=== PATIENT | male | born 1980 | race African-American/Black ===

== ENCOUNTER 2016-09-22 11:00 | Emergency (ER) | payer OTHER ==
[~2016-09-22] VITALS: Ht 188 cm; Wt 204.1 kg
[~2016-09-22 11:00] MED LIST: AMIT50TA PO; ASPI81TA2 PO; INSU100C4 SQ; INSU100I13 SQ; INSU100V13 SQ; LISI-334 PO
[2016-09-22 11:38] LABS: BASO # 0.1 x10^3/uL (0.0-0.2); BASO % 1 % (0-3); EOS % 3 % (0-3); HEMATOCRIT 41.1 % (39.0-53.0); HEMOGLOBIN 13.1 g/dL (13.0-17.5); LYMPH % 20 % (24-48); MEAN CORPUSCULAR HEMOGLOBIN 25 pg (25-35); MEAN CORPUSCULAR HGB CONC 32 g/dL (31-37); MEAN CORPUSCULAR VOLUME 77 fL (79-100); MONO % 8 % (0-9); NEUT % 68 % (31-73); PLATELET COUNT 295 x10^3/uL (140-400); RED BLOOD COUNT 5.31 x10^6/uL (4.30-5.70); RED CELL DISTRIBUTION WIDTH 14.2 % (11.5-14.5)
[2016-09-22 11:43] LABS: CALCIUM 8.8 mg/dL (8.5-10.1); CREATININE 1.1 mg/dL (0.7-1.3); GFR 90.6
[2016-09-22] MEDS ORDERED: IV NORMAL SALINE 1000ML BAG 1,000 ML IV SCH (11:46)
[2016-09-22 11:49] LABS: ALBUMIN 3.4 g/dL (3.4-5.0); ALBUMIN/GLOBULIN RATIO 0.8 (1.0-1.7); TOTAL BILIRUBIN 0.2 mg/dL (0.2-1.0); TOTAL PROTEIN 7.9 g/dL (6.4-8.2)
--- NOTE | 2016-09-22 11:49 | PHYS DOC ---
Past Medical History Past Medical History: Diabetes-Type II, Hypertension Additional Past Medical Histor: Morbid obesity, neuropathy Past Surgical History: No Surgical History Alcohol Use: Occasionally Drug Use: Marijuana Adult General Chief Complaint Chief Complaint: HYPERGLYCEMIA HPI HPI Patient is a 36 year old female who presents with hyperglycemia. He reports a past 3 days his blood sugars been reading high on his home glucometer. He also reports polyuria, polydipsia, increased fatigue. He says he feels dehydrated. He has been taking his insulin as prescribed; he says he takes 30 units novolog 3 times a day. Diet has been typical with no significant change. Only other acute complaint is runny nose. Review of Systems Review of Systems Constitutional: Fatigue. Denies fever or chills Eyes: Denies change in visual acuity or eye pain HENT: Rhinorrhea. Denies sore throat Respiratory: Denies cough or shortness of breath Cardiovascular: Denies chest pain GI: Denies abdominal pain, nausea, vomiting, bloody stools or diarrhea : Denies dysuria or hematuria Musculoskeletal: Denies back pain or joint pain Endocrine: Polyuria, polydipsia Neurologic: Denies headache, focal weakness or sensory changes Current Medications Current Medications Current Medications Medications (Trade) Dose Ordered Sig/Navi Start Time Stop Time Status Last Admin Dose Admin Lactated Ringer's (Iv Lactated Ringers) 1,000 ml @ 1,000 mls/hr 1X ONCE 09/22/16 13:45 09/22/16 14:44 DC 09/22/16 14:19 1,000 MLS/HR Sodium Chloride 1,000 ml @ 1,000 mls/hr Q1H 09/22/16 11:46 09/22/16 12:45 DC 09/22/16 12:39 1,000 MLS/HR Allergies Allergies Allergies Coded Allergies Type Severity Reaction Last Updated Verified Sulfa (Sulfonamide Antibiotics) Allergy Intermediate 12/20/15 Yes adhesive tape Allergy Intermediate skin sensitive to tape 12/20/15 Yes Physical Exam Physical Exam Constitutional: Well developed, well nourished, no acute distress, non-toxic appearance HENT: Normocephalic, atraumatic, bilateral external ears normal Eyes: PERRL, EOMI, conjunctiva normal, no discharge Neck: Normal range of motion, no stridor Cardiovascular: Heart rate normal, regular rhythm, no murmur Lungs & Thorax: Bilateral breath sounds clear to auscultation Abdomen: Obese, bowel sounds normal, soft, non-distended, no TTP Skin: Warm, dry, no erythema, no rash Extremities: No obvious deformity, no edema Neurologic: Somnolent but easily aroused, oriented X 3, no gross deficits noted Current Patient Data Vital Signs Vital Signs Date Time Temp Pulse Resp B/P Pulse Ox O2 Delivery O2 Flow Rate FiO2 09/22/16 15:53 89 28 142/85 98 Room Air 09/22/16 11:10 97.6 97.6 Lab Values Laboratory Tests Test 09/22/16 11:25 09/22/16 11:37 09/22/16 13:39 09/22/16 14:20 White Blood Count 10.0x10^3/uL (4.0-11.0) Red Blood Count 5.31x10^6/uL (4.30-5.70) Hemoglobin 13.1g/dL (13.0-17.5) Hematocrit 41.1% (39.0-53.0) Mean Corpuscular Volume 77fL (79-100) L Mean Corpuscular Hemoglobin 25pg (25-35) Mean Corpuscular Hemoglobin Concent 32g/dL (31-37) Red Cell Distribution Width 14.2% (11.5-14.5) Platelet Count 295x10^3/uL (140-400) Neutrophils (%) (Auto) 68% (31-73) Lymphocytes (%) (Auto) 20% (24-48) L Monocytes (%) (Auto) 8% (0-9) Eosinophils (%) (Auto) 3% (0-3) Basophils (%) (Auto) 1% (0-3) Neutrophils # (Auto) 6.8x10^3uL (1.8-7.7) Lymphocytes # (Auto) 2.0x10^3/uL (1.0-4.8) Monocytes # (Auto) 0.8x10^3/uL (0.0-1.1) Eosinophils # (Auto) 0.3x10^3/uL (0.0-0.7) Basophils # (Auto) 0.1x10^3/uL (0.0-0.2) Sodium Level 135mmol/L (136-145) L Potassium Level 4.0mmol/L (3.5-5.1) Chloride Level 99mmol/L (98-107) Carbon Dioxide Level 29mmol/L (21-32) Anion Gap 7 (6-14) Blood Urea Nitrogen 17mg/dL (8-26) Creatinine 1.1mg/dL (0.7-1.3) Estimated GFR (Cockcroft-Gault) 90.6 BUN/Creatinine Ratio 15 (6-20) Glucose Level 338mg/dL (70-99) H Calcium Level 8.8mg/dL (8.5-10.1) Total Bilirubin 0.2mg/dL (0.2-1.0) Aspartate Amino Transferase (AST) 8U/L (15-37) L Alanine Aminotransferase (ALT) 21U/L (16-63) Alkaline Phosphatase 87U/L (46-116) Total Protein 7.9g/dL (6.4-8.2) Albumin 3.4g/dL (3.4-5.0) Albumin/Globulin Ratio 0.8 (1.0-1.7) L Glucose (Fingerstick) 339mg/dL (70-99) H 154mg/dL (70-99) H Urine Collection Type Unknown Urine Color Yellow Urine Clarity Clear Urine pH 5.5 Urine Specific Springer 1.025 Urine Protein Negativemg/dL (NEG-TRACE) Urine Glucose (UA) >=1000mg/dL (NEG) Urine Ketones (Stick) Negativemg/dL (NEG) Urine Blood Negative (NEG) Urine Nitrite Negative (NEG) Urine Bilirubin Negative (NEG) Urine Urobilinogen Dipstick 0.2mg/dL (0.2 mg/dL) Urine Leukocyte Esterase Negative (NEG) Urine RBC 0/HPF (0-2) Urine WBC 1-4/HPF (0-4) Urine Squamous Epithelial Cells Few/LPF Urine Bacteria Few/HPF (0-FEW) Urine Mucus Slight/LPF Test 09/22/16 15:45 Glucose (Fingerstick) 112mg/dL (70-99) H Laboratory Tests 09/22/16 11:25 Laboratory Tests 09/22/16 11:25 EKG EKG [] Radiology/Procedures Radiology/Procedures CXR: Impression: No acute thoracic findings. Course & Med Decision Making Course & Med Decision Making Pertinent Labs and Imaging studies reviewed. (See chart for details) Patient is 36-year-old male who presents with hyperglycemia. Had been given 50 units of NovoLog better prior to coming in, blood glucose level down to 300s on arrival to the ED. Will check labs to rule out serious complication such as DKA. IV fluid bolus ordered. Labs notable for for blood glucose level greater than 300. After fluid bolus, this had gone down to 154. Additional fluids ordered. Patient in ED to monitor blood sugar make sure that it did not drop to dangerous levels. Repeat fingerstick after several hours in ED was 112. Discussed results with patient. Discussed importance of following up with PCP for possible adjustment of diabetes meds; also discussed return precautions. Patient discharged home. Dragon Disclaimer Dragon Disclaimer This electronic medical record was generated, in whole or in part, using a voice recognition dictation system. Departure Departure Impression: Primary Impression: Hyperglycemia Disposition: 01 HOME, SELF-CARE Condition: IMPROVED Referrals: BALA BYRNES MD (PCP) Patient Instructions: Hyperglycemia Additional Instructions: Thank you for allowing us to provide care today in the Emergency Department. Schedule a follow up appointment with your primary care doctor. You may need your diabetes medications adjusted. Return promptly to the Emergency Department if you develop any new or concerning symptoms. LIZZETTE GOODMAN MD Sep 22, 2016 11:49
--- NOTE | 2016-09-22 13:10 | RAD ---
Indication: Hyperglycemia and short of air today. Hypertension. Technique: Two-view chest radiograph was obtained. Comparison is from June 23, 2012. Findings: The lungs are clear. The cardiopulmonary silhouette is within normal limits. There is no pleural effusion. The bony structures are intact. Leads overlie the patient. Impression: No acute thoracic findings.
[2016-09-22] MEDS ORDERED: IV RINGERS,LACTATED 1000ML 1,000 ML IV ONE (13:45)
[2016-09-22 14:59] LABS: BILIRUBIN,URINE NEGATIVE (NEG); GLUCOSE,URINE >=1000 mg/dL (NEG); NITRITE,URINE NEGATIVE (NEG); PH,URINE 5.5; PROTEIN,URINE NEGATIVE (NEG-TRACE); UROBILINOGEN,URINE 0.2 mg/dL (0.2 mg/dL)
[2016-09-22 15:13] LABS: BACTERIA,URINE FEW /HPF (0-FEW); RBC,URINE 0 /HPF (0-2); SQUAMOUS EPITHELIAL CELL,UR FEW /LPF
[2016-09-22 15:53] VITALS: BP 142/85
== END 2016-09-22 15:54 | disposition home or self-care (01) ==
LOC: ER 11:00
DX: E11.65 Type 2 diabetes mellitus with hyperglycemia (principal); R09.89 Other specified symptoms and signs involving the circulatory and respiratory systems; I10 Essential (primary) hypertension; E66.01 Morbid (severe) obesity due to excess calories; E11.40 Type 2 diabetes mellitus with diabetic neuropathy, unspecified; F12.10 Cannabis abuse, uncomplicated; Z91.048 Other nonmedicinal substance allergy status; Z79.4 Long term (current) use of insulin; Z88.2 Allergy status to sulfonamides; Z68.43 Body mass index [BMI] 50.0-59.9, adult
CPT/HCPCS: 36415; 71020; 80053; 81001; 82947; 85027; 96360; 96361; 99285; J7030; J7120

== ENCOUNTER 2017-02-01 16:15 | Emergency (ER) | payer OTHER ==
[2017-02-01 16:27] VITALS: BP 166/87
--- NOTE | 2017-02-01 16:29 | PHYS DOC ---
Past Medical History Past Medical History: Diabetes-Type II, Hypertension Additional Past Medical Histor: Morbid obesity, neuropathy Past Surgical History: No Surgical History Alcohol Use: Occasionally Drug Use: Marijuana Adult General Chief Complaint Chief Complaint: ASTHMA HPI HPI Patient is a 36 year old gentleman who presents with a history of productive cough for the past 4-5 days with shortness of air. Patient has a history of asthma and has been doing breathing treatments at home. Patient denies smoking. Patient denies any fevers. Patient denies any chest pain. Patient is diabetic and severe obese. Patient has no other complaints. Patient denies any cardiac history or any history of PE. Pertinent exam findings: Tachycardia Lungs: CTAB ED course: 1627: CXR ordered 1800: Patient reevaluated who is feeling much better and is ready to go home. Explained chest x-ray results the patient may need placement on antibiotics and steroids. Patient states he'll follow up was recently in 1-2 days Pertinent findings: Two-view chest x-ray shows left lower lobe infiltrates ED decision-making: After reviewing the chart, CC/HPI/PMH, PE, chest x-ray results I do not believe the patient is having a severe respiratory infection warranting further workup and admission at this time. Low suspicion for an acute PE with the well's score of 1.5. On re-examination patient states he feels better and desired to go home. I believe the patient is stable for discharge with oral antibiotics. Additional verbal discharge instructions were provided to the patient and that if symptoms get worse or any new symptoms arise or worsen the patient is to returned emergency room immediately. Review of Systems Review of Systems Constitutional: Denies fever or chills [] Eyes: Denies change in visual acuity, redness, or eye pain [] HENT: Denies nasal congestion or sore throat [] Respiratory: SOA, cough Cardiovascular: No additional information not addressed in HPI [] GI: Denies abdominal pain, nausea, vomiting, bloody stools or diarrhea [] : Denies dysuria or hematuria [] Musculoskeletal: Denies back pain or joint pain [] Integument: Denies rash or skin lesions [] Neurologic: Denies headache, focal weakness or sensory changes [] Endocrine: Denies polyuria or polydipsia [] Current Medications Current Medications Current Medications Medications (Trade) Dose Ordered Sig/Navi Start Time Stop Time Status Last Admin Dose Admin Dexamethasone Sodium Phosphate (Decadron) 10 mg 1X ONCE 02/01/17 16:30 02/01/17 16:31 DC 02/01/17 16:30 10 MG Allergies Allergies Allergies Coded Allergies Type Severity Reaction Last Updated Verified Sulfa (Sulfonamide Antibiotics) Allergy Intermediate 12/20/15 Yes adhesive tape Allergy Intermediate skin sensitive to tape 12/20/15 Yes Physical Exam Physical Exam Constitutional: Well developed, well nourished, no acute distress, non-toxic appearance. [] HENT: Normocephalic, atraumatic, bilateral external ears normal, oropharynx moist, no oral exudates, nose normal. [] Eyes: PERRLA, EOMI, conjunctiva normal, no discharge. [] Neck: Normal range of motion, no tenderness, supple, no stridor. [] Cardiovascular:Tachy, regular rhythm, no murmur [] Lungs & Thorax: Bilateral breath sounds clear to auscultation [] Abdomen: Bowel sounds normal, soft, no tenderness, no masses, no pulsatile masses. [] Skin: Warm, dry, no erythema, no rash. [] Back: No tenderness, no CVA tenderness. [] Extremities: No tenderness, no cyanosis, no clubbing, ROM intact, no edema. [] Neurologic: Alert and oriented X 3, normal motor function, normal sensory function, no focal deficits noted. [] Psychologic: Affect normal, judgement normal, mood normal. [] Current Patient Data Vital Signs Vital Signs Date Time Temp Pulse Resp B/P (MAP) Pulse Ox O2 Delivery O2 Flow Rate FiO2 02/01/17 16:27 98.7 99 20 95 Room Air 98.7 EKG EKG [] Radiology/Procedures Radiology/Procedures Two-view chest x-ray Infiltrates left lower lobe [] Course & Med Decision Making Course & Med Decision Making Pertinent Labs and Imaging studies reviewed. (See chart for details) [] Dragon Disclaimer Dragon Disclaimer This electronic medical record was generated, in whole or in part, using a voice recognition dictation system. Departure Departure Impression: Primary Impression: Left lower lobe pneumonia Disposition: 01 HOME, SELF-CARE Condition: IMPROVED Referrals: UNKNOWN PCP NAME (PCP) Patient Instructions: Pneumonia, Adult Scripts Azithromycin (ZITHROMAX PACKET) 1 Gm Packet 1 PACKET PO ONCE, #1 PACKET Prov: MARY ANN AARON DO 02/01/17 Prednisone (PREDNISONE) 50 Mg Tablet 1 TAB PO DAILY, #5 TAB Prov: MARY ANN AARON DO 02/01/17 Problem Qualifiers Primary Impression: Left lower lobe pneumonia Pneumonia type: due to unspecified organism Qualified Codes: J18.1 - Lobar pneumonia, unspecified organism MARY ANN AARON DO February 01, 2017 16:29
[2017-02-01] MEDS ORDERED: DEXAMETHASONE SOD PHOS 4 MG/ML VIAL IM ONE (16:30)
[2017-02-01] MEDS ORDERED: PRED50TA PO (18:09)
[2017-02-01] MEDS ORDERED: AZIT1PAC PO (18:09)
--- NOTE | 2017-02-02 08:51 | RAD ---
EXAM: CHEST 2 VIEWS History: Shortness of breath COMPARISON: 09/22/2016 TECHNIQUE: PA and lateral chest radiographs FINDINGS: The cardiomediastinal silhouette is within normal limits. The lungs are clear bilaterally. The costophrenic sulci are clear and well demarcated bilaterally. IMPRESSION: No radiographic evidence of an acute cardiopulmonary abnormality.
== END 2017-02-01 18:37 | disposition home or self-care (01) ==
LOC: ER 17:27
DX: J18.9 Pneumonia, unspecified organism (principal); E11.40 Type 2 diabetes mellitus with diabetic neuropathy, unspecified; I10 Essential (primary) hypertension; J45.909 Unspecified asthma, uncomplicated; E66.9 Obesity, unspecified; Z68.45 Body mass index [BMI] 70 or greater, adult; F12.10 Cannabis abuse, uncomplicated; Z88.2 Allergy status to sulfonamides; Z88.8 Allergy status to other drugs, medicaments and biological substances
CPT/HCPCS: 71020; 96372; 99284; J1100

== ENCOUNTER 2018-02-24 21:27 | Emergency (ER) | payer OTHER ==
[2018-02-24 22:18] LABS: ADD MAN DIFF? NO
[2018-02-24 22:21] LABS: BASO # 0.1 x10^3/uL (0.0-0.2); BASO % 1 % (0-3); EOS # 0.4 x10^3/uL (0.0-0.7); EOS % 3 % (0-3); HEMATOCRIT 41.8 % (39.0-53.0); HEMOGLOBIN 13.8 g/dL (13.0-17.5); LYMPH # 2.1 x10^3/uL (1.0-4.8); LYMPH % 17 % (24-48); MEAN CORPUSCULAR HEMOGLOBIN 26 pg (25-35); MEAN CORPUSCULAR HGB CONC 33 g/dL (31-37); MEAN CORPUSCULAR VOLUME 78 fL (79-100); MONO % 8 % (0-9); NEUT # 8.6 x10^3uL (1.8-7.7); NEUT % 71 % (31-73); PLATELET COUNT 339 x10^3/uL (140-400); RED BLOOD COUNT 5.34 x10^6/uL (4.30-5.70); RED CELL DISTRIBUTION WIDTH 15.2 % (11.5-14.5); WHITE BLOOD COUNT 12.1 x10^3/uL (4.0-11.0)
[2018-02-24] MEDS: fentaNYL PF VIAL 100 MCG/2 ML VIAL IV (22:27)
[2018-02-24] MEDS: ONDANSETRON PF 4 MG/2 ML VIAL. IV (22:28)
[2018-02-24 22:29] LABS: PROTHROMBIN TIME PATIENT 12.3 SEC (11.7-14.0)
[2018-02-24] MEDS ORDERED: CONTRAST GIVEN. MC (22:30)
[2018-02-24] MEDS: IOHEXOL 300 MG/ML 100ML VIAL. IV (22:30)
[2018-02-24 22:36] LABS: ANION GAP 10 (6-14); BLOOD UREA NITROGEN 13 mg/dL (8-26); BUN/CREATININE RATIO 13 (6-20); CALCIUM 8.2 mg/dL (8.5-10.1); CARBON DIOXIDE 27 mmol/L (21-32); CHLORIDE 100 mmol/L (98-107); GFR 100.7; GLUCOSE 305 mg/dL (70-99); POTASSIUM 4.2 mmol/L (3.5-5.1); SODIUM 137 mmol/L (136-145)
[2018-02-24 22:42] LABS: ALBUMIN 3.3 g/dL (3.4-5.0); ALBUMIN/GLOBULIN RATIO 0.8 (1.0-1.7); ALK PHOS 97 U/L (46-116); ALT (SGPT) 24 U/L (16-63); AST (SGOT) 10 U/L (15-37); CREATINE KINASE 87 U/L (39-308); LIPASE 43 U/L (73-393); TOTAL BILIRUBIN 0.4 mg/dL (0.2-1.0); TOTAL PROTEIN 7.6 g/dL (6.4-8.2)
[2018-02-24 22:44] LABS: TROPONINI < 0.017 ng/mL (0.000-0.055)
[2018-02-24 22:49] LABS: CKMB MASS 0.9 ng/mL (0.0-3.6); CREATINE KINASE 92 U/L (39-308)
[2018-02-25] MEDS: MORPHINE SULFATE 4 MG/ML DISP.SYRIN. IV (00:51)
[2018-02-25] MEDS: IV NORMAL SALINE 1000ML BAG 1,000 ML IV (00:52)
== END 2018-02-25 04:25 | disposition short-term general hospital (02) ==
LOC: ER 02-25 04:25
DX: K80.20 Calculus of gallbladder without cholecystitis without obstruction (principal); R07.89 Other chest pain; M79.671 Pain in right foot; I10 Essential (primary) hypertension; E11.40 Type 2 diabetes mellitus with diabetic neuropathy, unspecified; E66.01 Morbid (severe) obesity due to excess calories; J45.909 Unspecified asthma, uncomplicated; Z88.2 Allergy status to sulfonamides; Z88.8 Allergy status to other drugs, medicaments and biological substances; Z68.44 Body mass index [BMI] 60.0-69.9, adult; W01.0XXA Fall on same level from slipping, tripping and stumbling without subsequent striking against object, initial encounter; Y93.01 Activity, walking, marching and hiking; Y99.8 Other external cause status; Y92.89 Other specified places as the place of occurrence of the external cause
CPT/HCPCS: 36415; 71045; 71260; 73630; 74177; 80053; 82550; 82553; 83690; 84484; 85025; 85610; 93005; 96365; 96368; 96375; 99285-25; J0690; J2270; J2405; J3010; J3490; J7030; Q9967

== ENCOUNTER → 2018-03-23 | Outpatient (CLI) | payer OTHER | END | disposition home or self-care (01) | LOC: SLPLAB 18:59 | DX: G47.33 Obstructive sleep apnea (adult) (pediatric) (principal); G47.61 Periodic limb movement disorder; I10 Essential (primary) hypertension; E11.65 Type 2 diabetes mellitus with hyperglycemia; E78.00 Pure hypercholesterolemia, unspecified | CPT/HCPCS: 95810 ==

== ENCOUNTER 2018-04-22 02:56 | Emergency (ER) | payer OTHER ==
[2018-04-22 03:36] LABS: BILIRUBIN,URINE NEGATIVE (NEG); CLARITY,URINE CLEAR; COLOR,URINE YELLOW; GLUCOSE,URINE 100 mg/dL (NEG); NITRITE,URINE NEGATIVE (NEG); PH,URINE 5.5; PROTEIN,URINE 30 mg/dL (NEG-TRACE)
[2018-04-22 03:43] LABS: AMORPHOUS SEDIMENT,UR PRESENT /HPF; BACTERIA,URINE MANY /HPF (0-FEW); RBC,URINE 0 /HPF (0-2); SQUAMOUS EPITHELIAL CELL,UR MOD /LPF
[2018-04-22] MEDS: HYDROcodone/APAP 5/325MG 1 TAB TABLET PO (03:53)
[2018-04-22] MEDS: ORPHENADRINE CITRATE 60 MG/2 ML VIAL. IM (03:53)
[2018-04-22] MEDS: LIDOCAINE (700MG/PATCH) PATCH. TD (03:53)
[2018-04-22] MEDS: CEPHALEXIN 250 MG CAPSULE. PO (03:54)
[2018-04-22] MEDS: KETOROLAC 60 MG/2 ML INJ. IM (03:54)
== END 2018-04-22 04:03 | disposition home or self-care (01) ==
LOC: ER 02:56
DX: M54.5 Low back pain (principal); M79.605 Pain in left leg; J45.909 Unspecified asthma, uncomplicated; E11.40 Type 2 diabetes mellitus with diabetic neuropathy, unspecified; E78.00 Pure hypercholesterolemia, unspecified
CPT/HCPCS: 81001; 87086; 96372; 99284-25; J1885; J2360

== ENCOUNTER 2018-12-09 00:18 | Inpatient (IN) | payer OTHER ==
[~2018-12-09] VITALS: Ht 188 cm; Wt 237.2 kg
[~2018-12-09 00:18] MED LIST changes: +ASPI-630 PO; -ASPI81TA2 PO; +AZIT1PAC PO; +CEPH-264 PO; +HYDR-3164 PO; +LIDO700A39 TP; +NAPR-514 PO; +ORPH100T PO; +PRED50TA PO
[2018-12-09] MEDS ORDERED: ALBUTEROL SULFATE 2.5 MG/3 ML NEBU. CONT NEB ONE (01:00)
[2018-12-09] MEDS ORDERED: methylPREDNISolone SOD SUCC PF 125 MG/2 ML VIAL. IV ONE (01:00)
[2018-12-09 01:04] LABS: BASO # 0.1 x10^3/uL (0.0-0.2); BASO % 1 % (0-3); EOS % 0 % (0-3); HEMATOCRIT 37.9 % (39.0-53.0); HEMOGLOBIN 12.1 g/dL (13.0-17.5); LYMPH % 8 % (24-48); MEAN CORPUSCULAR HEMOGLOBIN 25 pg (25-35); MEAN CORPUSCULAR HGB CONC 32 g/dL (31-37); MEAN CORPUSCULAR VOLUME 78 fL (79-100); MONO # 1.2 x10^3/uL (0.0-1.1); MONO % 10 % (0-9); NEUT # 10.3 x10^3uL (1.8-7.7); NEUT % 82 % (31-73); PLATELET COUNT 391 x10^3/uL (140-400); RED BLOOD COUNT 4.88 x10^6/uL (4.30-5.70); RED CELL DISTRIBUTION WIDTH 15.6 % (11.5-14.5); WHITE BLOOD COUNT 12.6 x10^3/uL (4.0-11.0)
[2018-12-09 01:16] LABS: CALCIUM 8.6 mg/dL (8.5-10.1); CREATININE 0.9 mg/dL (0.7-1.3); GFR 113.1; POTASSIUM 4.5 mmol/L (3.5-5.1)
[2018-12-09 01:22] LABS: ALBUMIN 3.2 g/dL (3.4-5.0); ALBUMIN/GLOBULIN RATIO 0.7 (1.0-1.7); TOTAL BILIRUBIN 0.2 mg/dL (0.2-1.0); TOTAL PROTEIN 7.7 g/dL (6.4-8.2)
[2018-12-09 02:11] LABS: INFLUENZA A PATIENT NEGATIVE (NEGATIVE); INFLUENZA B PATIENT NEGATIVE (NEGATIVE)
[2018-12-09] MEDS ORDERED: DOXYCYCLINE HYCLATE 100 MG TABLET PO ONE (02:30)
[2018-12-09] MEDS ORDERED: cefTRIAXone IV Push 1 GM VIAL. IVP ONE (02:30)
--- NOTE | 2018-12-09 04:02 | NUR ---
The patient, GIO CORRALES, 38 y/o, M admitted by DAVID MARTÍNEZ MD, was given written information regarding hospital policies, unit procedures and contact persons. Patient arrived to room via wheelchair assisted by ED staff member. Valuables were checked and noted. Patient is currently laying in bed at this time. Patient was provided with a hospital gown and ice water upon patient request. Patient states that he is not experiencing any pain or shortness of breath at this time. This RN will continue to monitor the patient.
[2018-12-09 04:15] VITALS: BP 106/58
--- NOTE | 2018-12-09 05:08 | PHYS DOC ---
Past Medical History Past Medical History: Asthma, Diabetes-Type II, High Cholesterol, Hypertension Additional Past Medical Histor: Morbid obesity, neuropathy Past Surgical History: No Surgical History Alcohol Use: Occasionally Drug Use: Marijuana Adult General Chief Complaint Chief Complaint: SHORTNESS OF BREATH HPI HPI Patient is a 38 year old patient has a history of asthma coughing up yellow sputum having fevers having chest pain with coughing and quite short of breath overall. The chest pain is center of the chest feeling like pressure but also worse with coughing. Review of Systems Review of Systems Constitutional: Eyes: Denies change in visual acuity, redness, or eye pain [] HENT: D GI: Denies abdominal pain, nausea, vomiting, bloody stools or diarrhea [] : Denies dysuria or hematuria [] Musculoskeletal: Denies back pain or joint pain [] Neurologic: Denies headache, focal weakness or sensory changes [] All other systems were reviewed and found to be within normal limits, except as documented in this note. Current Medications Current Medications Current Medications Medications (Trade) Dose Ordered Sig/Navi Start Time Stop Time Status Last Admin Dose Admin Albuterol Sulfate (Ventolin Neb Soln) 10 mg 1X ONCE 12/09/18 01:00 12/09/18 01:01 DC 12/09/18 00:47 10 MG Methylprednisolone Sodium Succinate (SOLU-Medrol 125MG VIAL) 125 mg 1X ONCE 12/09/18 01:00 12/09/18 01:01 DC 12/09/18 01:13 125 MG Allergies Allergies Allergies Coded Allergies Type Severity Reaction Last Updated Verified Sulfa (Sulfonamide Antibiotics) Allergy Intermediate 12/20/15 Yes adhesive tape Allergy Intermediate skin sensitive to tape 12/20/15 Yes Physical Exam Physical Exam Constitutional: Well developed, well nourished, no acute distress, non-toxic appearance. [] HENT: Normocephalic, atraumatic, bilateral external ears normal, oropharynx moist, no oral exudates, nose normal. [] Eyes: PERRLA, conjunctiva normal, no discharge. [] Neck: Normal range of motion, no tenderness, supple, no stridor. [] Cardiovascular: mild tachy no definite murmurs. Lungs & Thorax: wheezing noted b/l. pt has frequent reactive cough. Abdomen: Bowel sounds normal, soft, no tenderness, no masses, no pulsatile masses. [] Skin: Warm, dry, no erythema, no rash. [] Back: No tenderness, no CVA tenderness. [] Extremities: No tenderness, no cyanosis, no clubbing, ROM intact, no edema. [] Neurologic: Alert and oriented X 3, normal motor function, normal sensory function, no focal deficits noted. [] Current Patient Data Vital Signs Vital Signs Date Time Temp Pulse Resp B/P (MAP) Pulse Ox O2 Delivery O2 Flow Rate FiO2 12/09/18 00:46 96 Room Air 12/09/18 00:28 116 143/65 (91) 12/09/18 00:25 99.5 30 99.5 Lab Values Laboratory Tests Test 12/09/18 00:56 White Blood Count 12.6 x10^3/uL (4.0-11.0) H Red Blood Count 4.88 x10^6/uL (4.30-5.70) Hemoglobin 12.1 g/dL (13.0-17.5) L Hematocrit 37.9 % (39.0-53.0) L Mean Corpuscular Volume 78 fL (79-100) L Mean Corpuscular Hemoglobin 25 pg (25-35) Mean Corpuscular Hemoglobin Concent 32 g/dL (31-37) Red Cell Distribution Width 15.6 % (11.5-14.5) H Platelet Count 391 x10^3/uL (140-400) Neutrophils (%) (Auto) 82 % (31-73) H Lymphocytes (%) (Auto) 8 % (24-48) L Monocytes (%) (Auto) 10 % (0-9) H Eosinophils (%) (Auto) 0 % (0-3) Basophils (%) (Auto) 1 % (0-3) Neutrophils # (Auto) 10.3 x10^3uL (1.8-7.7) H Lymphocytes # (Auto) 1.0 x10^3/uL (1.0-4.8) Monocytes # (Auto) 1.2 x10^3/uL (0.0-1.1) H Eosinophils # (Auto) 0.0 x10^3/uL (0.0-0.7) Basophils # (Auto) 0.1 x10^3/uL (0.0-0.2) Sodium Level 140 mmol/L (136-145) Potassium Level 4.5 mmol/L (3.5-5.1) Chloride Level 102 mmol/L (98-107) Carbon Dioxide Level 28 mmol/L (21-32) Anion Gap 10 (6-14) Blood Urea Nitrogen 20 mg/dL (8-26) Creatinine 0.9 mg/dL (0.7-1.3) Estimated GFR (Cockcroft-Gault) 113.1 BUN/Creatinine Ratio 22 (6-20) H Glucose Level 114 mg/dL (70-99) H Lactic Acid Level 1.7 mmol/L (0.4-2.0) Calcium Level 8.6 mg/dL (8.5-10.1) Total Bilirubin 0.2 mg/dL (0.2-1.0) Aspartate Amino Transferase (AST) 23 U/L (15-37) Alanine Aminotransferase (ALT) 34 U/L (16-63) Alkaline Phosphatase 103 U/L (46-116) Troponin I Quantitative < 0.017 ng/mL (0.000-0.055) JZ-Hap-F-Type Natriuretic Peptide 62 pg/mL (0-124) Total Protein 7.7 g/dL (6.4-8.2) Albumin 3.2 g/dL (3.4-5.0) L Albumin/Globulin Ratio 0.7 (1.0-1.7) L Influenza Type A Antigen Negative (NEGATIVE) Influenza Type B Antigen Negative (NEGATIVE) Laboratory Tests 12/09/18 00:56 Laboratory Tests 12/09/18 00:56 EKG EKG Sinus tach rate 113 no obvious acute ischemic changes noted interpreted by me time of encounter[] Radiology/Procedures Radiology/Procedures [] Impressions: Chest x-ray very poor quality film due to body habitus I thought I might suspect a small left basilar pneumonia however this is a questionable read awaiting final read Course & Med Decision Making Course & Med Decision Making Pertinent Labs and Imaging studies reviewed. (See chart for details) []38-year-old male with known asthma presenting with coughing having fevers at home short of breath wheezing on examination oxygen saturation is okay however patient appears moderately short of breath given his body habitus and his underlying asthma he had continued wheezing despite beta agonist therapy in the emergency room possible pneumonia on my read of chest x-ray final read is pending. Given his continued bronchospasm he will be admitted to the service of Dr. Ulloa for further evaluation and management. I did give some antibiotics while we are waiting for final read of x-ray. Cardiac workup in the emergency room was negative Elie Disclaimer Elie Disclaimer This electronic medical record was generated, in whole or in part, using a voice recognition dictation system. Departure Departure Impression: Primary Impression: Asthma exacerbation Disposition: ADMITTED INPATIENT Admitting Physician: Other Condition: STABLE Referrals: NO PCP (PCP) PIPER SALEEM MD Dec 09, 2018 05:08
--- NOTE | 2018-12-09 06:01 | EKG ---
[facility] [address] [place] [address] Test Date: 2018-12-09 Test Time: 00:30:27 Pat Name: GIO CORRALES Department: Room: 569 1 Gender: M [employer]: : 1980 Requested By: PIPER SALEEM Order Number: [id number] Reading MD: Kurt Vela MD Measurements Intervals [place] Rate: 113 P: 54 PA: 140 QRS: 17 QRSD: 90 T: 40 QT: 306 QTc: 419 Interpretive Statements SINUS TACHYCARDIA VENTRICULAR PREMATURE COMPLEX(ES) Electronically Signed On 12-11-2018 16:15:37 CDT by Kurt Vela MD
[2018-12-09 07:00] VITALS: BP 132/78
--- NOTE | 2018-12-09 07:35 | RAD ---
Indication:fever TECHNIQUE:Portable AP chest X-ray COMPARISON:03/03/2018 FINDINGS: Heart is normal in size. Bilateral prominent bronchial markings are seen with interstitial opacities. No focal consolidation. No pneumothorax or pleural effusion. Visualized bony thorax is within normal limits. IMPRESSION: Findings of bronchitis/atypical/viral infection. Electronically signed by: Yosi Shin DO (12/09/2018 7:32 AM) [facility]
[2018-12-09] MEDS: IPRATRPIUM/ALBUTEROL 0.5/2.5MG 3 ML NEBU. NEB SCH ×4 (07:53→19:39)
--- NOTE | 2018-12-09 08:07 | PDOC1 ---
History and Physical Date of Admission Date of Admission DATE: 12/09/18 TIME: 08:05 Identification/Chief Complaint Chief Complaint Shortness of breath Source Source: Chart review, Patient History of Present Illness History of Present Illness Mr Guillen is a 38 year old Male patient w/ PMHx asthma, HTN, DM2, morbid obesity, and newly diagnosed sleep apnea recently who presented to ED coughing up yellow sputum having fevers having chest pain with wheezing and quite short of breath overall. He has associated chest pain in center of the chest feeling like pressure but also worse with coughing and with palpation. He denies any GI or symptoms Past Medical History Cardiovascular: HTN Pulmonary: Asthma, Bronchitis GI: No pertinent hx Heme/Onc: No pertinent hx Hepatobiliary: No pertinent hx Psych: No pertinent hx Rheumatologic: No pertinent hx Infectious disease: No pertinent hx ENT: No pertinent hx Renal/: No pertinent hx Endocrine: Diabetes Dermatology: No pertinent hx Past Surgical History Past Surgical History: No pertinent history Family History Family History: Diabetes, High Cholestrol, Hypertension Social History Smoke: No ALCOHOL: none Drugs: None Current Medications Current Medications Current Medications Albuterol Sulfate (Ventolin Neb Soln) 10 mg 1X ONCE CONT NEB Last administered on 12/09/18at 00:47; Start 12/09/18 at 01:00; Stop 12/09/18 at 01:01 ; Status DC Methylprednisolone Sodium Succinate (SOLU-Medrol 125MG VIAL) 125 mg 1X ONCE IV Last administered on 12/09/18at 01:13; Start 12/09/18 at 01:00; Stop 12/09/18 at 01:01; Status DC Albuterol/ Ipratropium (Duoneb) 3 ml RTQID NEB Last administered on 12/09/18at 07:53; Start 12/09/18 at 08:00; Stop 12/10/18 at 07:59 Ceftriaxone Sodium (Rocephin) 1 gm 1X ONCE IVP Last administered on 12/09/18at 02:33; Start 12/09/18 at 02:30; Stop 12/09/18 at 02:31; Status DC Doxycycline Hyclate (Vibra-Tab) 100 mg 1X ONCE PO Last administered on at 02:33; Start 12/09/18 at 02:30; Stop 12/09/18 at 02:31; Status DC Active Scripts Active Keflex (Cephalexin) 500 Mg Capsule 1 Cap PO TID [place] 5-325 Tablet (Acetaminophen/Hydrocodone Bitart) 1 Each Tablet 1 Tab PO PRN Q6HRS PRN 5 Days Orphenadrine Citrate 100 Mg Tablet.er 1 Tab PO BID PRN Naproxen 500 Mg Tablet 1 Tab PO BID PRN Lidocaine 1 Each Adh..patch 1 Each TP DAILY PRN 5 Days Apply to affected area for 12 hours then remove and keep off for 12 hours. May repeat. Zithromax Packet (Azithromycin) 1 Gm Packet 1 Packet PO ONCE Prednisone 50 Mg Tablet 1 Tab PO DAILY Reported Lantus Solostar (Insulin Glargine,Hum.rec.anlog) 100 Unit/1 Ml Insuln.pen 30 Unit SQ BID Amitriptyline Hcl 50 Mg Tablet 1 Tab PO QHS Novolog (Insulin Aspart) 100 Unit/1 Ml Cartridge 30 Unit SQ TIDAC Aspirin 81 Mg Tab.chew 1 Tab PO DAILY Lisinopril 20 Mg Tablet 1 Tab PO DAILY Allergies Allergies: Coded Allergies: Sulfa (Sulfonamide Antibiotics) (Verified Allergy, Intermediate, 12/20/15) adhesive tape (Verified Allergy, Intermediate, skin sensitive to tape, ) ROS General: YES: Fatigue, Malaise; No: Chills, Night Sweats, Appetite, Other PSYCHOLOGICAL ROS: No: Anxiety, Behavioral Disorder, Concentration difficultie , Decreased libido, Depression, Disorientation, Hallucinations, Hostility, Irritablity, Memory difficulties, Mood Swings, Obsessive thoughts, Physical abuse, Sexual abuse, Sleep disturbances, Suicidal ideation, Other Eyes: No Blurry vision, No Decreased vision, No Double vision, No Dry eyes, No Excessive tearing, No Eye Pain, No Itchy Eyes, No Loss of vision, No Photophobia , No Scotomata, No Uses contacts, No Uses glasses, No Other HEENT: No: Heacaches, Visual Changes, Hearing change, Nasal congestion, Nasal discharge, Oral lesions, Sinus pain, Sore Throat, Epistaxis, Sneezing, Snoring, Tinnitus, Vertigo, Vocal changes, Other ALLERGY AND IMMUNOLOGY: No: Hives, Insect Bite Sensitivity, Itchy/Watery Eyes, Nasal Congestion, Post Nasal Drip, Seasonal Allergies, Other Hematological and Lymphatic: No: Bleeding Problems, Blood Clots, Blood Transfusions, Brusing, Night Sweats, Pallor, Swollen Lymph Nodes, Other ENDOCRINE: No: Breast Changes, Galactorrhea, Hair Pattern Changes, Hot Flashes , Malaise/lethargy, Mood Swings, Palpitations, Polydipsia/polyuria, Skin Changes , Temperature Intolerance, Unexpected Weight Changes, Other Breast: No New/Changing Breast Lumps, No Nipple changes, No Nipple discharge, No Other Respiratory: YES: Cough, Pleuritic Pain, Shortness of breath, SOB with excertion, Sputum Changes, Tachypnea, Wheezing; No: Hemoptysis, Orthopnea, Stridor, Other Cardiovascular: yes Chest Pain; No Palpitations, No Orthopnea, No Paroxysmal Noc. Dyspnea, No Edema, No Lt Headedness, No Other Gastrointestinal: Yes Nausea; No Vomiting, No Abdominal Pain, No Diarrhea, No Constipation, No Melena, No Hematochezia, No Other Genitourinary: No Dysuria, No Frequency, No Incontinence, No Hematuria, No Retention, No Discharge, No Urgency, No Pain, No Flank Pain, No Other, No , No , No , No , No , No , No Musculoskeletal: No Gait Disturbance, No Joint Pain, No Joint Stiffness, No Joint Swelling, No Muscle Pain, No Muscular Weakness, No Pain In:, No Swelling In:, No Other Neurological: No Behavorial Changes, No Bowel/Bladder ControlChng, No Confusion , No Dizziness, No Gait Disturbance, No Headaches, No Impaired Coord/balance, No Memory Loss, No Numbness/Tingling, No Seizures, No Speech Problems, No Tremors, No Visual Changes, No Weakness, No Other Skin: No Dry Skin, No Eczema, No Hair Changes, No Lumps, No Mole Changes, No Mottling, No Nail Changes, No Pruritus, No Rash, No Skin Lesion Changes, No Other, No Acne Vitals Vitals Vital Signs Date Time Temp Pulse Resp B/P (MAP) Pulse Ox O2 Delivery O2 Flow Rate FiO2 12/09/18 07:53 98 Room Air 12/09/18 04:15 98.8 106 22 106/58 (74) 98.8 Labs Labs Laboratory Tests Test 12/09/18 00:56 12/09/18 07:52 White Blood Count 12.6 x10^3/uL (4.0-11.0) Red Blood Count 4.88 x10^6/uL (4.30-5.70) Hemoglobin 12.1 g/dL (13.0-17.5) Hematocrit 37.9 % (39.0-53.0) Mean Corpuscular Volume 78 fL (79-100) Mean Corpuscular Hemoglobin 25 pg (25-35) Mean Corpuscular Hemoglobin Concent 32 g/dL (31-37) Red Cell Distribution Width 15.6 % (11.5-14.5) Platelet Count 391 x10^3/uL (140-400) Neutrophils (%) (Auto) 82 % (31-73) Lymphocytes (%) (Auto) 8 % (24-48) Monocytes (%) (Auto) 10 % (0-9) Eosinophils (%) (Auto) 0 % (0-3) Basophils (%) (Auto) 1 % (0-3) Neutrophils # (Auto) 10.3 x10^3uL (1.8-7.7) Lymphocytes # (Auto) 1.0 x10^3/uL (1.0-4.8) Monocytes # (Auto) 1.2 x10^3/uL (0.0-1.1) Eosinophils # (Auto) 0.0 x10^3/uL (0.0-0.7) Basophils # (Auto) 0.1 x10^3/uL (0.0-0.2) Sodium Level 140 mmol/L (136-145) Potassium Level 4.5 mmol/L (3.5-5.1) Chloride Level 102 mmol/L (98-107) Carbon Dioxide Level 28 mmol/L (21-32) Anion Gap 10 (6-14) Blood Urea Nitrogen 20 mg/dL (8-26) Creatinine 0.9 mg/dL (0.7-1.3) Estimated GFR (Cockcroft-Gault) 113.1 BUN/Creatinine Ratio 22 (6-20) Glucose Level 114 mg/dL (70-99) Lactic Acid Level 1.7 mmol/L (0.4-2.0) Calcium Level 8.6 mg/dL (8.5-10.1) Total Bilirubin 0.2 mg/dL (0.2-1.0) Aspartate Amino Transf (AST/SGOT) 23 U/L (15-37) Alanine Aminotransferase (ALT/SGPT) 34 U/L (16-63) Alkaline Phosphatase 103 U/L (46-116) Troponin I Quantitative < 0.017 ng/mL (0.000-0.055) QW-Yag-T-Type Natriuretic Peptide 62 pg/mL (0-124) Total Protein 7.7 g/dL (6.4-8.2) Albumin 3.2 g/dL (3.4-5.0) Albumin/Globulin Ratio 0.7 (1.0-1.7) Influenza Type A Antigen Negative (NEGATIVE) Influenza Type B Antigen Negative (NEGATIVE) Glucose (Fingerstick) 398 mg/dL (70-99) Laboratory Tests Test 12/09/18 00:56 12/09/18 07:52 White Blood Count 12.6 x10^3/uL (4.0-11.0) Red Blood Count 4.88 x10^6/uL (4.30-5.70) Hemoglobin 12.1 g/dL (13.0-17.5) Hematocrit 37.9 % (39.0-53.0) Mean Corpuscular Volume 78 fL (79-100) Mean Corpuscular Hemoglobin 25 pg (25-35) Mean Corpuscular Hemoglobin Concent 32 g/dL (31-37) Red Cell Distribution Width 15.6 % (11.5-14.5) Platelet Count 391 x10^3/uL (140-400) Neutrophils (%) (Auto) 82 % (31-73) Lymphocytes (%) (Auto) 8 % (24-48) Monocytes (%) (Auto) 10 % (0-9) Eosinophils (%) (Auto) 0 % (0-3) Basophils (%) (Auto) 1 % (0-3) Neutrophils # (Auto) 10.3 x10^3uL (1.8-7.7) Lymphocytes # (Auto) 1.0 x10^3/uL (1.0-4.8) Monocytes # (Auto) 1.2 x10^3/uL (0.0-1.1) Eosinophils # (Auto) 0.0 x10^3/uL (0.0-0.7) Basophils # (Auto) 0.1 x10^3/uL (0.0-0.2) Sodium Level 140 mmol/L (136-145) Potassium Level 4.5 mmol/L (3.5-5.1) Chloride Level 102 mmol/L (98-107) Carbon Dioxide Level 28 mmol/L (21-32) Anion Gap 10 (6-14) Blood Urea Nitrogen 20 mg/dL (8-26) Creatinine 0.9 mg/dL (0.7-1.3) Estimated GFR (Cockcroft-Gault) 113.1 BUN/Creatinine Ratio 22 (6-20) Glucose Level 114 mg/dL (70-99) Lactic Acid Level 1.7 mmol/L (0.4-2.0) Calcium Level 8.6 mg/dL (8.5-10.1) Total Bilirubin 0.2 mg/dL (0.2-1.0) Aspartate Amino Transf (AST/SGOT) 23 U/L (15-37) Alanine Aminotransferase (ALT/SGPT) 34 U/L (16-63) Alkaline Phosphatase 103 U/L (46-116) Troponin I Quantitative < 0.017 ng/mL (0.000-0.055) RL-Jcv-V-Type Natriuretic Peptide 62 pg/mL (0-124) Total Protein 7.7 g/dL (6.4-8.2) Albumin 3.2 g/dL (3.4-5.0) Albumin/Globulin Ratio 0.7 (1.0-1.7) Influenza Type A Antigen Negative (NEGATIVE) Influenza Type B Antigen Negative (NEGATIVE) Glucose (Fingerstick) 398 mg/dL (70-99) VTE Prophylaxis Ordered VTE Prophylaxis Devices: Yes VTE Pharmacological Prophylaxi: No Assessment/Plan Assessment/Plan A/P: Acute asthma exacerbation - will cont steroids, nebs, add pulmicort. 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 Given IVF Chest pain - EKG and trop negative, seems pleuritic HTN - will continue home meds DM2 - on 30u BID lantus and 35u TID novolog with frequent hypoglycemia, I will reduce his novolog dosing and add bolus plus sliding scale to 25U TID and high sliding Morbid obesity - counseled on weight loss Newly diagnosed sleep apnea - he would like a repeat CPAP titration tonight FEN - ADA diet PPX - SCDs FULL CODE Inpatient for acute asthma exacerbation DAVID MARTÍNEZ MD Dec 09, 2018 08:07
--- NOTE | 2018-12-09 09:52 | NUR ---
SW following for discharge planning. Discussed with RN, pt is from home with girlfriend. RN advised no SW needs at this time. SW will continue to follow.
[2018-12-09 11:00] VITALS: BP 140/78
[2018-12-09] MEDS ORDERED: HYDROcodone/APAP 5/325MG 1 TAB TABLET PO PRN (11:00)
[2018-12-09] MEDS ORDERED: DEXTROSE 50% 25 GM / 50ML DISP.SYRIN. IV PRN (11:00)
--- NOTE | 2018-12-09 11:00 | NUR ---
Patient was placed on a bariatric bed at 1030. His blood glucose at 0700 was 398 then at 1100 it went up to 459. MD informed and ordered were received. Patient remains asymptomatic at this time.
[2018-12-09] MEDS ORDERED: NON FORMULARY ITEM (Insulin Aspart (Novolog) 10 UNIT) SQ SCH (11:30)
[2018-12-09] MEDS ORDERED: INSULIN LISPRO 300 UNITS/3 ML INSULN.PEN. SQ SCH (12:00)
[2018-12-09] MEDS: LISINOPRIL 20 MG TABLET PO SCH (12:34)
[2018-12-09] MEDS: INSULIN LISPRO 300 UNITS/3 ML INSULN.PEN. SQ SCH ×4 (12:38→18:59)
[2018-12-09] MEDS: INSULIN GLARGINE 300 UNITS/3 ML INSULN.PEN. SQ SCH ×2 (14:15→21:30)
[2018-12-09 15:00] VITALS: BP 103/64
[2018-12-09] MEDS: DOXYCYCLINE HYCLATE 100 MG TABLET PO SCH (18:55)
[2018-12-09 19:00] VITALS: BP 128/83
[2018-12-09] MEDS: BUDESONIDE 0.5 MG/2 ML NEBU. NEB SCH (19:39)
[2018-12-09] MEDS ORDERED: FAMO40TA4 PO (21:25)
[2018-12-09] MEDS ORDERED: TRAZ-86 PO (21:25)
[2018-12-09] MEDS ORDERED: IBUP800T19 PO (21:25)
[2018-12-09] MEDS ORDERED: FLUT16SP NAS (21:25)
[2018-12-09] MEDS ORDERED: SERT100T8 PO (21:25)
[2018-12-09] MEDS ORDERED: ATOR40TA59 PO (21:25)
[2018-12-09] MEDS: AMITRIPTYLINE HCL 50 MG TABLET PO SCH (21:27)
[2018-12-09 23:00] VITALS: BP_SYST 128; BP_SYST 144; BP_DIAS 70; BP_DIAS 90
[2018-12-10] VITALS (9 sets, daily range): BP systolic 110–173; BP diastolic 65–98
--- NOTE | 2018-12-10 08:01 | PDOC ---
PROGRESS NOTES Chief Complaint Chief Complaint A/P: Acute asthma exacerbation - will cont steroids, nebs, add pulmicort. 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 Given IVF Chest pain - EKG and trop negative, seems pleuritic. He states he has been gaining weight, Echo shows normal cardiac function HTN - will continue home meds DM2 - on 30u BID lantus and 35u TID novolog with frequent hypoglycemia, I will reduce his novolog dosing and add bolus plus sliding scale to 25U TID and high sliding Morbid obesity - counseled on weight loss Newly diagnosed sleep apnea - BIPAP overnight. Unfortunately, apparently his insurance has not approved this FEN - ADA diet PPX - SCDs FULL CODE Inpatient for acute asthma exacerbation, may have element of cor pulmonale, will consult pulm on his case. May need CT chest History of Present Illness History of Present Illness Mr Guillen is a 38 year old Male patient w/ PMHx asthma, HTN, DM2, morbid obesity, and newly diagnosed sleep apnea recently who presented to ED coughing up yellow sputum having fevers having chest pain with wheezing and quite short of breath overall. He has associated chest pain in center of the chest feeling like pressure but also worse with coughing and with palpation. He denies any GI or symptoms Feeling a bit better today. Going for CTPA per pulmonology. ECHO: The left ventricular systolic function is normal and the ejection fraction is within normal range. The Ejection Fraction is 60-65%. There is normal LV segmental wall motion. Technically very difficult study despite contrast use. Unable to visualize majority of the RV and valves. Vitals Vitals Vital Signs Date Time Temp Pulse Resp B/P (MAP) Pulse Ox O2 Delivery O2 Flow Rate FiO2 12/10/18 05:51 BiPAP/CPAP 12/10/18 03:00 98.0 94 20 113/73 (86) 98 98.0 Physical Exam General: Alert, Oriented X3, Cooperative, mild distress Heart: Regular rate, Normal S1, Normal S2 Lungs: Other (Scattered bilateral wheezing) Abdomen: Normal bowel sounds, Soft Extremities: No clubbing, No cyanosis Skin: No rashes, No breakdown Labs LABS Laboratory Tests Test 3/20/19 11:28 12/09/18 16:57 12/09/18 20:48 Glucose (Fingerstick) 459 mg/dL (70-99) 322 mg/dL (70-99) 397 mg/dL (70-99) Comment Review of Relevant I have reviewed the following items lacho (where applicable) has been applied. Labs Laboratory Tests Test 12/09/18 00:56 12/09/18 07:52 12/09/18 11:28 12/09/18 16:57 White Blood Count 12.6 x10^3/uL (4.0-11.0) Red Blood Count 4.88 x10^6/uL (4.30-5.70) Hemoglobin 12.1 g/dL (13.0-17.5) Hematocrit 37.9 % (39.0-53.0) Mean Corpuscular Volume 78 fL (79-100) Mean Corpuscular Hemoglobin 25 pg (25-35) Mean Corpuscular Hemoglobin Concent 32 g/dL (31-37) Red Cell Distribution Width 15.6 % (11.5-14.5) Platelet Count 391 x10^3/uL (140-400) Neutrophils (%) (Auto) 82 % (31-73) Lymphocytes (%) (Auto) 8 % (24-48) Monocytes (%) (Auto) 10 % (0-9) Eosinophils (%) (Auto) 0 % (0-3) Basophils (%) (Auto) 1 % (0-3) Neutrophils # (Auto) 10.3 x10^3uL (1.8-7.7) Lymphocytes # (Auto) 1.0 x10^3/uL (1.0-4.8) Monocytes # (Auto) 1.2 x10^3/uL (0.0-1.1) Eosinophils # (Auto) 0.0 x10^3/uL (0.0-0.7) Basophils # (Auto) 0.1 x10^3/uL (0.0-0.2) Sodium Level 140 mmol/L (136-145) Potassium Level 4.5 mmol/L (3.5-5.1) Chloride Level 102 mmol/L (98-107) Carbon Dioxide Level 28 mmol/L (21-32) Anion Gap 10 (6-14) Blood Urea Nitrogen 20 mg/dL (8-26) Creatinine 0.9 mg/dL (0.7-1.3) Estimated GFR (Cockcroft-Gault) 113.1 BUN/Creatinine Ratio 22 (6-20) Glucose Level 114 mg/dL (70-99) Lactic Acid Level 1.7 mmol/L (0.4-2.0) Calcium Level 8.6 mg/dL (8.5-10.1) Total Bilirubin 0.2 mg/dL (0.2-1.0) Aspartate Amino Transf (AST/SGOT) 23 U/L (15-37) Alanine Aminotransferase (ALT/SGPT) 34 U/L (16-63) Alkaline Phosphatase 103 U/L (46-116) Troponin I Quantitative < 0.017 ng/mL (0.000-0.055) AY-Vup-S-Type Natriuretic Peptide 62 pg/mL (0-124) Total Protein 7.7 g/dL (6.4-8.2) Albumin 3.2 g/dL (3.4-5.0) Albumin/Globulin Ratio 0.7 (1.0-1.7) Influenza Type A Antigen Negative (NEGATIVE) Influenza Type B Antigen Negative (NEGATIVE) Glucose (Fingerstick) 398 mg/dL (70-99) 459 mg/dL (70-99) 322 mg/dL (70-99) Test 12/09/18 20:48 Glucose (Fingerstick) 397 mg/dL (70-99) Laboratory Tests Test 12/09/18 11:28 12/09/18 16:57 12/09/18 20:48 Glucose (Fingerstick) 459 mg/dL (70-99) 322 mg/dL (70-99) 397 mg/dL (70-99) Microbiology 12/09/18 Blood Culture - Preliminary, Resulted NO GROWTH AFTER 1 DAY Medications Current Medications Albuterol Sulfate (Ventolin Neb Soln) 10 mg 1X ONCE CONT NEB Last administered on 12/09/18at 00:47; Start 12/09/18 at 01:00; Stop 12/09/18 at 01:01 ; Status DC Methylprednisolone Sodium Succinate (SOLU-Medrol 125MG VIAL) 125 mg 1X ONCE IV Last administered on 12/09/18at 01:13; Start 12/09/18 at 01:00; Stop 12/09/18 at 01:01; Status DC Albuterol/ Ipratropium (Duoneb) 3 ml RTQID NEB Last administered on 12/09/18at 11:11; Start 12/09/18 at 08:00; Stop 12/09/18 at 15:10; Status DC Ceftriaxone Sodium (Rocephin) 1 gm 1X ONCE IVP Last administered on 12/09/18at 02:33; Start 12/09/18 at 02:30; Stop 12/09/18 at 02:31; Status DC Doxycycline Hyclate (Vibra-Tab) 100 mg 1X ONCE PO Last administered on at 02:33; Start 12/09/18 at 02:30; Stop 12/09/18 at 02:31; Status DC Amitriptyline HCl (Elavil) 50 mg QHS PO Last administered on 12/09/18at 21:27; Start 12/09/18 at 21:00 Aspirin (Children'S Aspirin) 81 mg DAILY PO ; Start 12/10/18 at 09:00 Acetaminophen/ Hydrocodone Bitart (Lortab 5/325) 1 tab PRN Q6HRS PRN PO PAIN; Start 12/09/18 at 11:00 Insulin Glargine (Lantus) 30 units BID SQ Last administered on 12/09/18at 21:30 ; Start 12/09/18 at 11:30; Stop 12/10/18 at 07:59; Status DC Lisinopril (Prinivil) 20 mg DAILY PO Last administered on 12/09/18at 12:34; Start 12/09/18 at 11:30 Non-Formulary Medication (Insulin Aspart (Novolog)) 10 unit TIDAC SQ ; Start at 11:30; Stop 12/09/18 at 11:30; Status DC Insulin Human Lispro (HumaLOG) 0-7 UNITS TIDWMEALS SQ Last administered on 12/09at 18:59; Start 12/09/18 at 12:00 Dextrose (Dextrose 50%-Water Syringe) 12.5 gm PRN Q15MIN PRN IV SEE COMMENTS; Start 12/09/18 at 11:00 Insulin Human Lispro (HumaLOG) 10 units TIDWMEALS SQ ; Start 12/09/18 at 12:00; Stop 12/09/18 at 12:00; Status DC Insulin Human Lispro (HumaLOG) 25 units TIDWMEALS SQ Last administered on at 18:59; Start 12/09/18 at 12:00; Stop 12/10/18 at 08:00; Status DC Budesonide (Pulmicort) 0.5 mg RTBID NEB Last administered on 12/09/18at 19:39; Start 12/09/18 at 20:00 Albuterol/ Ipratropium (Duoneb) 3 ml RTQID NEB Last administered on 12/09/18at 19:39; Start 12/09/18 at 16:00 Doxycycline Hyclate (Vibra-Tab) 100 mg BID PO Last administered on 12/09/18at 18 :55; Start 12/09/18 at 15:30 Prednisone (Prednisone) 20 mg DAILY PO ; Start 12/10/18 at 09:00 Insulin Glargine (Lantus) 35 units BID SQ ; Start 12/10/18 at 09:00; Status UNV Insulin Human Lispro (HumaLOG) 30 units TIDWMEALS SQ ; Start 12/10/18 at 08:00; Status UNV Active Scripts Active [place] 5-325 Tablet (Acetaminophen/Hydrocodone Bitart) 1 Each Tablet 1 Tab PO PRN Q6HRS PRN 5 Days Orphenadrine Citrate 100 Mg Tablet.er 1 Tab PO BID PRN Naproxen 500 Mg Tablet 1 Tab PO BID PRN Reported Atorvastatin Calcium 40 Mg Tablet 40 Mg PO QHS Sertraline Hcl 100 Mg Tablet 100 Mg PO DAILY Fluticasone Propionate Nasal [place] (Fluticasone Propionate) 16 Gm [place].susp 2 Spr NIRMAL DAILY Famotidine 40 Mg Tablet 40 Mg PO DAILY Ibuprofen 800 Mg Tablet 1 Tab PO PRN Q6-8HRS PRN Trazodone Hcl 100 Mg Tablet 100 Mg PO PRN QHS PRN Lantus Solostar (Insulin Glargine,Hum.rec.anlog) 100 Unit/1 Ml Insuln.pen 30 Unit SQ BID Amitriptyline Hcl 50 Mg Tablet 2 Tab PO QHS Novolog (Insulin Aspart) 100 Unit/1 Ml Cartridge 50 Unit SQ TIDAC Aspirin 81 Mg Tab.chew 1 Tab PO DAILY Lisinopril 20 Mg Tablet 2 Tab PO DAILY Vitals/I & O Vital Sign - Last 24 Hours 3/20/19 3/20/19 3/20/19 3/20/19 11:00 11:11 12:34 15:00 Temp 98.2 97.4 98.2 97.4 Pulse 106 106 101 Resp 24 20 B/P (MAP) 140/78 (98) 140/78 103/64 (77) Pulse Ox 92 97 O2 Delivery Room Air Room Air Room Air 12/09/18 12/09/18 12/09/18 12/09/18 15:21 19:00 19:40 19:40 Temp 98.0 98.0 Pulse 100 Resp 20 B/P (MAP) 128/83 (98) Pulse Ox 99 O2 Delivery Room Air Room Air Room Air Room Air 12/09/18 12/09/18 12/10/18 12/10/18 20:00 23:00 01:23 03:00 Temp 98.0 98.0 98.0 98.0 Pulse 98 94 Resp 20 20 B/P (MAP) 144/90 (108) 113/73 (86) Pulse Ox 100 98 O2 Delivery Room Air Room Air BiPAP/CPAP Room Air 12/10/18 12/10/18 03:09 05:51 O2 Delivery BiPAP/CPAP BiPAP/CPAP Intake and Output 12/09/18 12/09/18 12/10/18 14:59 22:59 06:59 Intake Total 200 ml 300 ml Balance 200 ml 300 ml DAVID MARTÍNEZ MD Dec 10, 2018 08:01
[2018-12-10] MEDS: INSULIN LISPRO 300 UNITS/3 ML INSULN.PEN. SQ SCH ×6 (08:18→17:06)
[2018-12-10] MEDS: IPRATRPIUM/ALBUTEROL 0.5/2.5MG 3 ML NEBU. NEB SCH ×4 (08:32→20:12)
[2018-12-10] MEDS: BUDESONIDE 0.5 MG/2 ML NEBU. NEB SCH ×2 (08:32→20:12)
[2018-12-10] MEDS: LISINOPRIL 20 MG TABLET PO SCH (08:41)
[2018-12-10] MEDS: DOXYCYCLINE HYCLATE 100 MG TABLET PO SCH ×2 (08:42→20:57)
[2018-12-10] MEDS: predniSONE 20 MG TABLET PO SCH (08:42)
[2018-12-10] MEDS: ASPIRIN CHEWABLE 81 MG TABLET. PO SCH (08:42)
[2018-12-10] MEDS: INSULIN GLARGINE 300 UNITS/3 ML INSULN.PEN. SQ SCH ×2 (08:45→21:08)
[2018-12-10 08:47] LABS: CALCIUM 8.2 mg/dL (8.5-10.1); CREATININE 1.1 mg/dL (0.7-1.3); GFR 89.7; POTASSIUM 3.9 mmol/L (3.5-5.1)
[2018-12-10] MEDS ORDERED: CONTRAST GIVEN. MC PRN (10:30)
[2018-12-10] MEDS ORDERED: IOHEXOL 350 MG/ML 100 ML VIAL. IV ONE (10:30)
[2018-12-10] MEDS ORDERED: PERFLUTREN PROTEIN-A MICROSPHR 0.22 MG/ML 3 ML VIAL. IV ONE (10:52)
--- NOTE | 2018-12-10 10:52 | CONS ---
DATE OF CONSULTATION: ATTENDING PHYSICIAN: Dr. Mohamud. REASON FOR CONSULTATION: Dyspnea. HISTORY OF PRESENT ILLNESS: The patient is a 38-year-old male who weighs 533 pounds with a BMI of 67. He is morbidly obese. He presented to the hospital with complaint of shortness of breath for over a week. He had a cough with green sputum production. He had some subjective fever. He has also chest pain along with wheezing. The patient has no significant history of tobacco use. He had no headaches, no nausea, vomiting, no diarrhea. He said he has been diagnosed with sleep apnea; however, he has not been approved for CPAP because of his insurance. The patient has gained about 20 pounds in the last one month. He quit tobacco in 2003, smoked probably for less than 10 years. No history of deep vein thrombosis or pulmonary embolism. He has some lower extremity edema as well. His chest x-ray showed prominent interstitial markings. I have been asked to see him for further evaluation. PAST MEDICAL HISTORY: History of asthmatic bronchitis, hypertension, morbid obesity, obstructive sleep apnea, diabetes. PAST SURGICAL HISTORY: No recent surgeries. FAMILY HISTORY: Diabetes, dyslipidemia and hypertension. SOCIAL HISTORY: Nonsmoker. He quit in 2003. Smoked less than 10 years. ALLERGIES: SULFA. CURRENT MEDICATIONS: Reviewed as listed in the MRAD including oral prednisone, nebulizers and oral doxycycline. REVIEW OF SYSTEMS: Twelve-point system obtained. Pertinent positives discussed in my history of present illness, otherwise noncontributory. All systems that were negative were reviewed as well. PHYSICAL EXAMINATION: VITAL SIGNS: Reviewed. Pulse ox 96% room air, blood pressure on the high side. Afebrile. HEENT: Sclerae nonicteric. NECK: Supple. LUNGS: No wheezing. CARDIOVASCULAR: Regular rate and rhythm. ABDOMEN: Markedly obese. EXTREMITIES: With 1+ pitting edema. LABORATORY DATA: Reviewed. Influenza screen is negative. BUN 15, creatinine 1.1. White cell count 12.6, hemoglobin 12.1 and platelets are 391. IMPRESSION: 1. Dyspnea with acute hypoxic respiratory failure requiring BiPAP initially and now on room air. He has mildly prominent interstitial markings. He has cough with green sputum production and subjective fever at home and has chest pain. The differential diagnosis would include the following. A. Acute viral pneumonitis. Influenza screen, however, was negative. B. A 20-pound weight gain in last one month contributing to the patient's symptoms. Possible acute cor pulmonale. C. Chest pain, could be atypical, but needs to rule out thromboembolic disease. With this size, we will see if we can get a CT angiogram. 2. Morbid obesity with suspected obstructive sleep apnea. He says he was diagnosed with sleep apnea, but his insurance has not approved CPAP. 3. Underlying obesity hypoventilation syndrome. 4. No significant history of tobacco use. 5. Abnormal chest x-ray with prominent interstitial markings, likely viral pneumonitis. Needs to do an echo to rule out any LV dysfunction and congestive heart failure. RECOMMENDATIONS: 1. Continue with present bronchodilators. 2. Oral prednisone. 3. Continue oral antibiotics. 4. We will obtain venous Dopplers of lower extremities and will also obtain a CTA chest. 5. Weight loss is strongly emphasized to the patient. 6. P.r.n. BiPAP. 7. Further recommendations to follow. SUN REYNOLDS MD DR: IRIS/bishop JOB#: [id number] / [id number]
[2018-12-10] MEDS ORDERED: PERFLUTREN PROTEIN-A MICROSPHR 0.22 MG/ML 3 ML VIAL. IV PRN (11:00)
--- NOTE | 2018-12-10 12:05 | CARD ---
MR#: [id number] Date of Study: 12/10/2018 Ordering Physician: SUN REYNOLDS, Referring Physician: DAVID MARTÍNEZ, Tech: Elsa Valadez BONITA APPROVED REPORT EXAM: Two-dimensional and M-mode echocardiogram with Doppler, color Doppler with contrast. Other Information Quality : Technically LimitedHR: 97bpm Rhythm : NSRTechnically limited study due to body habitus. INDICATION Congestive Heart Failure Echo Enhancing Agent Indication: Endocardial border delineation Agent/Amount Used: Optison 1mL 2D DIMENSIONS RVDd2.9 (2.9-3.5cm)Left Atrium(2D)3.6 (1.6-4.0cm) IVSd1.4 (0.7-1.1cm)Aortic Root(2D)3.5 (2.0-3.7cm) LVDd5.4 (3.9-5.9cm)LVOT Diameter2.5 (1.8-2.4cm) PWd1.5 (0.7-1.1cm)LVDs3.6 (2.5-4.0cm) FS (%) 33.4 %SV86.9 ml LVEF(%)61.5 (>50%) M-Mode DIMENSIONS Left Atrium(MM)3.48 (2.5-4.0cm)Aortic Root4.01 (2.2-3.7cm) Aortic Valve AoV Peak Guerrero.119.8cm/sAoV VTI18.1cm AO Peak GR.5.7mmHgLVOT Peak Guerrero.107.9cm/s AO Mean GR.3mmHgAVA (VMAX)4.28cm2 MICHAEL (VTI)3.90cm2 Mitral Valve MV E Ltfcyojk23.2cm/sMV E Peak Gr.4mmHg MV DECEL [id number] A Nogsgrsf46.9cm/s MV E Mean Gr.2mmHgE/A Ratio1.2 MV A [id number] Pulmonary Valve PV Peak Ttygofob18.9cm/s LEFT VENTRICLE The left ventricle is normal size. There is moderate concentric left ventricular hypertrophy. The lef t ventricular systolic function is normal and the ejection fraction is within normal range. The Eject ion Fraction is 60-65%. There is normal LV segmental wall motion. Tissue Doppler imaging reveals mode rate left ventricular diastolic dysfunction. RIGHT VENTRICLE The right ventricle is not well visualized. ATRIA Not well visualized. AORTIC VALVE The aortic valve is not well visualized. MITRAL VALVE The mitral valve is not well visualized. TRICUSPID VALVE The tricuspid valve is not well visualized. PULMONIC VALVE The pulmonic valve is not well visualized. GREAT VESSELS Not well visualized. PERICARDIAL EFFUSION There is no evidence of significant pericardial effusion. Critical Notification Critical Value: No <Conclusion> The left ventricular systolic function is normal and the ejection fraction is within normal range. Th e Ejection Fraction is 60-65%. There is normal LV segmental wall motion. Technically very difficult study despite contrast use. Unable to visualize majority of the RV and seun ves. Signed by : Kurt Vela, Electronically Approved : 12/10/2018 12:05:24
--- NOTE | 2018-12-10 12:17 | NUR ---
SW following. Discussed with RN, RN advised no SW needs at this time. SW will continue to follow.
--- NOTE | 2018-12-10 14:19 | RAD ---
Bilateral lower extremity venous duplex study 12/10/2018 10:19 AM Clinical History: Shortness of breath, EDEMA Comparison: None Technique: Using a combination of real time ultrasound imaging and color-flow and pulse Doppler imaging techniques along with graded compression and augmentation, duplex evaluation of the deep venous system of the both lower extremities was performed. Multiple images were obtained. Findings: Exam somewhat limited by body habitus. There is no sonographic evidence of deep venous thrombosis involving the visualized deep venous structures of either lower extremity. Impression: No evidence of deep venous thrombosis involving either lower extremity. Electronically signed by: Rufino Khan MD (12/10/2018 2:16 PM) [id number]
--- NOTE | 2018-12-10 15:05 | EKG ---
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
--- NOTE | 2018-12-10 15:12 | NUR ---
Dr. Carlton notified Rapid Response called at 1440 with patient complaint of chest pressure and pain rating at 9-10/10 and chest tightness. Ranjana PLASTIC SHEETS FINISHING SUPERVISOR and Lilian RN nursing supervisor curing room responded, [address], patient had breathing treatment and pain medication and pain now 5-6/10. Patient verb. feeling better and breathing easier. See frequent VS record and orders.
--- NOTE | 2018-12-10 15:22 | RAD ---
Examination: CT angiography chest HISTORY: History of chest pain, shortness of breath COMPARISON: None available TECHNIQUE: Axial CT and radiographic images of chest were performed with IV contrast. Coronal and sagittal 3-D MIP reformats are performed Exposure: One or more of the following individualized dose reduction techniques were utilized for this examination: 1. Automated exposure control 2. Adjustment of the mA and/or kV according to patient size 3. Use of iterative reconstruction technique FINDINGS: The central airways are patent. Mild cardiomegaly. There is not enough contrast within the pulmonary arteries and its branches. Examination is nondiagnostic for pulmonary embolism. The caliber of the aorta grossly appears unremarkable. Few prominent mediastinal lymph nodes identified with the largest measuring 1.2 cm in the pretracheal region. Minimal bibasilar lung atelectasis. The visualized liver, spleen, adrenals grossly appears unremarkable. Multiple large gallstones identified in the gallbladder. Mild degenerative changes thoracic spine. Examination limited due to patient body habitus. IMPRESSION: 1. Examination is nondiagnostic as there is not enough contrast within the pulmonary artery and its branches for evaluation of pulmonary embolism. 2. Minimal bibasilar lung atelectasis. 3. Cholelithiasis. 4. Minimal prominent mediastinal lymph nodes, nonspecific. Electronically signed by: Alvin Banks MD (12/10/2018 3:19 PM) [id number]
[2018-12-10] MEDS ORDERED: traZODone 100 MG TABLET. PO PRN (15:30)
[2018-12-10] MEDS: SERTRALINE 50 MG TABLET. PO SCH (16:28)
[2018-12-10] MEDS: FAMOTIDINE 20 MG TABLET. PO SCH (20:57)
[2018-12-10] MEDS: AMITRIPTYLINE HCL 50 MG TABLET PO SCH (20:57)
[2018-12-10] MEDS ORDERED: ATORVASTATIN CALCIUM 40 MG TABLET. PO SCH (21:00)
[2018-12-11 03:00] VITALS: BP 161/102
[2018-12-11 07:00] VITALS: BP 153/74
[2018-12-11] MEDS: IPRATRPIUM/ALBUTEROL 0.5/2.5MG 3 ML NEBU. NEB SCH ×2 (07:37→11:10)
[2018-12-11] MEDS: BUDESONIDE 0.5 MG/2 ML NEBU. NEB SCH (07:37)
--- NOTE | 2018-12-11 07:58 | PDOC ---
PROGRESS NOTES Chief Complaint Chief Complaint A/P: Acute asthma exacerbation - will cont steroids, nebs, add pulmicort. 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 Given IVF Chest pain - EKG and trop negative, seems pleuritic. He states he has been gaining weight, Echo shows normal cardiac function HTN - will continue home meds DM2 - on 30u BID lantus and 35u TID novolog with frequent hypoglycemia, I will reduce his novolog dosing and add bolus plus sliding scale to 25U TID and high sliding Morbid obesity - counseled on weight loss Newly diagnosed sleep apnea - BIPAP overnight. Unfortunately, apparently his insurance has not approved this FEN - ADA diet PPX - SCDs FULL CODE Inpatient for acute asthma exacerbation, may have element of cor pulmonale, will consult pulm on his case. May need CT chest History of Present Illness History of Present Illness Mr Guillen is a 38 year old Male patient w/ PMHx asthma, HTN, DM2, morbid obesity, and newly diagnosed sleep apnea recently who presented to ED coughing up yellow sputum having fevers having chest pain with wheezing and quite short of breath overall. He has associated chest pain in center of the chest feeling like pressure but also worse with coughing and with palpation. He denies any GI or symptoms 12/10: CTPA negative for PE, not enough contrast, though. LE dopplers negative for DVT. Echo WNL (unable to visualize RV and valves, however) Feeling a bit better today. Breathing improved. Unfortunately he cannot get BIPAP as he is on medicaid, apparently. ECHO: The left ventricular systolic function is normal and the ejection fraction is within normal range. The Ejection Fraction is 60-65%. There is normal LV segmental wall motion. Technically very difficult study despite contrast use. Unable to visualize majority of the RV and valves. Vitals Vitals Vital Signs Date Time Temp Pulse Resp B/P (MAP) Pulse Ox O2 Delivery O2 Flow Rate FiO2 12/11/18 07:41 100 Room Air 12/11/18 03:00 98.3 98 20 161/102 (121) 98.3 Physical Exam General: Alert, Oriented X3, Cooperative, mild distress Heart: Regular rate, Normal S1, Normal S2 Lungs: Other (Scattered bilateral wheezing) Abdomen: Normal bowel sounds, Soft Extremities: No clubbing, No cyanosis Skin: No rashes, No breakdown Labs LABS Laboratory Tests Test 12/10/18 08:24 12/10/18 11:37 12/10/18 16:52 12/10/18 21:00 Sodium Level 136 mmol/L (136-145) Potassium Level 3.9 mmol/L (3.5-5.1) Chloride Level 97 mmol/L (98-107) Carbon Dioxide Level 31 mmol/L (21-32) Anion Gap 8 (6-14) Blood Urea Nitrogen 15 mg/dL (8-26) Creatinine 1.1 mg/dL (0.7-1.3) Estimated GFR (Cockcroft-Gault) 89.7 Glucose Level 293 mg/dL (70-99) Calcium Level 8.2 mg/dL (8.5-10.1) Troponin I Quantitative < 0.017 ng/mL (0.000-0.055) Glucose (Fingerstick) 197 mg/dL (70-99) 340 mg/dL (70-99) 258 mg/dL (70-99) Comment Review of Relevant I have reviewed the following items lacho (where applicable) has been applied. Labs Laboratory Tests Test 12/09/18 11:28 12/09/18 16:57 12/09/18 20:48 12/10/18 07:41 Glucose (Fingerstick) 459 mg/dL (70-99) 322 mg/dL (70-99) 397 mg/dL (70-99) 274 mg/dL (70-99) Test 12/10/18 08:24 12/10/18 11:37 12/10/18 16:52 12/10/18 21:00 Sodium Level 136 mmol/L (136-145) Potassium Level 3.9 mmol/L (3.5-5.1) Chloride Level 97 mmol/L (98-107) Carbon Dioxide Level 31 mmol/L (21-32) Anion Gap 8 (6-14) Blood Urea Nitrogen 15 mg/dL (8-26) Creatinine 1.1 mg/dL (0.7-1.3) Estimated GFR (Cockcroft-Gault) 89.7 Glucose Level 293 mg/dL (70-99) Calcium Level 8.2 mg/dL (8.5-10.1) Troponin I Quantitative < 0.017 ng/mL (0.000-0.055) Glucose (Fingerstick) 197 mg/dL (70-99) 340 mg/dL (70-99) 258 mg/dL (70-99) Laboratory Tests Test 12/10/18 08:24 12/10/18 11:37 12/10/18 16:52 12/10/18 21:00 Sodium Level 136 mmol/L (136-145) Potassium Level 3.9 mmol/L (3.5-5.1) Chloride Level 97 mmol/L (98-107) Carbon Dioxide Level 31 mmol/L (21-32) Anion Gap 8 (6-14) Blood Urea Nitrogen 15 mg/dL (8-26) Creatinine 1.1 mg/dL (0.7-1.3) Estimated GFR (Cockcroft-Gault) 89.7 Glucose Level 293 mg/dL (70-99) Calcium Level 8.2 mg/dL (8.5-10.1) Troponin I Quantitative < 0.017 ng/mL (0.000-0.055) Glucose (Fingerstick) 197 mg/dL (70-99) 340 mg/dL (70-99) 258 mg/dL (70-99) Microbiology 12/09/18 Blood Culture - Preliminary, Resulted NO GROWTH AFTER 2 DAYS Medications Current Medications Albuterol Sulfate (Ventolin Neb Soln) 10 mg 1X ONCE CONT NEB Last administered on 12/09/18at 00:47; Start 12/09/18 at 01:00; Stop 12/09/18 at 01:01 ; Status DC Methylprednisolone Sodium Succinate (SOLU-Medrol 125MG VIAL) 125 mg 1X ONCE IV Last administered on 12/09/18at 01:13; Start 12/09/18 at 01:00; Stop 12/09/18 at 01:01; Status DC Albuterol/ Ipratropium (Duoneb) 3 ml RTQID NEB Last administered on 12/09/18at 11:11; Start 12/09/18 at 08:00; Stop 12/09/18 at 15:10; Status DC Ceftriaxone Sodium (Rocephin) 1 gm 1X ONCE IVP Last administered on 12/09/18at 02:33; Start 12/09/18 at 02:30; Stop 12/09/18 at 02:31; Status DC Doxycycline Hyclate (Vibra-Tab) 100 mg 1X ONCE PO Last administered on at 02:33; Start 12/09/18 at 02:30; Stop 12/09/18 at 02:31; Status DC Amitriptyline HCl (Elavil) 50 mg QHS PO Last administered on 12/10/18at 20:57; Start 12/09/18 at 21:00 Aspirin (Children'S Aspirin) 81 mg DAILY PO Last administered on 12/10/18at 08: 42; Start 12/10/18 at 09:00 Acetaminophen/ Hydrocodone Bitart (Lortab 5/325) 1 tab PRN Q6HRS PRN PO PAIN Last administered on 12/10/18at 14:44; Start 12/09/18 at 11:00 Insulin Glargine (Lantus) 30 units BID SQ Last administered on 12/09/18at 21:30 ; Start 12/09/18 at 11:30; Stop 12/10/18 at 07:59; Status DC Lisinopril (Prinivil) 20 mg DAILY PO Last administered on 12/10/18at 08:41; Start 12/09/18 at 11:30 Non-Formulary Medication (Insulin Aspart (Novolog)) 10 unit TIDAC SQ ; Start at 11:30; Stop 12/09/18 at 11:30; Status DC Insulin Human Lispro (HumaLOG) 0-7 UNITS TIDWMEALS SQ Last administered on 12/10at 17:06; Start 12/09/18 at 12:00 Dextrose (Dextrose 50%-Water Syringe) 12.5 gm PRN Q15MIN PRN IV SEE COMMENTS; Start 12/09/18 at 11:00 Insulin Human Lispro (HumaLOG) 10 units TIDWMEALS SQ ; Start 12/09/18 at 12:00; Stop 12/09/18 at 12:00; Status DC Insulin Human Lispro (HumaLOG) 25 units TIDWMEALS SQ Last administered on at 18:59; Start 12/09/18 at 12:00; Stop 12/10/18 at 08:00; Status DC Budesonide (Pulmicort) 0.5 mg RTBID NEB Last administered on 12/11/18at 07:37; Start 12/09/18 at 20:00 Albuterol/ Ipratropium (Duoneb) 3 ml RTQID NEB Last administered on 12/11/18at 07:37; Start 12/09/18 at 16:00 Doxycycline Hyclate (Vibra-Tab) 100 mg BID PO Last administered on 12/10/18at 20 :57; Start 12/09/18 at 15:30 Prednisone (Prednisone) 20 mg DAILY PO Last administered on 12/10/18at 08:42; Start 12/10/18 at 09:00 Insulin Glargine (Lantus) 35 units BID SQ Last administered on 12/10/18at 21:08 ; Start 12/10/18 at 09:00 Insulin Human Lispro (HumaLOG) 30 units TIDWMEALS SQ Last administered on at 17:06; Start 12/10/18 at 08:00 Iohexol (Omnipaque 350 Mg/ml) 100 ml 1X ONCE IV ; Start 12/10/18 at 10:30; Stop 12/10/18 at 10:31; Status DC Info (CONTRAST GIVEN -- Rx MONITORING) 1 each PRN DAILY PRN MC SEE COMMENTS; Start 12/10/18 at 10:30; Stop 12/12/18 at 10:29 Perflutren Protein Type A Microsphe (Optison) 0.66 mg PRN 1X PRN IV SEE COMMENTS Last administered on 12/10/18at 11:06; Start 12/10/18 at 11:00; Stop at 10:59 Perflutren Protein Type A Microsphe (Optison) 0.66 mg STK-MED ONCE IV ; Start at 10:52; Stop 12/10/18 at 10:53; Status DC Atorvastatin Calcium (Lipitor) 40 mg QHS PO Last administered on 12/10/18at 20: 57; Start 12/10/18 at 21:00 Fluticasone Propionate (Flonase) 2 spray DAILY NS ; Start 12/11/18 at 09:00 Trazodone HCl (Desyrel) 100 mg PRN QHS PRN PO INSOMNIA; Start 12/10/18 at 15:30 Famotidine (Pepcid) 20 mg BID PO Last administered on 12/10/18at 20:57; Start at 21:00 Sertraline HCl (Zoloft) 100 mg DAILY PO Last administered on 12/10/18at 16:28; Start 12/10/18 at 16:00 Active Scripts Active [place] 5-325 Tablet (Acetaminophen/Hydrocodone Bitart) 1 Each Tablet 1 Tab PO PRN Q6HRS PRN 5 Days Orphenadrine Citrate 100 Mg Tablet.er 1 Tab PO BID PRN Naproxen 500 Mg Tablet 1 Tab PO BID PRN Reported Atorvastatin Calcium 40 Mg Tablet 40 Mg PO QHS Sertraline Hcl 100 Mg Tablet 100 Mg PO DAILY Fluticasone Propionate Nasal [place] (Fluticasone Propionate) 16 Gm [place].susp 2 Spr NIRMAL DAILY Famotidine 40 Mg Tablet 40 Mg PO DAILY Ibuprofen 800 Mg Tablet 1 Tab PO PRN Q6-8HRS PRN Trazodone Hcl 100 Mg Tablet 100 Mg PO PRN QHS PRN Lantus Solostar (Insulin Glargine,Hum.rec.anlog) 100 Unit/1 Ml Insuln.pen 30 Unit SQ BID Amitriptyline Hcl 50 Mg Tablet 2 Tab PO QHS Novolog (Insulin Aspart) 100 Unit/1 Ml Cartridge 50 Unit SQ TIDAC Aspirin 81 Mg Tab.chew 1 Tab PO DAILY Lisinopril 20 Mg Tablet 2 Tab PO DAILY Vitals/I & O Vital Sign - Last 24 Hours 12/10/18 12/10/18 12/10/18 12/10/18 08:00 08:33 08:41 11:00 Temp 98.0 98.0 Pulse 95 78 Resp 26 B/P (MAP) 173/98 118/77 (91) Pulse Ox 96 95 O2 Delivery Room Air Room Air Room Air 12/10/18 12/10/18 12/10/18 12/10/18 12:34 14:40 14:44 14:45 Pulse 124 108 Resp 20 20 24 B/P (MAP) 120/74 (89) 132/79 (96) Pulse Ox 94 100 O2 Delivery Room Air Room Air RT treatment 12/10/18 12/10/18 12/10/18 12/10/18 14:47 14:50 14:55 15:44 Pulse 109 108 Resp 20 20 18 B/P (MAP) 144/86 (105) 126/65 (85) Pulse Ox 98 96 95 O2 Delivery Room Air Room Air Room Air Room Air 12/10/18 12/10/18 12/10/18 12/10/18 19:00 20:07 20:10 23:00 Temp 97.6 98.4 97.6 98.4 Pulse 103 101 Resp 20 20 B/P (MAP) 110/67 (81) 123/74 (90) Pulse Ox 99 98 96 O2 Delivery Room Air Room Air Room Air Room Air 12/11/18 12/11/18 12/11/18 12/11/18 01:28 03:00 03:51 05:08 Temp 98.3 98.3 Pulse 98 Resp 20 B/P (MAP) 161/102 (121) Pulse Ox 96 O2 Delivery BiPAP/CPAP BiPAP/CPAP BiPAP/CPAP BiPAP/CPAP 12/11/18 07:41 Pulse Ox 100 O2 Delivery Room Air Intake and Output 12/10/18 12/10/18 12/11/18 15:00 23:00 07:00 Intake Total 240 ml 320 ml 500 ml Balance 240 ml 320 ml 500 ml DAVID MARTÍNEZ MD Dec 11, 2018 07:58
[2018-12-11] MEDS: INSULIN LISPRO 300 UNITS/3 ML INSULN.PEN. SQ SCH ×4 (08:00→12:31)
[2018-12-11] MEDS: DOXYCYCLINE HYCLATE 100 MG TABLET PO SCH (08:41)
[2018-12-11] MEDS: LISINOPRIL 20 MG TABLET PO SCH (08:41)
[2018-12-11] MEDS: predniSONE 20 MG TABLET PO SCH (08:41)
[2018-12-11] MEDS: ASPIRIN CHEWABLE 81 MG TABLET. PO SCH (08:41)
[2018-12-11] MEDS: FAMOTIDINE 20 MG TABLET. PO SCH (08:42)
[2018-12-11] MEDS: SERTRALINE 50 MG TABLET. PO SCH (08:42)
[2018-12-11] MEDS: INSULIN GLARGINE 300 UNITS/3 ML INSULN.PEN. SQ SCH (08:49)
[2018-12-11] MEDS ORDERED: FLUTICASONE 50MCG/NASAL SPRAY 16GM BOTTLE. NS SCH (09:00)
[2018-12-11 11:00] VITALS: BP 116/81
--- NOTE | 2018-12-11 11:14 | NUR ---
SW following. Discussed with RN, pt is from home with . RN advised no SW needs and anticipates pt will discharge home today with self care.
--- NOTE | 2018-12-11 11:40 | PDOC ---
PULMONARY PROGRESS NOTES Subjective no soa/ mild cough Vitals Vital Signs Date Time Temp Pulse Resp B/P (MAP) Pulse Ox O2 Delivery O2 Flow Rate FiO2 12/11/18 11:12 100 Room Air 12/11/18 08:41 98 161/102 12/11/18 07:00 98.1 17 98.1 General: Alert, No acute distress Lungs: Other (decrease bs) Cardiovascular: S1 Abdomen: Soft Neuro Exam: Alert Extremities: Other (1+edema) Labs Laboratory Tests Test 12/09/18 16:57 12/09/18 20:48 12/10/18 07:41 12/10/18 08:24 Glucose (Fingerstick) 322 mg/dL (70-99) 397 mg/dL (70-99) 274 mg/dL (70-99) Sodium Level 136 mmol/L (136-145) Potassium Level 3.9 mmol/L (3.5-5.1) Chloride Level 97 mmol/L (98-107) Carbon Dioxide Level 31 mmol/L (21-32) Anion Gap 8 (6-14) Blood Urea Nitrogen 15 mg/dL (8-26) Creatinine 1.1 mg/dL (0.7-1.3) Estimated GFR (Cockcroft-Gault) 89.7 Glucose Level 293 mg/dL (70-99) Calcium Level 8.2 mg/dL (8.5-10.1) Troponin I Quantitative < 0.017 ng/mL (0.000-0.055) Test 12/10/18 11:37 12/10/18 16:52 12/10/18 21:00 Glucose (Fingerstick) 197 mg/dL (70-99) 340 mg/dL (70-99) 258 mg/dL (70-99) Laboratory Tests Test 12/10/18 16:52 12/10/18 21:00 Glucose (Fingerstick) 340 mg/dL (70-99) 258 mg/dL (70-99) Medications Active Scripts Medications Dose Route/Sig Max Daily Dose Days Date Category Atorvastatin Calcium 40 Mg Tablet 40 Mg PO QHS 12/09/18 Reported Sertraline Hcl 100 Mg Tablet 100 Mg PO DAILY 12/09/18 Reported Fluticasone Propionate Nasal [place] (Fluticasone Propionate) 16 Gm [place].susp 2 Spr NIRMAL DAILY 12/09/18 Reported Famotidine 40 Mg Tablet 40 Mg PO DAILY 12/09/18 Reported Ibuprofen 800 Mg Tablet 1 Tab PO PRN Q6-8HRS PRN 12/09/18 Reported Trazodone Hcl 100 Mg Tablet 100 Mg PO PRN QHS PRN 12/09/18 Reported [place] 5-325 Tablet (Acetaminophen/Hydrocodone Bitart) 1 Each Tablet 1 Tab PO PRN Q6HRS PRN 5 04/22/18 Rx Orphenadrine Citrate 100 Mg Tablet.er 1 Tab PO BID PRN 04/22/18 Rx Naproxen 500 Mg Tablet 1 Tab PO BID PRN 04/22/18 Rx Lantus Solostar (Insulin Glargine,Hum.rec.anlog) 100 Unit/1 Ml Insuln.pen 30 Unit SQ BID 12/18/15 Reported Amitriptyline Hcl 50 Mg Tablet 2 Tab PO QHS 10/16/15 Reported Novolog (Insulin Aspart) 100 Unit/1 Ml Cartridge 50 Unit SQ TIDAC 10/16/15 Reported Aspirin 81 Mg Tab.chew 1 Tab PO DAILY 10/16/15 Reported Lisinopril 20 Mg Tablet 2 Tab PO DAILY 10/16/15 Reported Impression . 1. Dyspnea with acute hypoxic respiratory failure requiring BiPAP initially . He has mildly prominent interstitial markings. He has cough with green sputum production and subjective fever at home and has chest pain. The differential diagnosis would include the following. A. Acute viral pneumonitis. Influenza screen, however, was negative. B. A 20-pound weight gain in last one month contributing to the patient's symptoms. Possible acute cor pulmonale. C. Chest pain, likely atypical, 2. Morbid obesity with suspected obstructive sleep apnea. He says he was diagnosed with sleep apnea, but his insurance has not approved CPAP. 3. Underlying obesity hypoventilation syndrome. 4. No significant history of tobacco use. 5. Abnormal chest x-ray with prominent interstitial markings, likely viral pneumonitis. Plan . 1. Continue with present bronchodilators. 2. Oral prednisone. 3. Continue oral antibiotics. 4. Neg venous Dopplers of lower extremities /CTA chest done . No contrast seen in [place]. Not a PE study. do not think clinically he has PE. no need for further testing. 5. Weight loss is strongly emphasized to the patient. 6. P.r.n. BiPAP. 7. Pt has gallstones. not symptomatic. Leave up to PCP SUN REYNOLDS MD Dec 11, 2018 11:40
[2018-12-11] MEDS ORDERED: DOXY100T PO (14:41)
[2018-12-11] MEDS ORDERED: IPRA4AER IH (14:41)
[2018-12-11] MEDS ORDERED: PRED20TA PO (14:41)
--- NOTE | 2018-12-11 14:52 | PDOC3 ---
Discharge Summary Visit Information Date of Admission: Dec 09, 2018 Date of Discharge: Dec 11, 2018 Admitting Diagnosis: Asthma exacerbation Final Diagnosis Asthma exacerbation Brief Hospital Course Allergies Allergies Coded Allergies Type Severity Reaction Last Updated Verified Sulfa (Sulfonamide Antibiotics) Allergy Intermediate 12/20/15 Yes adhesive tape Allergy Intermediate skin sensitive to tape 12/20/15 Yes Vital Signs Vital Signs Date Time Temp Pulse Resp B/P (MAP) Pulse Ox O2 Delivery O2 Flow Rate FiO2 12/11/18 11:12 100 Room Air 12/11/18 11:00 98.0 101 16 116/81 (93) 98.0 Lab Results Laboratory Tests Test 12/09/18 16:57 12/09/18 20:48 12/10/18 07:41 12/10/18 08:24 Glucose (Fingerstick) 322 mg/dL (70-99) 397 mg/dL (70-99) 274 mg/dL (70-99) Sodium Level 136 mmol/L (136-145) Potassium Level 3.9 mmol/L (3.5-5.1) Chloride Level 97 mmol/L (98-107) Carbon Dioxide Level 31 mmol/L (21-32) Anion Gap 8 (6-14) Blood Urea Nitrogen 15 mg/dL (8-26) Creatinine 1.1 mg/dL (0.7-1.3) Estimated GFR (Cockcroft-Gault) 89.7 Glucose Level 293 mg/dL (70-99) Calcium Level 8.2 mg/dL (8.5-10.1) Troponin I Quantitative < 0.017 ng/mL (0.000-0.055) Test 12/10/18 11:37 12/10/18 16:52 12/10/18 21:00 12/11/18 08:02 Glucose (Fingerstick) 197 mg/dL (70-99) 340 mg/dL (70-99) 258 mg/dL (70-99) 143 mg/dL (70-99) Test 12/11/18 10:52 Glucose (Fingerstick) 258 mg/dL (70-99) Laboratory Tests Test 12/10/18 16:52 12/10/18 21:00 12/11/18 08:02 12/11/18 10:52 Glucose (Fingerstick) 340 mg/dL (70-99) 258 mg/dL (70-99) 143 mg/dL (70-99) 258 mg/dL (70-99) Brief Hospital Course Mr Guillen is a 38 year old Male patient w/ PMHx asthma, HTN, DM2, morbid obesity, and newly diagnosed sleep apnea recently who presented to ED coughing up yellow sputum having fevers having chest pain with wheezing and quite short of breath overall. He has associated chest pain in center of the chest feeling like pressure but also worse with coughing and with palpation. He denies any GI or symptoms 12/10: CTPA negative for PE, not enough contrast, though. LE dopplers negative for DVT. Echo WNL (unable to visualize RV and valves, however) Feeling a bit better today. Breathing improved. Unfortunately he cannot get BIPAP as he is on medicaid, apparently. ECHO: The left ventricular systolic function is normal and the ejection fraction is within normal range. The Ejection Fraction is 60-65%. There is normal LV segmental wall motion. Technically very difficult study despite contrast use. Unable to visualize majority of the RV and valves. Greater than 30 minutes spent on discharge including prescriptions A/P: Acute asthma exacerbation - will cont steroids, nebs, add pulmicort. He does not have a primary sports psychologist, would like to see one while in house Acute bronchitis - meets sepsis criteria with his RR and leukocytosis, covered with rocephin and doxy. Given IVF Chest pain - EKG and trop negative, seems pleuritic. He states he has been gaining weight, Echo shows normal cardiac function HTN - will continue home meds DM2 - on 30u BID lantus and 35u TID novolog with frequent hypoglycemia, I will reduce his novolog dosing and add bolus plus sliding scale to 25U TID and high sliding Morbid obesity - counseled on weight loss Newly diagnosed sleep apnea - BIPAP overnight. Unfortunately, apparently his insurance has not approved this Discharge Information Condition at Discharge: Improved Follow Up: Weeks (2) Disposition/Orders: D/C to Home Scheduled Amitriptyline Hcl (Amitriptyline Hcl) 50 Mg Tablet, 2 TAB PO QHS for sleep, #30 Ref 1 (Reported) Entered as Reported by: BRIT CORDERO on 10/16/15 1612 Last Action: Reviewed on 12/09/182125 by NOBLE FAUSTIN Aspirin (Aspirin) 81 Mg Tab.chew, 1 TAB PO DAILY, #30 Ref 3 (Reported) Entered as Reported by: BRIT CORDERO on 10/16/15 1611 Last Action: Reviewed on 12/09/182125 by NOBLE FAUSTIN Atorvastatin Calcium (Atorvastatin Calcium) 40 Mg Tablet, 40 MG PO QHS for cholesterol, (Reported) Entered as Reported by: NOBLE FAUSTIN on 12/09/182124 Last Action: Continued on 12/10/18 1520 by DAVID MARTÍNEZ MD Doxycycline Hyclate (Doxycycline Hyclate) 100 Mg Tablet, 100 MG PO BID for Pneumonia for 7 Days, #14 Prescribed by: DAVID MARTÍNEZ MD on 12/11/18 1441 Famotidine (Famotidine) 40 Mg Tablet, 40 MG PO DAILY for indigestion, (Reported) Entered as Reported by: NOBLE FAUSTIN on 12/09/182124 Last Action: Converted on 12/10/181519 by DAVID MARTÍNEZ MD Fluticasone Propionate (Fluticasone Propionate Nasal [place]) 16 Gm [place].susp, 2 SPR NIRMAL DAILY for sinuses, (Reported) Entered as Reported by: NOBLE FAUSTIN on 12/09/182124 Last Action: Continued on 12/10/181519 by DAVID MARTÍNEZ MD Insulin Aspart (Novolog) 100 Unit/1 Ml Cartridge, 50 UNIT SQ TIDAC for blood sugar, (Reported) Entered as Reported by: BRIT CORDERO on 10/16/15 1612 Last Action: Reviewed on 12/09/182125 by NOBLE FAUSTIN Insulin Glargine,Hum.rec.anlog (Lantus Solostar) 100 Unit/1 Ml Insuln.pen, 30 UNIT SQ BID, #15 Ref 3 (Reported) Entered as Reported by: RAINA MELENDEZ on 12/18/15 1834 Last Action: Reviewed on 12/09/182125 by NOBLE FAUSTIN Ipratropium/Albuterol Sulfate (Combivent Respimat Inhal) 4 Gm Aer.w.adap, 2 INH IH QID for Bronchitis for 30 Days, #1 Ref 2 Prescribed by: DAVID MARTÍNEZ MD on 12/11/18 1441 Lisinopril (Lisinopril) 20 Mg Tablet, 2 TAB PO DAILY for blood pressure, #30 Ref 5 (Reported) Entered as Reported by: BRIT CORDERO on 10/16/15 1610 Last Action: Reviewed on 12/09/182125 by NOBLE FAUSTIN Prednisone (Prednisone) 20 Mg Tablet, 1 TAB PO DAILY for COPD, #5 Prescribed by: DAVID MARTÍNEZ MD on 12/11/18 1441 Sertraline Hcl (Sertraline Hcl) 100 Mg Tablet, 100 MG PO DAILY for bipolar, ( Reported) Entered as Reported by: NOBLE FAUSTIN on 12/09/182124 Last Action: Converted on 12/10/181519 by DAVID MARTÍNEZ MD Scheduled PRN Hydrocodone/Apap 5-325 ([place] 5-325 Tablet) 1 Each Tablet, 1 TAB PO PRN Q6HRS PRN for PAIN for 5 Days, #10 Ref 0 Prescribed by: YASMANI GONZALEZ D.O. on 04/22/18353 Last Action: Reviewed on 12/09/182125 by NOBLE FAUSTIN Orphenadrine Citrate (Orphenadrine Citrate) 100 Mg Tablet.er, 1 TAB PO BID PRN for MUSCLE PAIN, #14 Ref 0 Prescribed by: YASMANI GONZALEZ D.O. on 04/22/18353 Last Action: HELD on 12/10/181518 by DAVID MARTÍNEZ MD Trazodone Hcl (Trazodone Hcl) 100 Mg Tablet, 100 MG PO PRN QHS PRN for INSOMNIA, (Reported) Entered as Reported by: NOBLE FAUSTIN on 12/09/182124 Last Action: Continued on 12/10/181519 by DAVID MARTÍNEZ MD Discontinued Medications Ibuprofen (Ibuprofen) 800 Mg Tablet, 1 TAB PO PRN Q6-8HRS PRN for PAIN, ( Reported) Entered as Reported by: NOBLE FAUSTIN on 12/09/182124 Last Action: HELD on 12/10/181518 by DAVID MARTÍNEZ MD Naproxen (Naproxen) 500 Mg Tablet, 1 TAB PO BID PRN for PAIN, #20 Ref 0 Prescribed by: YASMANI GONZALEZ D.O. on 04/22/18353 Last Action: HELD on 12/10/181518 by MD MAURICIO GONZALES CHRISTOPHER S MD Dec 11, 2018 14:52
--- NOTE | 2018-12-11 15:21 | NUR ---
pt discharged home with family. meds and follow up reviewed. pt given script for bipap and instructed to obtain compassionate care services through [facility] for assistance in obtaining device. pt v/u. pt stable upon dc.
== END 2018-12-11 15:22 | disposition home or self-care (01) | DRG 871 ==
LOC: ER 00:18 → 5 SOUTH 01:48
PROVIDERS: ADMIT Internal Medicine; ATTEND Internal Medicine
PROC: 5A09357 Assistance with Respiratory Ventilation, Less than 24 Consecutive Hours, Continuous Positive Airway Pressure (ICD-10-PCS; principal; 2018-12-09)
PROC: 5A09357 Assistance with Respiratory Ventilation, Less than 24 Consecutive Hours, Continuous Positive Airway Pressure (ICD-10-PCS; 2018-12-10)
DX: A41.9 Sepsis, unspecified organism (principal); J96.01 Acute respiratory failure with hypoxia; J45.901 Unspecified asthma with (acute) exacerbation; E66.2 Morbid (severe) obesity with alveolar hypoventilation; Z68.44 Body mass index [BMI] 60.0-69.9, adult; E11.649 Type 2 diabetes mellitus with hypoglycemia without coma; J20.9 Acute bronchitis, unspecified; E78.00 Pure hypercholesterolemia, unspecified; I10 Essential (primary) hypertension; E11.40 Type 2 diabetes mellitus with diabetic neuropathy, unspecified; Z91.048 Other nonmedicinal substance allergy status; Z88.2 Allergy status to sulfonamides; Z83.3 Family history of diabetes mellitus; Z82.49 Family history of ischemic heart disease and other diseases of the circulatory system; Z87.891 Personal history of nicotine dependence
CPT/HCPCS: 36415; 71045; 71275; 80048; 80053; 82962; 83605; 83880; 84484; 85025; 87040; 87804; 93005; 93970; 94640; 94644; 94660; 94760; 96374; 96375; C8929; J0696; J1815; J2930; J7512; J7613; J7620; J7626; Q9956; 99285-25

== ENCOUNTER 2019-08-26 09:55 | Emergency (ER) | payer MEDICAID ==
[~2019-08-26] VITALS: Ht 188 cm; Wt 235.9 kg
[~2019-08-26 09:55] MED LIST changes: +ATOR40TA59 PO; +DOXY100T PO; +FAMO40TA4 PO; +FLUT16SP NAS; +IBUP800T19 PO; +IPRA4AER IH; +LIDO700A21 TP; -LIDO700A39 TP; +PRED20TA PO; +SERT100T8 PO; +TRAZ-86 PO
[2019-08-26] MEDS ORDERED: ASPIRIN 325 MG TABLET PO ONE (10:30)
[2019-08-26] MEDS ORDERED: MORPHINE SULFATE 4 MG/ML VIAL. IV ONE (10:30)
[2019-08-26 10:40] LABS: BASO # 0.1 x10^3/uL (0.0-0.2); BASO % 1 % (0-3); EOS # 0.4 x10^3/uL (0.0-0.7); EOS % 4 % (0-3); HEMOGLOBIN 11.9 g/dL (13.0-17.5); LYMPH # 1.6 x10^3/uL (1.0-4.8); LYMPH % 16 % (24-48); MEAN CORPUSCULAR HEMOGLOBIN 25 pg (25-35); MEAN CORPUSCULAR HGB CONC 32 g/dL (31-37); MEAN CORPUSCULAR VOLUME 78 fL (79-100); MONO # 0.9 x10^3/uL (0.0-1.1); MONO % 9 % (0-9); NEUT % 70 % (31-73); PLATELET COUNT 370 x10^3/uL (140-400); RED BLOOD COUNT 4.72 x10^6/uL (4.30-5.70); RED CELL DISTRIBUTION WIDTH 16.3 % (11.5-14.5)
[2019-08-26 10:50] LABS: CALCIUM 8.3 mg/dL (8.5-10.1); CREATININE 1.1 mg/dL (0.7-1.3); GFR 89.3; POTASSIUM 4.2 mmol/L (3.5-5.1)
[2019-08-26 10:52] LABS: PROTHROMBIN TIME PATIENT 12.6 SEC (11.7-14.0)
[2019-08-26 10:56] LABS: ALBUMIN/GLOBULIN RATIO 0.7 (1.0-1.7); TOTAL BILIRUBIN 0.1 mg/dL (0.2-1.0); TOTAL PROTEIN 7.4 g/dL (6.4-8.2)
[2019-08-26 10:57] LABS: D-DIMER 0.55 ug/mlFEU (0.00-0.50)
--- NOTE | 2019-08-26 11:44 | RAD ---
EXAM: Right lower extremity venous Doppler sonogram; right lower extremity arterial Doppler sonogram. HISTORY: Pain and swelling. TECHNIQUE: Mcfarlane scale and color Doppler sonographic evaluation of the right lower extremity veins and arteries with spectral waveform analysis was performed. FINDINGS: There are triphasic and biphasic waveforms there are normal peak systolic velocities throughout the right lower extremity arteries, with exception of the right peroneal artery which is not seen. There is normal color flow, normal compressibility and there are normal spectral waveforms in the common femoral, superficial femoral, popliteal, and posterior tibial veins. The peroneal veins are not seen. There is soft tissue edema. IMPRESSION: 1. Limited exam due to patient body habitus and soft tissue edema. The right peroneal artery and veins are not seen. 2. No Doppler evidence of lower extremity deep venous thrombosis or significant stenosis involving the visualized veins and arteries. Electronically signed by: Raven Gordon MD (08/26/2019 11:41 AM) [id number]
--- NOTE | 2019-08-26 12:00 | EKG ---
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
--- NOTE | 2019-08-26 12:02 | PHYS DOC ---
Past Medical History Past Medical History: Asthma, Diabetes-Type II, High Cholesterol, Hypertension, Other Additional Past Medical Histor: Morbid obesity, neuropathy Past Surgical History: Other Additional Past Surgical Histo: L SHOULDER ORIF Alcohol Use: Occasionally Drug Use: Marijuana Adult General Chief Complaint Chief Complaint: LOWER EXTREMITY SWELLING HPI HPI Patient is a 39 year old AA male who presents to the emergency Department today with complaints of right lower leg swelling and pain for the last 2 days. Patient states that his leg feels cool to touch this morning he denies any drainage or known injury. He also complains of chest pain and shortness of br eath for the last 2 days. Patient states that he has been diaphoretic and nauseated with the chest pain. He denies any recent cough, vomiting, diarrhea, abdominal pain, back pain,recent decrease in mobility, recent travel, or recent air flights. Patient states that his pain as a 10 out of 10 on the pain scale, he denies any alleviating or exacerbating factors. He reports that he quit smoking cigarettes 3 years ago, he denies alcohol use, and states that he does not routinely use illicit drugs he only smokes marijuana on occasion. He denies any family cardiac history. Review of Systems Review of Systems Constitutional: Denies fever or chills [] Eyes: Denies change in visual acuity, redness, or eye pain [] HENT: Denies nasal congestion or sore throat [] Respiratory: Denies cough, see history of present illness Cardiovascular: Denies palpitations, No additional information not addressed in HPI [] GI: Denies abdominal pain, vomiting, bloody stools or diarrhea; see history of present illness[] : Denies dysuria or hematuria [] Musculoskeletal: Denies back pain or joint pain [] Integument: Reports bruise to left hand and discoloration of right lower extremity with swelling of right lower extremity Neurologic: Denies headache, focal weakness or sensory changes [] Endocrine: Denies polyuria or polydipsia [] Complete systems were reviewed and found to be within normal limits, except as documented in this note. Current Medications Current Medications Current Medications Medications (Trade) Dose Ordered Sig/Navi Start Time Stop Time Status Last Admin Dose Admin Aspirin (Hemal Aspirin) 325 mg 1X ONCE 08/26/19 10:30 08/26/19 10:31 DC 08/26/19 10:37 325 MG Info (CONTRAST GIVEN -- Rx MONITORING) 1 each PRN DAILY PRN 08/26/19 12:15 08/26/19 13:50 DC Iohexol (Omnipaque 350 Mg/ml) 100 ml 1X ONCE 08/26/19 12:15 08/26/19 12:16 DC 08/26/19 12:32 100 ML Morphine Sulfate (Morphine Sulfate) 4 mg 1X ONCE 08/26/19 10:30 08/26/19 10:31 DC 08/26/19 10:38 4 MG Allergies Allergies Allergies Coded Allergies Type Severity Reaction Last Updated Verified Sulfa (Sulfonamide Antibiotics) Allergy Intermediate 12/20/15 Yes adhesive tape Allergy Intermediate skin sensitive to tape 12/20/15 Yes Physical Exam Physical Exam Constitutional: Well developed, well nourished, no acute distress, non-toxic appearance, obese [] HENT: Normocephalic, atraumatic, bilateral external ears normal, oropharynx moist, no oral exudates, nose normal. [] Eyes: PERRLA, EOMI, conjunctiva normal, no discharge. [] Neck: Normal range of motion, no stridor. [] Cardiovascular:Heart rate regular rhythm, no murmur [] Lungs & Thorax: Bilateral breath sounds clear to auscultation, retractions, regular rate [] Abdomen: Bowel sounds normal, soft, no tenderness, no masses, no pulsatile masses. [] Skin: Warm, dry, no erythema, no rash; darkening of RLE, RLE 2+ edema and coolness to the touch; 1 cm bruise noted to L palm. [] Back: No tenderness Extremities: RLE: TTP, 2+ edema, no deformity, weak pedal pulse; LLE: nontender, no cyanosis, no clubbing, ROM intact, 1+ edema. [] Neurologic: Alert and oriented X 3, no focal deficits noted. [] Psychologic: Affect normal, judgement normal, mood normal. [] Current Patient Data Vital Signs Vital Signs Date Time Temp Pulse Resp B/P (MAP) Pulse Ox O2 Delivery O2 Flow Rate FiO2 08/26/19 13:28 86 21 164/86 (112) 96 Room Air 08/26/19 10:04 98.4 98.4 Lab Values Laboratory Tests Test 08/26/19 10:31 08/26/19 13:11 White Blood Count 10.0 x10^3/uL (4.0-11.0) Red Blood Count 4.72 x10^6/uL (4.30-5.70) Hemoglobin 11.9 g/dL (13.0-17.5) L Hematocrit 37.0 % (39.0-53.0) L Mean Corpuscular Volume 78 fL (79-100) L Mean Corpuscular Hemoglobin 25 pg (25-35) Mean Corpuscular Hemoglobin Concent 32 g/dL (31-37) Red Cell Distribution Width 16.3 % (11.5-14.5) H Platelet Count 370 x10^3/uL (140-400) Neutrophils (%) (Auto) 70 % (31-73) Lymphocytes (%) (Auto) 16 % (24-48) L Monocytes (%) (Auto) 9 % (0-9) Eosinophils (%) (Auto) 4 % (0-3) H Basophils (%) (Auto) 1 % (0-3) Neutrophils # (Auto) 7.0 x10^3/uL (1.8-7.7) Lymphocytes # (Auto) 1.6 x10^3/uL (1.0-4.8) Monocytes # (Auto) 0.9 x10^3/uL (0.0-1.1) Eosinophils # (Auto) 0.4 x10^3/uL (0.0-0.7) Basophils # (Auto) 0.1 x10^3/uL (0.0-0.2) Prothrombin Time 12.6 SEC (11.7-14.0) Prothrombin Time INR 1.0 (0.8-1.1) Activated Partial Thromboplast Time 29 SEC (24-38) D-Dimer (Whit) 0.55 ug/mlFEU (0.00-0.50) H Sodium Level 138 mmol/L (136-145) Potassium Level 4.2 mmol/L (3.5-5.1) Chloride Level 103 mmol/L (98-107) Carbon Dioxide Level 28 mmol/L (21-32) Anion Gap 7 (6-14) Blood Urea Nitrogen 13 mg/dL (8-26) Creatinine 1.1 mg/dL (0.7-1.3) Estimated GFR (Cockcroft-Gault) 89.3 BUN/Creatinine Ratio 12 (6-20) Glucose Level 113 mg/dL (70-99) H Calcium Level 8.3 mg/dL (8.5-10.1) L Magnesium Level 2.0 mg/dL (1.8-2.4) Total Bilirubin 0.1 mg/dL (0.2-1.0) L Aspartate Amino Transferase (AST) 16 U/L (15-37) Alanine Aminotransferase (ALT) 17 U/L (16-63) Alkaline Phosphatase 97 U/L (46-116) Creatine Kinase 188 U/L (39-308) Creatine Kinase MB (Mass) 3.2 ng/mL (0.0-3.6) Creatine Kinase MB Relative Index 1.7 % (0-4) Troponin I Quantitative < 0.017 ng/mL (0.000-0.055) VR-Wpg-[id number]-Type Natriuretic Peptide 269 pg/mL (0-124) H Total Protein 7.4 g/dL (6.4-8.2) Albumin 3.0 g/dL (3.4-5.0) L Albumin/Globulin Ratio 0.7 (1.0-1.7) L Urine Collection Type Void Urine Color Yellow Urine Clarity Clear Urine pH 5.5 Urine Specific [place] 1.020 Urine Protein Negative mg/dL (NEG-TRACE) Urine Glucose (UA) Negative mg/dL (NEG) Urine Ketones (Stick) Negative mg/dL (NEG) Urine Blood Negative (NEG) Urine Nitrite Negative (NEG) Urine Bilirubin Negative (NEG) Urine Urobilinogen Dipstick 0.2 mg/dL (0.2 mg/dL) Urine Leukocyte Esterase Negative (NEG) Urine RBC 0 /HPF (0-2) Urine WBC 1-4 /HPF (0-4) Urine Squamous Epithelial Cells Occ /LPF Urine Bacteria 0 /HPF (0-FEW) Urine Mucus Slight /LPF Laboratory Tests 08/26/19 10:31 Laboratory Tests 08/26/19 10:31 EKG EKG 1014- NSR rate 90, no STEMI read by Dr. Roa[] Radiology/Procedures Radiology/Procedures PROCEDURE: DUPLEX LOWER EX ARTERIAL RIGHT EXAM: Right lower extremity venous Doppler sonogram; right lower extremity arterial Doppler sonogram. HISTORY: Pain and swelling. TECHNIQUE: Mcfarlane scale and color Doppler sonographic evaluation of the right lower extremity veins and arteries with spectral waveform analysis was performed. FINDINGS: There are triphasic and biphasic waveforms there are normal peak systolic velocities throughout the right lower extremity arteries, with exception of the right peroneal artery which is not seen. There is normal color flow, normal compressibility and there are normal spectral waveforms in the common femoral, superficial femoral, popliteal, and posterior tibial veins. The peroneal veins are not seen. There is soft tissue edema. IMPRESSION: 1. Limited exam due to patient body habitus and soft tissue edema. The right peroneal artery and veins are not seen. 2. No Doppler evidence of lower extremity deep venous thrombosis or significant stenosis involving the visualized veins and arteries.[] PROCEDURE: CT ANGIOGRAPHY CHEST CT chest with contrast dated 08/26/2019. No comparison available. Clinical data indication: Elevated d-dimer. Shortness of breath and chest pain. TECHNIQUE: Contiguous axial imaging the chest performed following the intravenous demonstration of 100 cc Omnipaque 350. Study was performed as dedicated PE protocol with thin cut coronal MIPS 3-D reconstruction. One or more of the following individualized dose reduction techniques were utilized for this examination: 1. Automated exposure control 2. Adjustment of the mA and/or kV according to patient size 3. Use of iterative reconstruction technique FINDINGS: Study is limited due to missed timing of contrast bolus. There is no evidence of central, main lobar or proximal segmental pulmonary embolus. The distal segmental and subsegmental branches are not well evaluated. Heart size upper limits of normal. No pericardial effusion. No mediastinal, hilar or axillary lymphadenopathy. Central airways are patent. Lungs are clear. No consolidation or pleural effusion. No pneumothorax. Images of the upper abdomen show calcified stones in the gallbladder lumen. No acute bony abnormality. Multilevel spondylosis. IMPRESSION: 1. Limited exam. No evidence of central, main lobar or proximal segmental pulmonary embolus. The distal segmental and subsegmental branches are not well evaluated due to missed timing of contrast bolus. 2. Clear lungs. 3. Cholelithiasis. Course & Med Decision Making Course & Med Decision Making Pertinent Labs and Imaging studies reviewed. (See chart for details) Patient is a 39-year-old -[place] male who presented to the emergency department with complaints of right lower leg swelling, coolness, and pain for the last 2 days in addition to chest pain and shortness of breath for the last 2 days. His heart score was a 3, low suspicion for acute coronary syndrome. C revealed a hemoglobin of 11.9, hematocrit of 37, patient reported history of anemia, he denied any blood in his stools or urine. PT and INR were within normal limits, d-dimer was 0.55, CMP: [place] 113, calcium 8.3, BNP 269, CK-MB negative, CK MB index also negative, troponin less than 0.017; UA revealed white blood cell count of 1-4, patient was asymptomatic. Patient's vital signs were stable throughout his stay, patient was noted to be hypertensive his highest blood pressure was 170/96, the lowest blood pressure was 163/77. Patient reported a history of hypertension. The ultrasound of his right lower extremity was negative for stenosis or a DVT, CT chest revealed no pulmonary embolism The patient was given 325 mg of aspirin, and 4 mg of morphine in the emergency department. Patient was encouraged to follow up with his primary care doctor for further evaluation of his extremity swelling, recommended elevation of legs when resting. Return to the ER if symptoms worsen. The patient verbalized an understanding of home care, medications, follow-up, and return to ED instructions and was in agreement with the plan of care. [] Dragon Disclaimer Dragon Disclaimer This electronic medical record was generated, in whole or in part, using a voice recognition dictation system. Departure Departure Impression: Primary Impression: Pain and swelling of right lower extremity Additional Impressions: Chest pain of uncertain etiology Shortness of breath Disposition: 01 HOME, SELF-CARE Condition: STABLE Referrals: NO PCP (PCP) Patient Instructions: Chest Pain (Nonspecific), [id number], Peripheral Edema, Shortness of Breath, [id number] Additional Instructions: Your arterial and venous ultrasounds are negative today. EKG revealed no acute findings. Follow-up with your primary care doctor for further evaluation and treatment of the swelling in your lower extremities. Return to the ER if your symptoms worsen. The HEART Score for CP Pts HEART Score for Chest Pain: HEART Score for Chest Pain Response (Comments) Value History Slighlty/Non-Suspicious 0 ECG Normal 0 Age >45 - < 65 1 Risk Factors >3 Risk Factors or Hx CAD 2 Troponin < Normal Limit 0 Total 3 Risk Factors: Risk Factors: DM, Current or recent (<one month) smoker, HTN, HLP, family history of CAD, obesity. Risk Scores: Score 0 - 3: 2.5% MACE over next 6 weeks - Discharge Home Score 4 - 6: 20.3% MACE over next 6 weeks - Admit for Clinical Observation Score 7 - 10: 72.7% MACE over next 6 weeks - Early Invasive Strategies Problem Qualifiers JAMILA JAMISON APRN Aug 26, 2019 12:02
[2019-08-26] MEDS ORDERED: IOHEXOL 350 MG/ML 100 ML VIAL. IV ONE (12:15)
[2019-08-26] MEDS ORDERED: CONTRAST GIVEN. MC PRN (12:15)
--- NOTE | 2019-08-26 12:41 | RAD ---
CT chest with contrast dated 08/26/2019. No comparison available. Clinical data indication: Elevated d-dimer. Shortness of breath and chest pain. TECHNIQUE: Contiguous axial imaging the chest performed following the intravenous demonstration of 100 cc Omnipaque 350. Study was performed as dedicated PE protocol with thin cut coronal MIPS 3-D reconstruction. One or more of the following individualized dose reduction techniques were utilized for this examination: 1. Automated exposure control 2. Adjustment of the mA and/or kV according to patient size 3. Use of iterative reconstruction technique FINDINGS: Study is limited due to missed timing of contrast bolus. There is no evidence of central, main lobar or proximal segmental pulmonary embolus. The distal segmental and subsegmental branches are not well evaluated. Heart size upper limits of normal. No pericardial effusion. No mediastinal, hilar or axillary lymphadenopathy. Central airways are patent. Lungs are clear. No consolidation or pleural effusion. No pneumothorax. Images of the upper abdomen show calcified stones in the gallbladder lumen. No acute bony abnormality. Multilevel spondylosis. IMPRESSION: 1. Limited exam. No evidence of central, main lobar or proximal segmental pulmonary embolus. The distal segmental and subsegmental branches are not well evaluated due to missed timing of contrast bolus. 2. Clear lungs. 3. Cholelithiasis. Electronically signed by: Janak Grimm MD (08/26/2019 12:38 PM) [id number]
[2019-08-26 13:17] LABS: BILIRUBIN,URINE NEGATIVE (NEG); CLARITY,URINE CLEAR; COLOR,URINE YELLOW; NITRITE,URINE NEGATIVE (NEG); PH,URINE 5.5; PROTEIN,URINE NEGATIVE (NEG-TRACE); UROBILINOGEN,URINE 0.2 mg/dL (0.2 mg/dL)
[2019-08-26 13:23] LABS: SQUAMOUS EPITHELIAL CELL,UR OCC /LPF
[2019-08-26 13:24] LABS: BACTERIA,URINE 0 /HPF (0-FEW); RBC,URINE 0 /HPF (0-2)
[2019-08-26 13:28] VITALS: BP 164/86
== END 2019-08-26 13:47 | disposition home or self-care (01) ==
LOC: ER 09:55
DX: M79.661 Pain in right lower leg (principal); R22.41 Localized swelling, mass and lump, right lower limb; R07.89 Other chest pain; R06.02 Shortness of breath; J45.909 Unspecified asthma, uncomplicated; E78.00 Pure hypercholesterolemia, unspecified; E11.40 Type 2 diabetes mellitus with diabetic neuropathy, unspecified; I10 Essential (primary) hypertension; E66.01 Morbid (severe) obesity due to excess calories; Z68.44 Body mass index [BMI] 60.0-69.9, adult; Z87.891 Personal history of nicotine dependence; Z88.2 Allergy status to sulfonamides; Z88.8 Allergy status to other drugs, medicaments and biological substances
CPT/HCPCS: 36415; 71275; 80053; 81001; 82553; 83735; 83880; 84484; 85025; 85379; 85610; 85730; 93005; 93926; 93971; 96374; 99285; J2270; Q9967

== ENCOUNTER 2020-09-25 04:27 | Inpatient (IN) | payer MEDICAID ==
[~2020-09-25] VITALS: Ht 188 cm; Wt 238.1 kg
[~2020-09-25 04:27] MED LIST changes: -LISI-334 PO; +LISI20TA18 PO; +SERT-268 PO; -SERT100T8 PO; +TRAZ-123 PO; -TRAZ-86 PO
[2020-09-25] MEDS ORDERED: MORPHINE SULFATE 2 MG/ML VIAL. IV PRN (05:00)
[2020-09-25] MEDS ORDERED: fentaNYL PF VIAL 100 MCG/2 ML VIAL IV PRN ×2 (05:00)
[2020-09-25] MEDS ORDERED: MORPHINE SULFATE 4 MG/ML VIAL. IV PRN (05:00)
[2020-09-25 05:17] LABS: BASO # 0.1 x10^3/uL (0.0-0.2); BASO % 1 % (0-3); EOS # 0.3 x10^3/uL (0.0-0.7); EOS % 2 % (0-3); HEMATOCRIT 39.9 % (39.0-53.0); HEMOGLOBIN 12.8 g/dL (13.0-17.5); LYMPH # 1.9 x10^3/uL (1.0-4.8); LYMPH % 13 % (24-48); MEAN CORPUSCULAR HEMOGLOBIN 25 pg (25-35); MEAN CORPUSCULAR HGB CONC 32 g/dL (31-37); MEAN CORPUSCULAR VOLUME 77 fL (79-100); MONO # 1.2 x10^3/uL (0.0-1.1); MONO % 8 % (0-9); NEUT # 11.3 x10^3/uL (1.8-7.7); NEUT % 77 % (31-73); PLATELET COUNT 389 x10^3/uL (140-400); RED BLOOD COUNT 5.18 x10^6/uL (4.30-5.70); RED CELL DISTRIBUTION WIDTH 14.9 % (11.5-14.5); WHITE BLOOD COUNT 14.8 x10^3/uL (4.0-11.0)
--- NOTE | 2020-09-25 05:20 | PHYS DOC ---
Past Medical History Past Medical History: Asthma, Diabetes-Type II, High Cholesterol, Hypertension, Other Additional Past Medical Histor: Morbid obesity, neuropathy Past Surgical History: Other Additional Past Surgical Histo: L SHOULDER ORIF Smoking Status: Former Smoker Alcohol Use: Occasionally Drug Use: Marijuana General Adult EDM: Chief Complaint: SHORTNESS OF BREATH HPI: HPI: Patient is a 40 year old male past medical history hypertension hyperlipidemia diabetes asthma presents with a chief complaint of shortness of breath. Patient states she has had shortness of breath x3 days progressively coming worse. Patient states he has associated cough with some sputum production. Patient states he has had a fever. Patient also has had some nausea with vomiting. Review of Systems: Review of Systems: Constitutional: positivef fever Eyes: Denies change in visual acuity. [] HENT: Denies nasal congestion or sore throat. [] Respiratory: Positive cough or shortness of breath. [] Cardiovascular: Denies chest pain or edema. [] GI: Denies abdominal pain, , bloody stools or diarrhea. [Positive nausea, vomiting] : Denies dysuria. [] Musculoskeletal: Denies back pain or joint pain. [] Integument: Denies rash. [] Neurologic: Denies headache, focal weakness or sensory changes. [] Endocrine: Denies polyuria or polydipsia. [] Lymphatic: Denies swollen glands. [] Psychiatric: Denies depression or anxiety. [] Heart Score: Risk Factors: Risk Factors: DM, Current or recent (<one month) smoker, HTN, HLP, family history of CAD, obesity. Risk Scores: Score 0 - 3: 2.5% MACE over next 6 weeks - Discharge Home Score 4 - 6: 20.3% MACE over next 6 weeks - Admit for Clinical Observation Score 7 - 10: 72.7% MACE over next 6 weeks - Early Invasive Strategies Current Medications: Current Medications Medications (Trade) Dose Ordered Sig/Navi Start Time Stop Time Status Last Admin Dose Admin Ceftriaxone Sodium (Rocephin) 1 gm 1X ONCE 09/25/20 05:30 09/25/20 05:31 Chlorhexidine Gluconate (Peridex) 15 ml BID 09/25/20 09:00 09/25/20 04:53 DC Dexamethasone Sodium Phosphate (Decadron) 10 mg 1X ONCE 09/25/20 05:30 09/25/20 05:31 Etomidate (Amidate) 20 mg 1X ONCE 09/25/20 05:30 09/25/20 04:53 DC Fentanyl Citrate (Fentanyl 2ml Vial) 50 mcg PRN Q1HR PRN 09/25/20 05:00 09/25/20 04:53 DC Morphine Sulfate (Morphine Sulfate) 4 mg PRN Q1HR PRN 09/25/20 05:00 09/25/20 04:53 DC Succinylcholine Chloride (Anectine) 100 mg 1X ONCE 09/25/20 05:30 09/25/20 04:53 DC Allergies: Allergies: Allergies Coded Allergies Type Severity Reaction Last Updated Verified Sulfa (Sulfonamide Antibiotics) Allergy Intermediate 12/20/15 Yes adhesive tape Allergy Intermediate skin sensitive to tape 12/20/15 Yes Physical Exam: PE: Constitutional: Well developed, well nourished, no acute distress, non-toxic appearance. [] HENT: Normocephalic, atraumatic, bilateral external ears normal, oropharynx moist, no oral exudates, nose normal. [] Eyes: PERRLA, EOMI, conjunctiva normal, no discharge. [] Neck: Normal range of motion, no tenderness, supple, no stridor. [] Cardiovascular:Heart rate regular rhythm, no murmur [] Lungs & Thorax: Bilateral breath sounds clear to auscultation [] Abdomen: Bowel sounds normal, soft, no tenderness, no masses, no pulsatile masses. [] Skin: Warm, dry, no erythema, no rash. [] Back: No tenderness, no CVA tenderness. [] Extremities: No tenderness, no cyanosis, no clubbing, ROM intact, no edema. [] Neurologic: Alert and oriented X 3, normal motor function, normal sensory function, no focal deficits noted. [] Psychologic: Affect normal, judgement normal, mood normal. [] EKG: EKhrs Sinus rhythm no ST elevation no ST depression no acute MS [] Radiology/Procedures: Radiology/Procedures: [] Impression: Single view of chest obtained. Enlarged cardiomediastinal silhouette. Haziness at the bilateral lower lungs. No gross osseous destructive lesion. IMPRESSION: * Haziness the bilateral lower lungs. A portion of this is likely secondary to overlap of soft tissue structures but a region of atelectasis or infiltrate is not excluded given this finding. * Enlarged cardiomediastinal silhouette again seen. Electronically signed by: Felipe Ley MD (09/25/2020 5:46 AM) [id number] Course & Med Decision Making: Course & Med Decision Making Pertinent Labs and Imaging studies reviewed. (See chart for details) [] Patient was evaluated for chief complaint. Work-up consisted of laboratory analysis and radiologic imaging and EKG. Results reviewed and discussed with patient. Patient suspected to be PUI. Treatment included Decadron 10 mg IV push, Rocephin and Zithromax. Patient admitted to the hospitalist for further evaluation and treatment. Dragon Disclaimer: Dragon Disclaimer: This electronic medical record was generated, in whole or in part, using a voice recognition dictation system. Departure Departure Impression: Primary Impression: Person under investigation for COVID-19 Additional Impression: Pneumonia Disposition: 09 ADMITTED INPT THIS HOSP Admitting Physician: ALY Condition: STABLE Referrals: NO PCP (PCP) MIKIE CUELLAR DO Sep 25, 2020 05:20
[2020-09-25 05:28] LABS: CALCIUM 8.8 mg/dL (8.5-10.1); CREATININE 1.1 mg/dL (0.7-1.3); GFR 88.8
[2020-09-25] MEDS ORDERED: ONDANSETRON PF 4 MG/2 ML VIAL. IV PRN ×2 (05:30→07:30)
[2020-09-25] MEDS ORDERED: DEXAMETHASONE SOD PHOS 4 MG/ML VIAL IVP ONE (05:30)
[2020-09-25] MEDS ORDERED: cefTRIAXone IV Push 1 GM VIAL. IVP ONE (05:30)
[2020-09-25] MEDS ORDERED: SUCCINYLCHOLINE 200 MG/10 ML VIAL. IV ONE (05:30)
[2020-09-25] MEDS ORDERED: ETOMIDATE 20 MG/10 ML VIAL. IV ONE (05:30)
[2020-09-25 05:34] LABS: ALBUMIN 3.2 g/dL (3.4-5.0); ALBUMIN/GLOBULIN RATIO 0.8 (1.0-1.7); TOTAL BILIRUBIN 0.3 mg/dL (0.2-1.0); TOTAL PROTEIN 7.1 g/dL (6.4-8.2)
--- NOTE | 2020-09-25 05:48 | RAD ---
INDICATION: Reason: respiratory distress ER#21 / Spl. Instructions: / History: COMPARISON: August 26, 2019 FINDINGS: Single view of chest obtained. Enlarged cardiomediastinal silhouette. Haziness at the bilateral lower lungs. No gross osseous destru ctive lesion. IMPRESSION: * Haziness the bilateral lower lungs. A portion of this is likely secondary to overlap of soft tissu e structures but a region of atelectasis or infiltrate is not excluded given this finding. * Enlarged cardiomediastinal silhouette again seen. Electronically signed by: Felipe Ley MD (09/25/2020 5:46 AM) [id number]
[2020-09-25 06:21] LABS: INFLUENZA A PATIENT NEGATIVE (NEGATIVE); INFLUENZA B PATIENT NEGATIVE (NEGATIVE)
--- NOTE | 2020-09-25 07:30 | PDOC1 ---
History and Physical Date of Admission Date of Admission DATE: 09/25/20 TIME: 07:25 Identification/Chief Complaint Chief Complaint Cough Source Source: Patient History of Present Illness History of Present Illness Mr Guillen is a 38 year old Male patient w/ PMHx asthma, HTN, DM2, morbid obesity, and newly diagnosed sleep apnea recently who presented to ED coughing up yellow sputum having fevers with wheezing and quite short of breath which has been progressive for the past 3 days prior to presentation. He has associated chest pain in center of the chest feeling like pressure but also worse with coughing and with palpation. Also c/o hot and cold flashes, and N/V x1 day. Pt unaware of any recent covid exposure. He denies any symptoms EKG Sinus rhythm no ST elevation no ST depression no acute OH. Chest radiograph with bilateral lower lobe haziness. Labs with WBC 14.8, Hb 12.8, platelets 389, Na 143, K 4, BUN 19, Cr 1.1, glucose 130. Rapid influenza negative. Troponin negative Admitted for further care. Past Medical History Cardiovascular: HTN Pulmonary: Asthma, Bronchitis GI: No pertinent hx Heme/Onc: No pertinent hx Hepatobiliary: No pertinent hx Psych: No pertinent hx Rheumatologic: No pertinent hx Infectious disease: No pertinent hx Renal/: No pertinent hx Endocrine: Diabetes Past Surgical History Past Surgical History: No pertinent history Family History Family History: Diabetes, High Cholestrol, Hypertension Social History Smoke: No ALCOHOL: none Drugs: None Current Problem List Problem List Problems Medical Problems: (1) Person under investigation for COVID-19 Status: Acute (2) Pneumonia Status: Acute Current Medications Current Medications Current Medications Succinylcholine Chloride (Anectine) 100 mg 1X ONCE IV ; Start 09/25/20 at 05:30; Stop 09/25/20 at 04:53; Status DC Etomidate (Amidate) 20 mg 1X ONCE IV ; Start 09/25/20 at 05:30; Stop 09/25/20 at 04:53; Status DC Fentanyl Citrate (Fentanyl 2ml Vial) 25 mcg PRN Q1HR PRN IV COMM; Start 09/25/20 at 05:00; Stop 09/25/20 at 04:53; Status DC Fentanyl Citrate (Fentanyl 2ml Vial) 50 mcg PRN Q1HR PRN IV SEE COMMENTS; Start 09/25/20 at 05:00; Stop 09/25/20 at 04:53; Status DC Chlorhexidine Gluconate (Peridex) 15 ml BID MM ; Start 09/25/20 at 09:00; Stop 09/25/20 at 04:53; Status DC Morphine Sulfate (Morphine Sulfate) 2 mg PRN Q1HR PRN IV SEE COMMENTS.; Start 09/25/20 at 05:00; Stop 09/25/20 at 04:53; Status DC Morphine Sulfate (Morphine Sulfate) 4 mg PRN Q1HR PRN IV SEE COMMENTS.; Start 09/25/20 at 05:00; Stop 09/25/20 at 04:53; Status DC Ceftriaxone Sodium (Rocephin) 1 gm 1X ONCE IVP Last administered on 09/25/20at 05:17; Start 09/25/20 at 05:30; Stop 09/25/20 at 05:31; Status DC Dexamethasone Sodium Phosphate (Decadron) 10 mg 1X ONCE IVP Last administered on 09/25/20at 05:16; Start 09/25/20 at 05:30; Stop 09/25/20 at 05:31; Status DC Ondansetron HCl (Zofran) 4 mg PRN Q8HRS PRN IV NAUSEA/VOMITING 1st choice; Start 09/25/20 at 05:30; Stop 09/26/20 at 05:29 Active Scripts Active Combivent Respimat Inhal (Ipratropium/Albuterol Sulfate) 4 Gm Aer.w.adap 2 Inh IH QID 30 Days Prednisone 20 Mg Tablet 1 Tab PO DAILY Doxycycline Hyclate 100 Mg Tablet 100 Mg PO BID 7 Days [place] 5-325 Tablet (Acetaminophen/Hydrocodone Bitart) 1 Each Tablet 1 Tab PO PRN Q6HRS PRN 5 Days Orphenadrine Citrate 100 Mg Tablet.er 1 Tab PO BID PRN Reported Atorvastatin Calcium 40 Mg Tablet 40 Mg PO QHS Sertraline Hcl 100 Mg Tablet 100 Mg PO DAILY Fluticasone Propionate Nasal [place] (Fluticasone Propionate) 16 Gm [place].susp 2 Spr NIRMAL DAILY Famotidine 40 Mg Tablet 40 Mg PO DAILY Trazodone Hcl 100 Mg Tablet 100 Mg PO PRN QHS PRN Lantus Solostar (Insulin Glargine,Hum.rec.anlog) 100 Unit/1 Ml Insuln.pen 30 Unit SQ BID Amitriptyline Hcl 50 Mg Tablet 2 Tab PO QHS Novolog (Insulin Aspart) 100 Unit/1 Ml Cartridge 50 Unit SQ TIDAC Aspirin 81 Mg Tab.chew 1 Tab PO DAILY Lisinopril 20 Mg Tablet 2 Tab PO DAILY Allergies Allergies: Coded Allergies: Sulfa (Sulfonamide Antibiotics) (Verified Allergy, Intermediate, 12/20/15) adhesive tape (Verified Allergy, Intermediate, skin sensitive to tape, 12/20/15) ROS General: YES: Chills, Fatigue, Malaise; No: Night Sweats, Appetite, Other PSYCHOLOGICAL ROS: No: Anxiety, Behavioral Disorder, Concentration difficultie, Decreased libido, Depression, Disorientation, Hallucinations, Hostility, Irritablity, Memory difficulties, Mood Swings, Obsessive thoughts, Physical abuse, Sexual abuse, Sleep disturbances, Suicidal ideation, Other Eyes: No Blurry vision, No Decreased vision, No Double vision, No Dry eyes, No Excessive tearing, No Eye Pain, No Itchy Eyes, No Loss of vision, No Photophobia, No Scotomata, No Uses contacts, No Uses glasses, No Other HEENT: No: Heacaches, Visual Changes, Hearing change, Nasal congestion, Nasal discharge, Oral lesions, Sinus pain, Sore Throat, Epistaxis, Sneezing, Snoring, Tinnitus, Vertigo, Vocal changes, Other ALLERGY AND IMMUNOLOGY: No: Hives, Insect Bite Sensitivity, Itchy/Watery Eyes, Nasal Congestion, Post Nasal Drip, Seasonal Allergies, Other Hematological and Lymphatic: No: Bleeding Problems, Blood Clots, Blood Transfusions, Brusing, Night Sweats, Pallor, Swollen Lymph Nodes, Other ENDOCRINE: No: Breast Changes, Galactorrhea, Hair Pattern Changes, Hot Flashes, Malaise/lethargy, Mood Swings, Palpitations, Polydipsia/polyuria, Skin Changes, Temperature Intolerance, Unexpected Weight Changes, Other Breast: No New/Changing Breast Lumps, No Nipple changes, No Nipple discharge, N o Other Respiratory: YES: Cough, Pleuritic Pain, Shortness of breath, SOB with excertion, Tachypnea, Wheezing; No: Hemoptysis, Orthopnea, Sputum Changes, Stridor, Other Cardiovascular: yes Chest Pain; No Palpitations, No Orthopnea, No Paroxysmal Noc. Dyspnea, No Edema, No Lt Headedness, No Other Gastrointestinal: Yes Nausea, Yes Vomiting; No Abdominal Pain, No Diarrhea, No Constipation, No Melena, No Hematochezia, No Other Genitourinary: No Dysuria, No Frequency, No Incontinence, No Hematuria, No Retention, No Discharge, No Urgency, No Pain, No Flank Pain, No Other, No , No , No , No , No , No , No Musculoskeletal: No Gait Disturbance, No Joint Pain, No Joint Stiffness, No Joint Swelling, No Muscle Pain, No Muscular Weakness, No Pain In:, No Swelling In:, No Other Neurological: No Behavorial Changes, No Bowel/Bladder ControlChng, No Confusion, No Dizziness, No Gait Disturbance, No Headaches, No Impaired Coord/balance, No Memory Loss, No Numbness/Tingling, No Seizures, No Speech Problems, No Tremors, No Visual Changes, No Weakness, No Other Skin: No Dry Skin, No Eczema, No Hair Changes, No Lumps, No Mole Changes, No Mottling, No Nail Changes, No Pruritus, No Rash, No Skin Lesion Changes, No Other, No Acne Physical Exam General: Alert, Oriented X3, Cooperative, moderate distress HEENT: Atraumatic, PERRLA, EOMI, Mucous membr. moist/pink Lungs: Other (Diffuse scattered wheezing, prolonged expiratory phase) Heart: S1S2, RRR, no thrills, no rubs, no gallops, no murmurs Abdomen: Normal bowel sounds, Soft, No tenderness, No hepatosplenomegaly, No masses Rectal Exam: not examined Extremities: No clubbing, No cyanosis, No edema, Normal pulses, No tenderness/swelling Skin: No rashes, No breakdown, No significant lesion Neuro: Normal gait, Normal speech, Strength at 5/5 X4 ext, Normal tone, Sensation intact, Cranial nerves 3-12 NL, Reflexes 2+ Psych/Mental Status: Mental status NL, Mood NL Vitals Vitals Vital Signs Date Time Temp Pulse Resp B/P (MAP) Pulse Ox O2 Delivery O2 Flow Rate FiO2 09/25/20 07:21 97.8 87 22 194/104 (134) 98 Room Air 97.8 Labs Labs Laboratory Tests Test 09/25/20 05:00 09/25/20 05:25 White Blood Count 14.8 x10^3/uL (4.0-11.0) Red Blood Count 5.18 x10^6/uL (4.30-5.70) Hemoglobin 12.8 g/dL (13.0-17.5) Hematocrit 39.9 % (39.0-53.0) Mean Corpuscular Volume 77 fL (79-100) Mean Corpuscular Hemoglobin 25 pg (25-35) Mean Corpuscular Hemoglobin Concent 32 g/dL (31-37) Red Cell Distribution Width 14.9 % (11.5-14.5) Platelet Count 389 x10^3/uL (140-400) Neutrophils (%) (Auto) 77 % (31-73) Lymphocytes (%) (Auto) 13 % (24-48) Monocytes (%) (Auto) 8 % (0-9) Eosinophils (%) (Auto) 2 % (0-3) Basophils (%) (Auto) 1 % (0-3) Neutrophils # (Auto) 11.3 x10^3/uL (1.8-7.7) Lymphocytes # (Auto) 1.9 x10^3/uL (1.0-4.8) Monocytes # (Auto) 1.2 x10^3/uL (0.0-1.1) Eosinophils # (Auto) 0.3 x10^3/uL (0.0-0.7) Basophils # (Auto) 0.1 x10^3/uL (0.0-0.2) Sodium Level 143 mmol/L (136-145) Potassium Level 4.0 mmol/L (3.5-5.1) Chloride Level 103 mmol/L (98-107) Carbon Dioxide Level 25 mmol/L (21-32) Anion Gap 15 (6-14) Blood Urea Nitrogen 19 mg/dL (8-26) Creatinine 1.1 mg/dL (0.7-1.3) Estimated GFR (Cockcroft-Gault) 88.8 BUN/Creatinine Ratio 17 (6-20) Glucose Level 130 mg/dL (70-99) Lactic Acid Level 1.2 mmol/L (0.4-2.0) Calcium Level 8.8 mg/dL (8.5-10.1) Total Bilirubin 0.3 mg/dL (0.2-1.0) Aspartate Amino Transf (AST/SGOT) 19 U/L (15-37) Alanine Aminotransferase (ALT/SGPT) 30 U/L (16-63) Alkaline Phosphatase 99 U/L (46-116) Troponin I Quantitative < 0.017 ng/mL (0.000-0.055) CT-Gmw-I-Type Natriuretic Peptide 43 pg/mL (0-124) Total Protein 7.1 g/dL (6.4-8.2) Albumin 3.2 g/dL (3.4-5.0) Albumin/Globulin Ratio 0.8 (1.0-1.7) Influenza Type A Antigen Negative (NEGATIVE) Influenza Type B Antigen Negative (NEGATIVE) Laboratory Tests Test 09/25/20 05:00 09/25/20 05:25 White Blood Count 14.8 x10^3/uL (4.0-11.0) Red Blood Count 5.18 x10^6/uL (4.30-5.70) Hemoglobin 12.8 g/dL (13.0-17.5) Hematocrit 39.9 % (39.0-53.0) Mean Corpuscular Volume 77 fL (79-100) Mean Corpuscular Hemoglobin 25 pg (25-35) Mean Corpuscular Hemoglobin Concent 32 g/dL (31-37) Red Cell Distribution Width 14.9 % (11.5-14.5) Platelet Count 389 x10^3/uL (140-400) Neutrophils (%) (Auto) 77 % (31-73) Lymphocytes (%) (Auto) 13 % (24-48) Monocytes (%) (Auto) 8 % (0-9) Eosinophils (%) (Auto) 2 % (0-3) Basophils (%) (Auto) 1 % (0-3) Neutrophils # (Auto) 11.3 x10^3/uL (1.8-7.7) Lymphocytes # (Auto) 1.9 x10^3/uL (1.0-4.8) Monocytes # (Auto) 1.2 x10^3/uL (0.0-1.1) Eosinophils # (Auto) 0.3 x10^3/uL (0.0-0.7) Basophils # (Auto) 0.1 x10^3/uL (0.0-0.2) Sodium Level 143 mmol/L (136-145) Potassium Level 4.0 mmol/L (3.5-5.1) Chloride Level 103 mmol/L (98-107) Carbon Dioxide Level 25 mmol/L (21-32) Anion Gap 15 (6-14) Blood Urea Nitrogen 19 mg/dL (8-26) Creatinine 1.1 mg/dL (0.7-1.3) Estimated GFR (Cockcroft-Gault) 88.8 BUN/Creatinine Ratio 17 (6-20) Glucose Level 130 mg/dL (70-99) Lactic Acid Level 1.2 mmol/L (0.4-2.0) Calcium Level 8.8 mg/dL (8.5-10.1) Total Bilirubin 0.3 mg/dL (0.2-1.0) Aspartate Amino Transf (AST/SGOT) 19 U/L (15-37) Alanine Aminotransferase (ALT/SGPT) 30 U/L (16-63) Alkaline Phosphatase 99 U/L (46-116) Troponin I Quantitative < 0.017 ng/mL (0.000-0.055) IT-Xrl-R-Type Natriuretic Peptide 43 pg/mL (0-124) Total Protein 7.1 g/dL (6.4-8.2) Albumin 3.2 g/dL (3.4-5.0) Albumin/Globulin Ratio 0.8 (1.0-1.7) Influenza Type A Antigen Negative (NEGATIVE) Influenza Type B Antigen Negative (NEGATIVE) Images Images Chest radiograph: Enlarged cardiomediastinal silhouette. Haziness at the bilateral lower lungs. No gross osseous destructive lesion. IMPRESSION: * Haziness the bilateral lower lungs. A portion of this is likely secondary to overlap of soft tissue structures but a region of atelectasis or infiltrate is not excluded given this finding. * Enlarged cardiomediastinal silhouette again seen. VTE Prophylaxis Ordered VTE Prophylaxis Devices: Yes VTE Pharmacological Prophylaxi: Yes Assessment/Plan Assessment/Plan A/P: Acute asthma exacerbation - will cont steroids, inhalers Acute bronchitis with pneumonia - meets sepsis criteria with his RR and leukocytosis, covered with rocephin and doxy. Given IVF Chest pain - EKG and trop negative, seems pleuritic. He states he has been gaining weight, Echo shows normal cardiac function previously HTN - will continue home meds DM2 - on 30u BID lantus and 35u TID novolog with frequent hypoglycemia, I will reduce his novolog dosing and add bolus plus sliding scale to 25U TID and high sliding Morbid obesity - counseled on weight loss Obstructive sleep apnea - BIPAP 16/09 overnight previously. Unfortunately, apparently his insurance has not approved this Diabetic neuropathy - gabapentin Nausea and vomiting - likely related to paroxysmal coughing FEN - ADA diet PPX - lovenox FULL CODE Dispo - inpatient for above COVID-19 CRITERIA: The patient was evaluated during the global COVID-19 pandemic, and that diagnosis was suspected/considered upon their initial presentation. Their evaluation, treatment and testing was consistent with current guidelines for patients who present with complaints or symptoms that may be related to COVID-19. Justifications for Admission Other Justification DAVID MARTÍNEZ MD Sep 25, 2020 07:30
[2020-09-25] MEDS ORDERED: NITROGLYCERIN SUBLINGUAL 0.4 MG BOTTLE OF 25. SL PRN (09:00)
[2020-09-25] MEDS ORDERED: ALBUTEROL SULFATE 8GM INHALER. INH PRN (09:00)
[2020-09-25] MEDS ORDERED: CHLORHEXIDINE 0.12% 15 ML MOUTHWASH. MM SCH (09:00)
--- NOTE | 2020-09-25 10:09 | EKG ---
[facility] [address] [place] [address] Test Date: 2020-09-25 Test Time: 04:44:01 Pat Name: GIO CORRALES Department: Room: ED HOLD 1 Gender: M [employer]: : 1980 Requested By: MIKIE CUELLAR Order Number: [id number] Reading MD: Bobby Hess Measurements Intervals [place] Rate: 93 P: 37 HI: 130 QRS: 29 QRSD: 88 T: 13 QT: 358 QTc: 448 Interpretive Statements SINUS RHYTHM NORMAL ECG Electronically Signed On 09-26-2020 13:33:56 PITCH FILLER by Bobby Hess
[2020-09-25] MEDS: FLUTICASONE/VILANTEROL 200/25 INHALER. INH SCH (10:35)
[2020-09-25] MEDS ORDERED: DEXTROSE 50% 25 GM / 50ML DISP.SYRIN. IV PRN (13:15)
[2020-09-25] MEDS ORDERED: fentaNYL PF VIAL 100 MCG/2 ML VIAL IVP PRN (13:15)
[2020-09-25] MEDS ORDERED: MORPHINE SULFATE 2 MG/ML VIAL. IVP PRN (13:15)
[2020-09-25] MEDS ORDERED: traZODone 100 MG TABLET. PO PRN (13:15)
[2020-09-25] MEDS ORDERED: INSULIN LISPRO 300 UNITS/3 ML VIAL. SQ ONE (14:00)
[2020-09-25 15:00] VITALS: BP 203/92
[2020-09-25 15:41] VITALS: BP 187/101
--- NOTE | 2020-09-25 17:03 | NUR ---
Admit order placed for med surg, however, pt has orders for PRN labetolol. This RN called Dr. Mohamud to clarify if pt needs tele monitoring. Dr. Mohamud gave orders to make pt med monitored. Will place tele on pt when upon arrival to unit. Addendum: 09/25/20 at 1729 by ACOSTA NORTH RN Adjustment to previous: Will place tele on pt upon arrival to unit.
[2020-09-25] MEDS: LABETALOL 20 MG/4 ML DISP.SYRIN. IVP PRN (17:19)
[2020-09-25] MEDS: INSULIN LISPRO 300 UNITS/3 ML VIAL. SQ SCH ×2 (17:28→17:29)
[2020-09-25 18:18] VITALS: BP 116/92
--- NOTE | 2020-09-25 18:18 | NUR ---
Pt arrived on unit by bed at approx 1805 from ER. Orders reviewed/acknowledged. Pt transferred to bed with SB assist, call light placed within reach. Tele monitor applied, pt SR on the monitor. Fresh water given, tray ordered. Will assume care.
[2020-09-25 20:15] VITALS: BP 161/89
[2020-09-25] MEDS ORDERED: ATORVASTATIN CALCIUM 40 MG TABLET. PO SCH (21:00)
[2020-09-25] MEDS ORDERED: INSULIN GLARGINE SYRINGE. SQ SCH (21:00)
[2020-09-25] MEDS ORDERED: MONTELUKAST SODIUM 10 MG TABLET. PO SCH (21:00)
[2020-09-25] MEDS ORDERED: ENOXAPARIN 40 MG/0.4 ML SYRINGE. SQ SCH (22:00)
[2020-09-25] MEDS: DOXYCYCLINE HYCLATE 100 MG TABLET PO SCH (22:08)
[2020-09-25] MEDS: HYDROcodone/APAP 5/325MG 1 TAB TABLET PO PRN (22:19)
[2020-09-25 23:54] VITALS: BP 168/93
[2020-09-26 03:30] VITALS: BP 179/93
[2020-09-26] MEDS: LABETALOL 20 MG/4 ML DISP.SYRIN. IVP PRN (03:30)
[2020-09-26 03:50] VITALS: BP 161/80
[2020-09-26] MEDS: HYDROcodone/APAP 5/325MG 1 TAB TABLET PO PRN ×2 (04:57→11:34)
[2020-09-26 07:00] VITALS: BP 150/80
[2020-09-26] MEDS ORDERED: PANTOPRAZOLE 40 MG TABLET.DR. PO SCH (07:30)
[2020-09-26] MEDS: INSULIN LISPRO 300 UNITS/3 ML VIAL. SQ SCH ×6 (08:14→17:54)
[2020-09-26] MEDS: DOXYCYCLINE HYCLATE 100 MG TABLET PO SCH (08:49)
[2020-09-26] MEDS: FLUTICASONE/VILANTEROL 200/25 INHALER. INH SCH (08:51)
[2020-09-26] MEDS ORDERED: ASPIRIN CHEWABLE 81 MG TABLET. PO SCH (09:00)
[2020-09-26] MEDS ORDERED: SERTRALINE 50 MG TABLET. PO SCH (09:00)
[2020-09-26] MEDS ORDERED: LISINOPRIL 20 MG TABLET PO SCH (09:00)
[2020-09-26] MEDS ORDERED: LOSARTAN POTASSIUM 50 MG TABLET. PO SCH (09:00)
[2020-09-26] MEDS ORDERED: FLUTICASONE 50MCG/NASAL SPRAY 16GM BOTTLE. NS SCH (09:00)
[2020-09-26] MEDS ORDERED: predniSONE 20 MG TABLET PO SCH (09:00)
[2020-09-26 11:00] VITALS: BP 128/69
--- NOTE | 2020-09-26 12:00 | PDOC ---
[employer] PROGRESS NOTE Date of Service DOS: DATE: 09/26/20 TIME: 12:00 Chief Complaint Chief Complaint A/P: Acute asthma exacerbation - will cont steroids, inhalers Acute bronchitis with pneumonia - meets sepsis criteria with his RR and leukocytosis, covered with rocephin and doxy. Given IVF Chest pain - EKG and trop negative, seems pleuritic. He states he has been gaining weight, Echo shows normal cardiac function previously HTN - will continue home meds DM2 - on 30u BID lantus and 35u TID novolog with frequent hypoglycemia, I will reduce his novolog dosing and add bolus plus sliding scale to 25U TID and high sliding Morbid obesity - counseled on weight loss Obstructive sleep apnea - BIPAP 16/09 overnight previously. Unfortunately, apparently his insurance has not approved this Diabetic neuropathy - gabapentin Nausea and vomiting - likely related to paroxysmal coughing FEN - ADA diet PPX - lovenox FULL CODE Dispo - inpatient for above History of Present Illness History of Present Illness Mr Guillen is a 38 year old Male patient w/ PMHx asthma, HTN, DM2, morbid obesity, and newly diagnosed sleep apnea recently who presented to ED coughing up yellow sputum having fevers with wheezing and quite short of breath which has been progressive for the past 3 days prior to presentation. He has associated chest pain in center of the chest feeling like pressure but also worse with coughing and with palpation. Also c/o hot and cold flashes, and N/V x1 day. Pt unaware of any recent covid exposure. He denies any symptoms EKG Sinus rhythm no ST elevation no ST depression no acute IL. Chest radiograph with bilateral lower lobe haziness. Labs with WBC 14.8, Hb 12.8, platelets 389, Na 143, K 4, BUN 19, Cr 1.1, glucose 130. Rapid influenza negative. Troponin negative Admitted for further care. Feeling less short of breath. Afebrile. Still c/o pain on deep inspiration and coughing. Plan: F/u trop, BMP, CBC GI cocktail, can likely d/c if repeat labs WNL. Vitals/I&O Vitals/I&O: Vital Signs Date Time Temp Pulse Resp B/P (MAP) Pulse Ox O2 Delivery O2 Flow Rate FiO2 09/26/20 08:51 83 150/80 09/26/20 08:08 Room Air 09/26/20 07:00 97.6 39 97 97.6 I & O 09/25/20 09/25/20 09/26/20 15:00 23:00 07:00 Intake Total 120 ml 850 ml Output Total 400 ml Balance -400 ml 120 ml 850 ml Physical Exam General: Alert, Oriented X3, Cooperative, moderate distress Lungs: Other Abdomen: Normal bowel sounds, Soft, No tenderness, No hepatosplenomegaly, No masses Extremities: No clubbing, No cyanosis, No edema, Normal pulses, No tenderness/swelling Skin: No rashes, No breakdown, No significant lesion Labs Labs: Laboratory Tests Test 09/25/20 12:36 09/25/20 17:15 09/25/20 21:24 09/26/20 08:13 Glucose (Fingerstick) 228 mg/dL (70-99) 253 mg/dL (70-99) 286 mg/dL (70-99) 246 mg/dL (70-99) Assessment and Plan Assessmemt and Plan Problems Medical Problems: (1) Person under investigation for COVID-19 Status: Acute (2) Pneumonia Status: Acute Comment Review of Relevant I have reviewed the following items lacho (where applicable) has been applied. Medications: Current Medications Medications (Trade) Dose Ordered Sig/Navi Route PRN Reason Start Time Stop Time Status Last Admin Dose Admin Montelukast Sodium (Singulair) 10 mg QHS PO 09/25/20 21:00 09/25/20 22:08 Insulin Human Lispro (HumaLOG) 0-9 UNITS TIDWMEALS SQ 09/25/20 17:00 09/26/20 08:15 Aspirin (Aspirin Chewable) 81 mg DAILY PO 09/26/20 09:00 09/26/20 08:49 Atorvastatin Calcium (Lipitor) 40 mg QHS PO 09/25/20 21:00 09/25/20 22:08 Doxycycline Hyclate (Vibra-Tab) 100 mg BID PO 09/25/20 21:00 09/26/20 08:49 Fluticasone Propionate (Flonase) 2 spray DAILY NS 09/26/20 09:00 09/26/20 08:52 Acetaminophen/ Hydrocodone Bitart (Lortab 5/325) 1 tab PRN Q6HRS PRN PO MODERATE PAIN 09/25/20 13:15 09/26/20 11:34 Trazodone HCl (Desyrel) 100 mg PRN QHS PRN PO INSOMNIA 09/25/20 13:15 09/25/20 22:18 Insulin Human Lispro (HumaLOG) 8 units TIDWMEALS SQ 09/25/20 17:00 09/26/20 08:14 Insulin Glargine (Lantus Syringe) 30 unit QHS SQ 09/25/20 21:00 09/25/20 22:10 Sertraline HCl (Zoloft) 100 mg DAILY PO 09/26/20 09:00 09/26/20 08:49 Morphine Sulfate (Morphine Sulfate) 2 mg PRN Q4HRS PRN IVP UNRESOLVED PAIN, 1st CHOICE 09/25/20 13:15 09/25/20 14:07 Insulin Human Lispro (HumaLOG) 5 units 1X ONCE SQ 09/25/20 14:00 09/25/20 14:01 DC 09/25/20 15:10 Labetalol HCl (Normodyne Iv Push) 10 mg PRN Q2HR PRN IVP HYPERTENSION 09/25/20 16:30 09/26/20 03:30 Losartan Potassium (Cozaar) 50 mg DAILY PO 09/26/20 09:00 09/26/20 08:51 Pantoprazole Sodium (Protonix) 40 mg DAILYAC PO 09/26/20 07:30 09/26/20 07:55 Prednisone (Prednisone) 20 mg DAILY PO 09/26/20 09:00 09/26/20 08:49 Enoxaparin Sodium (Lovenox 60mg Syringe) 60 mg Q12HR SQ 09/25/20 22:00 09/26/20 08:50 Justifications for Admission Other Justification DAVID MARTÍNEZ MD Sep 26, 2020 12:00
[2020-09-26] MEDS ORDERED: cefTRIAXone IV Push 1 GM VIAL. IVP SCH (13:00)
[2020-09-26] MEDS ORDERED: LIDO:MAALOX 1:1 20 ML SINGLE DOSE. SWSW ONE (13:15)
[2020-09-26 14:13] LABS: BASO # 0.1 x10^3/uL (0.0-0.2); BASO % 0 % (0-3); EOS # 0.1 x10^3/uL (0.0-0.7); EOS % 1 % (0-3); HEMATOCRIT 38.2 % (39.0-53.0); HEMOGLOBIN 12.1 g/dL (13.0-17.5); LYMPH # 1.1 x10^3/uL (1.0-4.8); LYMPH % 9 % (24-48); MEAN CORPUSCULAR HEMOGLOBIN 25 pg (25-35); MEAN CORPUSCULAR HGB CONC 32 g/dL (31-37); MEAN CORPUSCULAR VOLUME 78 fL (79-100); MONO # 1.1 x10^3/uL (0.0-1.1); MONO % 8 % (0-9); NEUT # 10.7 x10^3/uL (1.8-7.7); NEUT % 82 % (31-73); PLATELET COUNT 355 x10^3/uL (140-400); RED BLOOD COUNT 4.89 x10^6/uL (4.30-5.70); RED CELL DISTRIBUTION WIDTH 14.9 % (11.5-14.5); WHITE BLOOD COUNT 13.1 x10^3/uL (4.0-11.0)
[2020-09-26 14:23] LABS: CALCIUM 8.6 mg/dL (8.5-10.1); GFR 99.2; POTASSIUM 4.1 mmol/L (3.5-5.1)
[2020-09-26 15:00] VITALS: BP 155/81
[2020-09-26] MEDS ORDERED: DOXY100T PO (16:32)
[2020-09-26] MEDS ORDERED: MONT10TA49 PO (16:32)
[2020-09-26] MEDS ORDERED: INSU100I13 SQ (16:32)
[2020-09-26] MEDS ORDERED: PRED20TA PO (16:32)
[2020-09-26] MEDS ORDERED: TRAZ-123 PO (16:32)
[2020-09-26] MEDS ORDERED: PANT40TA77 PO (16:32)
[2020-09-26] MEDS ORDERED: SERT-268 PO (16:32)
[2020-09-26] MEDS ORDERED: IPRA4AER IH (16:32)
[2020-09-26] MEDS ORDERED: LOSA-73 PO (16:32)
[2020-09-26] MEDS ORDERED: HYDR-3164 PO (16:36)
--- NOTE | 2020-09-26 16:41 | PDOC3 ---
Discharge Summary Visit Information Date of Admission: Sep 25, 2020 Date of Discharge: Sep 26, 2020 Admitting Diagnosis: Chest pain Final Diagnosis Problems Medical Problems: (1) Person under investigation for COVID-19 Status: Acute (2) Pneumonia Status: Acute Brief Hospital Course Allergies Allergies Coded Allergies Type Severity Reaction Last Updated Verified Sulfa (Sulfonamide Antibiotics) Allergy Intermediate 12/20/15 Yes adhesive tape Allergy Intermediate skin sensitive to tape 12/20/15 Yes Vital Signs Vital Signs Date Time Temp Pulse Resp B/P (MAP) Pulse Ox O2 Delivery O2 Flow Rate FiO2 09/26/20 11:00 95.8 75 13 128/69 (88) 99 Room Air 95.8 Lab Results Laboratory Tests Test 09/25/20 05:00 09/25/20 05:25 09/25/20 07:21 09/25/20 12:36 White Blood Count 14.8 x10^3/uL (4.0-11.0) Red Blood Count 5.18 x10^6/uL (4.30-5.70) Hemoglobin 12.8 g/dL (13.0-17.5) Hematocrit 39.9 % (39.0-53.0) Mean Corpuscular Volume 77 fL (79-100) Mean Corpuscular Hemoglobin 25 pg (25-35) Mean Corpuscular Hemoglobin Concent 32 g/dL (31-37) Red Cell Distribution Width 14.9 % (11.5-14.5) Platelet Count 389 x10^3/uL (140-400) Neutrophils (%) (Auto) 77 % (31-73) Lymphocytes (%) (Auto) 13 % (24-48) Monocytes (%) (Auto) 8 % (0-9) Eosinophils (%) (Auto) 2 % (0-3) Basophils (%) (Auto) 1 % (0-3) Neutrophils # (Auto) 11.3 x10^3/uL (1.8-7.7) Lymphocytes # (Auto) 1.9 x10^3/uL (1.0-4.8) Monocytes # (Auto) 1.2 x10^3/uL (0.0-1.1) Eosinophils # (Auto) 0.3 x10^3/uL (0.0-0.7) Basophils # (Auto) 0.1 x10^3/uL (0.0-0.2) Sodium Level 143 mmol/L (136-145) Potassium Level 4.0 mmol/L (3.5-5.1) Chloride Level 103 mmol/L (98-107) Carbon Dioxide Level 25 mmol/L (21-32) Anion Gap 15 (6-14) Blood Urea Nitrogen 19 mg/dL (8-26) Creatinine 1.1 mg/dL (0.7-1.3) Estimated GFR (Cockcroft-Gault) 88.8 BUN/Creatinine Ratio 17 (6-20) Glucose Level 130 mg/dL (70-99) Lactic Acid Level 1.2 mmol/L (0.4-2.0) Calcium Level 8.8 mg/dL (8.5-10.1) Total Bilirubin 0.3 mg/dL (0.2-1.0) Aspartate Amino Transf (AST/SGOT) 19 U/L (15-37) Alanine Aminotransferase (ALT/SGPT) 30 U/L (16-63) Alkaline Phosphatase 99 U/L (46-116) Troponin I Quantitative < 0.017 ng/mL (0.000-0.055) HT-Mqv-Q-Type Natriuretic Peptide 43 pg/mL (0-124) Total Protein 7.1 g/dL (6.4-8.2) Albumin 3.2 g/dL (3.4-5.0) Albumin/Globulin Ratio 0.8 (1.0-1.7) Influenza Type A Antigen Negative (NEGATIVE) Influenza Type B Antigen Negative (NEGATIVE) Glucose (Fingerstick) 143 mg/dL (70-99) 228 mg/dL (70-99) Test 09/25/20 17:15 09/25/20 21:24 09/26/20 08:13 09/26/20 12:10 Glucose (Fingerstick) 253 mg/dL (70-99) 286 mg/dL (70-99) 246 mg/dL (70-99) 215 mg/dL (70-99) Test 09/26/20 13:44 White Blood Count 13.1 x10^3/uL (4.0-11.0) Red Blood Count 4.89 x10^6/uL (4.30-5.70) Hemoglobin 12.1 g/dL (13.0-17.5) Hematocrit 38.2 % (39.0-53.0) Mean Corpuscular Volume 78 fL (79-100) Mean Corpuscular Hemoglobin 25 pg (25-35) Mean Corpuscular Hemoglobin Concent 32 g/dL (31-37) Red Cell Distribution Width 14.9 % (11.5-14.5) Platelet Count 355 x10^3/uL (140-400) Neutrophils (%) (Auto) 82 % (31-73) Lymphocytes (%) (Auto) 9 % (24-48) Monocytes (%) (Auto) 8 % (0-9) Eosinophils (%) (Auto) 1 % (0-3) Basophils (%) (Auto) 0 % (0-3) Neutrophils # (Auto) 10.7 x10^3/uL (1.8-7.7) Lymphocytes # (Auto) 1.1 x10^3/uL (1.0-4.8) Monocytes # (Auto) 1.1 x10^3/uL (0.0-1.1) Eosinophils # (Auto) 0.1 x10^3/uL (0.0-0.7) Basophils # (Auto) 0.1 x10^3/uL (0.0-0.2) Sodium Level 135 mmol/L (136-145) Potassium Level 4.1 mmol/L (3.5-5.1) Chloride Level 100 mmol/L (98-107) Carbon Dioxide Level 27 mmol/L (21-32) Anion Gap 8 (6-14) Blood Urea Nitrogen 15 mg/dL (8-26) Creatinine 1.0 mg/dL (0.7-1.3) Estimated GFR (Cockcroft-Gault) 99.2 Glucose Level 246 mg/dL (70-99) Calcium Level 8.6 mg/dL (8.5-10.1) Troponin I Quantitative < 0.017 ng/mL (0.000-0.055) Laboratory Tests Test 09/25/20 17:15 09/25/20 21:24 09/26/20 08:13 09/26/20 12:10 Glucose (Fingerstick) 253 mg/dL (70-99) 286 mg/dL (70-99) 246 mg/dL (70-99) 215 mg/dL (70-99) Test 09/26/20 13:44 White Blood Count 13.1 x10^3/uL (4.0-11.0) Red Blood Count 4.89 x10^6/uL (4.30-5.70) Hemoglobin 12.1 g/dL (13.0-17.5) Hematocrit 38.2 % (39.0-53.0) Mean Corpuscular Volume 78 fL (79-100) Mean Corpuscular Hemoglobin 25 pg (25-35) Mean Corpuscular Hemoglobin Concent 32 g/dL (31-37) Red Cell Distribution Width 14.9 % (11.5-14.5) Platelet Count 355 x10^3/uL (140-400) Neutrophils (%) (Auto) 82 % (31-73) Lymphocytes (%) (Auto) 9 % (24-48) Monocytes (%) (Auto) 8 % (0-9) Eosinophils (%) (Auto) 1 % (0-3) Basophils (%) (Auto) 0 % (0-3) Neutrophils # (Auto) 10.7 x10^3/uL (1.8-7.7) Lymphocytes # (Auto) 1.1 x10^3/uL (1.0-4.8) Monocytes # (Auto) 1.1 x10^3/uL (0.0-1.1) Eosinophils # (Auto) 0.1 x10^3/uL (0.0-0.7) Basophils # (Auto) 0.1 x10^3/uL (0.0-0.2) Sodium Level 135 mmol/L (136-145) Potassium Level 4.1 mmol/L (3.5-5.1) Chloride Level 100 mmol/L (98-107) Carbon Dioxide Level 27 mmol/L (21-32) Anion Gap 8 (6-14) Blood Urea Nitrogen 15 mg/dL (8-26) Creatinine 1.0 mg/dL (0.7-1.3) Estimated GFR (Cockcroft-Gault) 99.2 Glucose Level 246 mg/dL (70-99) Calcium Level 8.6 mg/dL (8.5-10.1) Troponin I Quantitative < 0.017 ng/mL (0.000-0.055) Brief Hospital Course Mr Guillen is a 38 year old Male patient w/ PMHx asthma, HTN, DM2, morbid obesity, and newly diagnosed sleep apnea recently who presented to ED coughing up yellow sputum having fevers with wheezing and quite short of breath which has been progressive for the past 3 days prior to presentation. He has associated chest pain in center of the chest feeling like pressure but also worse with coughing and with palpation. Also c/o hot and cold flashes, and N/V x1 day. Pt unaware of any recent covid exposure. He denies any symptoms EKG Sinus rhythm no ST elevation no ST depression no acute ND. Chest radiograph with bilateral lower lobe haziness. Labs with WBC 14.8, Hb 12.8, platelets 389, Na 143, K 4, BUN 19, Cr 1.1, glucose 130. Rapid influenza negative. Troponin negative Admitted for further care. Feeling less short of breath. Afebrile. Still c/o pain on deep inspiration and coughing. GI cocktail and nebs, prednisone helping. He discloses that he has not seen his PCP in a year since he moved out of his office. Needs refills for everything. Problem list: Acute asthma exacerbation - will cont steroids, inhalers, doxycycline at home Acute bronchitis with pneumonia - meets sepsis criteria with his RR and leukocytosis, covered with rocephin and doxy. Given IVF, d/c on doxy, prednisone Chest pain - EKG and trop negative, seems pleuritic. He states he has been gaining weight, Echo shows normal cardiac function previously HTN - will continue home meds DM2 - on 30u BID lantus and 35u TID novolog with frequent hypoglycemia, I will reduce his novolog dosing and add bolus plus sliding scale to 25U TID and high sliding Morbid obesity - counseled on weight loss Obstructive sleep apnea - BIPAP 16/09 overnight previously. Unfortunately, apparently his insurance has not approved this Diabetic neuropathy - gabapentin Nausea and vomiting - likely related to paroxysmal coughing Plan: Home meds restarted GI cocktail, can d/c repeat labs WNL. Greater than 30 minutes spent on d/c Discharge Information Condition at Discharge: Improved Follow Up: Weeks (1) Disposition/Orders: D/C to Home Scheduled Aspirin (Aspirin) 81 Mg Tab.chew, 1 TAB PO DAILY, #30 Ref 3 (Reported) Entered as Reported by: BRIT CORDERO on 10/16/15 1611 Last Action: Continued on 09/25/20 1308 by DAVID MARTÍNEZ MD Atorvastatin Calcium (Atorvastatin Calcium) 40 Mg Tablet, 40 MG PO QHS for cholesterol, (Reported) Entered as Reported by: NOBLE FAUSTIN on 12/09/182124 Last Action: Continued on 09/25/20 1308 by DAVID MARTÍNEZ MD Doxycycline Hyclate (Doxycycline Hyclate) 100 Mg Tablet, 100 MG PO BID for Pneumonia for 7 Days, #14 Prescribed by: DAVID MARTÍNEZ MD on 09/26/20 1632 Fluticasone Propionate (Fluticasone Propionate Nasal [place]) 16 Gm [place].susp, 2 SPR NIRMAL DAILY for sinuses, (Reported) Entered as Reported by: NOBLE FAUSTIN on 12/09/182124 Last Action: Continued on 09/25/201307 by DAVID MARTÍNEZ MD Insulin Glargine,Hum.rec.anlog (Lantus Solostar) 100 Unit/1 Ml Insuln.pen, 30 UNIT SQ BID for DM2 for 30 Days, #15 Ref 3 Prescribed by: DAVID MARTÍNEZ MD on 09/26/20 1632 Ipratropium/Albuterol Sulfate (Combivent Respimat Inhal) 4 Gm Aer.w.adap, 2 INH IH QID for Bronchitis for 30 Days, #1 Ref 2 Prescribed by: DAVID MARTÍNEZ MD on 09/26/20 1632 Losartan Potassium (Cozaar ) 50 Mg Tablet, 50 MG PO DAILY for HTN for 30 Days, #30 Ref 2 Prescribed by: DAVID MARTÍNEZ MD on 09/26/20 1632 Montelukast Sodium (Montelukast Sodium Tablet ) 10 Mg Tablet, 10 MG PO QHS for COPD for 30 Days, #30 Ref 2 Prescribed by: DAVID MARTÍNEZ MD on 09/26/20 1632 Pantoprazole Sodium (Pantoprazole Sodium ) 40 Mg Tablet.dr, 40 MG PO DAILYAC for GERD for 30 Days, #30 Ref 2 Prescribed by: DAVID MARTÍNEZ MD on 09/26/20 1632 Prednisone (Prednisone) 20 Mg Tablet, 1 TAB PO DAILY for COPD for 5 Days, #5 Prescribed by: DAVID MARTÍNEZ MD on 09/26/20 1632 Sertraline Hcl (Sertraline Hcl) 100 Mg Tablet, 100 MG PO DAILY for bipolar for 30 Days, #30 Ref 2 Prescribed by: DAVID MARTÍNEZ MD on 09/26/20 1632 Scheduled PRN Hydrocodone/Apap 5-325 ([place] 5-325 Tablet) 1 Each Tablet, 1 TAB PO PRN Q6HRS PRN for PAIN for 5 Days, #10 Ref 0 Prescribed by: DAVID MARTÍNEZ MD on 09/26/20 1637 Trazodone Hcl (Trazodone Hcl) 100 Mg Tablet, 100 MG PO PRN QHS PRN for INSOMNIA for 30 Days, #30 Ref 2 Prescribed by: DAVID MARTÍNEZ MD on 09/26/20 1632 Discontinued Medications Amitriptyline Hcl (Amitriptyline Hcl) 50 Mg Tablet, 2 TAB PO QHS for sleep, #30 Ref 1 (Reported) Entered as Reported by: BRIT CORDERO on 10/16/15 161 Famotidine (Famotidine) 40 Mg Tablet, 40 MG PO DAILY for indigestion, (Reported) Entered as Reported by: NOBLE FAUSTIN on 12/09/182124 Insulin Aspart (Novolog) 100 Unit/1 Ml Cartridge, 50 UNIT SQ TIDAC for blood sugar, (Reported) Entered as Reported by: BRIT CORDERO on 10/16/15 161 Last Action: Converted on 09/25/20 1308 by DAVID MARTÍNEZ MD Lisinopril (Lisinopril) 20 Mg Tablet, 2 TAB PO DAILY for blood pressure, #30 Ref 5 (Reported) Entered as Reported by: BRIT CORDERO on 10/16/15 161 Last Action: Continued on 09/25/20 1308 by DAVID MARTÍNEZ MD Orphenadrine Citrate (Orphenadrine Citrate) 100 Mg Tablet.er, 1 TAB PO BID PRN for MUSCLE PAIN, #14 Ref 0 Prescribed by: YASMANI GONZALEZ D.O. on 04/22/18 0354 Justicifation of Admission Dx: Justifications for Admission: Justification of Admission Dx: Yes DAVID MARTÍNEZ MD Sep 26, 2020 16:41
--- NOTE | 2020-09-26 17:21 | NUR ---
SW following for discharge planning. Spoke with RN and reviewed chart. Pt to discharge home today, 1/5 self-care. Pt on room air and oral medications. No further SW needs.
--- NOTE | 2020-09-26 18:05 | NUR ---
Pt left unit at approx 1802 by wheelchair via private vehicle. Pt's IV removed without complication, VSS. Discharge paperwork and follow-up discussed with pt, additional questions addressed. COVID information provided to pt.
--- NOTE | 2020-09-26 18:16 | NUR ---
This RN notified pt of negative COVID result at [phone].
[2020-09-26] MEDS ORDERED: LACTOBACILLUS RHAMNOSUS GG 1 CAPSULE. PO SCH (21:00)
== END 2020-09-26 18:07 | disposition home or self-care (01) | DRG 871 ==
LOC: ER 04:27 → ED HOLD 05:30 → 6 SOUTH 16:27
PROVIDERS: ADMIT Internal Medicine; ATTEND Internal Medicine
DX: A41.9 Sepsis, unspecified organism (principal); J18.9 Pneumonia, unspecified organism; J45.901 Unspecified asthma with (acute) exacerbation; Z68.44 Body mass index [BMI] 60.0-69.9, adult; J44.0 Chronic obstructive pulmonary disease with (acute) lower respiratory infection; E78.00 Pure hypercholesterolemia, unspecified; I10 Essential (primary) hypertension; E11.40 Type 2 diabetes mellitus with diabetic neuropathy, unspecified; E78.5 Hyperlipidemia, unspecified; J20.9 Acute bronchitis, unspecified; E11.649 Type 2 diabetes mellitus with hypoglycemia without coma; E66.01 Morbid (severe) obesity due to excess calories; G47.33 Obstructive sleep apnea (adult) (pediatric); G47.00 Insomnia, unspecified; F31.9 Bipolar disorder, unspecified; Z87.891 Personal history of nicotine dependence; Z88.2 Allergy status to sulfonamides; Z91.048 Other nonmedicinal substance allergy status; Z83.3 Family history of diabetes mellitus; Z82.49 Family history of ischemic heart disease and other diseases of the circulatory system; Z20.822 Contact with and (suspected) exposure to COVID-19
CPT/HCPCS: 36415; 71045; 80048; 80053; 82962; 83605; 83880; 84484; 85025; 87040; 87077; 87186; 87205; 87804; 93005; 96374; 96375; 99285; J0696; J1100; J1650; J1815; J2270; J3490; J7512; U0003; G0378

== ENCOUNTER 2021-01-01 20:54 | Inpatient (IN) | payer MEDICAID ==
[~2021-01-01] VITALS: Ht 188 cm; Wt 233.6 kg
[~2021-01-01 20:54] MED LIST changes: +LOSA-73 PO; +MONT10TA49 PO; +PANT40TA77 PO
[2021-01-01 21:34] LABS: BASO # 0.1 x10^3/uL (0.0-0.2); BASO % 1 % (0-3); EOS # 0.1 x10^3/uL (0.0-0.7); EOS % 0 % (0-3); HEMATOCRIT 39.4 % (39.0-53.0); HEMOGLOBIN 12.7 g/dL (13.0-17.5); LYMPH # 1.1 x10^3/uL (1.0-4.8); LYMPH % 6 % (24-48); MEAN CORPUSCULAR HEMOGLOBIN 25 pg (25-35); MEAN CORPUSCULAR HGB CONC 32 g/dL (31-37); MEAN CORPUSCULAR VOLUME 77 fL (79-100); MONO # 1.6 x10^3/uL (0.0-1.1); MONO % 8 % (0-9); NEUT # 17.4 x10^3/uL (1.8-7.7); NEUT % 86 % (31-73); PLATELET COUNT 334 x10^3/uL (140-400); RED BLOOD COUNT 5.14 x10^6/uL (4.30-5.70); RED CELL DISTRIBUTION WIDTH 15.3 % (11.5-14.5); WHITE BLOOD COUNT 20.2 x10^3/uL (4.0-11.0)
[2021-01-01 21:45] LABS: PROTHROMBIN TIME PATIENT 13.1 SEC (11.7-14.0)
[2021-01-01 21:46] LABS: BILIRUBIN,URINE NEGATIVE (NEG); CLARITY,URINE CLOUDY; COLOR,URINE YELLOW; NITRITE,URINE NEGATIVE (NEG); PROTEIN,URINE 100 mg/dL (NEG-TRACE)
[2021-01-01 21:54] LABS: BACTERIA,URINE MANY /HPF (0-FEW); RBC,URINE OCC /HPF (0-2); WBC,URINE TNTC /HPF (0-4)
[2021-01-01] MEDS ORDERED: ONDANSETRON PF 4 MG/2 ML VIAL. IVP ONE (22:00)
[2021-01-01] MEDS ORDERED: DEXAMETHASONE SOD PHOS 4 MG/ML VIAL IVP ONE (22:00)
[2021-01-01] MEDS ORDERED: fentaNYL PF VIAL 100 MCG/2 ML VIAL IVP ONE (22:00)
[2021-01-01] MEDS ORDERED: IV NORMAL SALINE 1000ML BAG 1,000 ML IV SCH (22:00)
[2021-01-01] MEDS ORDERED: ACETAMINOPHEN 500 MG TABLET PO ONE (22:00)
--- NOTE | 2021-01-01 22:06 | EKG ---
[facility] [address] [place] [address] Test Date: 2021-01-01 Test Time: 21:00:08 Pat Name: GOI CORRALES Department: Room: Gender: M [employer]: : 1980 Requested By: YASMANI GONZALEZ Order Number: [id number] Reading MD: Measurements Intervals [place] Rate: 122 P: 38 MA: 154 QRS: 4 QRSD: 82 T: 25 QT: 292 QTc: 417 Interpretive Statements SINUS TACHYCARDIA OTHERWISE NORMAL ECG RI6.02 No previous ECG available for comparison
[2021-01-01 22:15] LABS: CALCIUM 7.9 mg/dL (8.5-10.1); CREATININE 1.3 mg/dL (0.7-1.3); GFR 73.3; POTASSIUM 4.7 mmol/L (3.5-5.1)
[2021-01-01 22:21] LABS: ALBUMIN 2.9 g/dL (3.4-5.0); ALBUMIN/GLOBULIN RATIO 0.7 (1.0-1.7); MAGNESIUM 1.6 mg/dL (1.8-2.4); TOTAL BILIRUBIN 0.8 mg/dL (0.2-1.0); TOTAL PROTEIN 6.8 g/dL (6.4-8.2)
[2021-01-01] MEDS ORDERED: cefTRIAXone IV Push 1 GM VIAL. IVP ONE (22:30)
[2021-01-01] MEDS ORDERED: PIPERACILLIN/TAZOBACTAM 4.5 GM in IV NORMAL SALINE 100ML 100 ML IV ONE (23:00)
[2021-01-01] MEDS ORDERED: CONTRAST GIVEN. MC PRN (23:15)
[2021-01-01 23:21] LABS: % BANDS 6 % (0-9); % LYMPHS 13 % (24-48); % MONOS 6 % (0-10); % SEGS 75 % (35-66); PLT ESTIMATE ADEQUATE (ADEQUATE)
[2021-01-01 23:22] LABS: HYPOCHROMIA SLIGHT; POLYCHROMASIA SLIGHT
[2021-01-01] MEDS ORDERED: IOHEXOL 350 MG/ML 100 ML VIAL. IV ONE (23:30)
--- NOTE | 2021-01-01 23:31 | RAD ---
Exam: CT of chest, abdomen and pelvis with contrast INDICATION: Flank pain, shortness of breath TECHNIQUE: Sequential axial images through the chest, abdomen and pelvis obtained following the admin istration of 100 mL of Omni 350 IV contrast. Sagittal and coronal reformatted images were reconstruct ed from the axial data and reviewed. Comparisons: None FINDINGS: Visualized portions of the thyroid are unremarkable. No enlarged mediastinal lymph nodes. Heart size is normal. No pericardial effusion. Thoracic aorta has a normal course and caliber. Pulmon bruno artery is not enlarged. Airways are patent. No consolidation or pneumothorax. No suspicious lung nodules are identified. No pleural effusion or thickening Liver, spleen, pancreas, and adrenals are unremarkable. Gallstones are noted within the gallbladder. Subtle right perinephric stranding. No hydronephrosis. No renal or ureteral calculi are identified. Bladder is decompressed not well evaluated. Prostate is not enlarged. Large and small bowel are unremarkable. Appendix is normal. No free intra-abdominal air or fluid. No obstruction. Abdominal aorta has a normal course and caliber. Abdominal vasculature is patent. No enlarged intra-abdominal lymph nodes are identified. No suspicious osseous lesions or acute fractures. IMPRESSION: 1. Markedly Limited evaluation secondary to body habitus and movement at time of contrast bolus toby ng. Examination is nondiagnostic for pulmonary embolus. 2. Essentially a noncontrast CT of the chest was performed. No abnormalities are identified in the c hest. 3. Gallstones and within the gallbladder. Correlate with symptomatology. 4. Subtle right perinephric stranding. Correlate with urinalysis for infection. Exposure: One or more of the following in the visualized dose reduction techniques were utilized for this examination: 1. Automated exposure control 2. Adjustment of the MA and/or KV according to patient size 3. Use of iterative of reconstructive technique Electronically signed by: Manuel Cordova MD (01/01/2021 11:29 PM) [facility]
[2021-01-02] MEDS ORDERED: MORPHINE SULFATE 4 MG/ML VIAL. IV ONE (00:30)
[2021-01-02] MEDS ORDERED: IV NORMAL SALINE 1000ML BAG 1,000 ML IV ONE (00:30)
[2021-01-02] MEDS ORDERED: IV NORMAL SALINE 500ML BAG 500 ML IV ONE (00:30)
--- NOTE | 2021-01-02 02:19 | PHYS DOC ---
Past Medical History Past Medical History: Asthma, Diabetes-Type II, High Cholesterol, Hypertension Additional Past Medical Histor: neuropathy, DENNIS Past Surgical History: Other Additional Past Surgical Histo: L SHOULDER ORIF Smoking Status: Former Smoker Alcohol Use: None Drug Use: Marijuana General Adult EDM: Chief Complaint: DYSPNEA/RESPIRATORY DISTRESS HPI: HPI: Patient is a 40 year old [f__sex] who presents with [] Review of Systems: Review of Systems: Constitutional: Denies fever or chills. [] Eyes: Denies change in visual acuity. [] HENT: Denies nasal congestion or sore throat. [] Respiratory: Denies cough or shortness of breath. [] Cardiovascular: Denies chest pain or edema. [] GI: Denies abdominal pain, nausea, vomiting, bloody stools or diarrhea. [] : Denies dysuria. [] Musculoskeletal: Denies back pain or joint pain. [] Integument: Denies rash. [] Neurologic: Denies headache, focal weakness or sensory changes. [] Endocrine: Denies polyuria or polydipsia. [] Lymphatic: Denies swollen glands. [] Psychiatric: Denies depression or anxiety. [] Heart Score: Risk Factors: Risk Factors: DM, Current or recent (<one month) smoker, HTN, HLP, family history of CAD, obesity. Risk Scores: Score 0 - 3: 2.5% MACE over next 6 weeks - Discharge Home Score 4 - 6: 20.3% MACE over next 6 weeks - Admit for Clinical Observation Score 7 - 10: 72.7% MACE over next 6 weeks - Early Invasive Strategies Current Medications: Current Medications Medications (Trade) Dose Ordered Sig/Navi Start Time Stop Time Status Last Admin Dose Admin Acetaminophen (Tylenol) 500 mg 1X ONCE 01/01/21 22:00 01/01/21 22:01 DC 01/01/21 21:54 500 MG Ceftriaxone Sodium (Rocephin) 1 gm 1X ONCE 01/01/21 22:30 01/01/21 22:20 DC Dexamethasone Sodium Phosphate (Decadron) 10 mg 1X ONCE 01/01/21 22:00 01/01/21 22:01 DC 01/01/21 21:55 10 MG Fentanyl Citrate (Fentanyl 2ml Vial) 50 mcg 1X ONCE 01/01/21 22:00 01/01/21 22:01 DC 01/01/21 21:54 50 MCG Info (CONTRAST GIVEN -- Rx MONITORING) 1 each PRN DAILY PRN 01/01/21 23:15 01/03/21 23:14 Iohexol (Omnipaque 350 Mg/ml) 100 ml 1X ONCE 01/01/21 23:30 01/01/21 23:31 DC Levofloxacin/ Dextrose 150 ml @ 100 mls/hr 1X ONCE 01/01/21 23:00 01/02/21 00:29 DC 01/02/21 00:22 100 MLS/HR Morphine Sulfate (Morphine Sulfate) 4 mg 1X ONCE 01/02/21 00:30 01/02/21 00:31 DC 01/02/21 00:21 4 MG Ondansetron HCl (Zofran) 4 mg 1X ONCE 01/01/21 22:00 01/01/21 22:01 DC 01/01/21 21:54 4 MG Piperacillin Sod/ Tazobactam Sod 4.5 gm/Sodium Chloride 100 ml @ 200 mls/hr 1X ONCE 01/01/21 23:00 01/01/21 23:29 DC 01/02/21 00:15 200 MLS/HR Sodium Chloride 500 ml @ 500 mls/hr 1X ONCE 01/02/21 00:30 01/02/21 01:29 DC Allergies: Allergies: Allergies Coded Allergies Type Severity Reaction Last Updated Verified Sulfa (Sulfonamide Antibiotics) Allergy Intermediate 12/20/15 Yes adhesive tape Allergy Intermediate skin sensitive to tape 12/20/15 Yes Physical Exam: PE: Constitutional: Well developed, well nourished, no acute distress, non-toxic appearance. [] HENT: Normocephalic, atraumatic, bilateral external ears normal, oropharynx moist, no oral exudates, nose normal. [] Eyes: PERRLA, EOMI, conjunctiva normal, no discharge. [] Neck: Normal range of motion, no tenderness, supple, no stridor. [] Cardiovascular:Heart rate regular rhythm, no murmur [] Lungs & Thorax: Bilateral breath sounds clear to auscultation [] Abdomen: Bowel sounds normal, soft, no tenderness, no masses, no pulsatile masses. [] Skin: Warm, dry, no erythema, no rash. [] Back: No tenderness, no CVA tenderness. [] Extremities: No tenderness, no cyanosis, no clubbing, ROM intact, no edema. [] Neurologic: Alert and oriented X 3, normal motor function, normal sensory function, no focal deficits noted. [] Psychologic: Affect normal, judgement normal, mood normal. [] Current Patient Data: Labs: Laboratory Tests Test 01/01/21 21:10 01/01/21 21:25 01/01/21 21:35 01/02/21 00:40 White Blood Count 20.2 x10^3/uL (4.0-11.0) H Red Blood Count 5.14 x10^6/uL (4.30-5.70) Hemoglobin 12.7 g/dL (13.0-17.5) L Hematocrit 39.4 % (39.0-53.0) Mean Corpuscular Volume 77 fL (79-100) L Mean Corpuscular Hemoglobin 25 pg (25-35) Mean Corpuscular Hemoglobin Concent 32 g/dL (31-37) Red Cell Distribution Width 15.3 % (11.5-14.5) H Platelet Count 334 x10^3/uL (140-400) Neutrophils (%) (Auto) 86 % (31-73) H Lymphocytes (%) (Auto) 6 % (24-48) L Monocytes (%) (Auto) 8 % (0-9) Eosinophils (%) (Auto) 0 % (0-3) Basophils (%) (Auto) 1 % (0-3) Neutrophils # (Auto) 17.4 x10^3/uL (1.8-7.7) H Lymphocytes # (Auto) 1.1 x10^3/uL (1.0-4.8) Monocytes # (Auto) 1.6 x10^3/uL (0.0-1.1) H Eosinophils # (Auto) 0.1 x10^3/uL (0.0-0.7) Basophils # (Auto) 0.1 x10^3/uL (0.0-0.2) Segmented Neutrophils % 75 % (35-66) H Band Neutrophils % 6 % (0-9) Lymphocytes % 13 % (24-48) L Monocytes % 6 % (0-10) Platelet Estimate Adequate (ADEQUATE) Polychromasia Slight Hypochromasia Slight Prothrombin Time 13.1 SEC (11.7-14.0) Prothrombin Time INR 1.0 (0.8-1.1) Activated Partial Thromboplast Time 34 SEC (24-38) Lactic Acid Level 4.1 mmol/L (0.4-2.0) *H 1.0 mmol/L (0.4-2.0) Sodium Level 135 mmol/L (136-145) L Potassium Level 4.7 mmol/L (3.5-5.1) Chloride Level 99 mmol/L (98-107) Carbon Dioxide Level 27 mmol/L (21-32) Anion Gap 9 (6-14) Blood Urea Nitrogen 11 mg/dL (8-26) Creatinine 1.3 mg/dL (0.7-1.3) Estimated GFR (Cockcroft-Gault) 73.3 BUN/Creatinine Ratio 8 (6-20) Glucose Level 342 mg/dL (70-99) H Calcium Level 7.9 mg/dL (8.5-10.1) L Magnesium Level 1.6 mg/dL (1.8-2.4) L Total Bilirubin 0.8 mg/dL (0.2-1.0) Aspartate Amino Transferase (AST) 25 U/L (15-37) Alanine Aminotransferase (ALT) 66 U/L (16-63) H Alkaline Phosphatase 137 U/L (46-116) H Creatine Kinase 80 U/L (39-308) Creatine Kinase MB (Mass) 1.2 ng/mL (0.0-3.6) Creatine Kinase MB Relative Index 1.5 % (0-4) Troponin I Quantitative < 0.017 ng/mL (0.000-0.055) Total Protein 6.8 g/dL (6.4-8.2) Albumin 2.9 g/dL (3.4-5.0) L Albumin/Globulin Ratio 0.7 (1.0-1.7) L Lipase 34 U/L (73-393) L Urine Collection Type Void Urine Color Yellow Urine Clarity Cloudy Urine pH 7.0 (<5.0-8.0) Urine Specific [place] 1.020 (1.000-1.030) Urine Protein 100 mg/dL (NEG-TRACE) Urine Glucose (UA) >=1000 mg/dL (NEG) Urine Ketones (Stick) 15 mg/dL (NEG) Urine Blood Moderate (NEG) Urine Nitrite Negative (NEG) Urine Bilirubin Negative (NEG) Urine Urobilinogen Dipstick 1.0 mg/dL (0.2 mg/dL) Urine Leukocyte Esterase Large (NEG) Urine RBC Occ /HPF (0-2) Urine WBC Tntc /HPF (0-4) Urine Squamous Epithelial Cells Few /LPF Urine Bacteria Many /HPF (0-FEW) Urine Mucus Mod /LPF Laboratory Tests 01/01/21 21:10 Laboratory Tests 01/01/21 21:25 Vital Signs: Vital Signs Date Time Temp Pulse Resp B/P (MAP) Pulse Ox O2 Delivery O2 Flow Rate FiO2 01/02/21 00:21 22 97 Nasal Cannula 3.0 01/02/21 00:02 100.0 107 162/83 (109) 100.0 EKG: EKG: @2100 Sinus tachycardia at 122bpm, NO ST elevation, QRS 82ms, QT/QTc 292/417ms Radiology/Procedures: Radiology/Procedures: [] Course & Med Decision Making: Course & Med Decision Making Pertinent Labs and Imaging studies reviewed. (See chart for details) [] Dragon Disclaimer: Dragon Disclaimer: This electronic medical record was generated, in whole or in part, using a voice recognition dictation system. Departure Departure Impression: Primary Impression: Septic shock Additional Impressions: Suspected 2019 novel coronavirus infection Pyelonephritis Hypomagnesemia Disposition: ADMITTED INPATIENT Admitting Physician: ALY Sebastian) Condition: GUARDED Referrals: NO PCP (PCP) Vital Signs Vital Signs: Vital Signs Date Time Temp Pulse Resp B/P (MAP) Pulse Ox O2 Delivery O2 Flow Rate FiO2 01/02/21 00:21 22 97 Nasal Cannula 3.0 01/02/21 00:02 100.0 107 162/83 (109) 100.0 Temperature Source: Oral Peripheral Pulse Pulse Assessment Method: Monitor Critical Care Time Critical care time was 30 minutes which includes time at bedside, spent in discussion of patient's care with specialists and/or family members, with interpretation of laboratory and/or radiological studies and is exclusive of procedures. YASMANI GONZALEZ DO Jan 02, 2021 02:19
[2021-01-02] MEDS ORDERED: fentaNYL PF VIAL 100 MCG/2 ML VIAL IV PRN (02:45)
[2021-01-02] MEDS ORDERED: DEXTROSE 50% 25 GM / 50ML DISP.SYRIN. IV PRN ×2 (02:45→07:15)
[2021-01-02] MEDS ORDERED: ACETAMINOPHEN 325 MG TABLET. PO PRN ×2 (02:45→07:15)
[2021-01-02] MEDS ORDERED: ONDANSETRON PF 4 MG/2 ML VIAL. IV PRN (02:45)
[2021-01-02 03:56] VITALS: BP 126/75
[2021-01-02] MEDS: IV NORMAL SALINE 1000ML BAG 1,000 ML IV SCH ×3 (03:59→17:38)
[2021-01-02] MEDS ORDERED: INSU100C4 SQ (05:10)
[2021-01-02 07:00] VITALS: BP 139/86
[2021-01-02] MEDS ORDERED: ONDANSETRON PF 4 MG/2 ML VIAL. IVP PRN (07:15)
[2021-01-02] MEDS ORDERED: MORPHINE SULFATE 2 MG/ML VIAL. IV PRN (07:15)
[2021-01-02] MEDS ORDERED: CALCIUM CARBONATE 500 MG TAB.CHEW PO PRN (07:15)
[2021-01-02] MEDS ORDERED: MAGNESIUM HYDROXIDE 2,400 MG/30 ML ORAL.SUSP. PO PRN (07:15)
[2021-01-02] MEDS ORDERED: ENOXAPARIN 40 MG/0.4 ML SYRINGE. SQ SCH (07:15)
[2021-01-02] MEDS ORDERED: BISACODYL 10 MG SUPP.RECT. PR PRN (07:15)
[2021-01-02] MEDS ORDERED: MAG HYDROX/ALUMINUM HYD/SIMETH 30 ML ORAL.SUSP PO PRN (07:15)
[2021-01-02] MEDS ORDERED: IV DEXTROSE 5% 250 ML BAG. IV PRN (07:15)
[2021-01-02] MEDS ORDERED: HYDROcodone/APAP 5/325MG 1 TAB TABLET PO PRN (07:15)
--- NOTE | 2021-01-02 07:42 | PDOC1 ---
History and Physical Date of Admission Date of Admission DATE: 01/02/21 TIME: 07:18 Identification/Chief Complaint Chief Complaint Shortness of breath Source Source: Chart review, Patient History of Present Illness History of Present Illness Patient is a 40 old male with past medical history asthma, hypertension, DM2, presents to the ER with complaints of worsening shortness of breath over the past 2 days. Reports associated nausea, vomiting, diarrhea, body aches, fever, chills, and polyuria. He has been taking his home albuterol inhaler, symptoms acutely worsened when he ran out with this medication. Upon arrival to the ED he was tachypnea, febrile, saturating 99% on [address] chest/abdomen/pelvis obtained on admission showed subtle right perinephric stranding; gallstones, no PE or chest abnormality. Will admit patient for further medical management. WBC 20.2, lactic acid 4.1, CBG 342 Past Medical History Cardiovascular: HTN Pulmonary: Asthma, Bronchitis GI: No pertinent hx Heme/Onc: No pertinent hx Hepatobiliary: No pertinent hx Psych: No pertinent hx Rheumatologic: No pertinent hx Infectious disease: No pertinent hx Renal/: No pertinent hx Endocrine: Diabetes Past Surgical History Past Surgical History Left shoulder surgery Past Surgical History: Other Family History Family History: Diabetes, High Cholestrol, Hypertension Social History Smoke: Quit ALCOHOL: none Drugs: None Current Problem List Problem List Problems Medical Problems: (1) Hypomagnesemia Status: Acute (2) Pyelonephritis Status: Acute (3) Septic shock Status: Acute (4) Suspected 2019 novel coronavirus infection Status: Acute Current Medications Current Medications Current Medications Sodium Chloride 1,000 ml @ 1,000 mls/hr Q1H IV Last administered on 01/01/21at 21:52; Start 01/01/21 at 22:00; Stop 01/01/21 at 22:59; Status DC Fentanyl Citrate (Fentanyl 2ml Vial) 50 mcg 1X ONCE IVP Last administered on 01/01/21at 21:54; Start 01/01/21 at 22:00; Stop 01/01/21 at 22:01; Status DC Ondansetron HCl (Zofran) 4 mg 1X ONCE IVP Last administered on 01/01/21at 21:54; Start 01/01/21 at 22:00; Stop 01/01/21 at 22:01; Status DC Acetaminophen (Tylenol) 500 mg 1X ONCE PO Last administered on 01/01/21at 21:54; Start 01/01/21 at 22:00; Stop 01/01/21 at 22:01; Status DC Dexamethasone Sodium Phosphate (Decadron) 10 mg 1X ONCE IVP Last administered on 01/01/21at 21:55; Start 01/01/21 at 22:00; Stop 01/01/21 at 22:01; Status DC Ceftriaxone Sodium (Rocephin) 1 gm 1X ONCE IVP ; Start 01/01/21 at 22:30; Stop 01/01/21 at 22:20; Status DC Levofloxacin/ Dextrose 150 ml @ 100 mls/hr 1X ONCE IV Last administered on 01/02/21at 00:22; Start 01/01/21 at 23:00; Stop 01/02/21 at 00:29; Status DC Piperacillin Sod/ Tazobactam Sod 4.5 gm/Sodium Chloride 100 ml @ 200 mls/hr 1X ONCE IV Last administered on 01/02/21at 00:15; Start 01/01/21 at 23:00; Stop 01/01/21 at 23:29; Status DC Iohexol (Omnipaque 350 Mg/ml) 100 ml 1X ONCE IV ; Start 01/01/21 at 23:30; Stop 01/01/21 at 23:31; Status DC Info (CONTRAST GIVEN -- Rx MONITORING) 1 each PRN DAILY PRN MC SEE COMMENTS; Start 01/01/21 at 23:15; Stop 01/03/21 at 23:14 Morphine Sulfate (Morphine Sulfate) 4 mg 1X ONCE IV Last administered on 01/02/21at 00:21; Start 01/02/21 at 00:30; Stop 01/02/21 at 00:31; Status DC Sodium Chloride 1,000 ml @ 1,000 mls/hr 1X ONCE IV Last administered on 01/02/21at 02:18; Start 01/02/21 at 00:30; Stop 01/02/21 at 01:29; Status DC Sodium Chloride 500 ml @ 500 mls/hr 1X ONCE IV Last administered on 01/02/21at 03:20; Start 01/02/21 at 00:30; Stop 01/02/21 at 01:29; Status DC Ondansetron HCl (Zofran) 4 mg PRN Q8HRS PRN IV NAUSEA/VOMITING 1ST CHOICE; Start 01/02/21 at 02:45; Stop 01/03/21 at 02:44 Fentanyl Citrate (Fentanyl 2ml Vial) 50 mcg PRN Q2HRS PRN IV SEVERE PAIN 7-10 Last administered on 01/02/21at 03:21; Start 01/02/21 at 02:45 Sodium Chloride 1,000 ml @ 125 mls/hr Q8H IV Last administered on 01/02/21at 03:59; Start 01/02/21 at 03:00; Stop 01/03/21 at 02:59 Acetaminophen (Tylenol) 650 mg PRN Q4HRS PRN PO FEVER > 100.3'F; Start 01/02/21 at 02:45; Stop 01/03/21 at 02:44 Insulin Human Lispro (HumaLOG) 0-5 UNITS TIDWMEALS SQ ; Start 01/02/21 at 08:00 Dextrose (Dextrose 50%-Water Syringe) 12.5 gm PRN Q15MIN PRN IV SEE COMMENTS; Start 01/02/21 at 02:45 Fluticasone/ Vilanterol (Breo Ellipta 100-25 Mcg) 1 puff DAILY INH ; Start 01/02/21 at 09:00 Aspirin (Aspirin Chewable) 81 mg DAILY PO ; Start 01/02/21 at 09:00 Atorvastatin Calcium (Lipitor) 40 mg QHS PO ; Start 01/02/21 at 21:00 Fluticasone Propionate (Flonase) 2 spray DAILY NS ; Start 01/02/21 at 09:00 Losartan Potassium (Cozaar) 50 mg DAILY PO ; Start 01/02/21 at 09:00 Montelukast Sodium (Singulair) 10 mg QHS PO ; Start 01/02/21 at 21:00 Trazodone HCl (Desyrel) 100 mg PRN QHS PRN PO INSOMNIA; Start 01/02/21 at 07:15 Insulin Glargine (Lantus Syringe) 30 unit BID SQ ; Start 01/02/21 at 09:00 Insulin Human Lispro (HumaLOG) 30 units TIDWMEALS SQ ; Start 01/02/21 at 08:00 Dextrose (Dextrose 50%-Water Syringe) 12.5 gm PRN Q15MIN PRN IV SEE COMMENTS; Start 01/02/21 at 07:15 Dextrose (Iv Dextrose 5%) 250 ml PRN Q15MIN PRN IV SEE COMMENTS; Start 01/02/21 at 07:15 Active Scripts Active [place] 5-325 Tablet (Acetaminophen/Hydrocodone Bitart) 1 Each Tablet 1 Tab PO PRN Q6HRS PRN 5 Days Pantoprazole Sodium (Pantoprazole Sodium) 40 Mg Tablet.dr 40 Mg PO DAILYAC 30 Days Montelukast Sodium Tablet (Montelukast Sodium) 10 Mg Tablet 10 Mg PO QHS 30 Days Cozaar (Losartan Potassium) 50 Mg Tablet 50 Mg PO DAILY 30 Days Combivent Respimat Inhal (Ipratropium/Albuterol Sulfate) 4 Gm Aer.w.adap 2 Inh IH QID 30 Days Prednisone 20 Mg Tablet 1 Tab PO DAILY 5 Days Doxycycline Hyclate 100 Mg Tablet 100 Mg PO BID 7 Days Sertraline Hcl 100 Mg Tablet 100 Mg PO DAILY 30 Days Trazodone Hcl 100 Mg Tablet 100 Mg PO PRN QHS PRN 30 Days Lantus Solostar (Insulin Glargine,Hum.rec.anlog) 100 Unit/1 Ml Insuln.pen 30 Unit SQ BID 30 Days Reported Novolog (Insulin Aspart) 100 Unit/1 Ml Cartridge 30 Unit SQ TIDWMEALS Atorvastatin Calcium 40 Mg Tablet 40 Mg PO QHS Fluticasone Propionate Nasal [place] (Fluticasone Propionate) 16 Gm [place].susp 2 Spr NIRMAL DAILY Aspirin 81 Mg Tab.chew 1 Tab PO DAILY Allergies Allergies: Coded Allergies: Sulfa (Sulfonamide Antibiotics) (Verified Allergy, Intermediate, 12/20/15) adhesive tape (Verified Allergy, Intermediate, skin sensitive to tape, 12/20/15) ROS Review of System GENERAL: Body aches, fevers, chills. No history of weight change. SKIN: No bruising, hair changes or rashes. EYES: No blurred, double or loss of vision. NOSE AND THROAT: No history of nosebleeds, hoarseness or sore throat. HEART: Denies chest pain, denies palpitations. LUNGS: Shortness of breath. Denies hemoptysis. GASTROINTESTINAL: Denies nausea, vomiting, abdominal pain. GENITOURINARY: Polyuria. Denies dysuria or hematuria. NEUROLOGIC: Denies history of numbness, tingling, tremor or weakness. PSYCHIATRIC: Denies anxiety, denies depression. ENDOCRINE: No history of heat or cold intolerance, or polydipsia. EXTREMITIES: Denies muscle weakness, joint pain, pain on walking or stiffness. Physical Exam Physical Exam General: Morbidly obese. Alert, Oriented X3, Cooperative, mild distress HEENT: PERRLA, EOMI Lungs: Decreased breath sounds bilaterally, Normal air movement Heart: RRR, no murmurs Cardiovascular: S1, S2 Abdomen: Normal bowel sounds, Soft, bilateral flank tenderness, left greater than right. Extremities: No clubbing, No cyanosis Skin: No rashes, No significant lesion Neuro: Normal speech, Normal tone, Sensation intact Psych/Mental Status: Mental status NL, Mood NL Vitals Vitals Vital Signs Date Time Temp Pulse Resp B/P (MAP) Pulse Ox O2 Delivery O2 Flow Rate FiO2 01/02/21 04:48 3.0 01/02/21 03:56 98.5 95 22 126/75 (92) 98 Room Air 98.5 Labs Labs Laboratory Tests Test 01/01/21 21:10 01/01/21 21:25 01/01/21 21:35 01/02/21 00:40 White Blood Count 20.2 x10^3/uL (4.0-11.0) Red Blood Count 5.14 x10^6/uL (4.30-5.70) Hemoglobin 12.7 g/dL (13.0-17.5) Hematocrit 39.4 % (39.0-53.0) Mean Corpuscular Volume 77 fL (79-100) Mean Corpuscular Hemoglobin 25 pg (25-35) Mean Corpuscular Hemoglobin Concent 32 g/dL (31-37) Red Cell Distribution Width 15.3 % (11.5-14.5) Platelet Count 334 x10^3/uL (140-400) Neutrophils (%) (Auto) 86 % (31-73) Lymphocytes (%) (Auto) 6 % (24-48) Monocytes (%) (Auto) 8 % (0-9) Eosinophils (%) (Auto) 0 % (0-3) Basophils (%) (Auto) 1 % (0-3) Neutrophils # (Auto) 17.4 x10^3/uL (1.8-7.7) Lymphocytes # (Auto) 1.1 x10^3/uL (1.0-4.8) Monocytes # (Auto) 1.6 x10^3/uL (0.0-1.1) Eosinophils # (Auto) 0.1 x10^3/uL (0.0-0.7) Basophils # (Auto) 0.1 x10^3/uL (0.0-0.2) Segmented Neutrophils % 75 % (35-66) Band Neutrophils % 6 % (0-9) Lymphocytes % 13 % (24-48) Monocytes % 6 % (0-10) Platelet Estimate Adequate (ADEQUATE) Polychromasia Slight Hypochromasia Slight Prothrombin Time 13.1 SEC (11.7-14.0) Prothromb Time International Ratio 1.0 (0.8-1.1) Activated Partial Thromboplast Time 34 SEC (24-38) Lactic Acid Level 4.1 mmol/L (0.4-2.0) 1.0 mmol/L (0.4-2.0) Sodium Level 135 mmol/L (136-145) Potassium Level 4.7 mmol/L (3.5-5.1) Chloride Level 99 mmol/L (98-107) Carbon Dioxide Level 27 mmol/L (21-32) Anion Gap 9 (6-14) Blood Urea Nitrogen 11 mg/dL (8-26) Creatinine 1.3 mg/dL (0.7-1.3) Estimated GFR (Cockcroft-Gault) 73.3 BUN/Creatinine Ratio 8 (6-20) Glucose Level 342 mg/dL (70-99) Calcium Level 7.9 mg/dL (8.5-10.1) Magnesium Level 1.6 mg/dL (1.8-2.4) Total Bilirubin 0.8 mg/dL (0.2-1.0) Aspartate Amino Transf (AST/SGOT) 25 U/L (15-37) Alanine Aminotransferase (ALT/SGPT) 66 U/L (16-63) Alkaline Phosphatase 137 U/L (46-116) Creatine Kinase 80 U/L (39-308) Creatine Kinase MB (Mass) 1.2 ng/mL (0.0-3.6) Creatine Kinase MB Relative Index 1.5 % (0-4) Troponin I Quantitative < 0.017 ng/mL (0.000-0.055) Total Protein 6.8 g/dL (6.4-8.2) Albumin 2.9 g/dL (3.4-5.0) Albumin/Globulin Ratio 0.7 (1.0-1.7) Lipase 34 U/L (73-393) Urine Collection Type Void Urine Color Yellow Urine Clarity Cloudy Urine pH 7.0 (<5.0-8.0) Urine Specific [place] 1.020 (1.000-1.030) Urine Protein 100 mg/dL (NEG-TRACE) Urine Glucose (UA) >=1000 mg/dL (NEG) Urine Ketones (Stick) 15 mg/dL (NEG) Urine Blood Moderate (NEG) Urine Nitrite Negative (NEG) Urine Bilirubin Negative (NEG) Urine Urobilinogen Dipstick 1.0 mg/dL (0.2 mg/dL) Urine Leukocyte Esterase Large (NEG) Urine RBC Occ /HPF (0-2) Urine WBC Tntc /HPF (0-4) Urine Squamous Epithelial Cells Few /LPF Urine Bacteria Many /HPF (0-FEW) Urine Mucus Mod /LPF Test 01/02/21 07:12 Glucose (Fingerstick) 346 mg/dL (70-99) Laboratory Tests Test 01/01/21 21:10 01/01/21 21:25 01/01/21 21:35 01/02/21 00:40 White Blood Count 20.2 x10^3/uL (4.0-11.0) Red Blood Count 5.14 x10^6/uL (4.30-5.70) Hemoglobin 12.7 g/dL (13.0-17.5) Hematocrit 39.4 % (39.0-53.0) Mean Corpuscular Volume 77 fL (79-100) Mean Corpuscular Hemoglobin 25 pg (25-35) Mean Corpuscular Hemoglobin Concent 32 g/dL (31-37) Red Cell Distribution Width 15.3 % (11.5-14.5) Platelet Count 334 x10^3/uL (140-400) Neutrophils (%) (Auto) 86 % (31-73) Lymphocytes (%) (Auto) 6 % (24-48) Monocytes (%) (Auto) 8 % (0-9) Eosinophils (%) (Auto) 0 % (0-3) Basophils (%) (Auto) 1 % (0-3) Neutrophils # (Auto) 17.4 x10^3/uL (1.8-7.7) Lymphocytes # (Auto) 1.1 x10^3/uL (1.0-4.8) Monocytes # (Auto) 1.6 x10^3/uL (0.0-1.1) Eosinophils # (Auto) 0.1 x10^3/uL (0.0-0.7) Basophils # (Auto) 0.1 x10^3/uL (0.0-0.2) Segmented Neutrophils % 75 % (35-66) Band Neutrophils % 6 % (0-9) Lymphocytes % 13 % (24-48) Monocytes % 6 % (0-10) Platelet Estimate Adequate (ADEQUATE) Polychromasia Slight Hypochromasia Slight Prothrombin Time 13.1 SEC (11.7-14.0) Prothromb Time International Ratio 1.0 (0.8-1.1) Activated Partial Thromboplast Time 34 SEC (24-38) Lactic Acid Level 4.1 mmol/L (0.4-2.0) 1.0 mmol/L (0.4-2.0) Sodium Level 135 mmol/L (136-145) Potassium Level 4.7 mmol/L (3.5-5.1) Chloride Level 99 mmol/L (98-107) Carbon Dioxide Level 27 mmol/L (21-32) Anion Gap 9 (6-14) Blood Urea Nitrogen 11 mg/dL (8-26) Creatinine 1.3 mg/dL (0.7-1.3) Estimated GFR (Cockcroft-Gault) 73.3 BUN/Creatinine Ratio 8 (6-20) Glucose Level 342 mg/dL (70-99) Calcium Level 7.9 mg/dL (8.5-10.1) Magnesium Level 1.6 mg/dL (1.8-2.4) Total Bilirubin 0.8 mg/dL (0.2-1.0) Aspartate Amino Transf (AST/SGOT) 25 U/L (15-37) Alanine Aminotransferase (ALT/SGPT) 66 U/L (16-63) Alkaline Phosphatase 137 U/L (46-116) Creatine Kinase 80 U/L (39-308) Creatine Kinase MB (Mass) 1.2 ng/mL (0.0-3.6) Creatine Kinase MB Relative Index 1.5 % (0-4) Troponin I Quantitative < 0.017 ng/mL (0.000-0.055) Total Protein 6.8 g/dL (6.4-8.2) Albumin 2.9 g/dL (3.4-5.0) Albumin/Globulin Ratio 0.7 (1.0-1.7) Lipase 34 U/L (73-393) Urine Collection Type Void Urine Color Yellow Urine Clarity Cloudy Urine pH 7.0 (<5.0-8.0) Urine Specific [place] 1.020 (1.000-1.030) Urine Protein 100 mg/dL (NEG-TRACE) Urine Glucose (UA) >=1000 mg/dL (NEG) Urine Ketones (Stick) 15 mg/dL (NEG) Urine Blood Moderate (NEG) Urine Nitrite Negative (NEG) Urine Bilirubin Negative (NEG) Urine Urobilinogen Dipstick 1.0 mg/dL (0.2 mg/dL) Urine Leukocyte Esterase Large (NEG) Urine RBC Occ /HPF (0-2) Urine WBC Tntc /HPF (0-4) Urine Squamous Epithelial Cells Few /LPF Urine Bacteria Many /HPF (0-FEW) Urine Mucus Mod /LPF Test 01/02/21 07:12 Glucose (Fingerstick) 346 mg/dL (70-99) Images Images Exam: CT of chest, abdomen and pelvis with contrast INDICATION: Flank pain, shortness of breath TECHNIQUE: Sequential axial images through the chest, abdomen and pelvis obta ined following the administration of 100 mL of Omni 350 IV contrast. Sagittal and coronal reformatted images were reconstructed from the axial data and reviewed. Comparisons: None FINDINGS: Visualized portions of the thyroid are unremarkable. No enlarged mediastinal lymph nodes. Heart size is normal. No pericardial effusion. Thoracic aorta has a normal course and caliber. Pulmonary artery is not enlarged. Airways are patent. No consolidation or pneumothorax. No suspicious lung nodules are identified. No pleural effusion or thickening Liver, spleen, pancreas, and adrenals are unremarkable. Gallstones are noted within the gallbladder. Subtle right perinephric stranding. No hydronephrosis. No renal or ureteral calculi are identified. Bladder is decompressed not well evaluated. Prostate is not enlarged. Large and small bowel are unremarkable. Appendix is normal. No free intra-abd ominal air or fluid. No obstruction. Abdominal aorta has a normal course and caliber. Abdominal vasculature is patent. No enlarged intra-abdominal lymph nodes are identified. No suspicious osseous lesions or acute fractures. IMPRESSION: 1. Markedly Limited evaluation secondary to body habitus and movement at time of contrast bolus timing. Examination is nondiagnostic for pulmonary embolus. 2. Essentially a noncontrast CT of the chest was performed. No abnormalities are identified in the chest. 3. Gallstones and within the gallbladder. Correlate with symptomatology. 4. Subtle right perinephric stranding. Correlate with urinalysis for infection. VTE Prophylaxis Ordered VTE Prophylaxis Devices: No VTE Pharmacological Prophylaxi: Yes Assessment/Plan Assessment/Plan Sepsis Acute respiratory failure with hypoxia Right pyelonephritis DM2 with hyperglycemia Moderate malnutrition COVID-19 PUI Plan: Patient received fluids and broad-spectrum antibiotics and the ED. Will continue treatment of asthma exacerbation and pyelonephritis with Rocephin daily and doxycycline IV twice daily. Consultation to pulmonology acute hypoxia COVID-19 PUI Treat empirically with Decadron 6 mg daily COVID-19 and influenza pending Basal/prandial insulin; A1c pending. Resume home medications FEN - Cardiac diet PPX - Lovenox FULL CODE Dispo - inpatient for above; patient names his girlfriend as his surrogate decision-maker. Justifications for Admission Other Justification DELILAH SQUIRES MD Jan 02, 2021 07:42
[2021-01-02] MEDS ORDERED: INSULIN LISPRO 300 UNITS/3 ML VIAL. SQ SCH (08:00)
[2021-01-02] MEDS: INSULIN LISPRO 300 UNITS/3 ML VIAL. SQ SCH ×6 (08:26→17:45)
[2021-01-02] MEDS: ASPIRIN CHEWABLE 81 MG TABLET. PO SCH (08:30)
[2021-01-02] MEDS: LOSARTAN POTASSIUM 50 MG TABLET. PO SCH (08:31)
[2021-01-02] MEDS: DEXAMETHASONE SOD PHOS 4 MG/ML VIAL IVP SCH (08:32)
[2021-01-02] MEDS: FLUTICASONE/VILANTEROL 100/25 INHALER. INH SCH (08:32)
[2021-01-02] MEDS: INSULIN GLARGINE SYRINGE. SQ SCH ×2 (08:40→21:19)
[2021-01-02] MEDS: FLUTICASONE 50MCG/NASAL SPRAY 16GM BOTTLE. NS SCH (09:00)
[2021-01-02] MEDS: HYDROcodone/APAP 5/325MG 1 TAB TABLET PO PRN ×3 (09:08→23:34)
[2021-01-02] MEDS ORDERED: ALBUTEROL SULFATE 8GM INHALER. INH PRN (09:30)
[2021-01-02 10:34] LABS: INFLUENZA A PATIENT NEGATIVE (NEGATIVE); INFLUENZA B PATIENT NEGATIVE (NEGATIVE)
[2021-01-02 11:00] VITALS: BP 171/100
[2021-01-02] MEDS ORDERED: DOXYCYCLINE HYCLATE 100 MG in IV DEXTROSE 5% 100ML 100 ML IV SCH (11:00)
[2021-01-02] MEDS ORDERED: cefTRIAXone IV Push 2 GM VIAL. IVP SCH (11:00)
[2021-01-02] MEDS ORDERED: PIP/TAZO PER PHARMACY MC PRN (12:15)
[2021-01-02] MEDS: PIPERACILLIN/TAZOBACTAM 3.375 GM in IV NORMAL SALINE 50ML 50 ML IV SCH ×3 (12:34→23:34)
--- NOTE | 2021-01-02 13:28 | CONS ---
DATE OF CONSULTATION: 01/02/2021 PULMONARY CONSULTATION ATTENDING PHYSICIAN: Dr. Alphonse Ko. REASON FOR CONSULTATION: Respiratory failure. HISTORY OF PRESENT ILLNESS: The patient is a 40-year-old morbidly obese male with a BMI of 66. He has history of asthma. He denies any tobacco use. He is not on home oxygen. He has type 2 diabetes. He was also diagnosed with DENNIS and has been waiting on a CPAP. He was brought into the hospital with nausea, some vomiting and diarrhea and body aches. He said he has some stomach pain as well. He had fever and chills. The patient had a fever of 103 on admission. The patient underwent CT chest with contrast. It was a ____ study to rule out pulmonary embolism. No definite infiltrates were seen. The patient did have right perinephric stranding and there was a suspicion for gallstone. I have been asked to see him for further evaluation. He is currently being under investigation for COVID-19. PAST MEDICAL HISTORY: Significant for hypertension, asthma, morbid obesity with a BMI of 66, history of diabetes, history of obstructive sleep apnea, awaiting CPAP. PAST SURGICAL HISTORY: Left shoulder surgery. FAMILY HISTORY: Diabetes, dyslipidemia and hypertension. SOCIAL HISTORY: Denies significant tobacco history. ALLERGIES: SULFA AND ADHESIVE TAPE. REVIEW OF SYSTEMS: Twelve-point system obtained. Pertinent positives discussed in my history of present illness, otherwise noncontributory. All systems that were negative were reviewed as well. FAMILY HISTORY: Noncontributory to lungs. MEDICATIONS: All reviewed as listed in [facility] PHYSICAL EXAMINATION: VITAL SIGNS: Shows a T-max of 103, pulse ox is 98% on 3 liters. NECK: Supple. LUNGS: With diminished breath sounds. CARDIOVASCULAR: With a regular rate. ABDOMEN: Soft, obese. EXTREMITIES: With trace pitting edema. LABORATORY DATA: Reviewed. White cell count 20.2, hemoglobin 12.7 and platelets are 334. BUN 11 and creatinine of 1.3. Lactic acid is 4.1. IMPRESSION: 1. Acute hypoxic respiratory failure with high-grade fever. No definite infiltrates seen on the CT chest. The possibility of acute cholecystitis would be a consideration. 2. No significant tobacco history. 3. Morbid obesity with underlying sleep apnea. He is awaiting CPAP, details of his sleep study not available. 4. Influenza screen negative. COVID-19 pending. 5. Leukocytosis. RECOMMENDATIONS: 1. Continue present oxygen to keep saturation 92 and above. 2. Consider GI consult. 3. Rule out COVID-19. 4. Continue broad-spectrum antibiotics. 5. Lovenox for DVT prophylaxis. 6. The patient was initiated on dexamethasone. If COVID tests come back negative, then we will discontinue steroids. Discussed with RN. SUN REYNOLDS MD DR: IRIS/bishop JOB#: [id number] / [id number] JANICE
[2021-01-02 15:00] VITALS: BP 143/79
--- NOTE | 2021-01-02 15:11 | NUR ---
JESUS following for discharge planning today. JESUS spoke with RN and reviewed chart. Pt from home. Pt on room air and IV Zosyn. Consult to pulmonary. SW following.
[2021-01-02 19:00] VITALS: BP 140/77
[2021-01-02] MEDS: MONTELUKAST SODIUM 10 MG TABLET. PO SCH (21:16)
[2021-01-02] MEDS: ATORVASTATIN CALCIUM 40 MG TABLET. PO SCH (21:17)
[2021-01-02 23:00] VITALS: BP 146/79
[2021-01-03 03:00] VITALS: BP 140/71
[2021-01-03 04:20] LABS: BASO % 0 % (0-3); EOS % 0 % (0-3); HEMOGLOBIN 11.6 g/dL (13.0-17.5); LYMPH # 1.1 x10^3/uL (1.0-4.8); LYMPH % 6 % (24-48); MEAN CORPUSCULAR HEMOGLOBIN 25 pg (25-35); MEAN CORPUSCULAR HGB CONC 32 g/dL (31-37); MEAN CORPUSCULAR VOLUME 76 fL (79-100); MONO % 11 % (0-9); NEUT # 14.5 x10^3/uL (1.8-7.7); NEUT % 82 % (31-73); PLATELET COUNT 317 x10^3/uL (140-400); RED BLOOD COUNT 4.72 x10^6/uL (4.30-5.70); WHITE BLOOD COUNT 17.7 x10^3/uL (4.0-11.0)
[2021-01-03 04:33] LABS: CALCIUM 7.4 mg/dL (8.5-10.1); GFR 99.2; POTASSIUM 3.9 mmol/L (3.5-5.1)
[2021-01-03] MEDS: HYDROcodone/APAP 5/325MG 1 TAB TABLET PO PRN ×2 (05:59→20:44)
[2021-01-03] MEDS: PIPERACILLIN/TAZOBACTAM 3.375 GM in IV NORMAL SALINE 50ML 50 ML IV SCH ×4 (05:59→23:37)
[2021-01-03 07:00] VITALS: BP 138/79
[2021-01-03] MEDS: INSULIN GLARGINE SYRINGE. SQ SCH ×2 (08:48→21:36)
[2021-01-03] MEDS: INSULIN LISPRO 300 UNITS/3 ML VIAL. SQ SCH ×6 (08:49→17:18)
[2021-01-03] MEDS: LOSARTAN POTASSIUM 50 MG TABLET. PO SCH (08:50)
[2021-01-03] MEDS: DEXAMETHASONE SOD PHOS 4 MG/ML VIAL IVP SCH (08:50)
[2021-01-03] MEDS: FLUTICASONE/VILANTEROL 100/25 INHALER. INH SCH (08:51)
[2021-01-03] MEDS: ASPIRIN CHEWABLE 81 MG TABLET. PO SCH (08:51)
[2021-01-03] MEDS: FLUTICASONE 50MCG/NASAL SPRAY 16GM BOTTLE. NS SCH (08:52)
--- NOTE | 2021-01-03 10:59 | CONS ---
DATE OF CONSULTATION: 01/03/2021 REFERRING PHYSICIAN: Dr. Ko. REASON FOR CONSULTATION: Gram-negative bacteremia. HISTORY OF PRESENT ILLNESS: A 40-year-old male presented to the ER on 01/02/2021 with complaints of fever, chills, nausea, right flank pain and dysuria. He was febrile at 103, white count of 20.2, lactate of 4.1 and creatinine of 1.3. Troponin was normal. Blood cultures were done on the , which showed 1/4 bottles positive for Gram-negative beto. UA showed large leukocyte esterase and wbc's too numerous to count. CT chest, abdomen and pelvis showed limited evaluation due to body habitus. No ____ gallstone within the gallbladder. Subtle right perinephric stranding. Urine culture is pending. The patient is currently on Zosyn, also received ceftriaxone, doxycycline and Levaquin. ID consultation has been requested for antibiotic management. Today, the patient still continues to have some nausea and right flank pain. Fever has improved. Still feels has generalized weakness and continues to have right flank pain. Continues to have dysuria. PAST MEDICAL HISTORY: Hypertension, asthma, bronchitis and diabetes. PAST SURGICAL HISTORY: Left shoulder surgery. FAMILY HISTORY: As per HPI. SOCIAL HISTORY: No alcohol. No drugs. Quit smoking. Family members still smoke. On disability. CURRENT MEDICATIONS: Zosyn. Had been on dexamethasone, ceftriaxone, doxycycline and Levaquin. Other medications reviewed in medication list. ALLERGIES: SULFA WITH RASH AND ADHESIVE TAPE. REVIEW OF SYSTEMS: Negative except for above in HPI. PHYSICAL EXAMINATION: VITAL SIGNS: Temperature 97.5, pulse 94, respiratory rate 19, blood pressure 138/79, oxygen saturation 100% on 3 liters by nasal cannula and T-max 103. GENERAL: Alert, oriented x 3, morbidly obese male, nontoxic appearing, lying in bed comfortably, appears tired. HEENT: Normocephalic, atraumatic. Anicteric. No thrush. NECK: Fullness present. LUNGS: Clear bilaterally. HEART: S1, S2. ABDOMEN: Morbidly obese. Right flank pain present. No CVA tenderness, no rebound, no guarding. Bowel sounds present. EXTREMITIES: No edema, no cyanosis. DERMATOLOGIC: Warm and dry. No generalized rash. NEUROLOGIC: Alert, oriented x 3, grossly nonfocal. PSYCHIATRIC: Cooperative, appropriate mood and affect. LABORATORY DATA: WBC 17.7 and was 20.2, hemoglobin 11.6, hematocrit 36 and platelets 317. COVID-19 pending. UA, pyuria. Sodium 138, potassium 3.9, chloride 101, bicarbonate 25, BUN 16, creatinine 1.0 and glucose 173. Lactate was 4.1, repeat is 1.0. Albumin 2.9 and lipase 34. Troponin normal. CK normal. MICROBIOLOGY: 1. Blood culture 01/01/2021, 09/25 bottles gram-negative rods. 2. Urine culture pending. IMAGING: CT chest, abdomen and pelvis as above. IMPRESSION: 1. Sepsis from gram-negative bacteremia. 2. Gram-negative bacteremia. Source is 3. UTI 4. Fever. 5. Lactic acidosis. Leukocytosis. 6. Nausea. 7.. Morbid obesity. 8. Diabetes mellitus type 2. 9. Generalized weakness 10. COVID PUI RECOMMENDATIONS: 1. Continue Zosyn. 2. Follow up urine and blood culture. 3. Continue supportive care. 4. Maintain aspiration precaution. 5. Follow-up Covid PCR Thank you for allowing me to participate in this patient's care. If you have any questions, do not hesitate to contact me. ZIGGY ROBERTSON MD DR: SJ/bishop JOB#: [id number] / [id number] JANICE
[2021-01-03 11:00] VITALS: BP 181/66
--- NOTE | 2021-01-03 12:23 | PDOC ---
PULMONARY PROGRESS NOTES DATE: 01/03/21 TIME: 12:20 Subjective c/o abdominal pain no soa Vitals Vital Signs Date Time Temp Pulse Resp B/P (MAP) Pulse Ox O2 Delivery O2 Flow Rate FiO2 01/03/21 11:00 97.6 95 20 181/66 (104) 97 Nasal Cannula 3.0 97.6 General: Alert, No acute distress Lungs: Other Cardiovascular: S1 Abdomen: Soft, Other (obese) Extremities: No Edema Labs Laboratory Tests Test 01/01/21 21:10 01/01/21 21:25 01/01/21 21:35 01/02/21 00:40 White Blood Count 20.2 x10^3/uL (4.0-11.0) Red Blood Count 5.14 x10^6/uL (4.30-5.70) Hemoglobin 12.7 g/dL (13.0-17.5) Hematocrit 39.4 % (39.0-53.0) Mean Corpuscular Volume 77 fL (79-100) Mean Corpuscular Hemoglobin 25 pg (25-35) Mean Corpuscular Hemoglobin Concent 32 g/dL (31-37) Red Cell Distribution Width 15.3 % (11.5-14.5) Platelet Count 334 x10^3/uL (140-400) Neutrophils (%) (Auto) 86 % (31-73) Lymphocytes (%) (Auto) 6 % (24-48) Monocytes (%) (Auto) 8 % (0-9) Eosinophils (%) (Auto) 0 % (0-3) Basophils (%) (Auto) 1 % (0-3) Neutrophils # (Auto) 17.4 x10^3/uL (1.8-7.7) Lymphocytes # (Auto) 1.1 x10^3/uL (1.0-4.8) Monocytes # (Auto) 1.6 x10^3/uL (0.0-1.1) Eosinophils # (Auto) 0.1 x10^3/uL (0.0-0.7) Basophils # (Auto) 0.1 x10^3/uL (0.0-0.2) Segmented Neutrophils % 75 % (35-66) Band Neutrophils % 6 % (0-9) Lymphocytes % 13 % (24-48) Monocytes % 6 % (0-10) Platelet Estimate Adequate (ADEQUATE) Polychromasia Slight Hypochromasia Slight Prothrombin Time 13.1 SEC (11.7-14.0) Prothromb Time International Ratio 1.0 (0.8-1.1) Activated Partial Thromboplast Time 34 SEC (24-38) Lactic Acid Level 4.1 mmol/L (0.4-2.0) 1.0 mmol/L (0.4-2.0) Sodium Level 135 mmol/L (136-145) Potassium Level 4.7 mmol/L (3.5-5.1) Chloride Level 99 mmol/L (98-107) Carbon Dioxide Level 27 mmol/L (21-32) Anion Gap 9 (6-14) Blood Urea Nitrogen 11 mg/dL (8-26) Creatinine 1.3 mg/dL (0.7-1.3) Estimated GFR (Cockcroft-Gault) 73.3 BUN/Creatinine Ratio 8 (6-20) Glucose Level 342 mg/dL (70-99) Calcium Level 7.9 mg/dL (8.5-10.1) Magnesium Level 1.6 mg/dL (1.8-2.4) Total Bilirubin 0.8 mg/dL (0.2-1.0) Aspartate Amino Transf (AST/SGOT) 25 U/L (15-37) Alanine Aminotransferase (ALT/SGPT) 66 U/L (16-63) Alkaline Phosphatase 137 U/L (46-116) Creatine Kinase 80 U/L (39-308) Creatine Kinase MB (Mass) 1.2 ng/mL (0.0-3.6) Creatine Kinase MB Relative Index 1.5 % (0-4) Troponin I Quantitative < 0.017 ng/mL (0.000-0.055) Total Protein 6.8 g/dL (6.4-8.2) Albumin 2.9 g/dL (3.4-5.0) Albumin/Globulin Ratio 0.7 (1.0-1.7) Lipase 34 U/L (73-393) Urine Collection Type Void Urine Color Yellow Urine Clarity Cloudy Urine pH 7.0 (<5.0-8.0) Urine Specific [place] 1.020 (1.000-1.030) Urine Protein 100 mg/dL (NEG-TRACE) Urine Glucose (UA) >=1000 mg/dL (NEG) Urine Ketones (Stick) 15 mg/dL (NEG) Urine Blood Moderate (NEG) Urine Nitrite Negative (NEG) Urine Bilirubin Negative (NEG) Urine Urobilinogen Dipstick 1.0 mg/dL (0.2 mg/dL) Urine Leukocyte Esterase Large (NEG) Urine RBC Occ /HPF (0-2) Urine WBC Tntc /HPF (0-4) Urine Squamous Epithelial Cells Few /LPF Urine Bacteria Many /HPF (0-FEW) Urine Mucus Mod /LPF Test 01/02/21 07:12 01/02/21 08:55 01/02/21 11:57 01/02/21 16:52 Glucose (Fingerstick) 346 mg/dL (70-99) 331 mg/dL (70-99) 225 mg/dL (70-99) Influenza Type A Antigen Negative (NEGATIVE) Influenza Type B Antigen Negative (NEGATIVE) Test 01/02/21 21:21 01/03/21 03:38 01/03/21 11:30 Glucose (Fingerstick) 204 mg/dL (70-99) 194 mg/dL (70-99) White Blood Count 17.7 x10^3/uL (4.0-11.0) Red Blood Count 4.72 x10^6/uL (4.30-5.70) Hemoglobin 11.6 g/dL (13.0-17.5) Hematocrit 36.0 % (39.0-53.0) Mean Corpuscular Volume 76 fL (79-100) Mean Corpuscular Hemoglobin 25 pg (25-35) Mean Corpuscular Hemoglobin Concent 32 g/dL (31-37) Red Cell Distribution Width 15.0 % (11.5-14.5) Platelet Count 317 x10^3/uL (140-400) Neutrophils (%) (Auto) 82 % (31-73) Lymphocytes (%) (Auto) 6 % (24-48) Monocytes (%) (Auto) 11 % (0-9) Eosinophils (%) (Auto) 0 % (0-3) Basophils (%) (Auto) 0 % (0-3) Neutrophils # (Auto) 14.5 x10^3/uL (1.8-7.7) Lymphocytes # (Auto) 1.1 x10^3/uL (1.0-4.8) Monocytes # (Auto) 2.0 x10^3/uL (0.0-1.1) Eosinophils # (Auto) 0.0 x10^3/uL (0.0-0.7) Basophils # (Auto) 0.0 x10^3/uL (0.0-0.2) Sodium Level 138 mmol/L (136-145) Potassium Level 3.9 mmol/L (3.5-5.1) Chloride Level 101 mmol/L (98-107) Carbon Dioxide Level 25 mmol/L (21-32) Anion Gap 12 (6-14) Blood Urea Nitrogen 16 mg/dL (8-26) Creatinine 1.0 mg/dL (0.7-1.3) Estimated GFR (Cockcroft-Gault) 99.2 Glucose Level 173 mg/dL (70-99) Calcium Level 7.4 mg/dL (8.5-10.1) Laboratory Tests Test 01/02/21 16:52 01/02/21 21:21 01/03/21 03:38 01/03/21 11:30 Glucose (Fingerstick) 225 mg/dL (70-99) 204 mg/dL (70-99) 194 mg/dL (70-99) White Blood Count 17.7 x10^3/uL (4.0-11.0) Red Blood Count 4.72 x10^6/uL (4.30-5.70) Hemoglobin 11.6 g/dL (13.0-17.5) Hematocrit 36.0 % (39.0-53.0) Mean Corpuscular Volume 76 fL (79-100) Mean Corpuscular Hemoglobin 25 pg (25-35) Mean Corpuscular Hemoglobin Concent 32 g/dL (31-37) Red Cell Distribution Width 15.0 % (11.5-14.5) Platelet Count 317 x10^3/uL (140-400) Neutrophils (%) (Auto) 82 % (31-73) Lymphocytes (%) (Auto) 6 % (24-48) Monocytes (%) (Auto) 11 % (0-9) Eosinophils (%) (Auto) 0 % (0-3) Basophils (%) (Auto) 0 % (0-3) Neutrophils # (Auto) 14.5 x10^3/uL (1.8-7.7) Lymphocytes # (Auto) 1.1 x10^3/uL (1.0-4.8) Monocytes # (Auto) 2.0 x10^3/uL (0.0-1.1) Eosinophils # (Auto) 0.0 x10^3/uL (0.0-0.7) Basophils # (Auto) 0.0 x10^3/uL (0.0-0.2) Sodium Level 138 mmol/L (136-145) Potassium Level 3.9 mmol/L (3.5-5.1) Chloride Level 101 mmol/L (98-107) Carbon Dioxide Level 25 mmol/L (21-32) Anion Gap 12 (6-14) Blood Urea Nitrogen 16 mg/dL (8-26) Creatinine 1.0 mg/dL (0.7-1.3) Estimated GFR (Cockcroft-Gault) 99.2 Glucose Level 173 mg/dL (70-99) Calcium Level 7.4 mg/dL (8.5-10.1) Medications Active Scripts Medications Dose Route/Sig Max Daily Dose Days Date Category Novolog (Insulin Aspart) 100 Unit/1 Ml Cartridge 30 Unit SQ TIDWMEALS 01/02/21 Reported [place] 5-325 Tablet (Acetaminophen/Hydrocodone Bitart) 1 Each Tablet 1 Tab PO PRN Q6HRS PRN 5 09/26/20 Rx Pantoprazole Sodium (Pantoprazole Sodium) 40 Mg Tablet.dr 40 Mg PO DAILYAC 30 09/26/20 Rx Montelukast Sodium Tablet (Montelukast Sodium) 10 Mg Tablet 10 Mg PO QHS 30 09/26/20 Rx Cozaar (Losartan Potassium) 50 Mg Tablet 50 Mg PO DAILY 30 09/26/20 Rx Combivent Respimat Inhal (Ipratropium/Albuterol Sulfate) 4 Gm Aer.w.adap 2 Inh IH QID 30 09/26/20 Rx Prednisone 20 Mg Tablet 1 Tab PO DAILY 5 09/26/20 Rx Doxycycline Hyclate 100 Mg Tablet 100 Mg PO BID 7 09/26/20 Rx Sertraline Hcl 100 Mg Tablet 100 Mg PO DAILY 30 09/26/20 Rx Trazodone Hcl 100 Mg Tablet 100 Mg PO PRN QHS PRN 30 09/26/20 Rx Lantus Solostar (Insulin Glargine,Hum.rec.anlog) 100 Unit/1 Ml Insuln.pen 30 Unit SQ BID 30 09/26/20 Rx Atorvastatin Calcium 40 Mg Tablet 40 Mg PO QHS 12/09/18 Reported Fluticasone Propionate Nasal [place] (Fluticasone Propionate) 16 Gm [place].susp 2 Spr NIRMAL DAILY 12/09/18 Reported Aspirin 81 Mg Tab.chew 1 Tab PO DAILY 10/16/15 Reported Impression . IMPRESSION: 1. Acute hypoxic respiratory failure with high-grade fever. No definite infiltrates seen on the CT chest. The possibility of acute pyelonephritis vs cholecystitis would be a consideration. 2. No significant tobacco history. 3. Morbid obesity with underlying sleep apnea. He is awaiting CPAP, details of his sleep study not available. 4. Influenza screen negative. COVID-19 pending. 5. Leukocytosis. Plan . 1. Continue present oxygen to keep saturation 92 and above. 2. Follow final BC/ Urine has Proteus 3. Rule out COVID-19. 4. Continue broad-spectrum antibiotics. 5. Lovenox for DVT prophylaxis. 6. The patient was initiated on dexamethasone. If COVID tests come back negative, then we will discontinue steroids. Discussed with PCP SUN REYNOLDS MD Jan 03, 2021 12:23
--- NOTE | 2021-01-03 12:55 | NUR ---
JESUS following for discharge planning today. JESUS spoke with RN and reviewed chart. Pt from home. Pt now requiring 3l 02. Consult to pulmonary. Pt COVID pending. Pt remains on IV Zosyn, positive blood cultures. Consult to ID. SW following.
--- NOTE | 2021-01-03 14:26 | PDOC ---
[facility] PROGRESS NOTE Date of Service DOS: DATE: 01/03/21 TIME: 14:22 Chief Complaint Chief Complaint Sepsis Acute respiratory failure with hypoxia Right pyelonephritis DM2 with hyperglycemia Moderate malnutrition COVID-19 PUI Plan: Patient received fluids and broad-spectrum antibiotics and the ED. Will continue treatment of asthma exacerbation and pyelonephritis with Rocephin daily and doxycycline IV twice daily. Consultation to pulmonology acute hypoxia COVID-19 PUI Treat empirically with Decadron 6 mg daily COVID-19 and influenza pending Basal/prandial insulin; A1c pending. Resume home medications FEN - Cardiac diet PPX - Lovenox FULL CODE Dispo - inpatient for above; patient names his girlfriend as his surrogate decision-maker. History of Present Illness History of Present Illness Patient is a 40 old male with past medical history asthma, hypertension, DM2, presents to the ER with complaints of worsening shortness of breath over the past 2 days. Reports associated nausea, vomiting, diarrhea, body aches, fever, chills, and polyuria. He has been taking his home albuterol inhaler, symptoms acutely worsened when he ran out with this medication. Upon arrival to the ED he was tachypnea, febrile, saturating 99% on [address] chest/abdomen/pelvis obtained on admission showed subtle right perinephric stranding; gallstones, no PE or chest abnormality. Will admit patient for further medical management. 01/03/2021 Afebrile, currently breathing on 2 L nasal cannula. He denies any sensation of shortness of breath. Discussed with Dr. Luo, will concern for COVID-[address] results. COVID-19 test still pending at this time. Urine cultures positive for Proteus mirabilis; blood cultures positive for Proteus mirabilis as well. Continue treatment for pyelonephritis with Zosyn, per ID. Will follow sensitivities. If COVID-19 positive, will initiate remdesivir. Vitals/I&O Vitals/I&O: Vital Signs Date Time Temp Pulse Resp B/P (MAP) Pulse Ox O2 Delivery O2 Flow Rate FiO2 01/03/21 11:00 97.6 95 20 181/66 (104) 97 Nasal Cannula 3.0 97.6 I & O 01/02/21 01/02/21 01/03/21 15:00 23:00 07:00 Intake Total 240 ml 300 ml 540 ml Output Total 1500 ml 1200 ml 400 ml Balance -1260 ml -900 ml 140 ml Physical Exam Physical Exam: General: Morbidly obese. Alert, Oriented X3, Cooperative, mild distress HEENT: PERRLA, EOMI Lungs: Decreased breath sounds bilaterally, Normal air movement Heart: RRR, no murmurs Cardiovascular: S1, S2 Abdomen: Normal bowel sounds, Soft, bilateral flank tenderness, left greater than right. Extremities: No clubbing, No cyanosis Skin: No rashes, No significant lesion Neuro: Normal speech, Normal tone, Sensation intact Psych/Mental Status: Mental status NL, Mood N General: Alert Heart: Regular rate Lungs: Other Labs Labs: Laboratory Tests Test 01/02/21 16:52 01/02/21 21:21 01/03/21 03:38 01/03/21 11:30 Glucose (Fingerstick) 225 mg/dL (70-99) 204 mg/dL (70-99) 194 mg/dL (70-99) White Blood Count 17.7 x10^3/uL (4.0-11.0) Red Blood Count 4.72 x10^6/uL (4.30-5.70) Hemoglobin 11.6 g/dL (13.0-17.5) Hematocrit 36.0 % (39.0-53.0) Mean Corpuscular Volume 76 fL (79-100) Mean Corpuscular Hemoglobin 25 pg (25-35) Mean Corpuscular Hemoglobin Concent 32 g/dL (31-37) Red Cell Distribution Width 15.0 % (11.5-14.5) Platelet Count 317 x10^3/uL (140-400) Neutrophils (%) (Auto) 82 % (31-73) Lymphocytes (%) (Auto) 6 % (24-48) Monocytes (%) (Auto) 11 % (0-9) Eosinophils (%) (Auto) 0 % (0-3) Basophils (%) (Auto) 0 % (0-3) Neutrophils # (Auto) 14.5 x10^3/uL (1.8-7.7) Lymphocytes # (Auto) 1.1 x10^3/uL (1.0-4.8) Monocytes # (Auto) 2.0 x10^3/uL (0.0-1.1) Eosinophils # (Auto) 0.0 x10^3/uL (0.0-0.7) Basophils # (Auto) 0.0 x10^3/uL (0.0-0.2) Sodium Level 138 mmol/L (136-145) Potassium Level 3.9 mmol/L (3.5-5.1) Chloride Level 101 mmol/L (98-107) Carbon Dioxide Level 25 mmol/L (21-32) Anion Gap 12 (6-14) Blood Urea Nitrogen 16 mg/dL (8-26) Creatinine 1.0 mg/dL (0.7-1.3) Estimated GFR (Cockcroft-Gault) 99.2 Glucose Level 173 mg/dL (70-99) Calcium Level 7.4 mg/dL (8.5-10.1) Assessment and Plan Assessmemt and Plan Problems Medical Problems: (1) Hypomagnesemia Status: Acute (2) Pyelonephritis Status: Acute (3) Septic shock Status: Acute (4) Suspected 2019 novel coronavirus infection Status: Acute Goals of Care: Advance Care Planning: Total time spent [id number] with patient greater than 16 minutes in discussion with goals of care, comfort care, end-of-life care, pain management, code status Comment Review of Relevant I have reviewed the following items lacho (where applicable) has been applied. Medications: Current Medications Medications (Trade) Dose Ordered Sig/Navi Route PRN Reason Start Time Stop Time Status Last Admin Dose Admin Atorvastatin Calcium (Lipitor) 40 mg QHS PO 01/02/21 21:00 01/02/21 21:17 Montelukast Sodium (Singulair) 10 mg QHS PO 01/02/21 21:00 01/02/21 21:16 Justifications for Admission Other Justification Acute respiratory failure with hypoxia, pyelonephritis, COVID-19 DELILAH CASPER MD Jan 03, 2021 14:26
[2021-01-03 15:00] VITALS: BP 136/82
[2021-01-03 19:00] VITALS: BP 148/82
[2021-01-03] MEDS: MONTELUKAST SODIUM 10 MG TABLET. PO SCH (20:40)
[2021-01-03] MEDS: ATORVASTATIN CALCIUM 40 MG TABLET. PO SCH (20:40)
[2021-01-03] MEDS: traZODone 100 MG TABLET. PO PRN (20:44)
[2021-01-03 23:00] VITALS: BP_SYST 148; BP_SYST 157; BP_DIAS 82; BP_DIAS 87
[2021-01-04] MEDS: HYDROcodone/APAP 5/325MG 1 TAB TABLET PO PRN ×2 (01:48→19:44)
[2021-01-04 03:00] VITALS: BP 125/79
[2021-01-04 04:50] LABS: BASO % 0 % (0-3); EOS % 0 % (0-3); HEMATOCRIT 34.5 % (39.0-53.0); LYMPH # 1.3 x10^3/uL (1.0-4.8); LYMPH % 9 % (24-48); MEAN CORPUSCULAR HEMOGLOBIN 24 pg (25-35); MEAN CORPUSCULAR HGB CONC 32 g/dL (31-37); MEAN CORPUSCULAR VOLUME 76 fL (79-100); MONO # 2.1 x10^3/uL (0.0-1.1); MONO % 14 % (0-9); NEUT # 10.9 x10^3/uL (1.8-7.7); NEUT % 76 % (31-73); PLATELET COUNT 315 x10^3/uL (140-400); RED BLOOD COUNT 4.53 x10^6/uL (4.30-5.70); RED CELL DISTRIBUTION WIDTH 15.4 % (11.5-14.5); WHITE BLOOD COUNT 14.3 x10^3/uL (4.0-11.0)
[2021-01-04] MEDS: PIPERACILLIN/TAZOBACTAM 3.375 GM in IV NORMAL SALINE 50ML 50 ML IV SCH ×4 (06:05→23:18)
[2021-01-04 06:07] LABS: CALCIUM 7.4 mg/dL (8.5-10.1); GFR 99.2
[2021-01-04 07:00] VITALS: BP 127/77
--- NOTE | 2021-01-04 08:21 | PDOC ---
Infectious Disease Note Subjective: Subjective Patient feels okay Still has some nausea, right flank pain, dysuria Shortness of breath is improved Still feels weak Tolerating p.o. intake well Vital Signs: Vital Signs Vital Signs Date Time Temp Pulse Resp B/P (MAP) Pulse Ox O2 Delivery O2 Flow Rate FiO2 01/04/21 03:00 98.8 84 18 125/79 (94) 98 98.8 01/03/21 20:10 Nasal Cannula 3.0 Physical Exam: PHYSICAL EXAM GENERAL: Alert, oriented x 3, morbidly obese male, nontoxic appearing, lying in bed comfortably, appears tired. HEENT: Normocephalic, atraumatic. Anicteric. No thrush. NECK: Fullness present. LUNGS: Clear bilaterally. HEART: S1, S2. ABDOMEN: Morbidly obese. Right flank pain present. No CVA tenderness, no rebound, no guarding. Bowel sounds present. EXTREMITIES: No edema, no cyanosis. DERMATOLOGIC: Warm and dry. No generalized rash. NEUROLOGIC: Alert, oriented x 3, grossly nonfocal. PSYCHIATRIC: Cooperative, appropriate mood and affect. Medications: Inpatient Meds: Medications reviewed. Labs: Lab Laboratory Tests Test 01/03/21 11:30 01/03/21 16:40 01/03/21 21:17 01/04/21 04:02 Glucose (Fingerstick) 194 mg/dL (70-99) 181 mg/dL (70-99) 238 mg/dL (70-99) White Blood Count 14.3 x10^3/uL (4.0-11.0) Red Blood Count 4.53 x10^6/uL (4.30-5.70) Hemoglobin 11.0 g/dL (13.0-17.5) Hematocrit 34.5 % (39.0-53.0) Mean Corpuscular Volume 76 fL (79-100) Mean Corpuscular Hemoglobin 24 pg (25-35) Mean Corpuscular Hemoglobin Concent 32 g/dL (31-37) Red Cell Distribution Width 15.4 % (11.5-14.5) Platelet Count 315 x10^3/uL (140-400) Neutrophils (%) (Auto) 76 % (31-73) Lymphocytes (%) (Auto) 9 % (24-48) Monocytes (%) (Auto) 14 % (0-9) Eosinophils (%) (Auto) 0 % (0-3) Basophils (%) (Auto) 0 % (0-3) Neutrophils # (Auto) 10.9 x10^3/uL (1.8-7.7) Lymphocytes # (Auto) 1.3 x10^3/uL (1.0-4.8) Monocytes # (Auto) 2.1 x10^3/uL (0.0-1.1) Eosinophils # (Auto) 0.0 x10^3/uL (0.0-0.7) Basophils # (Auto) 0.0 x10^3/uL (0.0-0.2) Sodium Level 136 mmol/L (136-145) Potassium Level 4.0 mmol/L (3.5-5.1) Chloride Level 102 mmol/L (98-107) Carbon Dioxide Level 27 mmol/L (21-32) Anion Gap 7 (6-14) Blood Urea Nitrogen 15 mg/dL (8-26) Creatinine 1.0 mg/dL (0.7-1.3) Estimated GFR (Cockcroft-Gault) 99.2 Glucose Level 166 mg/dL (70-99) Calcium Level 7.4 mg/dL (8.5-10.1) Test 01/04/21 08:02 Glucose (Fingerstick) 155 mg/dL (70-99) Objective: Assessment: 1. Sepsis from gram-negative bacteremia. 2. Proteus Mirabella's bacteremia. 3. Fever. 4. Leukocytosis. 5. Lactic acidosis. 6. Proteus mirabilis urinary tract infection. 7. Nausea. 8. Morbid obesity. 9. Diabetes mellitus type 2. 10. Covid PCR negative Plan: Plan of Care 1. Continue Zosyn. 2. Follow up urine and blood culture. 3. Continue supportive care. 4. Maintain aspiration precaution. ZIGGY ROBERTSON MD Jan 04, 2021 08:21
[2021-01-04] MEDS: INSULIN LISPRO 300 UNITS/3 ML VIAL. SQ SCH ×6 (09:03→17:06)
[2021-01-04] MEDS: INSULIN GLARGINE SYRINGE. SQ SCH ×2 (09:04→21:32)
[2021-01-04] MEDS: ASPIRIN CHEWABLE 81 MG TABLET. PO SCH (09:04)
[2021-01-04] MEDS: LOSARTAN POTASSIUM 50 MG TABLET. PO SCH (09:05)
[2021-01-04] MEDS: FLUTICASONE 50MCG/NASAL SPRAY 16GM BOTTLE. NS SCH (09:05)
[2021-01-04] MEDS: DEXAMETHASONE SOD PHOS 4 MG/ML VIAL IVP SCH (09:06)
[2021-01-04] MEDS: FLUTICASONE/VILANTEROL 100/25 INHALER. INH SCH (09:06)
--- NOTE | 2021-01-04 09:09 | PDOC ---
PULMONARY PROGRESS NOTES DATE: 01/04/21 TIME: 09:09 Subjective Not short of air. No chest pain no pressure Vitals Vital Signs Date Time Temp Pulse Resp B/P (MAP) Pulse Ox O2 Delivery O2 Flow Rate FiO2 01/04/21 09:05 89 127/89 01/04/21 07:00 18 100 Nasal Cannula 3.0 01/04/21 03:00 98.8 98.8 General: Alert, No acute distress Lungs: Clear Cardiovascular: S1 Abdomen: Soft, Other (obese) Neuro Exam: Alert Extremities: No Edema, Other (Some edema) Labs Laboratory Tests Test 01/02/21 11:57 01/02/21 16:52 01/02/21 21:21 01/03/21 03:38 Glucose (Fingerstick) 331 mg/dL (70-99) 225 mg/dL (70-99) 204 mg/dL (70-99) White Blood Count 17.7 x10^3/uL (4.0-11.0) Red Blood Count 4.72 x10^6/uL (4.30-5.70) Hemoglobin 11.6 g/dL (13.0-17.5) Hematocrit 36.0 % (39.0-53.0) Mean Corpuscular Volume 76 fL (79-100) Mean Corpuscular Hemoglobin 25 pg (25-35) Mean Corpuscular Hemoglobin Concent 32 g/dL (31-37) Red Cell Distribution Width 15.0 % (11.5-14.5) Platelet Count 317 x10^3/uL (140-400) Neutrophils (%) (Auto) 82 % (31-73) Lymphocytes (%) (Auto) 6 % (24-48) Monocytes (%) (Auto) 11 % (0-9) Eosinophils (%) (Auto) 0 % (0-3) Basophils (%) (Auto) 0 % (0-3) Neutrophils # (Auto) 14.5 x10^3/uL (1.8-7.7) Lymphocytes # (Auto) 1.1 x10^3/uL (1.0-4.8) Monocytes # (Auto) 2.0 x10^3/uL (0.0-1.1) Eosinophils # (Auto) 0.0 x10^3/uL (0.0-0.7) Basophils # (Auto) 0.0 x10^3/uL (0.0-0.2) Sodium Level 138 mmol/L (136-145) Potassium Level 3.9 mmol/L (3.5-5.1) Chloride Level 101 mmol/L (98-107) Carbon Dioxide Level 25 mmol/L (21-32) Anion Gap 12 (6-14) Blood Urea Nitrogen 16 mg/dL (8-26) Creatinine 1.0 mg/dL (0.7-1.3) Estimated GFR (Cockcroft-Gault) 99.2 Glucose Level 173 mg/dL (70-99) Calcium Level 7.4 mg/dL (8.5-10.1) Test 01/03/21 11:30 01/03/21 16:40 01/03/21 21:17 01/04/21 04:02 Glucose (Fingerstick) 194 mg/dL (70-99) 181 mg/dL (70-99) 238 mg/dL (70-99) White Blood Count 14.3 x10^3/uL (4.0-11.0) Red Blood Count 4.53 x10^6/uL (4.30-5.70) Hemoglobin 11.0 g/dL (13.0-17.5) Hematocrit 34.5 % (39.0-53.0) Mean Corpuscular Volume 76 fL (79-100) Mean Corpuscular Hemoglobin 24 pg (25-35) Mean Corpuscular Hemoglobin Concent 32 g/dL (31-37) Red Cell Distribution Width 15.4 % (11.5-14.5) Platelet Count 315 x10^3/uL (140-400) Neutrophils (%) (Auto) 76 % (31-73) Lymphocytes (%) (Auto) 9 % (24-48) Monocytes (%) (Auto) 14 % (0-9) Eosinophils (%) (Auto) 0 % (0-3) Basophils (%) (Auto) 0 % (0-3) Neutrophils # (Auto) 10.9 x10^3/uL (1.8-7.7) Lymphocytes # (Auto) 1.3 x10^3/uL (1.0-4.8) Monocytes # (Auto) 2.1 x10^3/uL (0.0-1.1) Eosinophils # (Auto) 0.0 x10^3/uL (0.0-0.7) Basophils # (Auto) 0.0 x10^3/uL (0.0-0.2) Sodium Level 136 mmol/L (136-145) Potassium Level 4.0 mmol/L (3.5-5.1) Chloride Level 102 mmol/L (98-107) Carbon Dioxide Level 27 mmol/L (21-32) Anion Gap 7 (6-14) Blood Urea Nitrogen 15 mg/dL (8-26) Creatinine 1.0 mg/dL (0.7-1.3) Estimated GFR (Cockcroft-Gault) 99.2 Glucose Level 166 mg/dL (70-99) Calcium Level 7.4 mg/dL (8.5-10.1) Test 01/04/21 08:02 Glucose (Fingerstick) 155 mg/dL (70-99) Laboratory Tests Test 01/03/21 11:30 01/03/21 16:40 01/03/21 21:17 01/04/21 04:02 Glucose (Fingerstick) 194 mg/dL (70-99) 181 mg/dL (70-99) 238 mg/dL (70-99) White Blood Count 14.3 x10^3/uL (4.0-11.0) Red Blood Count 4.53 x10^6/uL (4.30-5.70) Hemoglobin 11.0 g/dL (13.0-17.5) Hematocrit 34.5 % (39.0-53.0) Mean Corpuscular Volume 76 fL (79-100) Mean Corpuscular Hemoglobin 24 pg (25-35) Mean Corpuscular Hemoglobin Concent 32 g/dL (31-37) Red Cell Distribution Width 15.4 % (11.5-14.5) Platelet Count 315 x10^3/uL (140-400) Neutrophils (%) (Auto) 76 % (31-73) Lymphocytes (%) (Auto) 9 % (24-48) Monocytes (%) (Auto) 14 % (0-9) Eosinophils (%) (Auto) 0 % (0-3) Basophils (%) (Auto) 0 % (0-3) Neutrophils # (Auto) 10.9 x10^3/uL (1.8-7.7) Lymphocytes # (Auto) 1.3 x10^3/uL (1.0-4.8) Monocytes # (Auto) 2.1 x10^3/uL (0.0-1.1) Eosinophils # (Auto) 0.0 x10^3/uL (0.0-0.7) Basophils # (Auto) 0.0 x10^3/uL (0.0-0.2) Sodium Level 136 mmol/L (136-145) Potassium Level 4.0 mmol/L (3.5-5.1) Chloride Level 102 mmol/L (98-107) Carbon Dioxide Level 27 mmol/L (21-32) Anion Gap 7 (6-14) Blood Urea Nitrogen 15 mg/dL (8-26) Creatinine 1.0 mg/dL (0.7-1.3) Estimated GFR (Cockcroft-Gault) 99.2 Glucose Level 166 mg/dL (70-99) Calcium Level 7.4 mg/dL (8.5-10.1) Test 01/04/21 08:02 Glucose (Fingerstick) 155 mg/dL (70-99) Medications Active Scripts Medications Dose Route/Sig Max Daily Dose Days Date Category Novolog (Insulin Aspart) 100 Unit/1 Ml Cartridge 30 Unit SQ TIDWMEALS 01/02/21 Reported [place] 5-325 Tablet (Acetaminophen/Hydrocodone Bitart) 1 Each Tablet 1 Tab PO PRN Q6HRS PRN 5 09/26/20 Rx Pantoprazole Sodium (Pantoprazole Sodium) 40 Mg Tablet.dr 40 Mg PO DAILYAC 30 09/26/20 Rx Montelukast Sodium Tablet (Montelukast Sodium) 10 Mg Tablet 10 Mg PO QHS 30 09/26/20 Rx Cozaar (Losartan Potassium) 50 Mg Tablet 50 Mg PO DAILY 30 09/26/20 Rx Combivent Respimat Inhal (Ipratropium/Albuterol Sulfate) 4 Gm Aer.w.adap 2 Inh IH QID 30 09/26/20 Rx Prednisone 20 Mg Tablet 1 Tab PO DAILY 5 09/26/20 Rx Doxycycline Hyclate 100 Mg Tablet 100 Mg PO BID 7 09/26/20 Rx Sertraline Hcl 100 Mg Tablet 100 Mg PO DAILY 30 1/5/21 Rx Trazodone Hcl 100 Mg Tablet 100 Mg PO PRN QHS PRN 30 09/26/20 Rx Lantus Solostar (Insulin Glargine,Hum.rec.anlog) 100 Unit/1 Ml Insuln.pen 30 Unit SQ BID 30 09/26/20 Rx Atorvastatin Calcium 40 Mg Tablet 40 Mg PO QHS 12/09/18 Reported Fluticasone Propionate Nasal [place] (Fluticasone Propionate) 16 Gm Taylor.susp 2 Spr NIRMAL DAILY 12/09/18 Reported Aspirin 81 Mg Tab.chew 1 Tab PO DAILY 10/16/15 Reported Impression . IMPRESSION: 1. Acute hypoxic respiratory failure with high-grade fever. No definite infiltrates seen on the CT chest. 2. No significant tobacco history. 3. Morbid obesity with underlying sleep apnea. He is awaiting CPAP, details of his sleep study not available. 4. Influenza screen negative. 5. Leukocytosis. 6. SARS-CoV-2 negative 7. UTI, per PCP 8. Bacteremia URINE CULTURE Final Final GREATER THAN 100,000 CFU/ML GRAM NEGATIVE RODS on 01/03/21 at 0821 FINAL ID= [PROTEUS MIRABILIS] Testing Performed by: [address] [address] For Inquires, the Physician may contact the Microbiology department at [phone] PROTEUS MIRABILIS Plan . Updated 01/04 SARS-CoV-2 negative, continue current support Discontinue steroids DVT GI prophylaxis Antibiotics per ID DVT GI prophylax 01/03 1. Continue present oxygen to keep saturation 92 and above. 2. Follow final BC/ Urine has Proteus 3. Rule out COVID-19. 4. Continue broad-spectrum antibiotics. 5. Lovenox for DVT prophylaxis. 6. The patient was initiated on dexamethasone. If COVID tests come back negative, then we will discontinue steroids. Discussed with PCP TOPHER POPE MD Jan 04, 2021 09:09
--- NOTE | 2021-01-04 09:53 | PDOC ---
[facility] PROGRESS NOTE Date of Service DOS: DATE: 01/04/21 TIME: 09:48 Chief Complaint Chief Complaint Sepsis Acute respiratory failure with hypoxia Right pyelonephritis DM2 with hyperglycemia Moderate malnutrition COVID-19 PUI Plan: Patient received fluids and broad-spectrum antibiotics and the ED. Will continue treatment of asthma exacerbation and pyelonephritis with Rocephin daily and doxycycline IV twice daily. Consultation to pulmonology acute hypoxia COVID-19 PUI Treat empirically with Decadron 6 mg daily COVID-19 and influenza pending Basal/prandial insulin; A1c pending. Resume home medications FEN - Cardiac diet PPX - Lovenox FULL CODE Dispo - inpatient for above; patient names his girlfriend as his surrogate decision-maker. History of Present Illness History of Present Illness Patient is a 40 old male with past medical history asthma, hypertension, DM2, presents to the ER with complaints of worsening shortness of breath over the past 2 days. Reports associated nausea, vomiting, diarrhea, body aches, fever, chills, and polyuria. He has been taking his home albuterol inhaler, symptoms acutely worsened when he ran out with this medication. Upon arrival to the ED he was tachypnea, febrile, saturating 99% on [address] chest/abdomen/pelvis obtained on admission showed subtle right perinephric stranding; gallstones, no PE or chest abnormality. Will admit patient for further medical management. 01/04/2021 Patient seen and evaluated bedside. He is afebrile, currently breathing on 2 L nasal cannula. He is COVID-19 negative. Urine and blood cultures positive for Proteus mirabilis; sensitivities largely pansensitive except resistant to nitrofurantoin and tetracycline.. Will continue treatment of his pyelonephritis with Zosyn, per ID. He still complains of epigastric pain pain with deep inspiration, and flank pain. Some right upper quadrant tenderness on exam, he does report some pain after eating. On admission CT did show cholelithiasis. Will obtain ultrasound to rule out cholecystitis. Discussed with RN. 01/03/2021 Afebrile, currently breathing on 2 L nasal cannula. He denies any sensation of shortness of breath. Discussed with Dr. Luo, will concern for COVID-[address] results. COVID-19 test still pending at this time. Urine cultures positive for Proteus mirabilis; blood cultures positive for Proteus mirabilis as well. Continue treatment for pyelonephritis with Zosyn, per ID. Will follow sensitivities. If COVID-19 positive, will initiate remdesivir. Vitals/I&O Vitals/I&O: Vital Signs Date Time Temp Pulse Resp B/P (MAP) Pulse Ox O2 Delivery O2 Flow Rate FiO2 01/04/21 09:05 89 127/89 01/04/21 08:00 Nasal Cannula 3.0 01/04/21 07:00 18 100 01/04/21 03:00 98.8 98.8 I & O 01/03/21 01/03/21 01/04/21 15:00 23:00 07:00 Intake Total 600 ml 600 ml 750 ml Output Total 800 ml 1450 ml Balance 600 ml -200 ml -700 ml Physical Exam Physical Exam: GENERAL: Alert, oriented x 3, morbidly obese male, nontoxic appearing, lying in bed comfortably, appears tired. HEENT: Normocephalic, atraumatic. Anicteric. No thrush. NECK: Fullness present. LUNGS: Decreased breath sounds bilaterally HEART: S1, S2. ABDOMEN: Morbidly obese. Right flank pain present. Right upper quadrant tenderness. EXTREMITIES: No edema, no cyanosis. DERMATOLOGIC: Warm and dry. No generalized rash. NEUROLOGIC: Alert, oriented x 3, grossly nonfocal. PSYCHIATRIC: Cooperative, appropriate mood and affect. General: Alert Heart: Regular rate Lungs: Other Labs Labs: Laboratory Tests Test 01/03/21 11:30 01/03/21 16:40 01/03/21 21:17 01/04/21 04:02 Glucose (Fingerstick) 194 mg/dL (70-99) 181 mg/dL (70-99) 238 mg/dL (70-99) White Blood Count 14.3 x10^3/uL (4.0-11.0) Red Blood Count 4.53 x10^6/uL (4.30-5.70) Hemoglobin 11.0 g/dL (13.0-17.5) Hematocrit 34.5 % (39.0-53.0) Mean Corpuscular Volume 76 fL (79-100) Mean Corpuscular Hemoglobin 24 pg (25-35) Mean Corpuscular Hemoglobin Concent 32 g/dL (31-37) Red Cell Distribution Width 15.4 % (11.5-14.5) Platelet Count 315 x10^3/uL (140-400) Neutrophils (%) (Auto) 76 % (31-73) Lymphocytes (%) (Auto) 9 % (24-48) Monocytes (%) (Auto) 14 % (0-9) Eosinophils (%) (Auto) 0 % (0-3) Basophils (%) (Auto) 0 % (0-3) Neutrophils # (Auto) 10.9 x10^3/uL (1.8-7.7) Lymphocytes # (Auto) 1.3 x10^3/uL (1.0-4.8) Monocytes # (Auto) 2.1 x10^3/uL (0.0-1.1) Eosinophils # (Auto) 0.0 x10^3/uL (0.0-0.7) Basophils # (Auto) 0.0 x10^3/uL (0.0-0.2) Sodium Level 136 mmol/L (136-145) Potassium Level 4.0 mmol/L (3.5-5.1) Chloride Level 102 mmol/L (98-107) Carbon Dioxide Level 27 mmol/L (21-32) Anion Gap 7 (6-14) Blood Urea Nitrogen 15 mg/dL (8-26) Creatinine 1.0 mg/dL (0.7-1.3) Estimated GFR (Cockcroft-Gault) 99.2 Glucose Level 166 mg/dL (70-99) Calcium Level 7.4 mg/dL (8.5-10.1) Test 01/04/21 08:02 Glucose (Fingerstick) 155 mg/dL (70-99) Assessment and Plan Assessmemt and Plan Problems Medical Problems: (1) Hypomagnesemia Status: Acute (2) Pyelonephritis Status: Acute (3) Septic shock Status: Acute (4) Suspected 2019 novel coronavirus infection Status: Acute Goals of Care: Advance Care Planning: Total time spent [id number] with patient greater than 16 minutes in discussion with goals of care, comfort care, end-of-life care, pain management, code status Comment Review of Relevant I have reviewed the following items lacho (where applicable) has been applied. Justifications for Admission Other Justification Acute respiratory failure with hypoxia, pyelonephritis, COVID-19 DELILAH CASPER MD Jan 04, 2021 09:52
--- NOTE | 2021-01-04 10:00 | NUR ---
assumed care from Ashwini. he is complaining of ruq discomfort. abdominal sonogram ordered. Joao is informed to be NPO until after sonogram completed--verbalized understanding
[2021-01-04 11:00] VITALS: BP 152/79
[2021-01-04 15:00] VITALS: BP 159/92
--- NOTE | 2021-01-04 17:52 | RAD ---
EXAMINATION: RIGHT UPPER QUADRANT ULTRASOUND CLINICAL HISTORY: Right upper quadrant pain concerning for cholecystitis TECHNIQUE: Sonography of the right upper quadrant was performed. COMPARISON: CT chest/abdomen/pelvis 01/01/2021 FINDINGS: Significantly limited evaluation secondary to patient body habitus, limited mobility, and prominent b owel gas. Pancreas: Obscured by prominent overlying bowel gas. Liver: Mild to moderately enlarged. - Echotexture: Homogeneous - Echogenicity: Increased, suggestive of steatosis - Surface contour: Smooth - Lesions: None. Biliary: No intrahepatic biliary duct dilation. - CBD: 4 mm. - Gallbladder: Normal caliber. - Contents: Cholelithiasis. - Wall: No abnormal thickening. - Other: No pericholecystic fluid. Right Kidney: Not visualized. Ascites: None. Aorta/IVC: Poorly visualized. IMPRESSION: Significantly limited evaluation as described. Cholelithiasis without evidence of acute cholecystitis. Hepatomegaly with findings suggestive of steatosis. Electronically signed by: Patricio Salmeron DO (01/04/2021 5:50 PM) [id number]
[2021-01-04 19:00] VITALS: BP 132/81
[2021-01-04] MEDS: MONTELUKAST SODIUM 10 MG TABLET. PO SCH (21:29)
[2021-01-04] MEDS: ATORVASTATIN CALCIUM 40 MG TABLET. PO SCH (21:29)
[2021-01-04] MEDS: traZODone 100 MG TABLET. PO PRN (21:29)
[2021-01-04 23:00] VITALS: BP 137/76
[2021-01-05] MEDS: HYDROcodone/APAP 5/325MG 1 TAB TABLET PO PRN ×3 (02:23→19:41)
[2021-01-05 03:00] VITALS: BP 135/84
[2021-01-05 04:48] LABS: BASO % 0 % (0-3); EOS # 0.1 x10^3/uL (0.0-0.7); EOS % 1 % (0-3); HEMATOCRIT 34.7 % (39.0-53.0); HEMOGLOBIN 11.1 g/dL (13.0-17.5); LYMPH # 1.5 x10^3/uL (1.0-4.8); LYMPH % 13 % (24-48); MEAN CORPUSCULAR HEMOGLOBIN 25 pg (25-35); MEAN CORPUSCULAR HGB CONC 32 g/dL (31-37); MEAN CORPUSCULAR VOLUME 77 fL (79-100); MONO # 1.7 x10^3/uL (0.0-1.1); MONO % 15 % (0-9); NEUT # 8.3 x10^3/uL (1.8-7.7); NEUT % 71 % (31-73); PLATELET COUNT 346 x10^3/uL (140-400); RED BLOOD COUNT 4.51 x10^6/uL (4.30-5.70); RED CELL DISTRIBUTION WIDTH 15.2 % (11.5-14.5); WHITE BLOOD COUNT 11.6 x10^3/uL (4.0-11.0)
[2021-01-05 05:33] LABS: CALCIUM 7.5 mg/dL (8.5-10.1); CREATININE 0.9 mg/dL (0.7-1.3)
[2021-01-05] MEDS: PIPERACILLIN/TAZOBACTAM 3.375 GM in IV NORMAL SALINE 50ML 50 ML IV SCH ×2 (05:55→11:51)
[2021-01-05 07:00] VITALS: BP 156/87
[2021-01-05] MEDS: INSULIN LISPRO 300 UNITS/3 ML VIAL. SQ SCH ×6 (08:16→16:37)
[2021-01-05] MEDS: LOSARTAN POTASSIUM 50 MG TABLET. PO SCH (09:14)
[2021-01-05] MEDS: ASPIRIN CHEWABLE 81 MG TABLET. PO SCH (09:14)
[2021-01-05] MEDS: FLUTICASONE/VILANTEROL 100/25 INHALER. INH SCH (09:14)
[2021-01-05] MEDS: FLUTICASONE 50MCG/NASAL SPRAY 16GM BOTTLE. NS SCH (09:14)
[2021-01-05] MEDS: INSULIN GLARGINE SYRINGE. SQ SCH ×2 (09:20→21:08)
--- NOTE | 2021-01-05 10:51 | PDOC ---
Infectious Disease Note Subjective: Subjective Patient feels better today Fever has resolved Flank pain is improving Shortness of breath is improved Tolerating p.o. intake well Vital Signs: Vital Signs Vital Signs Date Time Temp Pulse Resp B/P (MAP) Pulse Ox O2 Delivery O2 Flow Rate FiO2 01/05/21 09:14 78 156/87 01/05/21 08:28 Nasal Cannula 3.0 01/05/21 07:00 97.6 24 100 97.6 Physical Exam: PHYSICAL EXAM GENERAL: Alert, oriented x 3, morbidly obese male, nontoxic appearing, lying in bed comfortably, HEENT: Normocephalic, atraumatic. Anicteric. No thrush. NECK: Fullness present. LUNGS: Decreased breath sounds bilaterally HEART: S1, S2. ABDOMEN: Morbidly obese. Bowel sounds present, no rebound or guarding EXTREMITIES: No edema, no cyanosis. DERMATOLOGIC: Warm and dry. No generalized rash. NEUROLOGIC: Alert, oriented x 3, grossly nonfocal. PSYCHIATRIC: Cooperative, appropriate mood and affect. Medications: Inpatient Meds: Medications reviewed. Labs: Lab Laboratory Tests Test 01/04/21 11:44 01/04/21 16:40 01/04/21 21:27 01/05/21 04:00 Glucose (Fingerstick) 149 mg/dL (70-99) 148 mg/dL (70-99) 230 mg/dL (70-99) White Blood Count 11.6 x10^3/uL (4.0-11.0) Red Blood Count 4.51 x10^6/uL (4.30-5.70) Hemoglobin 11.1 g/dL (13.0-17.5) Hematocrit 34.7 % (39.0-53.0) Mean Corpuscular Volume 77 fL (79-100) Mean Corpuscular Hemoglobin 25 pg (25-35) Mean Corpuscular Hemoglobin Concent 32 g/dL (31-37) Red Cell Distribution Width 15.2 % (11.5-14.5) Platelet Count 346 x10^3/uL (140-400) Neutrophils (%) (Auto) 71 % (31-73) Lymphocytes (%) (Auto) 13 % (24-48) Monocytes (%) (Auto) 15 % (0-9) Eosinophils (%) (Auto) 1 % (0-3) Basophils (%) (Auto) 0 % (0-3) Neutrophils # (Auto) 8.3 x10^3/uL (1.8-7.7) Lymphocytes # (Auto) 1.5 x10^3/uL (1.0-4.8) Monocytes # (Auto) 1.7 x10^3/uL (0.0-1.1) Eosinophils # (Auto) 0.1 x10^3/uL (0.0-0.7) Basophils # (Auto) 0.0 x10^3/uL (0.0-0.2) Sodium Level 138 mmol/L (136-145) Potassium Level 4.0 mmol/L (3.5-5.1) Chloride Level 102 mmol/L (98-107) Carbon Dioxide Level 28 mmol/L (21-32) Anion Gap 8 (6-14) Blood Urea Nitrogen 13 mg/dL (8-26) Creatinine 0.9 mg/dL (0.7-1.3) Estimated GFR (Cockcroft-Gault) 112.0 Glucose Level 176 mg/dL (70-99) Calcium Level 7.5 mg/dL (8.5-10.1) Test 01/05/21 08:02 Glucose (Fingerstick) 176 mg/dL (70-99) Objective: Assessment: 1. Sepsis from gram-negative bacteremia. 2. Proteus Mirabella's bacteremia. 3. Fever. 4. Leukocytosis. 5. Lactic acidosis. 6. Proteus mirabilis urinary tract infection. 7. Nausea. 8. Morbid obesity. 9. Diabetes mellitus type 2. 10. Covid PCR negative 11. Cholelithiasis Plan: Plan of Care DC Zosyn Ceftriaxone for now until ready for discharge Condition to cefdinir 100 mg p.o. twice daily for a total of 10 days Probiotics We will reassess patient on Friday Call ID MD fire prevention officer with any questions over the weekend Maintain aspiration precaution Continue supportive care Discussed with ZIGGY Moody MD Jan 05, 2021 10:51
[2021-01-05 11:25] VITALS: BP 134/74
--- NOTE | 2021-01-05 11:47 | PDOC ---
PULMONARY PROGRESS NOTES DATE: 01/05/21 TIME: 11:45 Subjective pt. resting on 3 liters NC no SOA, cough or CP no overnight events Vitals Vital Signs Date Time Temp Pulse Resp B/P (MAP) Pulse Ox O2 Delivery O2 Flow Rate FiO2 01/05/21 11:25 97.9 85 24 134/74 (94) 100 Nasal Cannula 3.0 97.9 ROS: No Nausea, No Chest Pain, No Abdominal Pain, No Increase Cough General: Alert, Oriented X4, No acute distress Lungs: Clear Cardiovascular: S1 Abdomen: Soft, Other (obese) Neuro Exam: Alert Extremities: No Edema, Other (Some edema) Labs Laboratory Tests Test 01/03/21 16:40 01/03/21 21:17 01/04/21 04:02 01/04/21 08:02 Glucose (Fingerstick) 181 mg/dL (70-99) 238 mg/dL (70-99) 155 mg/dL (70-99) White Blood Count 14.3 x10^3/uL (4.0-11.0) Red Blood Count 4.53 x10^6/uL (4.30-5.70) Hemoglobin 11.0 g/dL (13.0-17.5) Hematocrit 34.5 % (39.0-53.0) Mean Corpuscular Volume 76 fL (79-100) Mean Corpuscular Hemoglobin 24 pg (25-35) Mean Corpuscular Hemoglobin Concent 32 g/dL (31-37) Red Cell Distribution Width 15.4 % (11.5-14.5) Platelet Count 315 x10^3/uL (140-400) Neutrophils (%) (Auto) 76 % (31-73) Lymphocytes (%) (Auto) 9 % (24-48) Monocytes (%) (Auto) 14 % (0-9) Eosinophils (%) (Auto) 0 % (0-3) Basophils (%) (Auto) 0 % (0-3) Neutrophils # (Auto) 10.9 x10^3/uL (1.8-7.7) Lymphocytes # (Auto) 1.3 x10^3/uL (1.0-4.8) Monocytes # (Auto) 2.1 x10^3/uL (0.0-1.1) Eosinophils # (Auto) 0.0 x10^3/uL (0.0-0.7) Basophils # (Auto) 0.0 x10^3/uL (0.0-0.2) Sodium Level 136 mmol/L (136-145) Potassium Level 4.0 mmol/L (3.5-5.1) Chloride Level 102 mmol/L (98-107) Carbon Dioxide Level 27 mmol/L (21-32) Anion Gap 7 (6-14) Blood Urea Nitrogen 15 mg/dL (8-26) Creatinine 1.0 mg/dL (0.7-1.3) Estimated GFR (Cockcroft-Gault) 99.2 Glucose Level 166 mg/dL (70-99) Calcium Level 7.4 mg/dL (8.5-10.1) Test 01/04/21 11:44 01/04/21 16:40 01/04/21 21:27 01/05/21 04:00 Glucose (Fingerstick) 149 mg/dL (70-99) 148 mg/dL (70-99) 230 mg/dL (70-99) White Blood Count 11.6 x10^3/uL (4.0-11.0) Red Blood Count 4.51 x10^6/uL (4.30-5.70) Hemoglobin 11.1 g/dL (13.0-17.5) Hematocrit 34.7 % (39.0-53.0) Mean Corpuscular Volume 77 fL (79-100) Mean Corpuscular Hemoglobin 25 pg (25-35) Mean Corpuscular Hemoglobin Concent 32 g/dL (31-37) Red Cell Distribution Width 15.2 % (11.5-14.5) Platelet Count 346 x10^3/uL (140-400) Neutrophils (%) (Auto) 71 % (31-73) Lymphocytes (%) (Auto) 13 % (24-48) Monocytes (%) (Auto) 15 % (0-9) Eosinophils (%) (Auto) 1 % (0-3) Basophils (%) (Auto) 0 % (0-3) Neutrophils # (Auto) 8.3 x10^3/uL (1.8-7.7) Lymphocytes # (Auto) 1.5 x10^3/uL (1.0-4.8) Monocytes # (Auto) 1.7 x10^3/uL (0.0-1.1) Eosinophils # (Auto) 0.1 x10^3/uL (0.0-0.7) Basophils # (Auto) 0.0 x10^3/uL (0.0-0.2) Sodium Level 138 mmol/L (136-145) Potassium Level 4.0 mmol/L (3.5-5.1) Chloride Level 102 mmol/L (98-107) Carbon Dioxide Level 28 mmol/L (21-32) Anion Gap 8 (6-14) Blood Urea Nitrogen 13 mg/dL (8-26) Creatinine 0.9 mg/dL (0.7-1.3) Estimated GFR (Cockcroft-Gault) 112.0 Glucose Level 176 mg/dL (70-99) Calcium Level 7.5 mg/dL (8.5-10.1) Test 01/05/21 08:02 01/05/21 11:31 Glucose (Fingerstick) 176 mg/dL (70-99) 113 mg/dL (70-99) Laboratory Tests Test 01/04/21 16:40 01/04/21 21:27 01/05/21 04:00 01/05/21 08:02 Glucose (Fingerstick) 148 mg/dL (70-99) 230 mg/dL (70-99) 176 mg/dL (70-99) White Blood Count 11.6 x10^3/uL (4.0-11.0) Red Blood Count 4.51 x10^6/uL (4.30-5.70) Hemoglobin 11.1 g/dL (13.0-17.5) Hematocrit 34.7 % (39.0-53.0) Mean Corpuscular Volume 77 fL (79-100) Mean Corpuscular Hemoglobin 25 pg (25-35) Mean Corpuscular Hemoglobin Concent 32 g/dL (31-37) Red Cell Distribution Width 15.2 % (11.5-14.5) Platelet Count 346 x10^3/uL (140-400) Neutrophils (%) (Auto) 71 % (31-73) Lymphocytes (%) (Auto) 13 % (24-48) Monocytes (%) (Auto) 15 % (0-9) Eosinophils (%) (Auto) 1 % (0-3) Basophils (%) (Auto) 0 % (0-3) Neutrophils # (Auto) 8.3 x10^3/uL (1.8-7.7) Lymphocytes # (Auto) 1.5 x10^3/uL (1.0-4.8) Monocytes # (Auto) 1.7 x10^3/uL (0.0-1.1) Eosinophils # (Auto) 0.1 x10^3/uL (0.0-0.7) Basophils # (Auto) 0.0 x10^3/uL (0.0-0.2) Sodium Level 138 mmol/L (136-145) Potassium Level 4.0 mmol/L (3.5-5.1) Chloride Level 102 mmol/L (98-107) Carbon Dioxide Level 28 mmol/L (21-32) Anion Gap 8 (6-14) Blood Urea Nitrogen 13 mg/dL (8-26) Creatinine 0.9 mg/dL (0.7-1.3) Estimated GFR (Cockcroft-Gault) 112.0 Glucose Level 176 mg/dL (70-99) Calcium Level 7.5 mg/dL (8.5-10.1) Test 01/05/21 11:31 Glucose (Fingerstick) 113 mg/dL (70-99) Medications Active Scripts Medications Dose Route/Sig Max Daily Dose Days Date Category Novolog (Insulin Aspart) 100 Unit/1 Ml Cartridge 30 Unit SQ TIDWMEALS 01/02/21 Reported [place] 5-325 Tablet (Acetaminophen/Hydrocodone Bitart) 1 Each Tablet 1 Tab PO PRN Q6HRS PRN 5 09/26/20 Rx Pantoprazole Sodium (Pantoprazole Sodium) 40 Mg Tablet.dr 40 Mg PO DAILYAC 30 09/26/20 Rx Montelukast Sodium Tablet (Montelukast Sodium) 10 Mg Tablet 10 Mg PO QHS 30 09/26/20 Rx Cozaar (Losartan Potassium) 50 Mg Tablet 50 Mg PO DAILY 30 09/26/20 Rx Combivent Respimat Inhal (Ipratropium/Albuterol Sulfate) 4 Gm Aer.w.adap 2 Inh IH QID 30 09/26/20 Rx Prednisone 20 Mg Tablet 1 Tab PO DAILY 5 09/26/20 Rx Doxycycline Hyclate 100 Mg Tablet 100 Mg PO BID 7 09/26/20 Rx Sertraline Hcl 100 Mg Tablet 100 Mg PO DAILY 30 09/26/20 Rx Trazodone Hcl 100 Mg Tablet 100 Mg PO PRN QHS PRN 30 09/26/20 Rx Lantus Solostar (Insulin Glargine,Hum.rec.anlog) 100 Unit/1 Ml Insuln.pen 30 Unit SQ BID 30 09/26/20 Rx Atorvastatin Calcium 40 Mg Tablet 40 Mg PO QHS 12/09/18 Reported Fluticasone Propionate Nasal Harris (Fluticasone Propionate) 16 Gm Harris.susp 2 Spr NIRMAL DAILY 12/09/18 Reported Aspirin 81 Mg Tab.chew 1 Tab PO DAILY 10/16/15 Reported Impression . IMPRESSION: 1. Acute hypoxic respiratory failure with high-grade fever. No definite infiltrates seen on the CT chest. 2. No significant tobacco history. 3. Morbid obesity with underlying sleep apnea. He is awaiting CPAP, details of his sleep study not available. 4. Influenza screen negative. 5. Leukocytosis. 6. SARS-CoV-2 negative 7. UTI, per PCP 8. Bacteremia URINE CULTURE Final Final GREATER THAN 100,000 CFU/ML GRAM NEGATIVE RODS on 01/03/21 at 0821 FINAL ID= [PROTEUS [email or web address]] Testing Performed by: [address] [id number] For Inquires, the Physician may contact the Microbiology department at [phone] PROTEUS MIRABILIS Plan . Updated 01/05 Continue supplemental oxygen to keep sats above 92%, wean oxygen as tolerated SARS-CoV-2 negative Continue ABX per ID Educated on importance of weight loss Pt. would benefit from out patient sleep study DVT/GI PPX D/W RN Updated 01/04 SARS-CoV-2 negative, continue current support Discontinue steroids DVT GI prophylaxis Antibiotics per ID DVT GI prophylax 4/14 1. Continue present oxygen to keep saturation 92 and above. 2. Follow final BC/ Urine has Proteus 3. Rule out COVID-19. 4. Continue broad-spectrum antibiotics. 5. Lovenox for DVT prophylaxis. 6. The patient was initiated on dexamethasone. If COVID tests come back negative, then we will discontinue steroids. Discussed with PCP SUN REYNOLDS MD Jan 05, 2021 11:47
[2021-01-05] MEDS: cefTRIAXone IV Push 2 GM VIAL. IVP SCH (13:17)
[2021-01-05 14:47] VITALS: BP 138/78
--- NOTE | 2021-01-05 15:15 | PDOC ---
[facility] PROGRESS NOTE Date of Service DOS: DATE: 01/05/21 TIME: 15:11 Chief Complaint Chief Complaint Sepsis Acute respiratory failure with hypoxia Right pyelonephritis DM2 with hyperglycemia Moderate malnutrition COVID-19 PUI Plan: Patient received fluids and broad-spectrum antibiotics and the ED. Will continue treatment of asthma exacerbation and pyelonephritis with Rocephin daily and doxycycline IV twice daily. Consultation to pulmonology acute hypoxia COVID-19 PUI Treat empirically with Decadron 6 mg daily COVID-19 and influenza pending Basal/prandial insulin; A1c pending. Resume home medications FEN - Cardiac diet PPX - Lovenox FULL CODE Dispo - inpatient for above; patient names his girlfriend as his surrogate decision-maker. History of Present Illness History of Present Illness Patient is a 40 old male with past medical history asthma, hypertension, DM2, presents to the ER with complaints of worsening shortness of breath over the past 2 days. Reports associated nausea, vomiting, diarrhea, body aches, fever, chills, and polyuria. He has been taking his home albuterol inhaler, symptoms acutely worsened when he ran out with this medication. Upon arrival to the ED he was tachypnea, febrile, saturating 99% on [address] chest/abdomen/pelvis obtained on admission showed subtle right perinephric stranding; gallstones, no PE or chest abnormality. Will admit patient for further medical management. 01/05/2021 Patient seen and evaluated bedside. States he feels better, denies fever. Denies chest pain or diarrhea. Discussed with ID, will continue on IV Rocephin for now, and likely switch to cefdinir 100 mg p.o. twice daily for 10 days when ready to discharge likely on Friday. At that time will obtain 6-minute walk. Still breathing on 2 L nasal cannula; will need 6-minute walk prior to discharge due to suspected obesity hypoventilation syndrome or DENNIS. 01/04/2021 Patient seen and evaluated bedside. He is afebrile, currently breathing on 2 L nasal cannula. He is COVID-19 negative. Urine and blood cultures positive for Proteus mirabilis; sensitivities largely pansensitive except resistant to nitrofurantoin and tetracycline.. Will continue treatment of his pyelonephritis with Zosyn, per ID. He still complains of epigastric pain pain with deep inspiration, and flank pain. Some right upper quadrant tenderness on exam, he does report some pain after eating. On admission CT did show cholelithiasis. Will obtain ultrasound to rule out cholecystitis. Discussed with RN. 01/03/2021 Afebrile, currently breathing on 2 L nasal cannula. He denies any sensation of shortness of breath. Discussed with Dr. Luo, will concern for COVID-[address] results. COVID-19 test still pending at this time. Urine cultures positive for Proteus mirabilis; blood cultures positive for Proteus mirabilis as well. Continue treatment for pyelonephritis with Zosyn, per ID. Will follow sensitivities. If COVID-19 positive, will initiate remdesivir. Vitals/I&O Vitals/I&O: Vital Signs Date Time Temp Pulse Resp B/P (MAP) Pulse Ox O2 Delivery O2 Flow Rate FiO2 01/05/21 14:47 97.6 84 22 138/78 (98) 100 Nasal Cannula 3.0 97.6 I & O 01/04/21 01/04/21 01/05/21 15:00 23:00 07:00 Intake Total 300 ml 500 ml 50 ml Output Total 500 ml 600 ml 1000 ml Balance -200 ml -100 ml -950 ml Physical Exam Physical Exam: GENERAL: Alert, oriented x 3, morbidly obese male, nontoxic appearing, lying in bed comfortably, HEENT: Normocephalic, atraumatic. Anicteric. No thrush. NECK: Fullness present. LUNGS: Decreased breath sounds bilaterally HEART: S1, S2. ABDOMEN: Morbidly obese. Bowel sounds present, no rebound or guarding EXTREMITIES: No edema, no cyanosis. DERMATOLOGIC: Warm and dry. No generalized rash. NEUROLOGIC: Alert, oriented x 3, grossly nonfocal. PSYCHIATRIC: Cooperative, appropriate mood and affect. General: Alert Heart: Regular rate Lungs: Clear Abdomen: Soft, Other (Right upper quadrant tenderness) Extremities: No clubbing, No cyanosis Skin: No rashes Labs Labs: Laboratory Tests Test 01/04/21 16:40 01/04/21 21:27 01/05/21 04:00 01/05/21 08:02 Glucose (Fingerstick) 148 mg/dL (70-99) 230 mg/dL (70-99) 176 mg/dL (70-99) White Blood Count 11.6 x10^3/uL (4.0-11.0) Red Blood Count 4.51 x10^6/uL (4.30-5.70) Hemoglobin 11.1 g/dL (13.0-17.5) Hematocrit 34.7 % (39.0-53.0) Mean Corpuscular Volume 77 fL (79-100) Mean Corpuscular Hemoglobin 25 pg (25-35) Mean Corpuscular Hemoglobin Concent 32 g/dL (31-37) Red Cell Distribution Width 15.2 % (11.5-14.5) Platelet Count 346 x10^3/uL (140-400) Neutrophils (%) (Auto) 71 % (31-73) Lymphocytes (%) (Auto) 13 % (24-48) Monocytes (%) (Auto) 15 % (0-9) Eosinophils (%) (Auto) 1 % (0-3) Basophils (%) (Auto) 0 % (0-3) Neutrophils # (Auto) 8.3 x10^3/uL (1.8-7.7) Lymphocytes # (Auto) 1.5 x10^3/uL (1.0-4.8) Monocytes # (Auto) 1.7 x10^3/uL (0.0-1.1) Eosinophils # (Auto) 0.1 x10^3/uL (0.0-0.7) Basophils # (Auto) 0.0 x10^3/uL (0.0-0.2) Sodium Level 138 mmol/L (136-145) Potassium Level 4.0 mmol/L (3.5-5.1) Chloride Level 102 mmol/L (98-107) Carbon Dioxide Level 28 mmol/L (21-32) Anion Gap 8 (6-14) Blood Urea Nitrogen 13 mg/dL (8-26) Creatinine 0.9 mg/dL (0.7-1.3) Estimated GFR (Cockcroft-Gault) 112.0 Glucose Level 176 mg/dL (70-99) Calcium Level 7.5 mg/dL (8.5-10.1) Test 01/05/21 11:31 Glucose (Fingerstick) 113 mg/dL (70-99) Assessment and Plan Assessmemt and Plan Problems Medical Problems: (1) Hypomagnesemia Status: Acute (2) Pyelonephritis Status: Acute (3) Septic shock Status: Acute (4) Suspected 2019 novel coronavirus infection Status: Acute Goals of Care: Advance Care Planning: Total time spent [id number] with patient greater than 16 minutes in discussion with goals of care, comfort care, end-of-life care, pain management, code status Comment Review of Relevant I have reviewed the following items lacho (where applicable) has been applied. Medications: Current Medications Medications (Trade) Dose Ordered Sig/Navi Route PRN Reason Start Time Stop Time Status Last Admin Dose Admin Ceftriaxone Sodium (Rocephin) 2 gm Q24H IVP 01/05/21 13:00 01/05/21 13:17 Justifications for Admission Other Justification Acute respiratory failure with hypoxia, pyelonephritis, COVID-19 DELILAH CASPER MD Jan 05, 2021 15:15
--- NOTE | 2021-01-05 16:48 | NUR ---
Pt's dinner time FSBS 65. Pt asymptomatic, sitting at edge of bed. 240 cc of orange juice given, insulin held. Will recheck pt's FSBS after dinner is consumed.
[2021-01-05 19:00] VITALS: BP 149/78
[2021-01-05] MEDS: MONTELUKAST SODIUM 10 MG TABLET. PO SCH (21:04)
[2021-01-05] MEDS: ATORVASTATIN CALCIUM 40 MG TABLET. PO SCH (21:04)
[2021-01-05] MEDS: LACTOBACILLUS RHAMNOSUS GG 1 CAPSULE. PO SCH (21:04)
[2021-01-05] MEDS: traZODone 100 MG TABLET. PO PRN (21:04)
[2021-01-05 23:00] VITALS: BP 147/70
[2021-01-06] MEDS: HYDROcodone/APAP 5/325MG 1 TAB TABLET PO PRN ×4 (00:50→17:58)
[2021-01-06 03:00] VITALS: BP 135/68
[2021-01-06 05:03] LABS: BASO % 0 % (0-3); EOS # 0.2 x10^3/uL (0.0-0.7); EOS % 2 % (0-3); HEMATOCRIT 35.8 % (39.0-53.0); HEMOGLOBIN 11.6 g/dL (13.0-17.5); LYMPH # 1.8 x10^3/uL (1.0-4.8); LYMPH % 15 % (24-48); MEAN CORPUSCULAR HEMOGLOBIN 25 pg (25-35); MEAN CORPUSCULAR HGB CONC 32 g/dL (31-37); MEAN CORPUSCULAR VOLUME 76 fL (79-100); MONO # 1.7 x10^3/uL (0.0-1.1); MONO % 14 % (0-9); NEUT # 8.6 x10^3/uL (1.8-7.7); NEUT % 70 % (31-73); PLATELET COUNT 340 x10^3/uL (140-400); RED CELL DISTRIBUTION WIDTH 15.6 % (11.5-14.5); WHITE BLOOD COUNT 12.4 x10^3/uL (4.0-11.0)
[2021-01-06 05:37] LABS: CALCIUM 7.8 mg/dL (8.5-10.1); CREATININE 0.9 mg/dL (0.7-1.3); POTASSIUM 4.2 mmol/L (3.5-5.1)
[2021-01-06 07:00] VITALS: BP 132/87
--- NOTE | 2021-01-06 07:50 | PDOC ---
Infectious Disease Note Subjective: Subjective Patient feels better today Fever has resolved Right upper quadrant and flank pain are improving Still remains on 3 L O2 by nasal cannula Tolerating p.o. intake well Vital Signs: Vital Signs Vital Signs Date Time Temp Pulse Resp B/P (MAP) Pulse Ox O2 Delivery O2 Flow Rate FiO2 01/06/21 03:00 98.0 87 24 135/68 (90) 99 Nasal Cannula 3.0 98.0 Physical Exam: PHYSICAL EXAM GENERAL: Alert, oriented x 3, morbidly obese male, nontoxic appearing, lying in bed comfortably, HEENT: Normocephalic, atraumatic. Anicteric. No thrush. NECK: Fullness present. LUNGS: Decreased breath sounds bilaterally HEART: S1, S2. ABDOMEN: Morbidly obese. Bowel sounds present, no rebound or guarding EXTREMITIES: No edema, no cyanosis. DERMATOLOGIC: Warm and dry. No generalized rash. NEUROLOGIC: Alert, oriented x 3, grossly nonfocal. PSYCHIATRIC: Cooperative, appropriate mood and affect. Medications: Inpatient Meds: Medications reviewed. Labs: Lab Laboratory Tests Test 01/05/21 08:02 01/05/21 11:31 01/05/21 16:24 01/05/21 17:21 Glucose (Fingerstick) 176 mg/dL (70-99) 113 mg/dL (70-99) 65 mg/dL (70-99) 109 mg/dL (70-99) Test 01/05/21 20:22 01/06/21 04:30 01/06/21 07:33 Glucose (Fingerstick) 157 mg/dL (70-99) 185 mg/dL (70-99) White Blood Count 12.4 x10^3/uL (4.0-11.0) Red Blood Count 4.70 x10^6/uL (4.30-5.70) Hemoglobin 11.6 g/dL (13.0-17.5) Hematocrit 35.8 % (39.0-53.0) Mean Corpuscular Volume 76 fL (79-100) Mean Corpuscular Hemoglobin 25 pg (25-35) Mean Corpuscular Hemoglobin Concent 32 g/dL (31-37) Red Cell Distribution Width 15.6 % (11.5-14.5) Platelet Count 340 x10^3/uL (140-400) Neutrophils (%) (Auto) 70 % (31-73) Lymphocytes (%) (Auto) 15 % (24-48) Monocytes (%) (Auto) 14 % (0-9) Eosinophils (%) (Auto) 2 % (0-3) Basophils (%) (Auto) 0 % (0-3) Neutrophils # (Auto) 8.6 x10^3/uL (1.8-7.7) Lymphocytes # (Auto) 1.8 x10^3/uL (1.0-4.8) Monocytes # (Auto) 1.7 x10^3/uL (0.0-1.1) Eosinophils # (Auto) 0.2 x10^3/uL (0.0-0.7) Basophils # (Auto) 0.0 x10^3/uL (0.0-0.2) Sodium Level 139 mmol/L (136-145) Potassium Level 4.2 mmol/L (3.5-5.1) Chloride Level 102 mmol/L (98-107) Carbon Dioxide Level 27 mmol/L (21-32) Anion Gap 10 (6-14) Blood Urea Nitrogen 15 mg/dL (8-26) Creatinine 0.9 mg/dL (0.7-1.3) Estimated GFR (Cockcroft-Gault) 112.0 Glucose Level 176 mg/dL (70-99) Calcium Level 7.8 mg/dL (8.5-10.1) Objective: Assessment: 1. Sepsis from gram-negative bacteremia. 2. Proteus Mirabella's bacteremia. 3. Fever. 4. Leukocytosis. 5. Lactic acidosis. 6. Proteus mirabilis urinary tract infection. 7. Nausea. 8. Morbid obesity. 9. Diabetes mellitus type 2. 10. Covid PCR negative 11. Cholelithiasis Plan: Plan of Care Cont Ceftriaxone Trend WBC 12 K today Probiotics Maintain aspiration precaution Continue supportive care ZIGGY ROBERTSON MD Jan 06, 2021 07:50
[2021-01-06] MEDS: FLUTICASONE/VILANTEROL 100/25 INHALER. INH SCH (09:00)
--- NOTE | 2021-01-06 09:04 | PDOC ---
PULMONARY PROGRESS NOTES DATE: 01/06/21 TIME: 09:02 Subjective pt. resting on 3 liters NC has nasal congestion no SOA, cough or CP Vitals Vital Signs Date Time Temp Pulse Resp B/P (MAP) Pulse Ox O2 Delivery O2 Flow Rate FiO2 01/06/21 07:00 98.2 96 30 132/87 (102) 95 Nasal Cannula 3.0 98.2 ROS: No Nausea, No Chest Pain, No Abdominal Pain, No Increase Cough General: Alert, Oriented X4, No acute distress Lungs: Clear Cardiovascular: S1 Abdomen: Soft, Other (obese) Neuro Exam: Alert Extremities: No Edema, Other (Some edema) Labs Laboratory Tests Test 01/04/21 11:44 01/04/21 16:40 01/04/21 21:27 01/05/21 04:00 Glucose (Fingerstick) 149 mg/dL (70-99) 148 mg/dL (70-99) 230 mg/dL (70-99) White Blood Count 11.6 x10^3/uL (4.0-11.0) Red Blood Count 4.51 x10^6/uL (4.30-5.70) Hemoglobin 11.1 g/dL (13.0-17.5) Hematocrit 34.7 % (39.0-53.0) Mean Corpuscular Volume 77 fL (79-100) Mean Corpuscular Hemoglobin 25 pg (25-35) Mean Corpuscular Hemoglobin Concent 32 g/dL (31-37) Red Cell Distribution Width 15.2 % (11.5-14.5) Platelet Count 346 x10^3/uL (140-400) Neutrophils (%) (Auto) 71 % (31-73) Lymphocytes (%) (Auto) 13 % (24-48) Monocytes (%) (Auto) 15 % (0-9) Eosinophils (%) (Auto) 1 % (0-3) Basophils (%) (Auto) 0 % (0-3) Neutrophils # (Auto) 8.3 x10^3/uL (1.8-7.7) Lymphocytes # (Auto) 1.5 x10^3/uL (1.0-4.8) Monocytes # (Auto) 1.7 x10^3/uL (0.0-1.1) Eosinophils # (Auto) 0.1 x10^3/uL (0.0-0.7) Basophils # (Auto) 0.0 x10^3/uL (0.0-0.2) Sodium Level 138 mmol/L (136-145) Potassium Level 4.0 mmol/L (3.5-5.1) Chloride Level 102 mmol/L (98-107) Carbon Dioxide Level 28 mmol/L (21-32) Anion Gap 8 (6-14) Blood Urea Nitrogen 13 mg/dL (8-26) Creatinine 0.9 mg/dL (0.7-1.3) Estimated GFR (Cockcroft-Gault) 112.0 Glucose Level 176 mg/dL (70-99) Calcium Level 7.5 mg/dL (8.5-10.1) Test 01/05/21 08:02 01/05/21 11:31 01/05/21 16:24 01/05/21 17:21 Glucose (Fingerstick) 176 mg/dL (70-99) 113 mg/dL (70-99) 65 mg/dL (70-99) 109 mg/dL (70-99) Test 01/05/21 20:22 01/06/21 04:30 01/06/21 07:33 Glucose (Fingerstick) 157 mg/dL (70-99) 185 mg/dL (70-99) White Blood Count 12.4 x10^3/uL (4.0-11.0) Red Blood Count 4.70 x10^6/uL (4.30-5.70) Hemoglobin 11.6 g/dL (13.0-17.5) Hematocrit 35.8 % (39.0-53.0) Mean Corpuscular Volume 76 fL (79-100) Mean Corpuscular Hemoglobin 25 pg (25-35) Mean Corpuscular Hemoglobin Concent 32 g/dL (31-37) Red Cell Distribution Width 15.6 % (11.5-14.5) Platelet Count 340 x10^3/uL (140-400) Neutrophils (%) (Auto) 70 % (31-73) Lymphocytes (%) (Auto) 15 % (24-48) Monocytes (%) (Auto) 14 % (0-9) Eosinophils (%) (Auto) 2 % (0-3) Basophils (%) (Auto) 0 % (0-3) Neutrophils # (Auto) 8.6 x10^3/uL (1.8-7.7) Lymphocytes # (Auto) 1.8 x10^3/uL (1.0-4.8) Monocytes # (Auto) 1.7 x10^3/uL (0.0-1.1) Eosinophils # (Auto) 0.2 x10^3/uL (0.0-0.7) Basophils # (Auto) 0.0 x10^3/uL (0.0-0.2) Sodium Level 139 mmol/L (136-145) Potassium Level 4.2 mmol/L (3.5-5.1) Chloride Level 102 mmol/L (98-107) Carbon Dioxide Level 27 mmol/L (21-32) Anion Gap 10 (6-14) Blood Urea Nitrogen 15 mg/dL (8-26) Creatinine 0.9 mg/dL (0.7-1.3) Estimated GFR (Cockcroft-Gault) 112.0 Glucose Level 176 mg/dL (70-99) Calcium Level 7.8 mg/dL (8.5-10.1) Laboratory Tests Test 01/05/21 11:31 01/05/21 16:24 01/05/21 17:21 01/05/21 20:22 Glucose (Fingerstick) 113 mg/dL (70-99) 65 mg/dL (70-99) 109 mg/dL (70-99) 157 mg/dL (70-99) Test 01/06/21 04:30 01/06/21 07:33 White Blood Count 12.4 x10^3/uL (4.0-11.0) Red Blood Count 4.70 x10^6/uL (4.30-5.70) Hemoglobin 11.6 g/dL (13.0-17.5) Hematocrit 35.8 % (39.0-53.0) Mean Corpuscular Volume 76 fL (79-100) Mean Corpuscular Hemoglobin 25 pg (25-35) Mean Corpuscular Hemoglobin Concent 32 g/dL (31-37) Red Cell Distribution Width 15.6 % (11.5-14.5) Platelet Count 340 x10^3/uL (140-400) Neutrophils (%) (Auto) 70 % (31-73) Lymphocytes (%) (Auto) 15 % (24-48) Monocytes (%) (Auto) 14 % (0-9) Eosinophils (%) (Auto) 2 % (0-3) Basophils (%) (Auto) 0 % (0-3) Neutrophils # (Auto) 8.6 x10^3/uL (1.8-7.7) Lymphocytes # (Auto) 1.8 x10^3/uL (1.0-4.8) Monocytes # (Auto) 1.7 x10^3/uL (0.0-1.1) Eosinophils # (Auto) 0.2 x10^3/uL (0.0-0.7) Basophils # (Auto) 0.0 x10^3/uL (0.0-0.2) Sodium Level 139 mmol/L (136-145) Potassium Level 4.2 mmol/L (3.5-5.1) Chloride Level 102 mmol/L (98-107) Carbon Dioxide Level 27 mmol/L (21-32) Anion Gap 10 (6-14) Blood Urea Nitrogen 15 mg/dL (8-26) Creatinine 0.9 mg/dL (0.7-1.3) Estimated GFR (Cockcroft-Gault) 112.0 Glucose Level 176 mg/dL (70-99) Calcium Level 7.8 mg/dL (8.5-10.1) Glucose (Fingerstick) 185 mg/dL (70-99) Medications Active Scripts Medications Dose Route/Sig Max Daily Dose Days Date Category Novolog (Insulin Aspart) 100 Unit/1 Ml Cartridge 30 Unit SQ TIDWMEALS 01/02/21 Reported Nelson 5-325 Tablet (Acetaminophen/Hydrocodone Bitart) 1 Each Tablet 1 Tab PO PRN Q6HRS PRN 5 09/26/20 Rx Pantoprazole Sodium (Pantoprazole Sodium) 40 Mg Tablet.dr 40 Mg PO DAILYAC 30 09/26/20 Rx Montelukast Sodium Tablet (Montelukast Sodium) 10 Mg Tablet 10 Mg PO QHS 30 09/26/20 Rx Cozaar (Losartan Potassium) 50 Mg Tablet 50 Mg PO DAILY 30 09/26/20 Rx Combivent Respimat Inhal (Ipratropium/Albuterol Sulfate) 4 Gm Aer.w.adap 2 Inh IH QID 30 09/26/20 Rx Prednisone 20 Mg Tablet 1 Tab PO DAILY 5 09/26/20 Rx Doxycycline Hyclate 100 Mg Tablet 100 Mg PO BID 7 09/26/20 Rx Sertraline Hcl 100 Mg Tablet 100 Mg PO DAILY 30 09/26/20 Rx Trazodone Hcl 100 Mg Tablet 100 Mg PO PRN QHS PRN 30 09/26/20 Rx Lantus Solostar (Insulin Glargine,Hum.rec.anlog) 100 Unit/1 Ml Insuln.pen 30 Unit SQ BID 30 09/26/20 Rx Atorvastatin Calcium 40 Mg Tablet 40 Mg PO QHS 12/09/18 Reported Fluticasone Propionate Nasal [place] (Fluticasone Propionate) 16 Gm [place].susp 2 Spr NIRMAL DAILY 12/09/18 Reported Aspirin 81 Mg Tab.chew 1 Tab PO DAILY 10/16/15 Reported Impression . IMPRESSION: 1. Acute hypoxic respiratory failure with high-grade fever. No definite infiltrates seen on the CT chest. 2. No significant tobacco history. 3. Morbid obesity with underlying sleep apnea. He is awaiting CPAP, details of his sleep study not available. 4. Influenza screen negative. 5. Leukocytosis. 6. SARS-CoV-2 negative 7. UTI, per PCP 8. Sepsis from gram-negative bacteremia. 9. Proteus Mirabella's bacteremia. URINE CULTURE Final Final GREATER THAN 100,000 CFU/ML GRAM NEGATIVE RODS on 01/03/21 at 0821 FINAL ID= [PROTEUS MIRABILIS] Testing Performed by: [address] [address] For Inquires, the Physician may contact the Microbiology department at [phone] PROTEUS MIRABILIS Plan . Updated 01/06 titrate oxygen to keep sats 90%, 6 min walk at [place] SARS-CoV-2 negative Continue ABX per ID Educated on importance of weight loss Pt. would benefit from out patient sleep study [place] the importance of diagnosis tx discussed advised to lose wt DVT/GI PPX D/W RN Updated 01/04 SARS-CoV-2 negative, continue current support Discontinue steroids DVT GI prophylaxis Antibiotics per ID DVT GI prophylax 01/03 1. Continue present oxygen to keep saturation 92 and above. 2. Follow final BC/ Urine has Proteus 3. Rule out COVID-19. 4. Continue broad-spectrum antibiotics. 5. Lovenox for DVT prophylaxis. 6. The patient was initiated on dexamethasone. If COVID tests come back negative, then we will discontinue steroids. Discussed with PCP DESEAN ADAMS MD Jan 06, 2021 09:04
[2021-01-06] MEDS: LOSARTAN POTASSIUM 50 MG TABLET. PO SCH (09:11)
[2021-01-06] MEDS: ASPIRIN CHEWABLE 81 MG TABLET. PO SCH (09:11)
[2021-01-06] MEDS: FLUTICASONE 50MCG/NASAL SPRAY 16GM BOTTLE. NS SCH (09:11)
[2021-01-06] MEDS: LACTOBACILLUS RHAMNOSUS GG 1 CAPSULE. PO SCH ×2 (09:11→21:07)
[2021-01-06] MEDS: INSULIN LISPRO 300 UNITS/3 ML VIAL. SQ SCH ×6 (09:20→17:13)
[2021-01-06] MEDS: INSULIN GLARGINE SYRINGE. SQ SCH ×2 (09:22→21:13)
--- NOTE | 2021-01-06 10:06 | PDOC ---
[facility] PROGRESS NOTE Date of Service DOS: DATE: 01/06/21 TIME: 10:01 Chief Complaint Chief Complaint Sepsis Acute respiratory failure with hypoxia Right pyelonephritis DM2 with hyperglycemia Moderate malnutrition COVID-19 PUI Plan: Patient received fluids and broad-spectrum antibiotics and the ED. Will continue treatment of asthma exacerbation and pyelonephritis with Rocephin daily and doxycycline IV twice daily. Consultation to pulmonology acute hypoxia COVID-19 PUI Treat empirically with Decadron 6 mg daily COVID-19 and influenza pending Basal/prandial insulin; A1c pending. Resume home medications FEN - Cardiac diet PPX - Lovenox FULL CODE Dispo - inpatient for above; patient names his girlfriend as his surrogate decision-maker. History of Present Illness History of Present Illness Patient is a 40 old male with past medical history asthma, hypertension, DM2, presents to the ER with complaints of worsening shortness of breath over the past 2 days. Reports associated nausea, vomiting, diarrhea, body aches, fever, chills, and polyuria. He has been taking his home albuterol inhaler, symptoms acutely worsened when he ran out with this medication. Upon arrival to the ED he was tachypnea, febrile, saturating 99% on [address] chest/abdomen/pelvis obtained on admission showed subtle right perinephric stranding; gallstones, no PE or chest abnormality. Will admit patient for further medical management. 01/06/2021 Afebrile. Feeling well today. Speaking to me on room air at the time of my evaluation. Continue IV Rocephin. Anticipate discharge Friday on cefdinir. 01/05/2021 Patient seen and evaluated bedside. States he feels better, denies fever. Denies chest pain or diarrhea. Discussed with ID, will continue on IV Rocephin for now, and likely switch to cefdinir 100 mg p.o. twice daily for 10 days when ready to discharge likely on Friday. At that time will obtain 6-minute walk. Still breathing on 2 L nasal cannula; will need 6-minute walk prior to discharge due to suspected obesity hypoventilation syndrome or DENNIS. 01/04/2021 Patient seen and evaluated bedside. He is afebrile, currently breathing on 2 L nasal cannula. He is COVID-19 negative. Urine and blood cultures positive for Proteus mirabilis; sensitivities largely pansensitive except resistant to nitro furantoin and tetracycline.. Will continue treatment of his pyelonephritis with Zosyn, per ID. He still complains of epigastric pain pain with deep inspiration, and flank pain. Some right upper quadrant tenderness on exam, he does report some pain after eating. On admission CT did show cholelithiasis. Will obtain ultrasound to rule out cholecystitis. Discussed with RN. 01/03/2021 Afebrile, currently breathing on 2 L nasal cannula. He denies any sensation of shortness of breath. Discussed with Dr. Luo, will concern for COVID-[address] results. COVID-19 test still pending at this time. Urine cultures positive for Proteus mirabilis; blood cultures positive for Proteus mirabilis as well. Continue treatment for pyelonephritis with Zosyn, per ID. Will follow sensitivities. If COVID-19 positive, will initiate remdesivir. Vitals/I&O Vitals/I&O: Vital Signs Date Time Temp Pulse Resp B/P (MAP) Pulse Ox O2 Delivery O2 Flow Rate FiO2 01/06/21 09:11 96 132/87 01/06/21 09:10 Nasal Cannula 01/06/21 07:00 98.2 30 95 3.0 98.2 I & O 01/05/21 01/05/21 01/06/21 15:00 23:00 07:00 Intake Total 620 ml 760 ml 1000 ml Output Total 825 ml 1200 ml 500 ml Balance -205 ml -440 ml 500 ml Physical Exam Physical Exam: GENERAL: Alert, oriented x 3, morbidly obese male, nontoxic appearing, lying in bed comfortably, HEENT: Normocephalic, atraumatic. Anicteric. No thrush. NECK: Fullness present. LUNGS: Decreased breath sounds bilaterally HEART: S1, S2. ABDOMEN: Morbidly obese. Bowel sounds present, no rebound or guarding EXTREMITIES: No edema, no cyanosis. DERMATOLOGIC: Warm and dry. No generalized rash. NEUROLOGIC: Alert, oriented x 3, grossly nonfocal. PSYCHIATRIC: Cooperative, appropriate mood and affect. General: Alert Heart: Regular rate Lungs: Clear Abdomen: Soft, Other (Right upper quadrant tenderness) Extremities: No clubbing, No cyanosis Skin: No rashes Labs Labs: Laboratory Tests Test 01/05/21 11:31 01/05/21 16:24 01/05/21 17:21 01/05/21 20:22 Glucose (Fingerstick) 113 mg/dL (70-99) 65 mg/dL (70-99) 109 mg/dL (70-99) 157 mg/dL (70-99) Test 01/06/21 04:30 01/06/21 07:33 White Blood Count 12.4 x10^3/uL (4.0-11.0) Red Blood Count 4.70 x10^6/uL (4.30-5.70) Hemoglobin 11.6 g/dL (13.0-17.5) Hematocrit 35.8 % (39.0-53.0) Mean Corpuscular Volume 76 fL (79-100) Mean Corpuscular Hemoglobin 25 pg (25-35) Mean Corpuscular Hemoglobin Concent 32 g/dL (31-37) Red Cell Distribution Width 15.6 % (11.5-14.5) Platelet Count 340 x10^3/uL (140-400) Neutrophils (%) (Auto) 70 % (31-73) Lymphocytes (%) (Auto) 15 % (24-48) Monocytes (%) (Auto) 14 % (0-9) Eosinophils (%) (Auto) 2 % (0-3) Basophils (%) (Auto) 0 % (0-3) Neutrophils # (Auto) 8.6 x10^3/uL (1.8-7.7) Lymphocytes # (Auto) 1.8 x10^3/uL (1.0-4.8) Monocytes # (Auto) 1.7 x10^3/uL (0.0-1.1) Eosinophils # (Auto) 0.2 x10^3/uL (0.0-0.7) Basophils # (Auto) 0.0 x10^3/uL (0.0-0.2) Sodium Level 139 mmol/L (136-145) Potassium Level 4.2 mmol/L (3.5-5.1) Chloride Level 102 mmol/L (98-107) Carbon Dioxide Level 27 mmol/L (21-32) Anion Gap 10 (6-14) Blood Urea Nitrogen 15 mg/dL (8-26) Creatinine 0.9 mg/dL (0.7-1.3) Estimated GFR (Cockcroft-Gault) 112.0 Glucose Level 176 mg/dL (70-99) Calcium Level 7.8 mg/dL (8.5-10.1) Glucose (Fingerstick) 185 mg/dL (70-99) Assessment and Plan Assessmemt and Plan Problems Medical Problems: (1) Hypomagnesemia Status: Acute (2) Pyelonephritis Status: Acute (3) Septic shock Status: Acute (4) Suspected 2019 novel coronavirus infection Status: Acute Goals of Care: Advance Care Planning: Total time spent [id number] with patient greater than 16 minutes in discussion with goals of care, comfort care, end-of-life care, pain management, code status Comment Review of Relevant I have reviewed the following items lacho (where applicable) has been applied. Medications: Current Medications Medications (Trade) Dose Ordered Sig/Navi Route PRN Reason Start Time Stop Time Status Last Admin Dose Admin Ceftriaxone Sodium (Rocephin) 2 gm Q24H IVP 01/05/21 13:00 01/05/21 13:17 Lactobacillus Rhamnosus (Culturelle) 1 cap BID PO 01/05/21 21:00 01/06/21 09:11 Justifications for Admission Other Justification Acute respiratory failure with hypoxia, pyelonephritis, COVID-19 DELILAH CASPER MD Jan 06, 2021 10:06
[2021-01-06 11:00] VITALS: BP 136/80
[2021-01-06] MEDS: cefTRIAXone IV Push 2 GM VIAL. IVP SCH (13:00)
[2021-01-06 15:00] VITALS: BP 137/93
[2021-01-06 19:00] VITALS: BP 135/88
[2021-01-06] MEDS: MONTELUKAST SODIUM 10 MG TABLET. PO SCH (21:07)
[2021-01-06] MEDS: ATORVASTATIN CALCIUM 40 MG TABLET. PO SCH (21:07)
[2021-01-06 23:00] VITALS: BP 140/96
[2021-01-07] MEDS: HYDROcodone/APAP 5/325MG 1 TAB TABLET PO PRN ×3 (01:26→17:25)
[2021-01-07 03:10] VITALS: BP 142/82
[2021-01-07 04:08] LABS: BASO % 0 % (0-3); EOS # 0.2 x10^3/uL (0.0-0.7); EOS % 2 % (0-3); HEMATOCRIT 36.3 % (39.0-53.0); HEMOGLOBIN 11.8 g/dL (13.0-17.5); LYMPH # 1.8 x10^3/uL (1.0-4.8); LYMPH % 14 % (24-48); MEAN CORPUSCULAR HEMOGLOBIN 25 pg (25-35); MEAN CORPUSCULAR HGB CONC 33 g/dL (31-37); MEAN CORPUSCULAR VOLUME 76 fL (79-100); MONO # 1.2 x10^3/uL (0.0-1.1); MONO % 9 % (0-9); NEUT # 9.6 x10^3/uL (1.8-7.7); NEUT % 75 % (31-73); PLATELET COUNT 379 x10^3/uL (140-400); RED BLOOD COUNT 4.77 x10^6/uL (4.30-5.70); RED CELL DISTRIBUTION WIDTH 15.1 % (11.5-14.5); WHITE BLOOD COUNT 12.9 x10^3/uL (4.0-11.0)
[2021-01-07 04:25] LABS: CALCIUM 7.9 mg/dL (8.5-10.1); CREATININE 0.9 mg/dL (0.7-1.3); POTASSIUM 4.2 mmol/L (3.5-5.1)
[2021-01-07 07:00] VITALS: BP 129/73
[2021-01-07] MEDS: INSULIN LISPRO 300 UNITS/3 ML VIAL. SQ SCH ×6 (08:00→17:24)
--- NOTE | 2021-01-07 08:20 | PDOC ---
Infectious Disease Note Subjective: Subjective Patient without new complaints Has green sputum production Still remains on 3 L O2 by nasal cannula Tolerating p.o. intake well Vital Signs: Vital Signs Vital Signs Date Time Temp Pulse Resp B/P (MAP) Pulse Ox O2 Delivery O2 Flow Rate FiO2 01/07/21 07:00 97.7 73 20 129/73 (91) 97 Nasal Cannula 3.0 97.7 Physical Exam: PHYSICAL EXAM GENERAL: Alert, oriented x 3, morbidly obese male, nontoxic appearing, lying in bed comfortably, HEENT: Normocephalic, atraumatic. Anicteric. No thrush. NECK: Fullness present. LUNGS: Decreased breath sounds bilaterally HEART: S1, S2. ABDOMEN: Morbidly obese. Bowel sounds present, no rebound or guarding EXTREMITIES: No edema, no cyanosis. DERMATOLOGIC: Warm and dry. No generalized rash. NEUROLOGIC: Alert, oriented x 3, grossly nonfocal. PSYCHIATRIC: Cooperative, appropriate mood and affect. Medications: Inpatient Meds: Medications reviewed. Labs: Lab Laboratory Tests Test 01/06/21 12:04 01/06/21 16:55 01/06/21 19:51 01/07/21 03:00 Glucose (Fingerstick) 78 mg/dL (70-99) 124 mg/dL (70-99) 190 mg/dL (70-99) White Blood Count 12.9 x10^3/uL (4.0-11.0) Red Blood Count 4.77 x10^6/uL (4.30-5.70) Hemoglobin 11.8 g/dL (13.0-17.5) Hematocrit 36.3 % (39.0-53.0) Mean Corpuscular Volume 76 fL (79-100) Mean Corpuscular Hemoglobin 25 pg (25-35) Mean Corpuscular Hemoglobin Concent 33 g/dL (31-37) Red Cell Distribution Width 15.1 % (11.5-14.5) Platelet Count 379 x10^3/uL (140-400) Neutrophils (%) (Auto) 75 % (31-73) Lymphocytes (%) (Auto) 14 % (24-48) Monocytes (%) (Auto) 9 % (0-9) Eosinophils (%) (Auto) 2 % (0-3) Basophils (%) (Auto) 0 % (0-3) Neutrophils # (Auto) 9.6 x10^3/uL (1.8-7.7) Lymphocytes # (Auto) 1.8 x10^3/uL (1.0-4.8) Monocytes # (Auto) 1.2 x10^3/uL (0.0-1.1) Eosinophils # (Auto) 0.2 x10^3/uL (0.0-0.7) Basophils # (Auto) 0.0 x10^3/uL (0.0-0.2) Sodium Level 140 mmol/L (136-145) Potassium Level 4.2 mmol/L (3.5-5.1) Chloride Level 101 mmol/L (98-107) Carbon Dioxide Level 28 mmol/L (21-32) Anion Gap 11 (6-14) Blood Urea Nitrogen 14 mg/dL (8-26) Creatinine 0.9 mg/dL (0.7-1.3) Estimated GFR (Cockcroft-Gault) 112.0 Glucose Level 125 mg/dL (70-99) Calcium Level 7.9 mg/dL (8.5-10.1) Test 01/07/21 07:34 Glucose (Fingerstick) 116 mg/dL (70-99) Objective: Assessment: 1. Sepsis from gram-negative bacteremia. 2. Proteus Mirabella's bacteremia. 3. Fever. 4. Leukocytosis. 5. Lactic acidosis. 6. Proteus mirabilis urinary tract infection. 7. Nausea. 8. Morbid obesity. 9. Diabetes mellitus type 2. 10. Covid PCR negative 11. Cholelithiasis 12. Hypoxic respiratory failure, possible DENNIS Plan: Plan of Care DC ceftriaxone Start Augmentin Trend WBC 12.9 K today Probiotics Maintain aspiration precaution Continue supportive care ZIGGY ROBERTSON MD Jan 07, 2021 08:20
[2021-01-07] MEDS: ASPIRIN CHEWABLE 81 MG TABLET. PO SCH (08:41)
[2021-01-07] MEDS: LOSARTAN POTASSIUM 50 MG TABLET. PO SCH (08:41)
[2021-01-07] MEDS: LACTOBACILLUS RHAMNOSUS GG 1 CAPSULE. PO SCH ×2 (08:41→21:11)
[2021-01-07] MEDS: FLUTICASONE 50MCG/NASAL SPRAY 16GM BOTTLE. NS SCH (08:42)
[2021-01-07] MEDS: FLUTICASONE/VILANTEROL 100/25 INHALER. INH SCH (08:43)
[2021-01-07] MEDS: AMOXICILLIN/K CLAV 875/125MG TABLET. PO SCH ×2 (08:45→21:11)
[2021-01-07] MEDS: INSULIN GLARGINE SYRINGE. SQ SCH ×2 (08:54→21:15)
--- NOTE | 2021-01-07 10:15 | PDOC ---
PULMONARY PROGRESS NOTES DATE: 01/07/21 TIME: 10:14 Subjective pt. resting on 3 liters NC nasal congestion better is tired no SOA, cough or CP Vitals Vital Signs Date Time Temp Pulse Resp B/P (MAP) Pulse Ox O2 Delivery O2 Flow Rate FiO2 01/07/21 08:42 Nasal Cannula 3.0 01/07/21 08:41 73 129/73 01/07/21 07:00 97.7 20 97 97.7 ROS: No Nausea, No Chest Pain, No Abdominal Pain, No Increase Cough General: Alert, Oriented X4, No acute distress Lungs: Clear Cardiovascular: S1 Abdomen: Soft, Other (obese) Neuro Exam: Alert Extremities: No Edema, Other (Some edema) Labs Laboratory Tests Test 01/05/21 11:31 01/05/21 16:24 01/05/21 17:21 01/05/21 20:22 Glucose (Fingerstick) 113 mg/dL (70-99) 65 mg/dL (70-99) 109 mg/dL (70-99) 157 mg/dL (70-99) Test 01/06/21 04:30 01/06/21 07:33 01/06/21 12:04 01/06/21 16:55 White Blood Count 12.4 x10^3/uL (4.0-11.0) Red Blood Count 4.70 x10^6/uL (4.30-5.70) Hemoglobin 11.6 g/dL (13.0-17.5) Hematocrit 35.8 % (39.0-53.0) Mean Corpuscular Volume 76 fL (79-100) Mean Corpuscular Hemoglobin 25 pg (25-35) Mean Corpuscular Hemoglobin Concent 32 g/dL (31-37) Red Cell Distribution Width 15.6 % (11.5-14.5) Platelet Count 340 x10^3/uL (140-400) Neutrophils (%) (Auto) 70 % (31-73) Lymphocytes (%) (Auto) 15 % (24-48) Monocytes (%) (Auto) 14 % (0-9) Eosinophils (%) (Auto) 2 % (0-3) Basophils (%) (Auto) 0 % (0-3) Neutrophils # (Auto) 8.6 x10^3/uL (1.8-7.7) Lymphocytes # (Auto) 1.8 x10^3/uL (1.0-4.8) Monocytes # (Auto) 1.7 x10^3/uL (0.0-1.1) Eosinophils # (Auto) 0.2 x10^3/uL (0.0-0.7) Basophils # (Auto) 0.0 x10^3/uL (0.0-0.2) Sodium Level 139 mmol/L (136-145) Potassium Level 4.2 mmol/L (3.5-5.1) Chloride Level 102 mmol/L (98-107) Carbon Dioxide Level 27 mmol/L (21-32) Anion Gap 10 (6-14) Blood Urea Nitrogen 15 mg/dL (8-26) Creatinine 0.9 mg/dL (0.7-1.3) Estimated GFR (Cockcroft-Gault) 112.0 Glucose Level 176 mg/dL (70-99) Calcium Level 7.8 mg/dL (8.5-10.1) Glucose (Fingerstick) 185 mg/dL (70-99) 78 mg/dL (70-99) 124 mg/dL (70-99) Test 01/06/21 19:51 01/07/21 03:00 01/07/21 07:34 Glucose (Fingerstick) 190 mg/dL (70-99) 116 mg/dL (70-99) White Blood Count 12.9 x10^3/uL (4.0-11.0) Red Blood Count 4.77 x10^6/uL (4.30-5.70) Hemoglobin 11.8 g/dL (13.0-17.5) Hematocrit 36.3 % (39.0-53.0) Mean Corpuscular Volume 76 fL (79-100) Mean Corpuscular Hemoglobin 25 pg (25-35) Mean Corpuscular Hemoglobin Concent 33 g/dL (31-37) Red Cell Distribution Width 15.1 % (11.5-14.5) Platelet Count 379 x10^3/uL (140-400) Neutrophils (%) (Auto) 75 % (31-73) Lymphocytes (%) (Auto) 14 % (24-48) Monocytes (%) (Auto) 9 % (0-9) Eosinophils (%) (Auto) 2 % (0-3) Basophils (%) (Auto) 0 % (0-3) Neutrophils # (Auto) 9.6 x10^3/uL (1.8-7.7) Lymphocytes # (Auto) 1.8 x10^3/uL (1.0-4.8) Monocytes # (Auto) 1.2 x10^3/uL (0.0-1.1) Eosinophils # (Auto) 0.2 x10^3/uL (0.0-0.7) Basophils # (Auto) 0.0 x10^3/uL (0.0-0.2) Sodium Level 140 mmol/L (136-145) Potassium Level 4.2 mmol/L (3.5-5.1) Chloride Level 101 mmol/L (98-107) Carbon Dioxide Level 28 mmol/L (21-32) Anion Gap 11 (6-14) Blood Urea Nitrogen 14 mg/dL (8-26) Creatinine 0.9 mg/dL (0.7-1.3) Estimated GFR (Cockcroft-Gault) 112.0 Glucose Level 125 mg/dL (70-99) Calcium Level 7.9 mg/dL (8.5-10.1) Laboratory Tests Test 01/06/21 12:04 01/06/21 16:55 01/06/21 19:51 01/07/21 03:00 Glucose (Fingerstick) 78 mg/dL (70-99) 124 mg/dL (70-99) 190 mg/dL (70-99) White Blood Count 12.9 x10^3/uL (4.0-11.0) Red Blood Count 4.77 x10^6/uL (4.30-5.70) Hemoglobin 11.8 g/dL (13.0-17.5) Hematocrit 36.3 % (39.0-53.0) Mean Corpuscular Volume 76 fL (79-100) Mean Corpuscular Hemoglobin 25 pg (25-35) Mean Corpuscular Hemoglobin Concent 33 g/dL (31-37) Red Cell Distribution Width 15.1 % (11.5-14.5) Platelet Count 379 x10^3/uL (140-400) Neutrophils (%) (Auto) 75 % (31-73) Lymphocytes (%) (Auto) 14 % (24-48) Monocytes (%) (Auto) 9 % (0-9) Eosinophils (%) (Auto) 2 % (0-3) Basophils (%) (Auto) 0 % (0-3) Neutrophils # (Auto) 9.6 x10^3/uL (1.8-7.7) Lymphocytes # (Auto) 1.8 x10^3/uL (1.0-4.8) Monocytes # (Auto) 1.2 x10^3/uL (0.0-1.1) Eosinophils # (Auto) 0.2 x10^3/uL (0.0-0.7) Basophils # (Auto) 0.0 x10^3/uL (0.0-0.2) Sodium Level 140 mmol/L (136-145) Potassium Level 4.2 mmol/L (3.5-5.1) Chloride Level 101 mmol/L (98-107) Carbon Dioxide Level 28 mmol/L (21-32) Anion Gap 11 (6-14) Blood Urea Nitrogen 14 mg/dL (8-26) Creatinine 0.9 mg/dL (0.7-1.3) Estimated GFR (Cockcroft-Gault) 112.0 Glucose Level 125 mg/dL (70-99) Calcium Level 7.9 mg/dL (8.5-10.1) Test 01/07/21 07:34 Glucose (Fingerstick) 116 mg/dL (70-99) Medications Active Scripts Medications Dose Route/Sig Max Daily Dose Days Date Category Novolog (Insulin Aspart) 100 Unit/1 Ml Cartridge 30 Unit SQ TIDWMEALS 01/02/21 Reported Francis 5-325 Tablet (Acetaminophen/Hydrocodone Bitart) 1 Each Tablet 1 Tab PO PRN Q6HRS PRN 5 09/26/20 Rx Pantoprazole Sodium (Pantoprazole Sodium) 40 Mg Tablet.dr 40 Mg PO DAILYAC 30 09/26/20 Rx Montelukast Sodium Tablet (Montelukast Sodium) 10 Mg Tablet 10 Mg PO QHS 30 09/26/20 Rx Cozaar (Losartan Potassium) 50 Mg Tablet 50 Mg PO DAILY 30 09/26/20 Rx Combivent Respimat Inhal (Ipratropium/Albuterol Sulfate) 4 Gm Aer.w.adap 2 Inh IH QID 30 09/26/20 Rx Prednisone 20 Mg Tablet 1 Tab PO DAILY 5 09/26/20 Rx Doxycycline Hyclate 100 Mg Tablet 100 Mg PO BID 7 09/26/20 Rx Sertraline Hcl 100 Mg Tablet 100 Mg PO DAILY 30 09/26/20 Rx Trazodone Hcl 100 Mg Tablet 100 Mg PO PRN QHS PRN 30 09/26/20 Rx Lantus Solostar (Insulin Glargine,Hum.rec.anlog) 100 Unit/1 Ml Insuln.pen 30 Unit SQ BID 30 09/26/20 Rx Atorvastatin Calcium 40 Mg Tablet 40 Mg PO QHS 12/09/18 Reported Fluticasone Propionate Nasal [place] (Fluticasone Propionate) 16 Gm [place].susp 2 Spr NIRMAL DAILY 12/09/18 Reported Aspirin 81 Mg Tab.chew 1 Tab PO DAILY 10/16/15 Reported Impression . IMPRESSION: 1. Acute hypoxic respiratory failure with high-grade fever. No definite infiltrates seen on the CT chest. 2. No significant tobacco history. 3. Morbid obesity with underlying sleep apnea. He is awaiting CPAP, details of his sleep study not available. 4. Influenza screen negative. 5. Leukocytosis. 6. SARS-CoV-2 negative 7. UTI, per PCP 8. Sepsis from gram-negative bacteremia. 9. Proteus Mirabella's bacteremia. URINE CULTURE Final Final GREATER THAN 100,000 CFU/ML GRAM NEGATIVE RODS on 01/03/21 at 0821 FINAL ID= [PROTEUS MIRABILIS] Testing Performed by: [address] [id number] For Inquires, the Physician may contact the Microbiology department at [phone] PROTEUS MIRABILIS Plan . Updated 01/07 titrate oxygen to keep sats 90%, 6 min walk at [place] SARS-CoV-2 negative Continue ABX per ID changed to po Educated on importance of weight loss Pt. would benefit from out patient sleep study preston the importance of diagnosis tx discussed advised to lose wt and exercise DVT/GI PPX D/W RN Updated 01/04 SARS-CoV-2 negative, continue current support Discontinue steroids DVT GI prophylaxis Antibiotics per ID DVT GI prophylax 01/03 1. Continue present oxygen to keep saturation 92 and above. 2. Follow final BC/ Urine has Proteus 3. Rule out COVID-19. 4. Continue broad-spectrum antibiotics. 5. Lovenox for DVT prophylaxis. 6. The patient was initiated on dexamethasone. If COVID tests come back negative, then we will discontinue steroids. Discussed with PCP DESEAN ADAMS MD Jan 07, 2021 10:15
[2021-01-07 11:00] VITALS: BP 173/99
--- NOTE | 2021-01-07 11:58 | PDOC ---
[facility] PROGRESS NOTE Date of Service DOS: DATE: 01/07/21 TIME: 11:57 Chief Complaint Chief Complaint Sepsis Acute respiratory failure with hypoxia Right pyelonephritis DM2 with hyperglycemia Moderate malnutrition COVID-19 PUI Plan: Patient received fluids and broad-spectrum antibiotics and the ED. Will continue treatment of asthma exacerbation and pyelonephritis with Rocephin daily and doxycycline IV twice daily. Consultation to pulmonology acute hypoxia COVID-19 PUI Treat empirically with Decadron 6 mg daily COVID-19 and influenza pending Basal/prandial insulin; A1c pending. Resume home medications FEN - Cardiac diet PPX - Lovenox FULL CODE Dispo - inpatient for above; patient names his girlfriend as his surrogate decision-maker. History of Present Illness History of Present Illness Patient is a 40 old male with past medical history asthma, hypertension, DM2, presents to the ER with complaints of worsening shortness of breath over the past 2 days. Reports associated nausea, vomiting, diarrhea, body aches, fever, chills, and polyuria. He has been taking his home albuterol inhaler, symptoms acutely worsened when he ran out with this medication. Upon arrival to the ED he was tachypnea, febrile, saturating 99% on [address] chest/abdomen/pelvis obtained on admission showed subtle right perinephric stranding; gallstones, no PE or chest abnormality. Will admit patient for further medical management. 01/07/2021 Afebrile, some hypertension this morning. Breathing on 3 L nasal cannula; apparently is waiting for home CPAP machine. Will obtain 6-minute walk prior to discharge tomorrow. Will discharge tomorrow on Augmentin twice daily to complete a 2-week course. 01/06/2021 Afebrile. Feeling well today. Speaking to me on room air at the time of my evaluation. Continue IV Rocephin. Anticipate discharge Friday on cefdinir. 01/05/2021 Patient seen and evaluated bedside. States he feels better, denies fever. Denies chest pain or diarrhea. Discussed with ID, will continue on IV Rocephin for now, and likely switch to cefdinir 100 mg p.o. twice daily for 10 days when ready to discharge likely on Friday. At that time will obtain 6-minute walk. Still breathing on 2 L nasal cannula; will need 6-minute walk prior to discharge due to suspected obesity hypoventilation syndrome or DENNIS. 01/04/2021 Patient seen and evaluated bedside. He is afebrile, currently breathing on 2 L nasal cannula. He is COVID-19 negative. Urine and blood cultures positive for Proteus mirabilis; sensitivities largely pansensitive except resistant to nitrofurantoin and tetracycline.. Will continue treatment of his pyelonephritis with Zosyn, per ID. He still complains of epigastric pain pain with deep inspiration, and flank pain. Some right upper quadrant tenderness on exam, he does report some pain after eating. On admission CT did show cholelithiasis. Will obtain ultrasound to rule out cholecystitis. Discussed with RN. 01/03/2021 Afebrile, currently breathing on 2 L nasal cannula. He denies any sensation of shortness of breath. Discussed with Dr. Luo, will concern for COVID-[address] results. COVID-19 test still pending at this time. Urine cultures positive for Proteus mirabilis; blood cultures positive for Proteus mirabilis as well. Continue treatment for pyelonephritis with Zosyn, per ID. Will follow sensitivities. If COVID-19 positive, will initiate remdesivir. Vitals/I&O Vitals/I&O: Vital Signs Date Time Temp Pulse Resp B/P (MAP) Pulse Ox O2 Delivery O2 Flow Rate FiO2 01/07/21 11:00 98.0 99 20 173/99 (123) 99 Nasal Cannula 3.0 98.0 I & O 01/06/21 01/06/21 01/07/21 15:00 23:00 07:00 Intake Total 600 ml 360 ml Output Total 2100 ml 1450 ml 500 ml Balance -2100 ml -850 ml -140 ml Physical Exam Physical Exam: GENERAL: Alert, oriented x 3, morbidly obese male, nontoxic appearing, lying in bed comfortably, HEENT: Normocephalic, atraumatic. Anicteric. No thrush. NECK: Fullness present. LUNGS: Decreased breath sounds bilaterally HEART: S1, S2. ABDOMEN: Morbidly obese. Bowel sounds present, no rebound or guarding EXTREMITIES: No edema, no cyanosis. DERMATOLOGIC: Warm and dry. No generalized rash. NEUROLOGIC: Alert, oriented x 3, grossly nonfocal. PSYCHIATRIC: Cooperative, appropriate mood and affect. General: Alert Heart: Regular rate Lungs: Clear Abdomen: Soft, Other (Right upper quadrant tenderness) Extremities: No clubbing, No cyanosis Skin: No rashes Labs Labs: Laboratory Tests Test 01/06/21 12:04 01/06/21 16:55 01/06/21 19:51 01/07/21 03:00 Glucose (Fingerstick) 78 mg/dL (70-99) 124 mg/dL (70-99) 190 mg/dL (70-99) White Blood Count 12.9 x10^3/uL (4.0-11.0) Red Blood Count 4.77 x10^6/uL (4.30-5.70) Hemoglobin 11.8 g/dL (13.0-17.5) Hematocrit 36.3 % (39.0-53.0) Mean Corpuscular Volume 76 fL (79-100) Mean Corpuscular Hemoglobin 25 pg (25-35) Mean Corpuscular Hemoglobin Concent 33 g/dL (31-37) Red Cell Distribution Width 15.1 % (11.5-14.5) Platelet Count 379 x10^3/uL (140-400) Neutrophils (%) (Auto) 75 % (31-73) Lymphocytes (%) (Auto) 14 % (24-48) Monocytes (%) (Auto) 9 % (0-9) Eosinophils (%) (Auto) 2 % (0-3) Basophils (%) (Auto) 0 % (0-3) Neutrophils # (Auto) 9.6 x10^3/uL (1.8-7.7) Lymphocytes # (Auto) 1.8 x10^3/uL (1.0-4.8) Monocytes # (Auto) 1.2 x10^3/uL (0.0-1.1) Eosinophils # (Auto) 0.2 x10^3/uL (0.0-0.7) Basophils # (Auto) 0.0 x10^3/uL (0.0-0.2) Sodium Level 140 mmol/L (136-145) Potassium Level 4.2 mmol/L (3.5-5.1) Chloride Level 101 mmol/L (98-107) Carbon Dioxide Level 28 mmol/L (21-32) Anion Gap 11 (6-14) Blood Urea Nitrogen 14 mg/dL (8-26) Creatinine 0.9 mg/dL (0.7-1.3) Estimated GFR (Cockcroft-Gault) 112.0 Glucose Level 125 mg/dL (70-99) Calcium Level 7.9 mg/dL (8.5-10.1) Test 01/07/21 07:34 01/07/21 11:39 Glucose (Fingerstick) 116 mg/dL (70-99) 185 mg/dL (70-99) Assessment and Plan Assessmemt and Plan Problems Medical Problems: (1) Hypomagnesemia Status: Acute (2) Pyelonephritis Status: Acute (3) Septic shock Status: Acute (4) Suspected 2019 novel coronavirus infection Status: Acute Goals of Care: Advance Care Planning: Total time spent [id number] with patient greater than 16 minutes in discussion with goals of care, comfort care, end-of-life care, pain management, code status Comment Review of Relevant I have reviewed the following items lacho (where applicable) has been applied. Medications: Current Medications Medications (Trade) Dose Ordered Sig/Navi Route PRN Reason Start Time Stop Time Status Last Admin Dose Admin Amoxicillin/ Clavulanate Potassium (Augmentin 875/ 125mg) 1 tab BID PO 01/07/21 09:00 01/07/21 08:45 Justifications for Admission Other Justification Acute respiratory failure with hypoxia, pyelonephritis, COVID-19 DELILAH CASPER MD Jan 07, 2021 11:58
[2021-01-07] MEDS ORDERED: hydrALAZINE 20 MG/ML VIAL. IVP PRN (12:00)
[2021-01-07 15:00] VITALS: BP 166/78
[2021-01-07 19:00] VITALS: BP 155/72
[2021-01-07] MEDS: MONTELUKAST SODIUM 10 MG TABLET. PO SCH (21:11)
[2021-01-07] MEDS: ATORVASTATIN CALCIUM 40 MG TABLET. PO SCH (21:11)
[2021-01-07 23:00] VITALS: BP 155/85
[2021-01-08] MEDS: HYDROcodone/APAP 5/325MG 1 TAB TABLET PO PRN ×3 (01:36→17:14)
[2021-01-08 03:00] VITALS: BP 124/88
[2021-01-08 07:49] VITALS: BP 135/68
--- NOTE | 2021-01-08 08:36 | PDOC ---
PROGRESS NOTES Date of Service: DATE: 01/08/21 TIME: 08:36 Chief Complaint Chief Complaint IMPRESSION Sepsis Acute respiratory failure with hypoxia REMAINS ON 3 LITERS NC Right pyelonephritis DM2 with hyperglycemia Moderate malnutrition COVID-19 PUI Sepsis from gram-negative bacteremia. Proteus Mirabella's bacteremia. Plan: Patient received fluids and broad-spectrum antibiotics and the ED. Will continue treatment of asthma exacerbation and pyelonephritis with Rocephin daily and doxycycline IV twice daily. Consultation to pulmonology acute hypoxia COVID-19 PUI Treat empirically with Decadron 6 mg daily COVID-19 and influenza NEG Basal/prandial insulin; A1c pending. Resume home medications FEN - Cardiac diet PPX - Lovenox FULL CODE Continue Augmentin Check C. 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 01/08/2021 Afebrile, some hypertension YESTERDAY Breathing on 3 L nasal cannula; apparently is waiting for home CPAP machine. Will obtain 6-minute walk OL TODAY ON RA Will discharge on Augmentin twice daily to complete a 2-week course. 3 LARGE WATERY FOUL SMELLING STOOLS TODAY SINCE 3 AM History of Present Illness History of Present Illness Patient is a 40 old male with past medical history asthma, hypertension, DM2, presents to the ER with complaints of worsening shortness of breath over the past 2 days. Reports associated nausea, vomiting, diarrhea, body aches, fever, chills, and polyuria. He has been taking his home albuterol inhaler, symptoms acutely worsened when he ran out with this medication. Upon arrival to the ED he was tachypnea, febrile, saturating 99% on [address] chest/abdomen/pelvis obtained on admission showed subtle right perinephric stranding; gallstones, no PE or chest abnormality. Will admit patient for further medical management. 01/07/2021 Afebrile, some hypertension this morning. Breathing on 3 L nasal cannula; apparently is waiting for home CPAP machine. Will obtain 6-minute walk prior to discharge tomorrow. Will discharge tomorrow on Augmentin twice daily to comp lete a 2-week course. 01/06/2021 Afebrile. Feeling well today. Speaking to me on room air at the time of my evaluation. Continue IV Rocephin. Anticipate discharge Friday on cefdinir. 01/05/2021 Patient seen and evaluated bedside. States he feels better, denies fever. Denies chest pain or diarrhea. Discussed with ID, will continue on IV Rocephin for now, and likely switch to cefdinir 100 mg p.o. twice daily for 10 days when ready to discharge likely on Friday. At that time will obtain 6-minute walk. Still breathing on 2 L nasal cannula; will need 6-minute walk prior to discharge due to suspected obesity hypoventilation syndrome or DENNIS. 01/04/2021 Patient seen and evaluated bedside. He is afebrile, currently breathing on 2 L nasal cannula. He is COVID-19 negative. Urine and blood cultures positive for Proteus mirabilis; sensitivities largely pansensitive except resistant to nitrofurantoin and tetracycline.. Will continue treatment of his pyelonephritis with Zosyn, per ID. He still complains of epigastric pain pain with deep inspiration, and flank pain. Some right upper quadrant tenderness on exam, he does report some pain after eating. On admission CT did show cholelithiasis. Will obtain ultrasound to rule out cholecystitis. Discussed with RN. 01/03/2021 Afebrile, currently breathing on 2 L nasal cannula. He denies any sensation of shortness of breath. Discussed with Dr. Luo, will concern for COVID-[address] results. COVID-19 test still pending at this time. Urine cultures positive for Proteus mirabilis; blood cultures positive for Proteus mirabilis as well. Continue treatment for pyelonephritis with Zosyn, per ID. Will follow sensitivities. If COVID-19 positive, will initiate remdesivir. Vitals Vitals Vital Signs Date Time Temp Pulse Resp B/P (MAP) Pulse Ox O2 Delivery O2 Flow Rate FiO2 01/08/21 07:49 98.2 86 22 135/68 (90) 99 Nasal Cannula 3.0 98.2 Physical Exam Physical Exam GENERAL: Alert, oriented x 3, morbidly obese male, nontoxic appearing, lying in bed comfortably, HEENT: Normocephalic, atraumatic. Anicteric. No thrush. NECK: Fullness present. LUNGS: Decreased breath sounds bilaterally HEART: S1, S2. ABDOMEN: Morbidly obese. Bowel sounds present, no rebound or guarding EXTREMITIES: No edema, no cyanosis. DERMATOLOGIC: Warm and dry. No generalized rash. NEUROLOGIC: Alert, oriented x 3, grossly nonfocal. PSYCHIATRIC: Cooperative, appropriate mood and affect. General: Alert, Oriented X3, Cooperative, No acute distress Heart: Regular rate Lungs: Clear Abdomen: Normal bowel sounds, Soft, No tenderness, Other (Right upper quadrant tenderness) Extremities: No clubbing, No cyanosis Skin: No rashes Labs LABS Procedure Result URINE CULTURE Final Final GREATER THAN 100,000 CFU/ML GRAM NEGATIVE RODS on 01/03/21 at 0821 FINAL ID= [PROTEUS MIRABILIS] Testing Performed by: [address] [address] For Inquires, the Physician may contact the Microbiology department at [phone] PROTEUS MIRABILIS ANTIMICROBIAL SUSCEPTIBILITY Final Comment NEG EMMA 56 PROTEUS MIRABILIS ANTIBIOTIC RESULT INTERPRETATION AMPICILLIN/SULBACTAM <=4/2 S AMIKACIN <=16 S AMPICILLIN <=8 S AMOXICILLIN/K CLAVULANATE <=8/4 S AZTREONAM <=4 S CEFTRIAXONE <=1 S CEFTAZIDIME <=1 S CEFOTAXIME <=2 S CEFOXITIN <=8 S CEFAZOLIN 4 S CIPROFLOXACIN <=0.25 S CEFEPIME <=2 S CEFUROXIME <=4 S CEFTAZIDIME/AVIBACTAM <=4 S ERTAPENEM <=0.5 S NITROFURANTOIN >64 R* GENTAMICIN <=2 S LEVOFLOXACIN <=0.5 S MEROPENEM <=1 S PIPERACILLIN/TAZOBACTAM <=8 S TRIMETHOPRIM/SULFAMETHOXAZOLE <=0.5/9.5 S TETRACYCLINE >8 R TOBRAMYCIN <=2 S PATIENT: GIO CORRALES AACCOUNT: [id number] : 1980 LOCATION: [address] [place] [address] AGE: 40 SEX: M EXAM STATUS: ADM IN ORD. PHYSICIAN: DELILAH SQUIRES MD REASON: cholecyctisitis PROCEDURE: ABDOMEN LTD EXAMINATION: RIGHT UPPER QUADRANT ULTRASOUND CLINICAL HISTORY: Right upper quadrant pain concerning for cholecystitis TECHNIQUE: Sonography of the right upper quadrant was performed. COMPARISON: CT chest/abdomen/pelvis 01/01/2021 FINDINGS: Significantly limited evaluation secondary to patient body habitus, limited mobility, and prominent bowel gas. Pancreas: Obscured by prominent overlying bowel gas. Liver: Mild to moderately enlarged. - Echotexture: Homogeneous - Echogenicity: Increased, suggestive of steatosis - Surface contour: Smooth - Lesions: None. Biliary: No intrahepatic biliary duct dilation. - CBD: 4 mm. - Gallbladder: Normal caliber. - Contents: Cholelithiasis. - Wall: No abnormal thickening. - Other: No pericholecystic fluid. Right Kidney: Not visualized. Ascites: None. Aorta/IVC: Poorly visualized. IMPRESSION: Significantly limited evaluation as described. Cholelithiasis without evidence of acute cholecystitis. Hepatomegaly with findings suggestive of steatosis. Electronically signed by: Patricio Avila DO (01/04/2021 5:50 PM) [id number] DICTATED and SIGNED BY: PATRICIO AVILA DO DATE: 01/04/21 [id number] INDICATION: Flank pain, shortness of breath TECHNIQUE: Sequential axial images through the chest, abdomen and pelvis obtained following the administration of 100 mL of Omni 350 IV contrast. Sagittal and coronal reformatted images were reconstructed from the axial data and reviewed. Comparisons: None FINDINGS: Visualized portions of the thyroid are unremarkable. No enlarged mediastinal lymph nodes. Heart size is normal. No pericardial effusion. Thoracic aorta has a normal course and caliber. Pulmonary artery is not enlarged. Airways are patent. No consolidation or pneumothorax. No suspicious lung nodules are identified. No pleural effusion or thickening Liver, spleen, pancreas, and adrenals are unremarkable. Gallstones are noted within the gallbladder. Subtle right perinephric stranding. No hydronephrosis. No renal or ureteral calculi are identified. Bladder is decompressed not well evaluated. Prostate is not enlarged. Large and small bowel are unremarkable. Appendix is normal. No free intra- abdominal air or fluid. No obstruction. Abdominal aorta has a normal course and caliber. Abdominal vasculature is patent. No enlarged intra-abdominal lymph nodes are identified. No suspicious osseous lesions or acute fractures. IMPRESSION: 1. Markedly Limited evaluation secondary to body habitus and movement at time of contrast bolus timing. Examination is nondiagnostic for pulmonary embolus. 2. Essentially a noncontrast CT of the chest was performed. No abnormalities are identified in the chest. 3. Gallstones and within the gallbladder. Correlate with symptomatology. 4. Subtle right perinephric stranding. Correlate with urinalysis for infection. Exposure: One or more of the following in the visualized dose reduction techniques were utilized for this examination: 1. Automated exposure control 2. Adjustment of the MA and/or KV according to patient size 3. Use of iterative of reconstructive technique Electronically signed by: Manuel Arzola MD (01/01/2021 11:29 PM) [facility] DICTATED and SIGNED BY: MANUEL ARZOLA MD DATE: 01/01/21 [id number] 0 Laboratory Tests Test 01/07/21 11:39 01/07/21 16:55 01/07/21 19:41 01/08/21 07:42 Glucose (Fingerstick) 185 mg/dL (70-99) 116 mg/dL (70-99) 193 mg/dL (70-99) 158 mg/dL (70-99) Assessment and Plan Assessmemt and Plan Problems Medical Problems: (1) Hypomagnesemia Status: Acute (2) Pyelonephritis Status: Acute (3) Septic shock Status: Acute (4) Suspected 2019 novel coronavirus infection Status: Acute Comment Review of Relevant I have reviewed the following items lacho (where applicable) has been applied. Labs Laboratory Tests Test 01/06/21 12:04 01/06/21 16:55 01/06/21 19:51 01/07/21 03:00 Glucose (Fingerstick) 78 mg/dL (70-99) 124 mg/dL (70-99) 190 mg/dL (70-99) White Blood Count 12.9 x10^3/uL (4.0-11.0) Red Blood Count 4.77 x10^6/uL (4.30-5.70) Hemoglobin 11.8 g/dL (13.0-17.5) Hematocrit 36.3 % (39.0-53.0) Mean Corpuscular Volume 76 fL (79-100) Mean Corpuscular Hemoglobin 25 pg (25-35) Mean Corpuscular Hemoglobin Concent 33 g/dL (31-37) Red Cell Distribution Width 15.1 % (11.5-14.5) Platelet Count 379 x10^3/uL (140-400) Neutrophils (%) (Auto) 75 % (31-73) Lymphocytes (%) (Auto) 14 % (24-48) Monocytes (%) (Auto) 9 % (0-9) Eosinophils (%) (Auto) 2 % (0-3) Basophils (%) (Auto) 0 % (0-3) Neutrophils # (Auto) 9.6 x10^3/uL (1.8-7.7) Lymphocytes # (Auto) 1.8 x10^3/uL (1.0-4.8) Monocytes # (Auto) 1.2 x10^3/uL (0.0-1.1) Eosinophils # (Auto) 0.2 x10^3/uL (0.0-0.7) Basophils # (Auto) 0.0 x10^3/uL (0.0-0.2) Sodium Level 140 mmol/L (136-145) Potassium Level 4.2 mmol/L (3.5-5.1) Chloride Level 101 mmol/L (98-107) Carbon Dioxide Level 28 mmol/L (21-32) Anion Gap 11 (6-14) Blood Urea Nitrogen 14 mg/dL (8-26) Creatinine 0.9 mg/dL (0.7-1.3) Estimated GFR (Cockcroft-Gault) 112.0 Glucose Level 125 mg/dL (70-99) Calcium Level 7.9 mg/dL (8.5-10.1) Test 01/07/21 07:34 01/07/21 11:39 01/07/21 16:55 01/07/21 19:41 Glucose (Fingerstick) 116 mg/dL (70-99) 185 mg/dL (70-99) 116 mg/dL (70-99) 193 mg/dL (70-99) Test 01/08/21 07:42 Glucose (Fingerstick) 158 mg/dL (70-99) Laboratory Tests Test 01/07/21 11:39 01/07/21 16:55 01/07/21 19:41 01/08/21 07:42 Glucose (Fingerstick) 185 mg/dL (70-99) 116 mg/dL (70-99) 193 mg/dL (70-99) 158 mg/dL (70-99) Microbiology 01/01/21 Urine Culture - Final, Complete 01/01/21 Antimicrobic Susceptibility - Final, Complete 01/01/21 Blood Culture - Final, Complete 01/01/21 Antimicrobic Susceptibility - Final, Complete Medications Current Medications Sodium Chloride 1,000 ml @ 1,000 mls/hr Q1H IV Last administered on 01/01/21at 21:52; Start 01/01/21 at 22:00; Stop 01/01/21 at 22:59; Status DC Fentanyl Citrate (Fentanyl 2ml Vial) 50 mcg 1X ONCE IVP Last administered on 01/01/21at 21:54; Start 01/01/21 at 22:00; Stop 01/01/21 at 22:01; Status DC Ondansetron HCl (Zofran) 4 mg 1X ONCE IVP Last administered on 01/01/21at 21:54; Start 01/01/21 at 22:00; Stop 01/01/21 at 22:01; Status DC Acetaminophen (Tylenol) 500 mg 1X ONCE PO Last administered on 01/01/21at 21:54; Start 01/01/21 at 22:00; Stop 01/01/21 at 22:01; Status DC Dexamethasone Sodium Phosphate (Decadron) 10 mg 1X ONCE IVP Last administered on 01/01/21at 21:55; Start 01/01/21 at 22:00; Stop 01/01/21 at 22:01; Status DC Ceftriaxone Sodium (Rocephin) 1 gm 1X ONCE IVP ; Start 01/01/21 at 22:30; Stop 01/01/21 at 22:20; Status DC Levofloxacin/ Dextrose 150 ml @ 100 mls/hr 1X ONCE IV Last administered on 01/02/21at 00:22; Start 01/01/21 at 23:00; Stop 01/02/21 at 00:29; Status DC Piperacillin Sod/ Tazobactam Sod 4.5 gm/Sodium Chloride 100 ml @ 200 mls/hr 1X ONCE IV Last administered on 01/02/21at 00:15; Start 01/01/21 at 23:00; Stop 01/01/21 at 23:29; Status DC Iohexol (Omnipaque 350 Mg/ml) 100 ml 1X ONCE IV ; Start 01/01/21 at 23:30; Stop 01/01/21 at 23:31; Status DC Info (CONTRAST GIVEN -- Rx MONITORING) 1 each PRN DAILY PRN MC SEE COMMENTS; Start 01/01/21 at 23:15; Stop 01/03/21 at 23:14; Status DC Morphine Sulfate (Morphine Sulfate) 4 mg 1X ONCE IV Last administered on 01/02/21at 00:21; Start 01/02/21 at 00:30; Stop 01/02/21 at 00:31; Status DC Sodium Chloride 1,000 ml @ 1,000 mls/hr 1X ONCE IV Last administered on 01/02/21at 02:18; Start 01/02/21 at 00:30; Stop 01/02/21 at 01:29; Status DC Sodium Chloride 500 ml @ 500 mls/hr 1X ONCE IV Last administered on 01/02/21at 03:20; Start 01/02/21 at 00:30; Stop 01/02/21 at 01:29; Status DC Ondansetron HCl (Zofran) 4 mg PRN Q8HRS PRN IV NAUSEA/VOMITING 1ST CHOICE; Start 01/02/21 at 02:45; Stop 01/03/21 at 02:44; Status DC Fentanyl Citrate (Fentanyl 2ml Vial) 50 mcg PRN Q2HRS PRN IV SEVERE PAIN 7-10 Last administered on 01/02/21at 03:21; Start 01/02/21 at 02:45 Sodium Chloride 1,000 ml @ 125 mls/hr Q8H IV Last administered on 01/02/21at 17:38; Start 01/02/21 at 03:00; Stop 01/03/21 at 02:59; Status DC Acetaminophen (Tylenol) 650 mg PRN Q4HRS PRN PO FEVER > 100.3'F; Start 01/02/21 at 02:45; Stop 01/03/21 at 02:44; Status DC Insulin Human Lispro (HumaLOG) 0-5 UNITS TIDWMEALS SQ ; Start 01/02/21 at 08:00; Stop 01/02/21 at 07:18; Status DC Dextrose (Dextrose 50%-Water Syringe) 12.5 gm PRN Q15MIN PRN IV SEE COMMENTS; Start 01/02/21 at 02:45; Status Cancel Fluticasone/ Vilanterol (Breo Ellipta 100-25 Mcg) 1 puff DAILY INH Last administered on 01/07/21at 08:43; Start 01/02/21 at 09:00 Aspirin (Aspirin Chewable) 81 mg DAILY PO Last administered on 01/07/21at 08:41; Start 01/02/21 at 09:00 Atorvastatin Calcium (Lipitor) 40 mg QHS PO Last administered on 01/07/21 21:11; Start 01/02/21 at 21:00 Fluticasone Propionate (Flonase) 2 spray DAILY NS Last administered on 01/07/21 08:42; Start 01/02/21 at 09:00 Losartan Potassium (Cozaar) 50 mg DAILY PO Last administered on 01/07/21 08:41 ; Start 01/02/21 at 09:00 Montelukast Sodium (Singulair) 10 mg QHS PO Last administered on 01/07/21 21:11; Start 01/02/21 at 21:00 Trazodone HCl (Desyrel) 100 mg PRN QHS PRN PO INSOMNIA Last administered on 01/05/21 21:04; Start 01/02/21 at 07:15 Insulin Glargine (Lantus Syringe) 30 unit BID SQ Last administered on 01/07/21 21:15; Start 01/02/21 at 09:00 Insulin Human Lispro (HumaLOG) 30 units TIDWMEALS SQ Last administered on 4/18/21at 17:24; Start 01/02/21 at 08:00 Dextrose (Dextrose 50%-Water Syringe) 12.5 gm PRN Q15MIN PRN IV SEE COMMENTS; Start 01/02/21 at 07:15 Dextrose (Iv Dextrose 5%) 250 ml PRN Q15MIN PRN IV SEE COMMENTS; Start 01/02/21 at 07:15; Status Cancel Insulin Human Lispro (HumaLOG) 0-9 UNITS TIDWMEALS SQ Last administered on 01/07at 11:58; Start 01/02/21 at 08:00 Ondansetron HCl (Zofran) 4 mg PRN Q6HRS PRN IVP NAUSEA/VOMITING Last administered on 01/07/21at 08:41; Start 01/02/21 at 07:15 Al Hydroxide/Mg Hydroxide (Mylanta Plus Xs) 30 ml PRN Q3HRS PRN PO HEARTBURN / GAS; Start 01/02/21 at 07:15 Calcium Carbonate/ Glycine (Tums) 500 mg PRN Q3HRS PRN PO UPSET STOMACH; Start 01/02/21 at 07:15 Morphine Sulfate (Morphine Sulfate) 2 mg PRN Q1HR PRN IV PAIN; Start 01/02/21 at 07:15 Acetaminophen/ Hydrocodone Bitart (Lortab 5/325) 1 tab PRN Q4HRS PRN PO MILD PAIN 1-3; Start 01/02/21 at 07:15 Acetaminophen/ Hydrocodone Bitart (Lortab 5/325) 2 tab PRN Q4HRS PRN PO MODERATE PAIN, SEVERE PAIN Last administered on 01/08/21at 01:36; Start 01/02/21 at 07:15 Acetaminophen (Tylenol) 650 mg PRN Q6HRS PRN PO Headaches, Temp > 101.5F; Start 01/02/21 at 07:15 Magnesium Hydroxide (Milk Of Magnesia) 2,400 mg PRN Q12HR PRN PO CONSTIPATION; Start 01/02/21 at 07:15 Bisacodyl (Dulcolax Supp) 10 mg PRN DAILY PRN [place] CONSTIPATION-2ND CHOICE; Start 01/02/21 at 07:15 Enoxaparin Sodium (Lovenox 40mg Syringe) 40 mg Q24H SQ ; Start 01/02/21 at 07:15; Status UNV Dexamethasone Sodium Phosphate (Decadron) 6 mg DAILY IVP Last administered on 01/04/21at 09:06; Start 01/02/21 at 09:00; Stop 01/04/21 at 13:05; Status DC Enoxaparin Sodium (Lovenox 60mg Syringe) 60 mg Q12HR SQ Last administered on 01/07/21at 21:11; Start 01/02/21 at 09:00 Levofloxacin/ Dextrose 150 ml @ 100 mls/hr Q24H IV ; Start 01/02/21 at 21:00; Stop 01/02/21 at 10:00; Status DC Albuterol Sulfate (Ventolin Hfa) 1 puff PRN Q4HRS PRN INH WHEEZING Last administered on 01/04/21at 09:05; Start 01/02/21 at 09:30 Doxycycline Hyclate 100 mg/ Dextrose 100 ml @ 50 mls/hr Q12HR IV ; Start 01/02/21 at 11:00; Stop 01/02/21 at 12:17; Status DC Ceftriaxone Sodium (Rocephin) 2 gm Q24H IVP ; Start 01/02/21 at 11:00; Stop 01/02/21 at 12:17; Status DC Piperacillin Sod/ Tazobactam Sod (Zosyn Per Pharmacy) 1 each PRN DAILY PRN MC SEE COMMENTS; Start 01/02/21 at 12:15; Stop 01/05/21 at 13:50; Status DC Piperacillin Sod/ Tazobactam Sod 3.375 gm/Sodium Chloride 50 ml @ 100 mls/hr Q6HRS IV Last administered on 01/05/21at 11:51; Start 01/02/21 at 13:00; Stop 01/05/21 at 12:04; Status DC Ceftriaxone Sodium (Rocephin) 2 gm Q24H IVP Last administered on 01/06/21at 13:00; Start 01/05/21 at 13:00; Stop 01/07/21 at 08:20; Status DC Lactobacillus Rhamnosus (Culturelle) 1 cap BID PO Last administered on 01/07/21at 21:11; Start 01/05/21 at 21:00 Amoxicillin/ Clavulanate Potassium (Augmentin 875/ 125mg) 1 tab BID PO Last administered on 01/07/21at 21:11; Start 01/07/21 at 09:00 Hydralazine HCl (Apresoline Inj) 10 mg PRN Q4HRS PRN IVP ELEVATED BP, SEE CO MMENTS; Start 01/07/21 at 12:00 Active Scripts Active Hernando 5-325 Tablet (Acetaminophen/Hydrocodone Bitart) 1 Each Tablet 1 Tab PO PRN Q6HRS PRN 5 Days Pantoprazole Sodium (Pantoprazole Sodium) 40 Mg Tablet.dr 40 Mg PO DAILYAC 30 Days Montelukast Sodium Tablet (Montelukast Sodium) 10 Mg Tablet 10 Mg PO QHS 30 Days Cozaar (Losartan Potassium) 50 Mg Tablet 50 Mg PO DAILY 30 Days Combivent Respimat Inhal (Ipratropium/Albuterol Sulfate) 4 Gm Aer.w.adap 2 Inh IH QID 30 Days Prednisone 20 Mg Tablet 1 Tab PO DAILY 5 Days Doxycycline Hyclate 100 Mg Tablet 100 Mg PO BID 7 Days Sertraline Hcl 100 Mg Tablet 100 Mg PO DAILY 30 Days Trazodone Hcl 100 Mg Tablet 100 Mg PO PRN QHS PRN 30 Days Lantus Solostar (Insulin Glargine,Hum.rec.anlog) 100 Unit/1 Ml Insuln.pen 30 Unit SQ BID 30 Days Reported Novolog (Insulin Aspart) 100 Unit/1 Ml Cartridge 30 Unit SQ TIDWMEALS Atorvastatin Calcium 40 Mg Tablet 40 Mg PO QHS Fluticasone Propionate Nasal [place] (Fluticasone Propionate) 16 Gm Gonvick.susp 2 Spr NIRMAL DAILY Aspirin 81 Mg Tab.chew 1 Tab PO DAILY Vitals/I & O Vital Sign - Last 24 Hours 01/07/21 01/07/21 01/07/21 01/07/21 08:41 08:42 11:00 15:00 Temp 98.0 97.6 98.0 97.6 Pulse 73 99 87 Resp 20 16 B/P (MAP) 129/73 173/99 (123) 166/78 (107) Pulse Ox 99 100 O2 Delivery Nasal Cannula Nasal Cannula Nasal Cannula O2 Flow Rate 3.0 3.0 3.0 01/07/21 01/07/21 01/07/21 01/07/21 17:25 19:00 20:10 23:00 Temp 98.1 97.5 98.1 97.5 Pulse 89 88 Resp 20 20 B/P (MAP) 155/72 (99) 155/85 (108) Pulse Ox 100 100 O2 Delivery Nasal Cannula Nasal Cannula Nasal Cannula Nasal Cannula O2 Flow Rate 3.0 3.0 3.0 01/08/21 01/08/21 01/08/21 01/08/21 01:36 03:00 03:03 07:49 Temp 98.0 98.2 98.0 98.2 Pulse 86 86 Resp 18 22 18 22 B/P (MAP) 124/88 (100) 135/68 (90) Pulse Ox 100 99 100 99 O2 Delivery Nasal Cannula Nasal Cannula Nasal Cannula Nasal Cannula O2 Flow Rate 3.0 3.0 3.0 3.0 Intake and Output 01/07/21 01/07/21 01/08/21 15:00 23:00 07:00 Intake Total 240 ml 480 ml Output Total 1400 ml 1500 ml 850 ml Balance -1160 ml -1020 ml -850 ml Justicifation of Admission Dx: Justifications for Admission: Justification of Admission Dx: Yes TAMI BAR MD Jan 08, 2021 08:36
--- NOTE | 2021-01-08 08:48 | PDOC ---
PULMONARY PROGRESS NOTES DATE: 01/08/21 TIME: 08:47 Subjective Patient not more short of air, has clinical symptoms and signs of obstructive sleep apnea. Vitals Vital Signs Date Time Temp Pulse Resp B/P (MAP) Pulse Ox O2 Delivery O2 Flow Rate FiO2 01/08/21 07:49 98.2 86 22 135/68 (90) 99 Nasal Cannula 3.0 98.2 ROS: No Nausea, No Chest Pain, No Abdominal Pain, No Increase Cough General: Alert, Oriented X4, No acute distress Lungs: Clear Cardiovascular: S1 Abdomen: Soft, Other (obese) Neuro Exam: Alert Extremities: No Edema, Other (Some edema) Labs Laboratory Tests Test 01/06/21 12:04 01/06/21 16:55 01/06/21 19:51 01/07/21 03:00 Glucose (Fingerstick) 78 mg/dL (70-99) 124 mg/dL (70-99) 190 mg/dL (70-99) White Blood Count 12.9 x10^3/uL (4.0-11.0) Red Blood Count 4.77 x10^6/uL (4.30-5.70) Hemoglobin 11.8 g/dL (13.0-17.5) Hematocrit 36.3 % (39.0-53.0) Mean Corpuscular Volume 76 fL (79-100) Mean Corpuscular Hemoglobin 25 pg (25-35) Mean Corpuscular Hemoglobin Concent 33 g/dL (31-37) Red Cell Distribution Width 15.1 % (11.5-14.5) Platelet Count 379 x10^3/uL (140-400) Neutrophils (%) (Auto) 75 % (31-73) Lymphocytes (%) (Auto) 14 % (24-48) Monocytes (%) (Auto) 9 % (0-9) Eosinophils (%) (Auto) 2 % (0-3) Basophils (%) (Auto) 0 % (0-3) Neutrophils # (Auto) 9.6 x10^3/uL (1.8-7.7) Lymphocytes # (Auto) 1.8 x10^3/uL (1.0-4.8) Monocytes # (Auto) 1.2 x10^3/uL (0.0-1.1) Eosinophils # (Auto) 0.2 x10^3/uL (0.0-0.7) Basophils # (Auto) 0.0 x10^3/uL (0.0-0.2) Sodium Level 140 mmol/L (136-145) Potassium Level 4.2 mmol/L (3.5-5.1) Chloride Level 101 mmol/L (98-107) Carbon Dioxide Level 28 mmol/L (21-32) Anion Gap 11 (6-14) Blood Urea Nitrogen 14 mg/dL (8-26) Creatinine 0.9 mg/dL (0.7-1.3) Estimated GFR (Cockcroft-Gault) 112.0 Glucose Level 125 mg/dL (70-99) Calcium Level 7.9 mg/dL (8.5-10.1) Test 01/07/21 07:34 01/07/21 11:39 01/07/21 16:55 01/07/21 19:41 Glucose (Fingerstick) 116 mg/dL (70-99) 185 mg/dL (70-99) 116 mg/dL (70-99) 193 mg/dL (70-99) Test 01/08/21 07:42 Glucose (Fingerstick) 158 mg/dL (70-99) Laboratory Tests Test 01/07/21 11:39 01/07/21 16:55 01/07/21 19:41 01/08/21 07:42 Glucose (Fingerstick) 185 mg/dL (70-99) 116 mg/dL (70-99) 193 mg/dL (70-99) 158 mg/dL (70-99) Medications Active Scripts Medications Dose Route/Sig Max Daily Dose Days Date Category Novolog (Insulin Aspart) 100 Unit/1 Ml Cartridge 30 Unit SQ TIDWMEALS 01/02/21 Reported [place] 5-325 Tablet (Acetaminophen/Hydrocodone Bitart) 1 Each Tablet 1 Tab PO PRN Q6HRS PRN 5 09/26/20 Rx Pantoprazole Sodium (Pantoprazole Sodium) 40 Mg Tablet.dr 40 Mg PO DAILYAC 30 09/26/20 Rx Montelukast Sodium Tablet (Montelukast Sodium) 10 Mg Tablet 10 Mg PO QHS 30 09/26/20 Rx Cozaar (Losartan Potassium) 50 Mg Tablet 50 Mg PO DAILY 30 09/26/20 Rx Combivent Respimat Inhal (Ipratropium/Albuterol Sulfate) 4 Gm Aer.w.adap 2 Inh IH QID 30 09/26/20 Rx Prednisone 20 Mg Tablet 1 Tab PO DAILY 5 09/26/20 Rx Doxycycline Hyclate 100 Mg Tablet 100 Mg PO BID 7 09/26/20 Rx Sertraline Hcl 100 Mg Tablet 100 Mg PO DAILY 30 09/26/20 Rx Trazodone Hcl 100 Mg Tablet 100 Mg PO PRN QHS PRN 30 09/26/20 Rx Lantus Solostar (Insulin Glargine,Hum.rec.anlog) 100 Unit/1 Ml Insuln.pen 30 Unit SQ BID 30 09/26/20 Rx Atorvastatin Calcium 40 Mg Tablet 40 Mg PO QHS 12/09/18 Reported Fluticasone Propionate Nasal [place] (Fluticasone Propionate) 16 Gm [place].susp 2 Spr NIRMAL DAILY 12/09/18 Reported Aspirin 81 Mg Tab.chew 1 Tab PO DAILY 10/16/15 Reported Impression . IMPRESSION: 1. Acute hypoxic respiratory failure with high-grade fever. No definite infiltrates seen on the CT chest. 2. No significant tobacco history. 3. Morbid obesity with underlying sleep apnea. 4. Influenza screen negative. 5. Leukocytosis. 6. SARS-CoV-2 negative 7. UTI, per PCP 8. Sepsis from gram-negative bacteremia. 9. Proteus Mirabella's bacteremia. URINE CULTURE Final Final GREATER THAN 100,000 CFU/ML GRAM NEGATIVE RODS on 01/03/21 at 0821 FINAL ID= [PROTEUS MIRABILIS] Testing Performed by: [address] [address] For Inquires, the Physician may contact the Microbiology department at [phone] PROTEUS MIRABILIS Plan . Updated 01/08 Okay to discharge from my standpoint of view Outpatient polysomnogram Antibiotics per ID GI following up on C. difficile, and LFT updated 01/07 titrate oxygen to keep sats 90%, 6 min walk at DC SARS-CoV-2 negative Continue ABX per ID changed to po Educated on importance of weight loss Pt. would benefit from out patient sleep study preston the importance of diagnosis tx discussed advised to lose wt and exercise DVT/GI PPX D/W RN Updated 01/04 SARS-CoV-2 negative, continue current support Discontinue steroids DVT GI prophylaxis Antibiotics per ID DVT GI prophylax TOPHER POPE MD Jan 08, 2021 08:48
[2021-01-08 09:02] LABS: BASO % 0 % (0-3); EOS # 0.3 x10^3/uL (0.0-0.7); EOS % 2 % (0-3); HEMATOCRIT 38.4 % (39.0-53.0); HEMOGLOBIN 12.2 g/dL (13.0-17.5); LYMPH # 2.2 x10^3/uL (1.0-4.8); LYMPH % 16 % (24-48); MEAN CORPUSCULAR HEMOGLOBIN 24 pg (25-35); MEAN CORPUSCULAR HGB CONC 32 g/dL (31-37); MEAN CORPUSCULAR VOLUME 77 fL (79-100); MONO % 7 % (0-9); NEUT # 10.4 x10^3/uL (1.8-7.7); NEUT % 74 % (31-73); PLATELET COUNT 444 x10^3/uL (140-400); RED CELL DISTRIBUTION WIDTH 15.3 % (11.5-14.5)
[2021-01-08 09:07] LABS: CALCIUM 8.3 mg/dL (8.5-10.1); CREATININE 0.8 mg/dL (0.7-1.3); GFR 128.3; POTASSIUM 4.5 mmol/L (3.5-5.1)
[2021-01-08] MEDS: AMOXICILLIN/K CLAV 875/125MG TABLET. PO SCH ×2 (09:12→20:57)
[2021-01-08] MEDS: FLUTICASONE 50MCG/NASAL SPRAY 16GM BOTTLE. NS SCH (09:12)
[2021-01-08] MEDS: ASPIRIN CHEWABLE 81 MG TABLET. PO SCH (09:13)
[2021-01-08] MEDS: LACTOBACILLUS RHAMNOSUS GG 1 CAPSULE. PO SCH ×2 (09:13→20:57)
[2021-01-08] MEDS: LOSARTAN POTASSIUM 50 MG TABLET. PO SCH (09:14)
[2021-01-08] MEDS: FLUTICASONE/VILANTEROL 100/25 INHALER. INH SCH (09:15)
[2021-01-08] MEDS: INSULIN LISPRO 300 UNITS/3 ML VIAL. SQ SCH ×6 (09:34→17:23)
[2021-01-08] MEDS: INSULIN GLARGINE SYRINGE. SQ SCH ×2 (09:36→21:03)
[2021-01-08 11:00] VITALS: BP 132/76
--- NOTE | 2021-01-08 11:33 | PDOC ---
Infectious Disease Note Subjective: Subjective Patient feels better Has diarrhea Still remains on 3 L O2 by nasal cannula Vital Signs: Vital Signs Vital Signs Date Time Temp Pulse Resp B/P (MAP) Pulse Ox O2 Delivery O2 Flow Rate FiO2 01/08/21 09:43 Nasal Cannula 3.0 01/08/21 09:38 20 99 01/08/21 09:14 86 135/68 01/08/21 07:49 98.2 98.2 Physical Exam: PHYSICAL EXAM GENERAL: Alert, oriented x 3, morbidly obese male, nontoxic appearing, lying in bed comfortably, HEENT: Normocephalic, atraumatic. Anicteric. No thrush. NECK: Fullness present. LUNGS: Decreased breath sounds bilaterally HEART: S1, S2. ABDOMEN: Morbidly obese. Bowel sounds present, no rebound or guarding EXTREMITIES: No edema, no cyanosis. DERMATOLOGIC: Warm and dry. No generalized rash. NEUROLOGIC: Alert, oriented x 3, grossly nonfocal. PSYCHIATRIC: Cooperative, appropriate mood and affect. Medications: Inpatient Meds: Medications reviewed. Labs: Lab Laboratory Tests Test 01/07/21 11:39 01/07/21 16:55 01/07/21 19:41 01/08/21 07:42 Glucose (Fingerstick) 185 mg/dL (70-99) 116 mg/dL (70-99) 193 mg/dL (70-99) 158 mg/dL (70-99) Test 01/08/21 08:20 01/08/21 11:15 White Blood Count 14.0 x10^3/uL (4.0-11.0) Red Blood Count 5.00 x10^6/uL (4.30-5.70) Hemoglobin 12.2 g/dL (13.0-17.5) Hematocrit 38.4 % (39.0-53.0) Mean Corpuscular Volume 77 fL (79-100) Mean Corpuscular Hemoglobin 24 pg (25-35) Mean Corpuscular Hemoglobin Concent 32 g/dL (31-37) Red Cell Distribution Width 15.3 % (11.5-14.5) Platelet Count 444 x10^3/uL (140-400) Neutrophils (%) (Auto) 74 % (31-73) Lymphocytes (%) (Auto) 16 % (24-48) Monocytes (%) (Auto) 7 % (0-9) Eosinophils (%) (Auto) 2 % (0-3) Basophils (%) (Auto) 0 % (0-3) Neutrophils # (Auto) 10.4 x10^3/uL (1.8-7.7) Lymphocytes # (Auto) 2.2 x10^3/uL (1.0-4.8) Monocytes # (Auto) 1.0 x10^3/uL (0.0-1.1) Eosinophils # (Auto) 0.3 x10^3/uL (0.0-0.7) Basophils # (Auto) 0.0 x10^3/uL (0.0-0.2) Sodium Level 138 mmol/L (136-145) Potassium Level 4.5 mmol/L (3.5-5.1) Chloride Level 99 mmol/L (98-107) Carbon Dioxide Level 30 mmol/L (21-32) Anion Gap 9 (6-14) Blood Urea Nitrogen 11 mg/dL (8-26) Creatinine 0.8 mg/dL (0.7-1.3) Estimated GFR (Cockcroft-Gault) 128.3 Glucose Level 162 mg/dL (70-99) Calcium Level 8.3 mg/dL (8.5-10.1) Glucose (Fingerstick) 105 mg/dL (70-99) Objective: Assessment: 1. Sepsis from gram-negative bacteremia. 2. Proteus Mirabella's bacteremia. 3. Fever. 4. Leukocytosis. 5. Lactic acidosis. 6. Proteus mirabilis urinary tract infection. 7. Nausea. 8. Morbid obesity. 9. Diabetes mellitus type 2. 10. Covid PCR negative 11. Cholelithiasis 12. Hypoxic respiratory failure, possible DENNIS Plan: Plan of Care Continue Augmentin Check C. difficile PCR Trend WBC 14 K today Probiotics May need repeat imaging Pulmonary team following Continue supportive care ZIGGY ROBERTSON MD Jan 08, 2021 11:33
--- NOTE | 2021-01-08 13:07 | NUR ---
SW following for discharge planning. SW spoke with RN and reviewed chart. Pt will likely discharge home self-care today, 01/08. Pt on PO Augmentin. Spoke with RT. 6 min walk results indicated no home 02 setup needed. No anticipated SW needs on discharge. Addendum: 01/09/21 at 1618 by ANGELIQUE LEE Discharge held 01/08. Pt discharge home today, 01/09 self-care. No further SW needs at this time.
--- NOTE | 2021-01-08 14:37 | RAD ---
EXAM: Chest, single view. HISTORY: Hypoxia. COMPARISON: 09/25/2020 FINDINGS: A frontal view of the chest is obtained. There is stable mild diffuse interstitial prominen ce without jennifer congestion. There is suspected linear atelectasis within the right middle lobe. Ther e is no consolidation, pleural effusion or pneumothorax. The heart is normal in size. IMPRESSION: Stable diffuse interstitial prominence with suspected linear right middle lobe atelectasi s. No consolidated infiltrate is seen. Electronically signed by: Raven Gordon MD (01/08/2021 2:35 PM) [id number]
[2021-01-08 15:00] VITALS: BP 121/73
--- NOTE | 2021-01-08 15:06 | PDOC2 ---
GI CONSULT Date of Service: DATE: 01/08/21 TIME: 14:54 Reason For Consult: possible C Diff HPI: HPI: 40 y/o male admitted several days ago w/ SOA. Has bacteremia and UTI. He tells me he had some vomiting when he arrived but that diarrhea did not begin until antibiotics were started after admission. Tolerating diet now. Having 4-5 loose stools daily - "uncontrollable." Also has some right-sided pain that is worse w/ movement and was worse w/ urinating at one point. No change w/ eating or stooling. H/o GERD improved w/ Zantac in the past - currently untreated. No dysphagia, hematemesis, constipation, hematochezia, melena, or weight changes. No previous EGD or colonoscopy. No GB, liver, pancreas, or PUD History. On ASA. PMH: PMH: HTN, asthma, DM, DENNIS, OA, peripheral neuropathy cataract removal FH: Family History: Cancer (uncle - pancreatic, mother - ?colon) Social History: Smoke: Quit ALCOHOL: none Drugs: None ROS: GEN: Denies fevers, chills, sweats HEENT: Denies blurred vision, sore throat CV: Denies chest pain RESP: +SOA GI: Per HPI : Denies hematuria, dysuria ENDO: Denies weight changes NEURO: Denies confusion, dizziness MSK: Denies weakness, joint pain/swelling SKIN: Denies jaundice, pruritus Vitals: Vitals: Vital Signs Date Time Temp Pulse Resp B/P (MAP) Pulse Ox O2 Delivery O2 Flow Rate FiO2 01/08/21 11:00 97.9 96 20 132/76 (94) 98 Room Air 97.9 01/08/21 09:43 3.0 Labs: Labs: Laboratory Tests Test 01/07/21 16:55 01/07/21 19:41 01/08/21 07:42 01/08/21 08:20 Glucose (Fingerstick) 116 mg/dL (70-99) 193 mg/dL (70-99) 158 mg/dL (70-99) White Blood Count 14.0 x10^3/uL (4.0-11.0) Red Blood Count 5.00 x10^6/uL (4.30-5.70) Hemoglobin 12.2 g/dL (13.0-17.5) Hematocrit 38.4 % (39.0-53.0) Mean Corpuscular Volume 77 fL (79-100) Mean Corpuscular Hemoglobin 24 pg (25-35) Mean Corpuscular Hemoglobin Concent 32 g/dL (31-37) Red Cell Distribution Width 15.3 % (11.5-14.5) Platelet Count 444 x10^3/uL (140-400) Neutrophils (%) (Auto) 74 % (31-73) Lymphocytes (%) (Auto) 16 % (24-48) Monocytes (%) (Auto) 7 % (0-9) Eosinophils (%) (Auto) 2 % (0-3) Basophils (%) (Auto) 0 % (0-3) Neutrophils # (Auto) 10.4 x10^3/uL (1.8-7.7) Lymphocytes # (Auto) 2.2 x10^3/uL (1.0-4.8) Monocytes # (Auto) 1.0 x10^3/uL (0.0-1.1) Eosinophils # (Auto) 0.3 x10^3/uL (0.0-0.7) Basophils # (Auto) 0.0 x10^3/uL (0.0-0.2) Sodium Level 138 mmol/L (136-145) Potassium Level 4.5 mmol/L (3.5-5.1) Chloride Level 99 mmol/L (98-107) Carbon Dioxide Level 30 mmol/L (21-32) Anion Gap 9 (6-14) Blood Urea Nitrogen 11 mg/dL (8-26) Creatinine 0.8 mg/dL (0.7-1.3) Estimated GFR (Cockcroft-Gault) 128.3 Glucose Level 162 mg/dL (70-99) Calcium Level 8.3 mg/dL (8.5-10.1) Test 01/08/21 11:15 Glucose (Fingerstick) 105 mg/dL (70-99) Allergies: Coded Allergies: Sulfa (Sulfonamide Antibiotics) (Verified Allergy, Intermediate, 12/20/15) adhesive tape (Verified Allergy, Intermediate, skin sensitive to tape, 12/20/15) Medications: see emr Imaging: Imaging: C/A/P CT IMPRESSION: 1. Markedly Limited evaluation secondary to body habitus and movement at time of contrast bolus timing. Examination is nondiagnostic for pulmonary embolus. 2. Essentially a noncontrast CT of the chest was performed. No abnormalities are identified in the chest. 3. Gallstones and within the gallbladder. Correlate with symptomatology. 4. Subtle right perinephric stranding. Correlate with urinalysis for infection. Abd US IMPRESSION: Significantly limited evaluation as described. Cholelithiasis without evidence of acute cholecystitis. Hepatomegaly with findings suggestive of steatosis. CXR IMPRESSION: Stable diffuse interstitial prominence with suspected linear right middle lobe atelectasis. No consolidated infiltrate is seen. PE: GEN: NAD HEENT: Atraumatic, PERRL LUNGS: diminished anteriorly HEART: RRR distant ABD: morbidly obese, soft, non-tender, BS+ SKIN: No rashes, no jaundice NEURO/PSYCH: A & O 3 A/P: A/P: A/C resp failure, bacteremia, UTI, diarrhea Leukocytosis, microcytic anemia (elevated ALT and Alk Phos on 01/01 - not rechecked) GERD CRC screen, ?FH colon cancer - no previous colonoscopy Cholelithiasis Hepatomegaly, hepatic steatosis COVID negative BMI 66 -- Await C Diff. Add PPI. Check iron. Recheck LFTs. NEAL ABDALLA Jan 08, 2021 15:06
[2021-01-08 15:35] LABS: ALBUMIN 2.6 g/dL (3.4-5.0); DIRECT BILIRUBIN 0.1 mg/dL (0.0-0.2); TOTAL BILIRUBIN 0.3 mg/dL (0.2-1.0); TOTAL PROTEIN 7.8 g/dL (6.4-8.2)
[2021-01-08] MEDS: PANTOPRAZOLE 40 MG TABLET.DR. PO SCH (17:14)
[2021-01-08 19:00] VITALS: BP 122/70
[2021-01-08] MEDS: MONTELUKAST SODIUM 10 MG TABLET. PO SCH (20:57)
[2021-01-08] MEDS: ATORVASTATIN CALCIUM 40 MG TABLET. PO SCH (20:57)
[2021-01-08 22:38] VITALS: BP 128/74
[2021-01-09 03:00] VITALS: BP 134/70
[2021-01-09 07:00] VITALS: BP 152/78
[2021-01-09] MEDS: INSULIN LISPRO 300 UNITS/3 ML VIAL. SQ SCH ×4 (08:00→12:13)
[2021-01-09] MEDS: ASPIRIN CHEWABLE 81 MG TABLET. PO SCH (08:09)
[2021-01-09] MEDS: LACTOBACILLUS RHAMNOSUS GG 1 CAPSULE. PO SCH (08:09)
[2021-01-09] MEDS: FLUTICASONE 50MCG/NASAL SPRAY 16GM BOTTLE. NS SCH (08:11)
[2021-01-09] MEDS: AMOXICILLIN/K CLAV 875/125MG TABLET. PO SCH (08:12)
[2021-01-09] MEDS: PANTOPRAZOLE 40 MG TABLET.DR. PO SCH (08:12)
[2021-01-09] MEDS: HYDROcodone/APAP 5/325MG 1 TAB TABLET PO PRN (08:13)
[2021-01-09] MEDS: FLUTICASONE/VILANTEROL 100/25 INHALER. INH SCH (08:14)
[2021-01-09] MEDS: LOSARTAN POTASSIUM 50 MG TABLET. PO SCH (08:18)
--- NOTE | 2021-01-09 08:37 | PDOC ---
PROGRESS NOTES Date of Service: DATE: 01/09/21 TIME: 08:36 Chief Complaint Chief Complaint IMPRESSION Sepsis Acute respiratory failure with hypoxia REMAINS ON 3 LITERS NC Right pyelonephritis DM2 with hyperglycemia Moderate malnutrition COVID-19 PUI Sepsis from gram-negative bacteremia. Proteus Mirabella's bacteremia. super morbid obesity Plan: Patient received fluids and broad-spectrum antibiotics and the ED. Will continue treatment of asthma exacerbation and pyelonephritis with Rocephin daily and doxycycline IV twice daily. Consultation to pulmonology acute hypoxia COVID-19 PUI Treat empirically with Decadron 6 mg daily COVID-19 and influenza NEG Basal/prandial insulin; A1c pending. Resume home medications FEN - Cardiac diet PPX - Lovenox FULL CODE Continue Augmentin Check C. difficile PCR ALLAN Trend WBC 14 K today Probiotics May need repeat imaging Dispo - inpatient for above; patient names his girlfriend as his surrogate decision-maker. 01/09 Afebrile, some hypertension 4-18 Breathing on 3 L nasal cannula; apparently i s waiting for home CPAP machine. Will obtain 6-minute walk TODAY ON RA Will discharge on Augmentin twice daily to complete a 2-week course. 3 LARGE WATERY FOUL SMELLING STOOLS YESTERDAY NONE TODAY, C DIFF NOT SENT due to formed stools d/c planning 33 min 01/08/2021 Afebrile, some hypertension YESTERDAY Breathing on 3 L nasal cannula; apparently is waiting for home CPAP machine. Will obtain 6-minute walk OL TODAY ON RA Will discharge on Augmentin twice daily to complete a 2-week course. 3 LARGE WATERY FOUL SMELLING STOOLS TODAY SINCE 3 AM History of Present Illness History of Present Illness Patient is a 40 old male with past medical history asthma, hypertension, DM2, presents to the ER with complaints of worsening shortness of breath over the past 2 days. Reports associated nausea, vomiting, diarrhea, body aches, fever, chills, and polyuria. He has been taking his home albuterol inhaler, symptoms acutely worsened when he ran out with this medication. Upon arrival to the ED he was tachypnea, febrile, saturating 99% on [address] chest/abdomen/pelvis obtained on admission showed subtle right perinephric stranding; gallstones, no PE or chest abnormality. Will admit patient for further medical management. 01/07/2021 Afebrile, some hypertension this morning. Breathing on 3 L nasal cannula; apparently is waiting for home CPAP machine. Will obtain 6-minute walk prior to discharge tomorrow. Will discharge tomorrow on Augmentin twice daily to complete a 2-week course. 01/06/2021 Afebrile. Feeling well today. Speaking to me on room air at the time of my evaluation. Continue IV Rocephin. Anticipate discharge Friday on cefdinir. 01/05/2021 Patient seen and evaluated bedside. States he feels better, denies fever. Denies chest pain or diarrhea. Discussed with ID, will continue on IV Rocephin for now, and likely switch to cefdinir 100 mg p.o. twice daily for 10 days when ready to discharge likely on Friday. At that time will obtain 6-minute walk. Still breathing on 2 L nasal cannula; will need 6-minute walk prior to discharge due to suspected obesity hypoventilation syndrome or DENNIS. 01/04/2021 Patient seen and evaluated bedside. He is afebrile, currently breathing on 2 L nasal cannula. He is COVID-19 negative. Urine and blood cultures positive for Proteus mirabilis; sensitivities largely pansensitive except resistant to nitro furantoin and tetracycline.. Will continue treatment of his pyelonephritis with Zosyn, per ID. He still complains of epigastric pain pain with deep inspiration, and flank pain. Some right upper quadrant tenderness on exam, he does report some pain after eating. On admission CT did show cholelithiasis. Will obtain ultrasound to rule out cholecystitis. Discussed with RN. 01/03/2021 Afebrile, currently breathing on 2 L nasal cannula. He denies any sensation of shortness of breath. Discussed with Dr. Luo, will concern for COVID-[address] results. COVID-19 test still pending at this time. Urine cultures positive for Proteus mirabilis; blood cultures positive for Proteus mirabilis as well. Continue treatment for pyelonephritis with Zosyn, per ID. Will follow sensitivities. If COVID-19 positive, will initiate remdesivir. Vitals Vitals Vital Signs Date Time Temp Pulse Resp B/P (MAP) Pulse Ox O2 Delivery O2 Flow Rate FiO2 01/09/21 08:18 94 152/78 01/09/21 08:13 20 96 Room Air 01/09/21 07:00 98.4 3.0 98.4 Physical Exam Physical Exam GENERAL: Alert, oriented x 3, morbidly obese male, nontoxic appearing, lying in bed comfortably, HEENT: Normocephalic, atraumatic. Anicteric. No thrush. NECK: Fullness present. LUNGS: Decreased breath sounds bilaterally HEART: S1, S2. ABDOMEN: Morbidly obese. Bowel sounds present, no rebound or guarding EXTREMITIES: No edema, no cyanosis. DERMATOLOGIC: Warm and dry. No generalized rash. NEUROLOGIC: Alert, oriented x 3, grossly nonfocal. PSYCHIATRIC: Cooperative, appropriate mood and affect. General: Alert, Oriented X3, Cooperative, No acute distress Heart: Regular rate, Normal S1, Normal S2 Lungs: Clear Abdomen: Normal bowel sounds, Soft, No tenderness, Other (Right upper quadrant tenderness resolved , very obese) Extremities: No clubbing, No cyanosis Skin: No rashes Labs LABS Laboratory Tests Test 01/08/21 11:15 01/08/21 16:21 01/08/21 20:05 01/08/21 23:49 Glucose (Fingerstick) 105 mg/dL (70-99) 101 mg/dL (70-99) 126 mg/dL (70-99) 62 mg/dL (70-99) Test 01/09/21 00:13 01/09/21 07:33 Glucose (Fingerstick) 73 mg/dL (70-99) 137 mg/dL (70-99) Assessment and Plan Assessmemt and Plan Problems Medical Problems: (1) Hypomagnesemia Status: Acute (2) Pyelonephritis Status: Acute (3) Septic shock Status: Acute (4) Suspected 2019 novel coronavirus infection Status: Acute Comment Review of Relevant I have reviewed the following items lacho (where applicable) has been applied. Labs Laboratory Tests Test 01/07/21 11:39 01/07/21 16:55 01/07/21 19:41 01/08/21 07:42 Glucose (Fingerstick) 185 mg/dL (70-99) 116 mg/dL (70-99) 193 mg/dL (70-99) 158 mg/dL (70-99) Test 01/08/21 08:20 01/08/21 11:15 01/08/21 16:21 01/08/21 20:05 White Blood Count 14.0 x10^3/uL (4.0-11.0) Red Blood Count 5.00 x10^6/uL (4.30-5.70) Hemoglobin 12.2 g/dL (13.0-17.5) Hematocrit 38.4 % (39.0-53.0) Mean Corpuscular Volume 77 fL (79-100) Mean Corpuscular Hemoglobin 24 pg (25-35) Mean Corpuscular Hemoglobin Concent 32 g/dL (31-37) Red Cell Distribution Width 15.3 % (11.5-14.5) Platelet Count 444 x10^3/uL (140-400) Neutrophils (%) (Auto) 74 % (31-73) Lymphocytes (%) (Auto) 16 % (24-48) Monocytes (%) (Auto) 7 % (0-9) Eosinophils (%) (Auto) 2 % (0-3) Basophils (%) (Auto) 0 % (0-3) Neutrophils # (Auto) 10.4 x10^3/uL (1.8-7.7) Lymphocytes # (Auto) 2.2 x10^3/uL (1.0-4.8) Monocytes # (Auto) 1.0 x10^3/uL (0.0-1.1) Eosinophils # (Auto) 0.3 x10^3/uL (0.0-0.7) Basophils # (Auto) 0.0 x10^3/uL (0.0-0.2) Sodium Level 138 mmol/L (136-145) Potassium Level 4.5 mmol/L (3.5-5.1) Chloride Level 99 mmol/L (98-107) Carbon Dioxide Level 30 mmol/L (21-32) Anion Gap 9 (6-14) Blood Urea Nitrogen 11 mg/dL (8-26) Creatinine 0.8 mg/dL (0.7-1.3) Estimated GFR (Cockcroft-Gault) 128.3 Glucose Level 162 mg/dL (70-99) Calcium Level 8.3 mg/dL (8.5-10.1) Iron Level 49 ug/dL (65-175) Total Iron Binding Capacity 232 ug/dL (250-450) Iron Saturation 21 % (15-34) Total Bilirubin 0.3 mg/dL (0.2-1.0) Direct Bilirubin 0.1 mg/dL (0.0-0.2) Aspartate Amino Transf (AST/SGOT) 32 U/L (15-37) Alanine Aminotransferase (ALT/SGPT) 68 U/L (16-63) Alkaline Phosphatase 130 U/L (46-116) Total Protein 7.8 g/dL (6.4-8.2) Albumin 2.6 g/dL (3.4-5.0) Glucose (Fingerstick) 105 mg/dL (70-99) 101 mg/dL (70-99) 126 mg/dL (70-99) Test 01/08/21 23:49 01/09/21 00:13 01/09/21 07:33 Glucose (Fingerstick) 62 mg/dL (70-99) 73 mg/dL (70-99) 137 mg/dL (70-99) Laboratory Tests Test 01/08/21 11:15 01/08/21 16:21 01/08/21 20:05 01/08/21 23:49 Glucose (Fingerstick) 105 mg/dL (70-99) 101 mg/dL (70-99) 126 mg/dL (70-99) 62 mg/dL (70-99) Test 01/09/21 00:13 01/09/21 07:33 Glucose (Fingerstick) 73 mg/dL (70-99) 137 mg/dL (70-99) Microbiology 01/01/21 Urine Culture - Final, Complete 01/01/21 Antimicrobic Susceptibility - Final, Complete 01/01/21 Blood Culture - Final, Complete 01/01/21 Antimicrobic Susceptibility - Final, Complete Medications Current Medications Sodium Chloride 1,000 ml @ 1,000 mls/hr Q1H IV Last administered on 01/01/21at 21:52; Start 01/01/21 at 22:00; Stop 01/01/21 at 22:59; Status DC Fentanyl Citrate (Fentanyl 2ml Vial) 50 mcg 1X ONCE IVP Last administered on 01/01/21at 21:54; Start 01/01/21 at 22:00; Stop 01/01/21 at 22:01; Status DC Ondansetron HCl (Zofran) 4 mg 1X ONCE IVP Last administered on 01/01/21at 21:54; Start 01/01/21 at 22:00; Stop 01/01/21 at 22:01; Status DC Acetaminophen (Tylenol) 500 mg 1X ONCE PO Last administered on 01/01/21at 21:54; Start 01/01/21 at 22:00; Stop 01/01/21 at 22:01; Status DC Dexamethasone Sodium Phosphate (Decadron) 10 mg 1X ONCE IVP Last administered on 01/01/21at 21:55; Start 01/01/21 at 22:00; Stop 01/01/21 at 22:01; Status DC Ceftriaxone Sodium (Rocephin) 1 gm 1X ONCE IVP ; Start 01/01/21 at 22:30; Stop 01/01/21 at 22:20; Status DC Levofloxacin/ Dextrose 150 ml @ 100 mls/hr 1X ONCE IV Last administered on 01/02/21at 00:22; Start 01/01/21 at 23:00; Stop 01/02/21 at 00:29; Status DC Piperacillin Sod/ Tazobactam Sod 4.5 gm/Sodium Chloride 100 ml @ 200 mls/hr 1X ONCE IV Last administered on 01/02/21at 00:15; Start 01/01/21 at 23:00; Stop 01/01/21 at 23:29; Status DC Iohexol (Omnipaque 350 Mg/ml) 100 ml 1X ONCE IV ; Start 01/01/21 at 23:30; Stop 01/01/21 at 23:31; Status DC Info (CONTRAST GIVEN -- Rx MONITORING) 1 each PRN DAILY PRN MC SEE COMMENTS; Start 01/01/21 at 23:15; Stop 01/03/21 at 23:14; Status DC Morphine Sulfate (Morphine Sulfate) 4 mg 1X ONCE IV Last administered on 01/02at 00:21; Start 01/02/21 at 00:30; Stop 01/02/21 at 00:31; Status DC Sodium Chloride 1,000 ml @ 1,000 mls/hr 1X ONCE IV Last administered on 01/02/21at 02:18; Start 01/02/21 at 00:30; Stop 01/02/21 at 01:29; Status DC Sodium Chloride 500 ml @ 500 mls/hr 1X ONCE IV Last administered on 01/02/21at 03:20; Start 01/02/21 at 00:30; Stop 01/02/21 at 01:29; Status DC Ondansetron HCl (Zofran) 4 mg PRN Q8HRS PRN IV NAUSEA/VOMITING 1ST CHOICE; Start 01/02/21 at 02:45; Stop 01/03/21 at 02:44; Status DC Fentanyl Citrate (Fentanyl 2ml Vial) 50 mcg PRN Q2HRS PRN IV SEVERE PAIN 7-10 Last administered on 01/02/21at 03:21; Start 01/02/21 at 02:45 Sodium Chloride 1,000 ml @ 125 mls/hr Q8H IV Last administered on 01/02/21at 17:38; Start 01/02/21 at 03:00; Stop 01/03/21 at 02:59; Status DC Acetaminophen (Tylenol) 650 mg PRN Q4HRS PRN PO FEVER > 100.3'F; Start 01/02/21 at 02:45; Stop 01/03/21 at 02:44; Status DC Insulin Human Lispro (HumaLOG) 0-5 UNITS TIDWMEALS SQ ; Start 01/02/21 at 08:00; Stop 01/02/21 at 07:18; Status DC Dextrose (Dextrose 50%-Water Syringe) 12.5 gm PRN Q15MIN PRN IV SEE COMMENTS; Start 01/02/21 at 02:45; Status Cancel Fluticasone/ Vilanterol (Breo Ellipta 100-25 Mcg) 1 puff DAILY INH Last administered on 01/09/21at 08:14; Start 01/02/21 at 09:00 Aspirin (Aspirin Chewable) 81 mg DAILY PO Last administered on 01/09/21at 08:09; Start 01/02/21 at 09:00 Atorvastatin Calcium (Lipitor) 40 mg QHS PO Last administered on 01/08/21at 20:57; Start 01/02/21 at 21:00 Fluticasone Propionate (Flonase) 2 spray DAILY NS Last administered on 01/09/21at 08:11; Start 01/02/21 at 09:00 Losartan Potassium (Cozaar) 50 mg DAILY PO Last administered on 01/09/21at 08:18; Start 01/02/21 at 09:00 Montelukast Sodium (Singulair) 10 mg QHS PO Last administered on 01/08/21at 20:57; Start 01/02/21 at 21:00 Trazodone HCl (Desyrel) 100 mg PRN QHS PRN PO INSOMNIA Last administered on 01/05/21at 21:04; Start 01/02/21 at 07:15 Insulin Glargine (Lantus Syringe) 30 unit BID SQ Last administered on 01/08/21at 21:03; Start 01/02/21 at 09:00 Insulin Human Lispro (HumaLOG) 30 units TIDWMEALS SQ Last administered on 01/09/21at 08:29; Start 01/02/21 at 08:00 Dextrose (Dextrose 50%-Water Syringe) 12.5 gm PRN Q15MIN PRN IV SEE COMMENTS Last administered on 01/09/21at 00:25; Start 01/02/21 at 07:15 Dextrose (Iv Dextrose 5%) 250 ml PRN Q15MIN PRN IV SEE COMMENTS; Start 01/02/21 at 07:15; Status Cancel Insulin Human Lispro (HumaLOG) 0-9 UNITS TIDWMEALS SQ Last administered on 01/08/21at 09:35; Start 01/02/21 at 08:00 Ondansetron HCl (Zofran) 4 mg PRN Q6HRS PRN IVP NAUSEA/VOMITING Last administered on 01/07/21at 08:41; Start 01/02/21 at 07:15 Al Hydroxide/Mg Hydroxide (Mylanta Plus Xs) 30 ml PRN Q3HRS PRN PO HEARTBURN / GAS; Start 01/02/21 at 07:15 Calcium Carbonate/ Glycine (Tums) 500 mg PRN Q3HRS PRN PO UPSET STOMACH; Start 01/02/21 at 07:15 Morphine Sulfate (Morphine Sulfate) 2 mg PRN Q1HR PRN IV PAIN; Start 01/02/21 at 07:15 Acetaminophen/ Hydrocodone Bitart (Lortab 5/325) 1 tab PRN Q4HRS PRN PO MILD PAIN 1-3; Start 01/02/21 at 07:15 Acetaminophen/ Hydrocodone Bitart (Lortab 5/325) 2 tab PRN Q4HRS PRN PO MODERATE PAIN, SEVERE PAIN Last administered on 01/09/21at 08:13; Start 01/02/21 at 07:15 Acetaminophen (Tylenol) 650 mg PRN Q6HRS PRN PO Headaches, Temp > 101.5F; Start 01/02/21 at 07:15 Magnesium Hydroxide (Milk Of Magnesia) 2,400 mg PRN Q12HR PRN PO CONSTIPATION; Start 01/02/21 at 07:15 Bisacodyl (Dulcolax Supp) 10 mg PRN DAILY PRN MO CONSTIPATION-2ND CHOICE; Start 01/02/21 at 07:15 Enoxaparin Sodium (Lovenox 40mg Syringe) 40 mg Q24H SQ ; Start 01/02/21 at 07:15; Status UNV Dexamethasone Sodium Phosphate (Decadron) 6 mg DAILY IVP Last administered on 01/04/21at 09:06; Start 01/02/21 at 09:00; Stop 01/04/21 at 13:05; Status DC Enoxaparin Sodium (Lovenox 60mg Syringe) 60 mg Q12HR SQ Last administered on 01/09/21at 08:13; Start 01/02/21 at 09:00 Levofloxacin/ Dextrose 150 ml @ 100 mls/hr Q24H IV ; Start 01/02/21 at 21:00; Stop 01/02/21 at 10:00; Status DC Albuterol Sulfate (Ventolin Hfa) 1 puff PRN Q4HRS PRN INH WHEEZING Last administered on 01/04/21at 09:05; Start 01/02/21 at 09:30 Doxycycline Hyclate 100 mg/ Dextrose 100 ml @ 50 mls/hr Q12HR IV ; Start at 11:00; Stop 01/02/21 at 12:17; Status DC Ceftriaxone Sodium (Rocephin) 2 gm Q24H IVP ; Start 01/02/21 at 11:00; Stop 12/21 12/10 at 12:17; Status DC Piperacillin Sod/ Tazobactam Sod (Zosyn Per Pharmacy) 1 each PRN DAILY PRN MC SEE COMMENTS; Start 01/02/21 at 12:15; Stop 01/05/21 at 13:50; Status DC Piperacillin Sod/ Tazobactam Sod 3.375 gm/Sodium Chloride 50 ml @ 100 mls/hr Q6HRS IV Last administered on 01/05/21at 11:51; Start 01/02/21 at 13:00; Stop 01/05/21 at 12:04; Status DC Ceftriaxone Sodium (Rocephin) 2 gm Q24H IVP Last administered on 01/06/21at 13:00; Start 01/05/21 at 13:00; Stop 01/07/21 at 08:20; Status DC Lactobacillus Rhamnosus (Culturelle) 1 cap BID PO Last administered on 01/09/21at 08:09; Start 01/05/21 at 21:00 Amoxicillin/ Clavulanate Potassium (Augmentin 875/ 125mg) 1 tab BID PO Last administered on 01/09/21at 08:12; Start 01/07/21 at 09:00 Hydralazine HCl (Apresoline Inj) 10 mg PRN Q4HRS PRN IVP ELEVATED BP, SEE COMMENTS; Start 01/07/21 at 12:00 Pantoprazole Sodium (Protonix) 40 mg DAILYAC PO Last administered on 01/09/21at 08:12; Start 01/08/21 at 16:30 Active Scripts Active Buford 5-325 Tablet (Acetaminophen/Hydrocodone Bitart) 1 Each Tablet 1 Tab PO PRN Q6HRS PRN 5 Days Pantoprazole Sodium (Pantoprazole Sodium) 40 Mg Tablet.dr 40 Mg PO DAILYAC 30 Days Montelukast Sodium Tablet (Montelukast Sodium) 10 Mg Tablet 10 Mg PO QHS 30 Days Cozaar (Losartan Potassium) 50 Mg Tablet 50 Mg PO DAILY 30 Days Combivent Respimat Inhal (Ipratropium/Albuterol Sulfate) 4 Gm Aer.w.adap 2 Inh IH QID 30 Days Prednisone 20 Mg Tablet 1 Tab PO DAILY 5 Days Doxycycline Hyclate 100 Mg Tablet 100 Mg PO BID 7 Days Sertraline Hcl 100 Mg Tablet 100 Mg PO DAILY 30 Days Trazodone Hcl 100 Mg Tablet 100 Mg PO PRN QHS PRN 30 Days Lantus Solostar (Insulin Glargine,Hum.rec.anlog) 100 Unit/1 Ml Insuln.pen 30 Unit SQ BID 30 Days Reported Novolog (Insulin Aspart) 100 Unit/1 Ml Cartridge 30 Unit SQ TIDWMEALS Atorvastatin Calcium 40 Mg Tablet 40 Mg PO QHS Fluticasone Propionate Nasal Aspers (Fluticasone Propionate) 16 Gm Aspers.susp 2 Spr NIRMAL DAILY Aspirin 81 Mg Tab.chew 1 Tab PO DAILY Vitals/I & O Vital Sign - Last 24 Hours 01/08/21 01/08/21 01/08/21 01/08/21 09:14 09:38 09:43 10:38 Pulse 86 Resp 20 B/P (MAP) 135/68 Pulse Ox 99 98 O2 Delivery Nasal Cannula Nasal Cannula Nasal Cannula O2 Flow Rate 3.0 3.0 01/08/21 01/08/21 01/08/21 01/08/21 11:00 15:00 17:14 18:14 Temp 97.9 97.7 97.9 97.7 Pulse 96 94 Resp 20 B/P (MAP) 132/76 (94) 121/73 (89) Pulse Ox 98 99 98 98 O2 Delivery Room Air Room Air Nasal Cannula Nasal Cannula O2 Flow Rate 3.0 3.0 01/08/21 01/08/21 01/08/21 01/09/21 19:00 20:00 22:38 03:00 Temp 97.9 97.8 97.8 97.9 97.8 97.8 Pulse 101 101 104 Resp B/P (MAP) 122/70 (87) 128/74 (92) 134/70 (91) Pulse Ox 95 96 96 O2 Delivery Room Air Room Air Room Air Room Air 01/09/21 01/09/21 01/09/21 07:00 08:13 08:18 Temp 98.4 98.4 Pulse 78 94 Resp B/P (MAP) 152/78 (102) 152/78 Pulse Ox 97 96 O2 Delivery Nasal Cannula Room Air O2 Flow Rate 3.0 Intake and Output 01/08/21 01/08/21 01/09/21 15:00 23:00 07:00 Intake Total 400 ml 900 ml Output Total 400 ml 300 ml 300 ml Balance -400 ml 100 ml 600 ml Justicifation of Admission Dx: Justifications for Admission: Justification of Admission Dx: Yes TAMI BAR MD Jan 09, 2021 08:36
--- NOTE | 2021-01-09 08:49 | PDOC ---
Infectious Disease Note Subjective: Subjective Patient feels better Diarrhea has resolved Vital Signs: Vital Signs Vital Signs Date Time Temp Pulse Resp B/P (MAP) Pulse Ox O2 Delivery O2 Flow Rate FiO2 01/09/21 08:18 94 152/78 01/09/21 08:13 20 96 Room Air 01/09/21 07:00 98.4 3.0 98.4 Physical Exam: PHYSICAL EXAM GENERAL: Alert, oriented x 3, morbidly obese male, nontoxic appearing, lying in bed comfortably, HEENT: Normocephalic, atraumatic. Anicteric. No thrush. NECK: Fullness present. LUNGS: Decreased breath sounds bilaterally HEART: S1, S2. ABDOMEN: Morbidly obese. Bowel sounds present, no rebound or guarding EXTREMITIES: No edema, no cyanosis. DERMATOLOGIC: Warm and dry. No generalized rash. NEUROLOGIC: Alert, oriented x 3, grossly nonfocal. PSYCHIATRIC: Cooperative, appropriate mood and affect. Medications: Inpatient Meds: Medications reviewed. Labs: Lab Laboratory Tests Test 01/08/21 11:15 01/08/21 16:21 01/08/21 20:05 01/08/21 23:49 Glucose (Fingerstick) 105 mg/dL (70-99) 101 mg/dL (70-99) 126 mg/dL (70-99) 62 mg/dL (70-99) Test 01/09/21 00:13 01/09/21 07:33 Glucose (Fingerstick) 73 mg/dL (70-99) 137 mg/dL (70-99) Objective: Assessment: 1. Sepsis from gram-negative bacteremia. 2. Proteus Mirabella's bacteremia. 3. Fever. 4. Leukocytosis. 5. Lactic acidosis. 6. Proteus mirabilis urinary tract infection. 7. Nausea. 8. Morbid obesity. 9. Diabetes mellitus type 2. 10. Covid PCR negative 11. Cholelithiasis 12. Hypoxic respiratory failure, possible DENNIS Plan: Plan of Care Continue Augmentin for 7 days Probiotics C. difficile if patient has recurrence of diarrhea Trend WBC Continue supportive care ZIGGY ROBERTSON MD Jan 09, 2021 08:48
[2021-01-09] MEDS: INSULIN GLARGINE SYRINGE. SQ SCH (09:00)
--- NOTE | 2021-01-09 09:23 | PDOC ---
PULMONARY PROGRESS NOTES DATE: 01/09/21 TIME: 09:23 Subjective Patient not more short of air, has clinical symptoms and signs of obstructive sleep apnea. Vitals Vital Signs Date Time Temp Pulse Resp B/P (MAP) Pulse Ox O2 Delivery O2 Flow Rate FiO2 01/09/21 08:18 94 152/78 01/09/21 08:13 20 96 Room Air 01/09/21 07:00 98.4 3.0 98.4 ROS: No Nausea, No Chest Pain, No Abdominal Pain, No Increase Cough General: Alert, Oriented X4, No acute distress Lungs: Clear Cardiovascular: S1 Abdomen: Soft, Other (obese) Neuro Exam: Alert Extremities: No Edema, Other (Some edema) Labs Laboratory Tests Test 01/07/21 11:39 01/07/21 16:55 01/07/21 19:41 01/08/21 07:42 Glucose (Fingerstick) 185 mg/dL (70-99) 116 mg/dL (70-99) 193 mg/dL (70-99) 158 mg/dL (70-99) Test 01/08/21 08:20 01/08/21 11:15 01/08/21 16:21 01/08/21 20:05 White Blood Count 14.0 x10^3/uL (4.0-11.0) Red Blood Count 5.00 x10^6/uL (4.30-5.70) Hemoglobin 12.2 g/dL (13.0-17.5) Hematocrit 38.4 % (39.0-53.0) Mean Corpuscular Volume 77 fL (79-100) Mean Corpuscular Hemoglobin 24 pg (25-35) Mean Corpuscular Hemoglobin Concent 32 g/dL (31-37) Red Cell Distribution Width 15.3 % (11.5-14.5) Platelet Count 444 x10^3/uL (140-400) Neutrophils (%) (Auto) 74 % (31-73) Lymphocytes (%) (Auto) 16 % (24-48) Monocytes (%) (Auto) 7 % (0-9) Eosinophils (%) (Auto) 2 % (0-3) Basophils (%) (Auto) 0 % (0-3) Neutrophils # (Auto) 10.4 x10^3/uL (1.8-7.7) Lymphocytes # (Auto) 2.2 x10^3/uL (1.0-4.8) Monocytes # (Auto) 1.0 x10^3/uL (0.0-1.1) Eosinophils # (Auto) 0.3 x10^3/uL (0.0-0.7) Basophils # (Auto) 0.0 x10^3/uL (0.0-0.2) Sodium Level 138 mmol/L (136-145) Potassium Level 4.5 mmol/L (3.5-5.1) Chloride Level 99 mmol/L (98-107) Carbon Dioxide Level 30 mmol/L (21-32) Anion Gap 9 (6-14) Blood Urea Nitrogen 11 mg/dL (8-26) Creatinine 0.8 mg/dL (0.7-1.3) Estimated GFR (Cockcroft-Gault) 128.3 Glucose Level 162 mg/dL (70-99) Calcium Level 8.3 mg/dL (8.5-10.1) Iron Level 49 ug/dL (65-175) Total Iron Binding Capacity 232 ug/dL (250-450) Iron Saturation 21 % (15-34) Total Bilirubin 0.3 mg/dL (0.2-1.0) Direct Bilirubin 0.1 mg/dL (0.0-0.2) Aspartate Amino Transf (AST/SGOT) 32 U/L (15-37) Alanine Aminotransferase (ALT/SGPT) 68 U/L (16-63) Alkaline Phosphatase 130 U/L (46-116) Total Protein 7.8 g/dL (6.4-8.2) Albumin 2.6 g/dL (3.4-5.0) Glucose (Fingerstick) 105 mg/dL (70-99) 101 mg/dL (70-99) 126 mg/dL (70-99) Test 01/08/21 23:49 01/09/21 00:13 01/09/21 07:33 Glucose (Fingerstick) 62 mg/dL (70-99) 73 mg/dL (70-99) 137 mg/dL (70-99) Laboratory Tests Test 01/08/21 11:15 01/08/21 16:21 01/08/21 20:05 01/08/21 23:49 Glucose (Fingerstick) 105 mg/dL (70-99) 101 mg/dL (70-99) 126 mg/dL (70-99) 62 mg/dL (70-99) Test 01/09/21 00:13 01/09/21 07:33 Glucose (Fingerstick) 73 mg/dL (70-99) 137 mg/dL (70-99) Medications Active Scripts Medications Dose Route/Sig Max Daily Dose Days Date Category Novolog (Insulin Aspart) 100 Unit/1 Ml Cartridge 30 Unit SQ TIDWMEALS 01/02/21 Reported [place] 5-325 Tablet (Acetaminophen/Hydrocodone Bitart) 1 Each Tablet 1 Tab PO PRN Q6HRS PRN 5 09/26/20 Rx Pantoprazole Sodium (Pantoprazole Sodium) 40 Mg Tablet.dr 40 Mg PO DAILYAC 30 09/26/20 Rx Montelukast Sodium Tablet (Montelukast Sodium) 10 Mg Tablet 10 Mg PO QHS 30 09/26/20 Rx Cozaar (Losartan Potassium) 50 Mg Tablet 50 Mg PO DAILY 30 09/26/20 Rx Combivent Respimat Inhal (Ipratropium/Albuterol Sulfate) 4 Gm Aer.w.adap 2 Inh IH QID 30 09/26/20 Rx Prednisone 20 Mg Tablet 1 Tab PO DAILY 5 09/26/20 Rx Doxycycline Hyclate 100 Mg Tablet 100 Mg PO BID 7 09/26/20 Rx Sertraline Hcl 100 Mg Tablet 100 Mg PO DAILY 30 09/26/20 Rx Trazodone Hcl 100 Mg Tablet 100 Mg PO PRN QHS PRN 30 09/26/20 Rx Lantus Solostar (Insulin Glargine,Hum.rec.anlog) 100 Unit/1 Ml Insuln.pen 30 Unit SQ BID 30 09/26/20 Rx Atorvastatin Calcium 40 Mg Tablet 40 Mg PO QHS 12/09/18 Reported Fluticasone Propionate Nasal [place] (Fluticasone Propionate) 16 Gm [place].susp 2 Spr NIRMAL DAILY 12/09/18 Reported Aspirin 81 Mg Tab.chew 1 Tab PO DAILY 10/16/15 Reported Impression . IMPRESSION: 1. Acute hypoxic respiratory failure with high-grade fever. No definite infiltrates seen on the CT chest. 2. No significant tobacco history. 3. Morbid obesity with underlying sleep apnea. 4. Influenza screen negative. 5. Leukocytosis. 6. SARS-CoV-2 negative 7. UTI, per PCP 8. Sepsis from gram-negative bacteremia. 9. Proteus Mirabella's bacteremia. URINE CULTURE Final Final GREATER THAN 100,000 CFU/ML GRAM NEGATIVE RODS on 01/03/21 at 0821 FINAL ID= [PROTEUS MIRABILIS] Testing Performed by: [address] [address] For Inquires, the Physician may contact the Microbiology department at [phone] PROTEUS MIRABILIS Plan . Updated 01/08 Okay to discharge from my standpoint of view Outpatient polysomnogram Antibiotics per ID GI following up on C. difficile, and LFT updated 01/07 titrate oxygen to keep sats 90%, 6 min walk at DC SARS-CoV-2 negative Continue ABX per ID changed to po Educated on importance of weight loss Pt. would benefit from out patient sleep study [place] the importance of diagnosis tx discussed advised to lose wt and exercise DVT/GI PPX D/W RN Updated 01/04 SARS-CoV-2 negative, continue current support Discontinue steroids DVT GI prophylaxis Antibiotics per ID DVT GI prophylax TOPHER POPE MD Jan 09, 2021 09:23
[2021-01-09 11:00] VITALS: BP 129/67
--- NOTE | 2021-01-09 11:00 | PDOC3 ---
Discharge Summary Date of Admission: Jan 02, 2021 Date of Discharge: Jan 09, 2021 Follow-Up: 3-5 days Admitting Diagnosis comment: IMPRESSION Sepsis Acute respiratory failure with hypoxia REMAINS ON 3 LITERS NC Right pyelonephritis DM2 with hyperglycemia Moderate malnutrition COVID-19 PUI Sepsis from gram-negative bacteremia. Proteus Mirabella's bacteremia. super morbid obesity Plan: Patient received fluids and broad-spectrum antibiotics and the ED. Will continue treatment of asthma exacerbation and pyelonephritis with Rocephin daily and doxycycline IV twice daily. Consultation to pulmonology acute hypoxia COVID-19 PUI Treat empirically with Decadron 6 mg daily COVID-19 and influenza NEG Basal/prandial insulin; A1c pending. Resume home medications FEN - Cardiac diet PPX - Lovenox FULL CODE Continue Augmentin Check C. difficile PCR ALLAN Trend WBC 14 K today Probiotics May need repeat imaging Dispo - inpatient for above; patient names his girlfriend as his surrogate decision-maker. 01/09 Afebrile, some hypertension 4-18 Breathing room air; apparently is waiting for home CPAP machine. Will obtain 6-minute walk TODAY ON RA Will discharge on Augmentin twice daily to complete a 2-week course. 3 LARGE WATERY FOUL SMELLING STOOLS YESTERDAY NONE TODAY, C DIFF NOT SENT due to formed stools d/c planning 33 min 01/08/2021 Afebrile, some hypertension YESTERDAY Breathing on 3 L nasal cannula; apparently is waiting for home CPAP machine. Will obtain 6-minute walk OL TODAY ON RA Will discharge on Augmentin twice daily to complete a 2-week course. 3 LARGE WATERY FOUL SMELLING STOOLS TODAY SINCE 3 AM History of Present Illness History of Present Illness Patient is a 40 old male with past medical history asthma, hypertension, DM2, presents to the ER with complaints of worsening shortness of breath over the past 2 days. Reports associated nausea, vomiting, diarrhea, body aches, fever, chills, and polyuria. He has been taking his home albuterol inhaler, symptoms acutely worsened when he ran out with this medication. Upon arrival to the ED he was tachypnea, febrile, saturating 99% on [address] chest/abdomen/pelvis obtained on admission showed subtle right perinephric stranding; gallstones, no PE or chest abnormality. Will admit patient for further medical management. 01/07/2021 Afebrile, some hypertension this morning. Breathing on 3 L nasal cannula; apparently is waiting for home CPAP machine. Will obtain 6-minute walk prior to discharge tomorrow. Will discharge tomorrow on Augmentin twice daily to complete a 2-week course. 01/06/2021 Afebrile. Feeling well today. Speaking to me on room air at the time of my evaluation. Continue IV Rocephin. Anticipate discharge Friday on cefdinir. 01/05/2021 Patient seen and evaluated bedside. States he feels better, denies fever. Denies chest pain or diarrhea. Discussed with ID, will continue on IV Rocephin for now, and likely switch to cefdinir 100 mg p.o. twice daily for 10 days when ready to discharge likely on Friday. At that time will obtain 6-minute walk. Still breathing on 2 L nasal cannula; will need 6-minute walk prior to discharge due to suspected obesity hypoventilation syndrome or DENNIS. 01/04/2021 Patient seen and evaluated bedside. He is afebrile, currently breathing on 2 L nasal cannula. He is COVID-19 negative. Urine and blood cultures positive for Proteus mirabilis; sensitivities largely pansensitive except resistant to nitrofurantoin and tetracycline.. Will continue treatment of his pyelonephritis with Zosyn, per ID. He still complains of epigastric pain pain with deep inspiration, and flank pain. Some right upper quadrant tenderness on exam, he does report some pain after eating. On admission CT did show cholelithiasis. Will obtain ultrasound to rule out cholecystitis. Discussed with RN. 01/03/2021 Afebrile, currently breathing on 2 L nasal cannula. He denies any sensation of shortness of breath. Discussed with Dr. Luo, will concern for COVID-[address] results. COVID-19 test still pending at this time. Urine cultures positive for Proteus mirabilis; blood cultures positive for Proteus mirabilis as well. Continue treatment for pyelonephritis with Zosyn, per ID. Will follow sensitivities. If COVID-19 positive, will initiate remdesivir. Vitals Vitals Vital Signs Date Time Temp Pulse Resp B/P (MAP) Pulse Ox O2 Delivery O2 Flow Rate FiO2 01/09/21 08:18 94 152/78 01/09/21 08:13 20 96 Room Air 01/09/21 07:00 98.4 3.0 98.4 Physical Exam Physical Exam GENERAL: Alert, oriented x 3, morbidly obese male, nontoxic appearing, lying in bed comfortably, HEENT: Normocephalic, atraumatic. Anicteric. No thrush. NECK: Fullness present. LUNGS: Decreased breath sounds bilaterally HEART: S1, S2. ABDOMEN: Morbidly obese. Bowel sounds present, no rebound or guarding EXTREMITIES: No edema, no cyanosis. DERMATOLOGIC: Warm and dry. No generalized rash. NEUROLOGIC: Alert, oriented x 3, grossly nonfocal. PSYCHIATRIC: Cooperative, appropriate mood and affect. General: Alert, Oriented X3, Cooperative, No acute distress Heart: Regular rate, Normal S1, Normal S2 Lungs: Clear Abdomen: Normal bowel sounds, Soft, No tenderness, Other (Right upper quadrant tenderness resolved , very obese) Extremities: No clubbing, No cyanosis Skin: No rashes FINAL DIAGNOSIS Problems Medical Problems: (1) Hypomagnesemia Status: Acute (2) Pyelonephritis Status: Acute (3) Septic shock Status: Acute (4) Suspected 2019 novel coronavirus infection Status: Acute Brief Hospital Course Mr. Guillen is a 40 old [sex] who presented with [ gram neg sepsis ] CONDITION AT DISCHARGE: Improved Discharge Medications Current Medications Sodium Chloride 1,000 ml @ 1,000 mls/hr Q1H IV Last administered on 01/01/21at 21:52; Start 01/01/21 at 22:00; Stop 01/01/21 at 22:59; Status DC Fentanyl Citrate (Fentanyl 2ml Vial) 50 mcg 1X ONCE IVP Last administered on 21:54; Start 01/01/21 at 22:00; Stop 01/01/21 at 22:01; Status DC Ondansetron HCl (Zofran) 4 mg 1X ONCE IVP Last administered on 01/01/21at 21:54; Start 01/01/21 at 22:00; Stop 01/01/21 at 22:01; Status DC Acetaminophen (Tylenol) 500 mg 1X ONCE PO Last administered on 01/01/21at 21:54; Start 01/01/21 at 22:00; Stop 01/01/21 at 22:01; Status DC Dexamethasone Sodium Phosphate (Decadron) 10 mg 1X ONCE IVP Last administered on 01/01/21at 21:55; Start 01/01/21 at 22:00; Stop 01/01/21 at 22:01; Status DC Ceftriaxone Sodium (Rocephin) 1 gm 1X ONCE IVP ; Start 01/01/21 at 22:30; Stop 01/01/21 at 22:20; Status DC Levofloxacin/ Dextrose 150 ml @ 100 mls/hr 1X ONCE IV Last administered on 01/02/21at 00:22; Start 01/01/21 at 23:00; Stop 01/02/21 at 00:29; Status DC Piperacillin Sod/ Tazobactam Sod 4.5 gm/Sodium Chloride 100 ml @ 200 mls/hr 1X ONCE IV Last administered on 01/02/21at 00:15; Start 01/01/21 at 23:00; Stop 01/01/21 at 23:29; Status DC Iohexol (Omnipaque 350 Mg/ml) 100 ml 1X ONCE IV ; Start 01/01/21 at 23:30; Stop 01/01/21 at 23:31; Status DC Info (CONTRAST GIVEN -- Rx MONITORING) 1 each PRN DAILY PRN MC SEE COMMENTS; Start 01/01/21 at 23:15; Stop 01/03/21 at 23:14; Status DC Morphine Sulfate (Morphine Sulfate) 4 mg 1X ONCE IV Last administered on 01/02/21at 00:21; Start 01/02/21 at 00:30; Stop 01/02/21 at 00:31; Status DC Sodium Chloride 1,000 ml @ 1,000 mls/hr 1X ONCE IV Last administered on 01/02/21at 02:18; Start 01/02/21 at 00:30; Stop 01/02/21 at 01:29; Status DC Sodium Chloride 500 ml @ 500 mls/hr 1X ONCE IV Last administered on 01/02/21at 03:20; Start 01/02/21 at 00:30; Stop 01/02/21 at 01:29; Status DC Ondansetron HCl (Zofran) 4 mg PRN Q8HRS PRN IV NAUSEA/VOMITING 1ST CHOICE; Start 01/02/21 at 02:45; Stop 01/03/21 at 02:44; Status DC Fentanyl Citrate (Fentanyl 2ml Vial) 50 mcg PRN Q2HRS PRN IV SEVERE PAIN 7-10 Last administered on 01/02/21at 03:21; Start 01/02/21 at 02:45 Sodium Chloride 1,000 ml @ 125 mls/hr Q8H IV Last administered on 01/02/21at 17:38; Start 01/02/21 at 03:00; Stop 01/03/21 at 02:59; Status DC Acetaminophen (Tylenol) 650 mg PRN Q4HRS PRN PO FEVER > 100.3'F; Start 01/02/21 at 02:45; Stop 01/03/21 at 02:44; Status DC Insulin Human Lispro (HumaLOG) 0-5 UNITS TIDWMEALS SQ ; Start 01/02/21 at 08:00; Stop 01/02/21 at 07:18; Status DC Dextrose (Dextrose 50%-Water Syringe) 12.5 gm PRN Q15MIN PRN IV SEE COMMENTS; Start 01/02/21 at 02:45; Status Cancel Fluticasone/ Vilanterol (Breo Ellipta 100-25 Mcg) 1 puff DAILY INH Last administered on 01/09/21at 08:14; Start 01/02/21 at 09:00 Aspirin (Aspirin Chewable) 81 mg DAILY PO Last administered on 01/09/21at 08:09; Start 01/02/21 at 09:00 Atorvastatin Calcium (Lipitor) 40 mg QHS PO Last administered on 01/08/21at 20:57; Start 01/02/21 at 21:00 Fluticasone Propionate (Flonase) 2 spray DAILY NS Last administered on 01/09/21at 08:11; Start 01/02/21 at 09:00 Losartan Potassium (Cozaar) 50 mg DAILY PO Last administered on 01/09/21 08:18; Start 01/02/21 at 09:00 Montelukast Sodium (Singulair) 10 mg QHS PO Last administered on 01/08/21at 20:57; Start 01/02/21 at 21:00 Trazodone HCl (Desyrel) 100 mg PRN QHS PRN PO INSOMNIA Last administered on 01/05/21at 21:04; Start 01/02/21 at 07:15 Insulin Glargine (Lantus Syringe) 30 unit BID SQ Last administered on 01/08/21at 21:03; Start 01/02/21 at 09:00 Insulin Human Lispro (HumaLOG) 30 units TIDWMEALS SQ Last administered on 01/09/21at 08:29; Start 01/02/21 at 08:00 Dextrose (Dextrose 50%-Water Syringe) 12.5 gm PRN Q15MIN PRN IV SEE COMMENTS Last administered on 01/09/21at 00:25; Start 01/02/21 at 07:15 Dextrose (Iv Dextrose 5%) 250 ml PRN Q15MIN PRN IV SEE COMMENTS; Start 01/02/21 at 07:15; Status Cancel Insulin Human Lispro (HumaLOG) 0-9 UNITS TIDWMEALS SQ Last administered on 01/08/21at 09:35; Start 01/02/21 at 08:00 Ondansetron HCl (Zofran) 4 mg PRN Q6HRS PRN IVP NAUSEA/VOMITING Last administered on 01/07/21at 08:41; Start 01/02/21 at 07:15 Al Hydroxide/Mg Hydroxide (Mylanta Plus Xs) 30 ml PRN Q3HRS PRN PO HEARTBURN / GAS; Start 01/02/21 at 07:15 Calcium Carbonate/ Glycine (Tums) 500 mg PRN Q3HRS PRN PO UPSET STOMACH; Start 01/02/21 at 07:15 Morphine Sulfate (Morphine Sulfate) 2 mg PRN Q1HR PRN IV PAIN; Start 01/02/21 at 07:15 Acetaminophen/ Hydrocodone Bitart (Lortab 5/325) 1 tab PRN Q4HRS PRN PO MILD PAIN 1-3; Start 01/02/21 at 07:15 Acetaminophen/ Hydrocodone Bitart (Lortab 5/325) 2 tab PRN Q4HRS PRN PO MODERATE PAIN, SEVERE PAIN Last administered on 01/09/21at 08:13; Start 01/02/21 at 07:15 Acetaminophen (Tylenol) 650 mg PRN Q6HRS PRN PO Headaches, Temp > 101.5F; St art 01/02/21 at 07:15 Magnesium Hydroxide (Milk Of Magnesia) 2,400 mg PRN Q12HR PRN PO CONSTIPATION; Start 01/02/21 at 07:15 Bisacodyl (Dulcolax Supp) 10 mg PRN DAILY PRN NC CONSTIPATION-2ND CHOICE; Start 01/02/21 at 07:15 Enoxaparin Sodium (Lovenox 40mg Syringe) 40 mg Q24H SQ ; Start 01/02/21 at 07:15; Status UNV Dexamethasone Sodium Phosphate (Decadron) 6 mg DAILY IVP Last administered on 01/04/21at 09:06; Start 01/02/21 at 09:00; Stop 01/04/21 at 13:05; Status DC Enoxaparin Sodium (Lovenox 60mg Syringe) 60 mg Q12HR SQ Last administered on 01/09/21at 08:13; Start 01/02/21 at 09:00 Levofloxacin/ Dextrose 150 ml @ 100 mls/hr Q24H IV ; Start 01/02/21 at 21:00; Stop 01/02/21 at 10:00; Status DC Albuterol Sulfate (Ventolin Hfa) 1 puff PRN Q4HRS PRN INH WHEEZING Last administered on 01/04/21at 09:05; Start 01/02/21 at 09:30 Doxycycline Hyclate 100 mg/ Dextrose 100 ml @ 50 mls/hr Q12HR IV ; Start 01/02/21 at 11:00; Stop 01/02/21 at 12:17; Status DC Ceftriaxone Sodium (Rocephin) 2 gm Q24H IVP ; Start 01/02/21 at 11:00; Stop 01/02/21 at 12:17; Status DC Piperacillin Sod/ Tazobactam Sod (Zosyn Per Pharmacy) 1 each PRN DAILY PRN MC SEE COMMENTS; Start 01/02/21 at 12:15; Stop 01/05/21 at 13:50; Status DC Piperacillin Sod/ Tazobactam Sod 3.375 gm/Sodium Chloride 50 ml @ 100 mls/hr Q6HRS IV Last administered on 01/05/21at 11:51; Start 01/02/21 at 13:00; Stop 01/05/21 at 12:04; Status DC Ceftriaxone Sodium (Rocephin) 2 gm Q24H IVP Last administered on 01/06/21at 13:00; Start 01/05/21 at 13:00; Stop 01/07/21 at 08:20; Status DC Lactobacillus Rhamnosus (Culturelle) 1 cap BID PO Last administered on 01/09/21at 08:09; Start 01/05/21 at 21:00 Amoxicillin/ Clavulanate Potassium (Augmentin 875/ 125mg) 1 tab BID PO Last administered on 01/09/21at 08:12; Start 01/07/21 at 09:00 Hydralazine HCl (Apresoline Inj) 10 mg PRN Q4HRS PRN IVP ELEVATED BP, SEE COMMENTS; Start 01/07/21 at 12:00 Pantoprazole Sodium (Protonix) 40 mg DAILYAC PO Last administered on 01/09/21at 08:12; Start 01/08/21 at 16:30 Active Scripts Active [place] 5-325 Tablet (Acetaminophen/Hydrocodone Bitart) 1 Each Tablet 1 Tab PO PRN Q6HRS PRN 5 Days Pantoprazole Sodium (Pantoprazole Sodium) 40 Mg Tablet.dr 40 Mg PO DAILYAC 30 Days Montelukast Sodium Tablet (Montelukast Sodium) 10 Mg Tablet 10 Mg PO QHS 30 Days Cozaar (Losartan Potassium) 50 Mg Tablet 50 Mg PO DAILY 30 Days Combivent Respimat Inhal (Ipratropium/Albuterol Sulfate) 4 Gm Aer.w.adap 2 Inh IH QID 30 Days Prednisone 20 Mg Tablet 1 Tab PO DAILY 5 Days Doxycycline Hyclate 100 Mg Tablet 100 Mg PO BID 7 Days Sertraline Hcl 100 Mg Tablet 100 Mg PO DAILY 30 Days Trazodone Hcl 100 Mg Tablet 100 Mg PO PRN QHS PRN 30 Days Lantus Solostar (Insulin Glargine,Hum.rec.anlog) 100 Unit/1 Ml Insuln.pen 30 Unit SQ BID 30 Days Reported Novolog (Insulin Aspart) 100 Unit/1 Ml Cartridge 30 Unit SQ TIDWMEALS Atorvastatin Calcium 40 Mg Tablet 40 Mg PO QHS Fluticasone Propionate Nasal [place] (Fluticasone Propionate) 16 Gm [place].susp 2 Spr NIRMAL DAILY Aspirin 81 Mg Tab.chew 1 Tab PO DAILY Vital Signs Vital Signs Date Time Temp Pulse Resp B/P (MAP) Pulse Ox O2 Delivery O2 Flow Rate FiO2 01/09/21 08:18 94 152/78 01/09/21 08:13 20 96 Room Air 01/09/21 07:00 98.4 3.0 98.4 Labs Laboratory Tests Test 01/07/21 11:39 01/07/21 16:55 01/07/21 19:41 01/08/21 07:42 Glucose (Fingerstick) 185 mg/dL (70-99) 116 mg/dL (70-99) 193 mg/dL (70-99) 158 mg/dL (70-99) Test 01/08/21 08:20 01/08/21 11:15 01/08/21 16:21 01/08/21 20:05 White Blood Count 14.0 x10^3/uL (4.0-11.0) Red Blood Count 5.00 x10^6/uL (4.30-5.70) Hemoglobin 12.2 g/dL (13.0-17.5) Hematocrit 38.4 % (39.0-53.0) Mean Corpuscular Volume 77 fL (79-100) Mean Corpuscular Hemoglobin 24 pg (25-35) Mean Corpuscular Hemoglobin Concent 32 g/dL (31-37) Red Cell Distribution Width 15.3 % (11.5-14.5) Platelet Count 444 x10^3/uL (140-400) Neutrophils (%) (Auto) 74 % (31-73) Lymphocytes (%) (Auto) 16 % (24-48) Monocytes (%) (Auto) 7 % (0-9) Eosinophils (%) (Auto) 2 % (0-3) Basophils (%) (Auto) 0 % (0-3) Neutrophils # (Auto) 10.4 x10^3/uL (1.8-7.7) Lymphocytes # (Auto) 2.2 x10^3/uL (1.0-4.8) Monocytes # (Auto) 1.0 x10^3/uL (0.0-1.1) Eosinophils # (Auto) 0.3 x10^3/uL (0.0-0.7) Basophils # (Auto) 0.0 x10^3/uL (0.0-0.2) Sodium Level 138 mmol/L (136-145) Potassium Level 4.5 mmol/L (3.5-5.1) Chloride Level 99 mmol/L (98-107) Carbon Dioxide Level 30 mmol/L (21-32) Anion Gap 9 (6-14) Blood Urea Nitrogen 11 mg/dL (8-26) Creatinine 0.8 mg/dL (0.7-1.3) Estimated GFR (Cockcroft-Gault) 128.3 Glucose Level 162 mg/dL (70-99) Calcium Level 8.3 mg/dL (8.5-10.1) Iron Level 49 ug/dL (65-175) Total Iron Binding Capacity 232 ug/dL (250-450) Iron Saturation 21 % (15-34) Total Bilirubin 0.3 mg/dL (0.2-1.0) Direct Bilirubin 0.1 mg/dL (0.0-0.2) Aspartate Amino Transf (AST/SGOT) 32 U/L (15-37) Alanine Aminotransferase (ALT/SGPT) 68 U/L (16-63) Alkaline Phosphatase 130 U/L (46-116) Total Protein 7.8 g/dL (6.4-8.2) Albumin 2.6 g/dL (3.4-5.0) Glucose (Fingerstick) 105 mg/dL (70-99) 101 mg/dL (70-99) 126 mg/dL (70-99) Test 01/08/21 23:49 01/09/21 00:13 01/09/21 07:33 01/09/21 10:11 Glucose (Fingerstick) 62 mg/dL (70-99) 73 mg/dL (70-99) 137 mg/dL (70-99) 123 mg/dL (70-99) Laboratory Tests Test 01/08/21 11:15 01/08/21 16:21 01/08/21 20:05 01/08/21 23:49 Glucose (Fingerstick) 105 mg/dL (70-99) 101 mg/dL (70-99) 126 mg/dL (70-99) 62 mg/dL (70-99) Test 01/09/21 00:13 01/09/21 07:33 01/09/21 10:11 Glucose (Fingerstick) 73 mg/dL (70-99) 137 mg/dL (70-99) 123 mg/dL (70-99) Allergies Allergies Coded Allergies Type Severity Reaction Last Updated Verified Sulfa (Sulfonamide Antibiotics) Allergy Intermediate 3/30/16 Yes adhesive tape Allergy Intermediate skin sensitive to tape 12/20/15 Yes Disposition/Orders: D/C to Home Justicifation of Admission Dx: Justifications for Admission: Justification of Admission Dx: Yes TAMI BAR MD Jan 09, 2021 10:59
[2021-01-09] MEDS ORDERED: ACET325T21 PO (11:03)
[2021-01-09] MEDS ORDERED: LACT1CAP19 PO (11:03)
[2021-01-09] MEDS ORDERED: FLUT1AER2 INH (11:03)
[2021-01-09] MEDS ORDERED: AMOX1TAB11 PO (11:03)
--- NOTE | 2021-01-09 11:04 | DISCH ---
DISCHARGE INSTRUCTIONS Condition on Discharge Condition on Discharge: Stable Activity After Discharge Activity Instructions for Disc: Resume previous activity, Activity as tolerated Exercise Instruction after Dis: Progress as tolerated Driving Instructions after Dis: Do not drive today Weight Bearing Status after Di: As tolerated Diet after Discharge Diet after Discharge: Diabetic No Calorie Level Liquid Texture: Thin Liquid Wound Incision Care Wound/Incision Care: No wound care needed Checks after Discharge Checks after discharge: Check blood press - daily, Check blood sugar, ac/hs, Weigh Yourself Daily Contacting the DR. after DC Call your doctor for: If your condition worsens Follow-Up Follow up with: pcp this week Treatment/Equipment after DC Adaptive Equipment Issued: None TAMI BAR MD Jan 09, 2021 11:04
--- NOTE | 2021-01-09 13:15 | PDOC ---
Date of Service: DATE: 01/09/21 TIME: 13:11 Subjective: Subjective: Diarrhea is better. Right-sided pain w/ movement and breathing. Tolerating diet. Objective: Vital Signs: Vital Signs Date Time Temp Pulse Resp B/P (MAP) Pulse Ox O2 Delivery O2 Flow Rate FiO2 01/09/21 11:00 98.5 95 20 129/67 (87) 96 Room Air 98.5 01/09/21 09:13 3.0 Labs: Laboratory Tests Test 01/08/21 16:21 01/08/21 20:05 01/08/21 23:49 01/09/21 00:13 Glucose (Fingerstick) 101 mg/dL (70-99) 126 mg/dL (70-99) 62 mg/dL (70-99) 73 mg/dL (70-99) Test 01/09/21 07:33 01/09/21 10:11 Glucose (Fingerstick) 137 mg/dL (70-99) 123 mg/dL (70-99) PE: GEN: NAD LUNGS: diminished anteriorly HEART: RRR ABD: obese, non-tender NEURO/PSYCH: A & O 3 A/P: Bacteremia, UTI Diarrhea - improved, C Diff uncollected ACD GERD -- Has DC orders - okay per GI. Would send on PPI. Consider outpt EGD and colonoscopy for GERD and FH colon cancer. Justicifation of Admission Dx: Justifications for Admission: Justification of Admission Dx: Yes NEAL ABDALLA Jan 09, 2021 13:15
--- NOTE | 2021-01-09 15:15 | NUR ---
Patient discharged home per w/c to family. Patient has received discharge instructions, and verbalized understanding of same. Prescriptions were sent electronically to patient pharmacy, nurse confirmed receipt. Patient belongings from room taken with him, double check of room made for belongings.
== END 2021-01-09 15:15 | disposition home or self-care (01) | DRG 871 ==
LOC: ER 20:54 → 6 SOUTH 01-02 00:20
PROVIDERS: ADMIT Family Medicine; ATTEND Family Medicine
DX: A41.59 Other Gram-negative sepsis (principal); J96.01 Acute respiratory failure with hypoxia; R65.21 Severe sepsis with septic shock; N12 Tubulo-interstitial nephritis, not specified as acute or chronic; E44.0 Moderate protein-calorie malnutrition; Z68.44 Body mass index [BMI] 60.0-69.9, adult; Z16.29 Resistance to other single specified antibiotic; J45.901 Unspecified asthma with (acute) exacerbation; E11.65 Type 2 diabetes mellitus with hyperglycemia; Z20.822 Contact with and (suspected) exposure to COVID-19; E66.01 Morbid (severe) obesity due to excess calories; G47.33 Obstructive sleep apnea (adult) (pediatric); K80.20 Calculus of gallbladder without cholecystitis without obstruction; E11.42 Type 2 diabetes mellitus with diabetic polyneuropathy; E78.00 Pure hypercholesterolemia, unspecified; K21.9 Gastro-esophageal reflux disease without esophagitis; E83.42 Hypomagnesemia; I10 Essential (primary) hypertension; R16.0 Hepatomegaly, not elsewhere classified; R19.7 Diarrhea, unspecified; D50.9 Iron deficiency anemia, unspecified; Z80.0 Family history of malignant neoplasm of digestive organs; Z82.49 Family history of ischemic heart disease and other diseases of the circulatory system; Z83.3 Family history of diabetes mellitus; Z83.438 Family history of other disorder of lipoprotein metabolism and other lipidemia; Z87.891 Personal history of nicotine dependence
CPT/HCPCS: 36415; 71045; 71275; 74177; 76705; 80048; 80053; 80076; 81001; 82553; 82962; 83540; 83550; 83605; 83690; 83735; 84484; 85007; 85025; 85610; 85730; 87040; 87077; 87086; 87186; 87205; 87804; 93005; 94618; 96361; 96365; 96368; 96375; J0696; J1100; J1650; J1815; J1956; J2270; J2405; J2543; J3010; J7030; J7040; U0003; U0005; 99291-25; G0378